=== PATIENT | female | born 1940 | race Caucasian/White ===

== ENCOUNTER 2017-04-06 10:31 | Emergency (ER) | payer MEDICARE, BC ==
[2017-04-06] MEDS ORDERED: Sulfamethoxazole/Trimethoprim 800-160 MG Tab ONE (10:45)
[2017-04-06 14:09] VITALS: BP 153/75
--- NOTE | 2017-04-06 18:31 | CR ---
DATE OF SERVICE: 04/06/2017 CLINICAL DATA: Chest congestion. AP PORTABLE CHEST Comparison is made to a prior exam dated 08/20/2016. The patient is status post median sternotomy. The heart is enlarged. The pulmonary vasculature does appear prominent with some cephalization of flow consistent with pulmonary venous congestion. There is increased density in the left lung base consistent with basilar atelectasis or infiltrate. Pneumonia should be considered. There is blunting of the left costophrenic angle consistent with a small left pleural effusion. The exam is otherwise unchanged from the prior. [id number] [facility]
--- NOTE | 2017-04-07 05:56 | EDM.PDOC ---
ED HPI GENERAL MEDICAL PROBLEM - General Chief Complaint: Respiratory Problem Stated Complaint: congestion Time Seen by Provider: 04/06/17 10:35 Source of Information: Reports: Patient History Limitations: Reports: No Limitations - History of Present Illness INITIAL COMMENTS - FREE TEXT/NARRATIVE: This is a 77yo F here for chest congestion and cough. Patient states she has not been feeling well the past day or two. Patient denies any current fever or chills but states she had a fever at home. No sob or chest pain but a general feeling of being sick with sinus and chest congestion. Her is in the Hospital for pneumonia. Patient does have a history of COPD. 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 Generalized Pain Score (Numeric/FACES): 6 - Related Data Allergies Allergy/AdvReac Type Severity Reaction Status Date / Time codeine Allergy Other Verified 04/06/17 10:48 coumarin Allergy Bleeding Verified 04/06/17 10:49 Penicillins Allergy Hives Verified 04/06/17 10:49 Home Meds: Home Meds Acetaminophen [Tylenol] 325 mg PO Q6HR 02/18/16 [History] Acyclovir 400 mg PO DAILY 02/18/16 [History] Aspirin 81 mg PO DAILY 02/18/16 [History] Budesonide/Formoterol [Symbicort 160-4.5 MCG] 2 inh INH BID 02/18/16 [History] Calcium Carbonate/Vitamin D3 [Calcium 500 + Vit D 200 Caplet] 800 mg PO DAILY [History] Carvedilol 25 mg PO BID 02/18/16 [History] Digoxin 0.125 mcg PO DAILY 02/18/16 [History] Fluticasone Propionate [Flonase] 1 spray INH DAILY 02/18/16 [History] Furosemide [Lasix] 40 mg PO BID 02/18/16 [History] Ipratropium/Albuterol Sulfate [Iprat-Albut 0.5-3(2.5) mg/3 ml] 1 dose INH TID [History] Multivitamin [Multi-Vitamin Daily] 1 tab PO DAILY 02/18/16 [History] Roflumilast [Daliresp] 500 mcg PO DAILY 02/18/16 [History] Spironolactone [Aldactone] 25 mg PO ASDIRECTED 02/18/16 [History] Past Medical History HEENT History: Reports: Allergic Rhinitis, Cataract, Hard of Hearing Cardiovascular History: Reports: Heart Valve Replacement, Stents, Other (See Below) Other Cardiovascular History: endarterectomy Respiratory History: Reports: SOB, Other (See Below) Other Respiratory History: has had cough and sob x 6 days Gastrointestinal History: Reports: Cholelithiasis Other Gastrointestinal History: 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 (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) Other OB/BYN History: hysterectomy Endocrine/Metabolic History: Reports: Osteopenia Oncologic (Cancer) History: Reports: Breast - Infectious Disease History Infectious Disease History: Reports: Chicken Pox, Measles, Mumps, Rubella - Past Surgical History Cardiovascular Surgical History: Reports: Valve Replacement GI Surgical History: Reports: Appendectomy, Cholecystectomy Endocrine Surgical History: Reports: None Oncologic Surgical History: Reports: Mastectomy Social & Family History - Family History Cardiac: Reports: NM Neurological: Reports: Alzheimers Disease Endocrine/Metabolic: Reports: Diabetes, Gestational Immunologic: Reports: None Oncologic: Reports: Breast - Tobacco Use Smoking Status *Q: Former Smoker Years of Tobacco use: 30 Packs/Tins Daily: 1 Used Tobacco, but Quit: Yes Month Tobacco Last Used: Nov Second Hand Smoke Exposure: No - Caffeine Use Caffeine Use: Reports: Coffee, Tea - Recreational Drug Use Recreational Drug Use: No ED ROS GENERAL - Review of Systems Review Of Systems: ROS reveals no pertinent complaints other than HPI. ED EXAM, GENERAL - Physical Exam Exam: See Below Exam Limited By: No Limitations General Appearance: Alert, WD/WN, No Apparent Distress Eye Exam: Bilateral Eye: EOMI Ears: Normal External Exam Nose: Normal Inspection Throat/Mouth: Normal Inspection Head: Atraumatic, Normocephalic Neck: Normal Inspection, Supple, Non-Tender, Full Range of Motion Respiratory/Chest: No Respiratory Distress, Lungs Clear, Wheezing Cardiovascular: Normal Peripheral Pulses GI/Abdominal: Normal Bowel Sounds Extremities: Normal Inspection Neurological: Alert, Oriented, CN II-XII Intact Psychiatric: Normal Affect, Normal Mood Course - Vital Signs Last Recorded V/S: Last Vital Signs Temp 37.1 C 04/06/17 14:06 Pulse 75 04/06/17 14:06 Resp 18 04/06/17 14:06 BP 153/75 H 04/06/17 14:06 Pulse Ox 100 04/06/17 14:06 - Orders/Labs/Meds Labs: Laboratory Tests 04/06/17 04/06/17 Range/Units 10:56 11:11 WBC 11.3 H D (4.0-11.0) K/uL RBC 3.76 L (3.80-5.80) M/uL Hgb 11.5 (11.5-16.5) g/dL Hct 35.2 L (37.0-47.0) % MCV 94 (76-96) fL MCH 30.6 (27.0-32.0) pg MCHC 32.7 (31.0-35.0) g/dL RDW 14.3 (11.0-16.0) % Plt Count 127 L D (150-500) K/uL MPV 10.3 H (6.0-10.0) fL Neut % (Auto) 81.6 H (45.0-70.0) % Lymph % (Auto) 6.1 L (20.0-40.0) % [place] % (Auto) 9.9 (3.0-10.0) % Eos % (Auto) 2.1 (1.0-5.0) % Baso % (Auto) 0.3 (0.0-0.5) % Neut # (Auto) 9.23 H (2.00-7.50) K/uL Lymph # (Auto) 0.69 L (1.50-4.00) K/uL [place] # (Auto) 1.12 H (0.20-0.80) K/uL Eos # (Auto) 0.24 (0.04-0.40) K/uL Baso # (Auto) 0.03 (0.02-0.10) K/uL Sodium 137 (136-145) mmol/L Potassium 3.3 L (3.5-5.1) mmol/L Chloride 98 (98-107) mmol/L Carbon Dioxide 32.9 H (21.0-32.0) mmol/L Anion Gap 9.4 (5.0-15.0) mmol/L BUN 33 H D (8-26) mg/dL Creatinine 1.42 H (0.55-1.02) mg/dL Est Cr Clr Drug Dosing TNP Estimated GFR (MDRD) 36 L (>60) MLS/MIN BUN/Creatinine Ratio 23.2 (6-25) Glucose 124 H D (74-100) mg/dL Calcium 8.7 (8.5-10.1) mg/dL Total Bilirubin 0.8 (0.0-1.0) mg/dL AST 24 (15-37) U/L ALT 37 (12-78) U/L Alkaline Phosphatase 43 L (46-116) U/L B-Natriuretic Peptide 1571 H (0-450) pg/mL Total Protein 6.9 (6.4-8.2) g/dL Albumin 3.4 (3.4-5.0) g/dL Globulin 3.5 (2.2-4.2) g/dL Albumin/Globulin Ratio 1.0 (0.8-2.0) Departure - Departure Time of Disposition: 11:30 Disposition: Home, Self-Care 01 Condition: good Clinical Impression: Chest congestion, Cough - Discharge Information Instructions: Chronic Obstructive Pulmonary Disease Exacerbation, [id number] , Acute Bronchitis, [id number], Upper Respiratory Infection, Adult, Easy-to- Read, Heart Failure, [id number], Heart Failure Referrals: PCP,None [Primary Care Provider] - Forms: ED Department Discharge - Problem List Review Problem List Initiated/Reviewed/Updated: Yes - Assessment/Plan Plan: Counseled on supportive care and management. Discussed use of antibiotics and side effects and for close monitoring and f/u if symptoms persist or worsen to return to the ER or in clinic for evaluation.
== END 2017-04-06 11:55 | disposition home or self-care (01) ==
LOC: LB.ED 10:31
DX: R09.89 Other specified symptoms and signs involving the circulatory and respiratory systems (principal); R05 Cough; R06.02 Shortness of breath; Z88.5 Allergy status to narcotic agent; Z88.0 Allergy status to penicillin; Z88.8 Allergy status to other drugs, medicaments and biological substances; Z79.82 Long term (current) use of aspirin; Z79.899 Other long term (current) drug therapy; Z95.2 Presence of prosthetic heart valve; Z90.49 Acquired absence of other specified parts of digestive tract; Z87.891 Personal history of nicotine dependence
CPT/HCPCS: 36415; 71010; 80053; 83880; 85025; 99283; A9270

== ENCOUNTER 2017-12-12 08:43 | Day surgery (SDC) | payer MEDICARE, BC ==
[~2017-12-12 08:43] MED LIST: Metoclopramide 10 MG/2 ML SDV IV PRN; Sodium Chloride 0.9% 1,000 ML IV SCH; Sodium Chloride 0.9% 10 ML Syringe FLUSH PRN
[2017-12-12] MEDS ORDERED: Propofol 200 MG/20 ML SDV ONE (10:50)
[2017-12-12 11:37] VITALS: BP 139/69
--- NOTE | 2017-12-12 17:20 | OR ---
DATE OF OPERATION: 12/12/2017 PREOPERATIVE DIAGNOSIS: Screening colonoscopy. POSTOPERATIVE DIAGNOSIS: Normal colonoscopy. OPERATION: Screening colonoscopy. COMPLICATIONS: None. DRAINS: None. SPECIMENS: None. ESTIMATED BLOOD LOSS: Zero. ANESTHESIA: General propofol anesthesia. INDICATION: Ms. Willett is a 77-year-old female here for her 10 yearly screening colonoscopy. She is currently asymptomatic and of average risk. The above-mentioned procedure was explained. The risks, benefits, and complications were explained. The patient understood and agreed, and she was brought to the operating room. DESCRIPTION OF PROCEDURE: The patient was brought to the operating room, placed in a left lateral decubitus position on the operating room table. Satisfactory general propofol anesthesia was administered. We began by performing a rectal examination which was within normal limits. There was some perineal descent and some slightly hypotensive anal sphincter, but this was within normal limits. Next, I placed the endoscope by finger introduction into the rectum and subsequently advanced to the level of the cecum. We then evaluated the mucosa on withdrawal. The cecum was identified by the appendiceal orifice, the cecal strap, and the ileocecal valve. Next, careful evaluation of mucosa revealed no significant abnormalities. No telangiectasias, polyps, neoplastic growths, or diverticula were identified. The remainder of the colon appeared normal. Next, we performed a retroflexion maneuver in the rectum. This was within normal limits. Next, I decompressed the colon, removed the endoscope. The patient tolerated procedure well. There were no complications. Instrument count was correct. CHEN/ARAM /[id number]
== END 2017-12-12 12:20 | disposition home or self-care (01) ==
LOC: LB.SDS 08:43
PROVIDERS: ATTEND Surgery
DX: Z12.11 Encounter for screening for malignant neoplasm of colon (principal); M19.90 Unspecified osteoarthritis, unspecified site; G45.1 Carotid artery syndrome (hemispheric); J44.9 Chronic obstructive pulmonary disease, unspecified; I50.9 Heart failure, unspecified; E78.5 Hyperlipidemia, unspecified; M81.0 Age-related osteoporosis without current pathological fracture; J30.2 Other seasonal allergic rhinitis; Z95.2 Presence of prosthetic heart valve; Z88.5 Allergy status to narcotic agent; Z88.8 Allergy status to other drugs, medicaments and biological substances; Z88.0 Allergy status to penicillin; Z88.2 Allergy status to sulfonamides; Z88.6 Allergy status to analgesic agent; Z79.899 Other long term (current) drug therapy; Z79.82 Long term (current) use of aspirin; Z79.51 Long term (current) use of inhaled steroids; Z90.49 Acquired absence of other specified parts of digestive tract; Z90.10 Acquired absence of unspecified breast and nipple; Z98.890 Other specified postprocedural states; Z90.710 Acquired absence of both cervix and uterus; Z96.659 Presence of unspecified artificial knee joint; Z90.722 Acquired absence of ovaries, bilateral; Z87.891 Personal history of nicotine dependence; Z85.3 Personal history of malignant neoplasm of breast
CPT/HCPCS: J2704

== ENCOUNTER 2018-02-10 18:05 | Inpatient (IN) | payer MEDICARE, BC ==
[2018-02-10] MEDS ORDERED: cefTRIAXone 1 GM in Sodium Chloride 0.9% 50 ML IV SCH (19:10)
[2018-02-10] MEDS ORDERED: Azithromycin 500 MG Tab ONE (20:09)
[2018-02-10] MEDS ORDERED: Aspirin 81 MG Tab.EC ONE (20:09)
[2018-02-10] MEDS: Azithromycin 250 MG Tab PO SCH (20:10)
[2018-02-10] MEDS: Aspirin 81 MG Tab.Chew PO SCH (20:10)
[2018-02-10] MEDS: Albuterol/Ipratropium 3.0-0.5 MG/3 ML Neb Soln NEB SCH ×2 (23:23→23:30)
[2018-02-11] MEDS: Sodium Chloride 0.9% 10 ML Syringe FLUSH SCH ×2 (07:50→20:06)
[2018-02-11] MEDS: Carvedilol 25 MG Tab PO SCH ×2 (07:50→20:02)
[2018-02-11] MEDS ORDERED: Furosemide 40 MG Tab PO SCH (08:00)
[2018-02-11] MEDS ORDERED: Digoxin 125 MCG Tab PO SCH (08:00)
[2018-02-11] MEDS: predniSONE 20 MG Tab PO SCH (08:11)
[2018-02-11] MEDS: Azithromycin 250 MG Tab PO SCH (08:13)
[2018-02-11] MEDS: Albuterol/Ipratropium 3.0-0.5 MG/3 ML Neb Soln NEB SCH ×4 (08:13→21:14)
[2018-02-11] MEDS: Roflumilast 500 MCG Tab PO SCH (08:13)
[2018-02-11] MEDS: Acyclovir 400 MG Tab PO SCH (08:14)
[2018-02-11] MEDS: Heparin Sodium 5,000 UNITS/0.5 ML Syringe SUBCUT SCH ×2 (08:42→20:03)
--- NOTE | 2018-02-11 10:34 | PN ---
DATE OF VISIT: 02/11/2018 SUBJECTIVE: A 78-year-old female who I am resuming care for this morning after she was admitted last evening with a left lower lobe pneumonia on top of her COPD. The patient states that she had not been feeling well for about a week prior to admission and the day of admission. She developed a fever up to 101 and presented to the emergency room with worsening shortness of breath. She did have a cough that was really not productive. No travel history. No one else sick at home and no pets at home. She does have a history of COPD, and about a month earlier, was on Levaquin for "bronchitis." Prior to that she had been on antibiotics last year, on Cipro and Levaquin. At baseline, she does quite well. She is able to push her around in a wheelchair without much difficulty. She has not been on prednisone for quite some time due to herpetic eye infection last summer. She states she feels better this morning than she did when she came in last night. She still has a cough and feels very tired. Otherwise, no other complaints. OBJECTIVE: VITAL SIGNS: Reveal a blood pressure 140/90, pulse is 91, respirations 20, O2 sats 99% on room air, temperature 98.4. Weight is 128 pounds. HEENT: Really unremarkable. There is no adenopathy or thyromegaly. CHEST: Reveals decreased breath sounds bilaterally, but with considerable crackles in the left base and with some end-expiratory wheezes. Cough sounds very productive. CARDIAC: Reveals a regular rate and rhythm. No gallop or rub. There is a 2/6 systolic ejection murmur, but no diastolic murmur. No gallop. JVD is flat. No pedal edema. ABDOMEN: Benign. EXAM: Deferred. EXTREMITIES: Lower extremity, there is no edema. There is no calf or thigh tenderness to palpation. LABORATORY DATA: From admission revealed a leukocytosis at 15.5 with a left shift. Hemoglobin 11.1, platelet count 146,000. Electrolytes were normal with the exception of a creatinine of 1.54, BUN of 47. Urinalysis was benign. Chest x-ray reveals flattened diaphragms consistent with COPD with a left lower lobe infiltrate. IMPRESSION: 1. Left lower lobe infiltrate with chronic obstructive pulmonary disease. 2. Chronic obstructive pulmonary disease. 3. Chronic renal insufficiency, stage 3. 4. History of left eye herpetic infection. 5. 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 6. Hypertension. PLAN: 1. The patient will continue on azithromycin and Rocephin for her pneumonia. Good pulmonary toilet with spirometry and we do not have an Acapella here. We will try and obtain a sputum culture for analysis due to her numerous antibiotic use in the past. Continue with nebs q.i.d. and oral prednisone. 2. We will hold her Lasix for 24-48 hours due to her mildly worsened renal insufficiency, which is most likely prerenal. No nonsteroidals. 3. Deep vein thrombosis prophylaxis with subcu heparin due to her renal insufficiency. 4. Hypertension. Continue her home antihypertensive medications. 5. History of herpetic eye infection. No evidence of any recurrence currently. Continue on her acyclovir and will need to watch closely since she is on prednisone. BERNARDO/ARAM /[id number] ARNALDO
[2018-02-11] MEDS: cefTRIAXone 1 GM in Sodium Chloride 0.9% 50 ML IV SCH (10:39)
--- NOTE | 2018-02-11 11:00 | CR ---
PA AND LATERAL CHEST, 02/10/18 Comparison id made to a prior exam dated 04/06/17. The patient is status post median sternotomy. The heart is mildly enlarged. It is unchanged from the prior exam. There is calcification of the aortic arch. There is a poorly defined density in the left lung base consistent with basilar atelectasis or infiltrate. Pneumonia is suspected. There is slight blunting of the left costophrenic angle posteriorly on the lateral view consistent with small left pleural effusion. The exam is otherwise unchanged from the prior. [id number] [facility]
[2018-02-11] MEDS ORDERED: LORazepam 0.5 MG Tab PO PRN (17:24)
[2018-02-11] MEDS ORDERED: Heparin Sodium 5,000 Units/ML Vial ONE (19:54)
[2018-02-11] MEDS: Aspirin 81 MG Tab.Chew PO SCH (20:01)
[2018-02-12] MEDS: Albuterol/Ipratropium 3.0-0.5 MG/3 ML Neb Soln NEB SCH ×2 (00:22→05:33)
[2018-02-12] MEDS: Sodium Chloride 0.9% 10 ML Syringe FLUSH SCH (07:19)
[2018-02-12 07:21] VITALS: BP 149/77
[2018-02-12] MEDS: predniSONE 20 MG Tab PO SCH (07:37)
[2018-02-12] MEDS: Roflumilast 500 MCG Tab PO SCH (07:37)
[2018-02-12] MEDS: Carvedilol 25 MG Tab PO SCH (07:37)
[2018-02-12] MEDS: Azithromycin 250 MG Tab PO SCH (07:38)
[2018-02-12] MEDS: Acyclovir 400 MG Tab PO SCH (07:40)
[2018-02-12] MEDS ORDERED: Heparin Sodium 5,000 Units/ML Vial ONE (08:03)
--- NOTE | 2018-02-12 08:45 | DISCH ---
DATE OF DISCHARGE: 02/12/2018 DISCHARGE DIAGNOSES: 1. Left lower lobe pneumonia, community-acquired. 2. Mild dehydration with renal insufficiency. 3. Chronic obstructive pulmonary disease, severe. 4. History of left eye herpetic infection. 5. History of aortic and mitral valve replacement. 6. Hypertension. PROCEDURES THIS ADMISSION: None. HOSPITAL COURSE: A 78-year-old female was admitted with shortness of breath and fever and chest x-ray revealed a left lower lobe infiltrate. White count was elevated at 15,000. The patient was started on Rocephin and azithromycin, and she rapidly defervesced. The patient's breathing improved. Sputum culture was sent and is pending at the time of this dictation. The patient was up ambulating within the room and was started on prednisone on admission and wheezing markedly improved. Since patient felt she was at baseline, she will be discharged to home on a course of azithromycin and prednisone taper. The patient was mildly dehydrated on admission and creatinine mildly increased from her baseline of stage 3 chronic kidney disease. This stabilized. Vital signs were stable. The patient will resume her Lasix upon discharge. MEDICATIONS UPON DISCHARGE: 1. Zithromax 500 mg daily for 7 days. 2. Aspirin 81 mg daily. 3. DuoNeb 1 q.6 hours. 4. Coreg 25 mg b.i.d. 5. Roflumilast 500 mg daily. 6. Lasix 40 mg b.i.d. 7. Prednisone 40 mg daily for 3 days, 20 mg daily for 5 days, 10 mg daily for 5 days. 8. Acyclovir 400 mg daily. PLAN: The patient is on no added salt diet, up ambulating and without difficulty. The patient will have follow up in the clinic next week. She is to report any fevers or worsening shortness of breath. BERNARDO/ARAM /[id number] ARNALDO
[2018-02-12] MEDS: Heparin Sodium 5,000 UNITS/0.5 ML Syringe SUBCUT SCH (10:03)
[2018-02-12] MEDS: cefTRIAXone 1 GM in Sodium Chloride 0.9% 50 ML IV SCH (10:03)
== END 2018-02-12 11:08 | disposition home or self-care (01) | DRG 194 ==
LOC: LB.ED 18:05 → UNDOADMIN 19:00 → LB.MS 19:00
PROVIDERS: ADMIT Family Medicine; ATTEND Internal Medicine
DX: J18.9 Pneumonia, unspecified organism (principal); J44.0 Chronic obstructive pulmonary disease with (acute) lower respiratory infection; I13.0 Hypertensive heart and chronic kidney disease with heart failure and stage 1 through stage 4 chronic kidney disease, or unspecified chronic kidney disease; E86.0 Dehydration; J44.9 Chronic obstructive pulmonary disease, unspecified; N18.3 Chronic kidney disease, stage 3 (moderate); R06.02 Shortness of breath; R05 Cough; R50.9 Fever, unspecified; Z95.2 Presence of prosthetic heart valve; I50.9 Heart failure, unspecified; Z79.82 Long term (current) use of aspirin; Z88.5 Allergy status to narcotic agent; Z88.0 Allergy status to penicillin; Z88.2 Allergy status to sulfonamides; Z88.8 Allergy status to other drugs, medicaments and biological substances
CPT/HCPCS: 36415; 71046; 80048; 80162; 81001; 85025; 87070; 87205; 99284; A9270-GY; J0696; J1644-GY; J7050; J7620

== ENCOUNTER 2018-08-03 16:20 | Inpatient (IN) | payer MEDICARE, BC ==
[2018-08-03] MEDS: Sodium Chloride 0.9% 1,000 ML IV SCH (17:30)
[2018-08-03] MEDS: Levofloxacin/Dextrose 5%-Water 500 MG in Premix Bag 1 BAG IV SCH (17:34)
[2018-08-03] MEDS ORDERED: Acetaminophen 500 MG Tab PO PRN (17:48)
--- NOTE | 2018-08-03 18:20 | PCM.HP ---
H&P History of Present Illness - General Date of Service: 08/03/18 Admit Problem/Dx: left lower lobe infiltrate Source of Information: Patient History Limitations: Reports: No Limitations - History of Present Illness Initial Comments - Free Text/Narative: 78 yr female admit for pulmonary infiltrate, pneumonia. She has tried oral antibiotic at home with no improvement. She does have COPD and is using her duo -neb qid and Symbicort inhaler bid. She is weak, fatigued, short of breath with her coughing and having some bronchospasm. She does live alone in the apartment complex in [facility]. - Related Data Allergies/Adverse Reactions: Allergies Allergy/AdvReac Type Severity Reaction Status Date / Time codeine Allergy Other Verified 04/06/17 10:48 Penicillins Allergy Hives Verified 04/06/17 10:49 warfarin [From Coumadin] AdvReac Bleeding Verified 02/12/18 06:05 Home Medications: Home Meds Acyclovir 400 mg PO DAILY 02/18/16 [History] Aspirin 81 mg PO DAILY 02/18/16 [History] Budesonide/Formoterol [Symbicort 160-4.5 MCG] 2 inh INH BID 02/18/16 [History] Calcium Carbonate/Vitamin D3 [Calcium 500-Vit D3 200 Caplet] 800 mg PO DAILY 08/25 [History] Carvedilol 25 mg PO BID 02/18/16 [History] Fluticasone Propionate [Flonase] 1 spray INH DAILY 02/18/16 [History] Ipratropium/Albuterol Sulfate [Iprat-Albut 0.5-3(2.5) mg/3 ml] 1 dose INH TID [History] Multivitamin [Multi-Vitamin Daily] 1 tab PO DAILY 02/18/16 [History] Roflumilast [Daliresp] 500 mcg PO DAILY 02/18/16 [History] Spironolactone [Aldactone] 25 mg PO ASDIRECTED 02/18/16 [History] Acetaminophen [Pain Relief Extra Strength] 500 mg PO Q6HR PRN 02/11/18 [History] Acyclovir [IJP: Acyclovir] 400 mg PO DAILY tablet 02/12/18 [Rx] Albuterol/Ipratropium [DuoNeb 3.0-0.5 MG/3 ML] 3 ml NEB Q6H neb 02/12/18 [Rx] Aspirin 81 mg PO BEDTIME tab.chew 02/12/18 [Rx] Azithromycin [Zithromax] 500 mg PO DAILY 7 Days #7 tablet 02/12/18 [Rx] Carvedilol [Coreg] 25 mg PO BID tablet 02/12/18 [Rx] Furosemide [Lasix] 40 mg PO BIDDIURETIC tablet 02/12/18 [Rx] Prednisone [IJD: predniSONE] 40 mg PO DAILY #14 tablet 02/12/18 [Rx] Roflumilast [Daliresp] 500 mcg PO DAILY tablet 02/12/18 [Rx] Past Medical History HEENT History: Reports: Allergic Rhinitis, Cataract, Hard of Hearing Cardiovascular History: Reports: Heart Valve Replacement, Stents, Other (See Below) Other Cardiovascular History: endarterectomy Respiratory History: Reports: SOB, Other (See Below) Other Respiratory History: has had cough and sob x 6 days Gastrointestinal History: Reports: Cholelithiasis Other Gastrointestinal History: appy Genitourinary History: Reports: UTI, Recurrent [employer] History: Reports: , Other (See Below) Other OB/BYN History: hysterectomy Musculoskeletal History: Reports: Arthritis, Fracture Other Musculoskeletal History: Fx L tib fib 1980 Endocrine/Metabolic History: Reports: Osteoporosis Oncologic (Cancer) History: Reports: Breast - Infectious Disease History Infectious Disease History: Reports: Chicken Pox, Measles, Mumps - Past Surgical History HEENT Surgical History: Reports: Other (See Below) Other HEENT Surgeries/Procedures: CEA February 2013 Cardiovascular Surgical History: Reports: Valve Replacement GI Surgical History: Reports: Appendectomy, Cholecystectomy Female Surgical History: Reports: Hysterectomy Endocrine Surgical History: Reports: None Musculoskeletal Surgical History: Reports: Knee Replacement Oncologic Surgical History: Reports: Mastectomy Social & Family History - Family History Family Medical History: Noncontributory Cardiac: Reports: NE Neurological: Reports: Alzheimers Disease Endocrine/Metabolic: Reports: Diabetes, Gestational Immunologic: Reports: None Oncologic: Reports: Breast - Caffeine Use Caffeine Use: Reports: Coffee Caffeine Use Comment: 3 cups a day H&P Review of Systems - Review of Systems: Review Of Systems: See Below General: Reports: Fever, Malaise, Weakness, Fatigue HEENT: Reports: No Symptoms Pulmonary: Reports: Shortness of Breath, Cough, Sputum Cardiovascular: Reports: Dyspnea on Exertion, Other (Hypertension, hyperlipidemia). Denies: Chest Pain, Edema Gastrointestinal: Reports: No Symptoms Genitourinary: Reports: No Symptoms Musculoskeletal: Reports: Other (osteoporosis, arthritis) Skin: Reports: Other (Hx of herpes simplex and takes Axyclovir daily) Psychiatric: Reports: No Symptoms Neurological: Reports: No Symptoms Hematologic/Lymphatic: Reports: No Symptoms Immunologic: Reports: Seasonal Allergy Exam - Exam Exam: See Below - Vital Signs Vital Signs: Last Vital Signs Temp 99.3 F 08/03/18 16:39 Pulse 83 08/03/18 16:39 Resp 18 08/03/18 16:39 BP 124/56 L 08/03/18 16:39 Pulse Ox 97 08/03/18 16:39 - Exam General: Alert, Oriented, Cooperative HEENT: PERRLA, Mucosa Moist & [place], Glasses Neck: Supple, Trachea Midline Lungs: Decreased Breath Sounds (to bases), Rhonchi (mid lung raymond), Wheezing Cardiovascular: Regular Rate, Regular Rhythm GI/Abdominal Exam: Soft, Non-Tender Extremities: Non-Tender, No Pedal Edema Skin: Warm, Dry Neuro Extensive - Mental Status: Alert, Oriented x3, Normal Cognition Neuro Extensive - Motor, Sensory, Reflexes: Normal Gait, Other (kyphosis) Psychiatric: Alert, Normal Affect, Normal Mood - Patient Data Lab Results Last 24 hrs: Laboratory Results - last 24 hr 08/03/18 08/03/18 Range/Units 16:28 16:28 WBC 8.9 (4.0-11.0) K/uL RBC 3.67 L (3.80-5.80) M/uL Hgb 11.0 L (11.5-16.5) g/dL Hct 33.7 L (37.0-47.0) % MCV 92 (76-96) fL MCH 30.0 (27.0-32.0) pg MCHC 32.6 (31.0-35.0) g/dL RDW 14.5 (11.0-16.0) % Plt Count 164 D (150-500) K/uL MPV 10.3 H (6.0-10.0) fL Neut % (Auto) 80.8 H (45.0-70.0) % Lymph % (Auto) 7.4 L (20.0-40.0) % [place] % (Auto) 10.0 (3.0-10.0) % Eos % (Auto) 1.5 (1.0-5.0) % Baso % (Auto) 0.3 (0.0-0.5) % Neut # (Auto) 7.17 (2.00-7.50) K/uL Lymph # (Auto) 0.66 L (1.50-4.00) K/uL [place] # (Auto) 0.89 H (0.20-0.80) K/uL Eos # (Auto) 0.13 (0.04-0.40) K/uL Baso # (Auto) 0.03 (0.02-0.10) K/uL Sodium 140 (136-145) mmol/L Potassium 3.9 (3.5-5.1) mmol/L Chloride 100 (98-107) mmol/L Carbon Dioxide 31.5 (21.0-32.0) mmol/L Anion Gap 12.4 (5.0-15.0) mmol/L BUN 32 H (8-26) mg/dL Creatinine 1.50 H (0.55-1.02) mg/dL Est Cr Clr Drug Dosing TNP Estimated GFR (MDRD) 34 L (>60) MLS/MIN BUN/Creatinine Ratio 21.3 (6-25) Glucose 136 H D (74-100) mg/dL Calcium 8.6 (8.5-10.1) mg/dL Total Bilirubin 0.9 (0.0-1.0) mg/dL AST 24 (15-37) U/L ALT 30 (12-78) U/L Alkaline Phosphatase 55 (46-116) U/L Total Protein 7.1 (6.4-8.2) g/dL Albumin 3.1 L (3.4-5.0) g/dL Globulin 4.0 (2.2-4.2) g/dL Albumin/Globulin Ratio 0.8 (0.8-2.0) Result Diagrams: 08/03/18 16:28 08/03/18 16:28 - Problem List (1) COPD (chronic obstructive pulmonary disease) SNOMED Code(s): 24660650 ICD Code: J44.9 - CHRONIC OBSTRUCTIVE PULMONARY DISEASE, UNSPECIFIED Status : Acute Current Visit: No Onset Date: ~02/09/18 Problem Details: 4/2/18 - LLL pneumonia & COPD (2) Left lower lobe pneumonia SNOMED Code(s): 507352388 ICD Code: J18.1 - LOBAR PNEUMONIA, UNSPECIFIED ORGANISM Status: Acute Current Visit: No Onset Date: ~02/09/18 Problem Details: 02/09/18 - LLL pneumonia & COPD Problem List Initiated/Reviewed/Updated: Yes Orders Last 24hrs: Active Orders 24 hr Category Date Time Status Oxygen Therapy [RC] PRN Care 08/03/18 17:11 Active Up With Assistance [RC] ASDIRECTED Care 08/03/18 17:10 Active Vital Signs [RC] Q4H Care 08/03/18 17:10 Active Regular Diet [DIET] Diet 08/03/18 Dinner Ordered Acetaminophen [Tylenol Extra Strength] Med 08/03/18 17:48 Ordered 500 mg PO Q6HR PRN Acyclovir [Zovirax] Med 08/04/18 08:00 Ordered 400 mg PO DAILY Albuterol/Ipratropium [DuoNeb 3.0-0.5 MG/3 ML] Med 08/03/18 18:00 Ordered 3 ml NEB Q6H Aspirin Med 08/03/18 20:00 Ordered 81 mg PO BEDTIME Budesonide/Formoterol [Symbicort 160-4.5 MCG] Med 08/03/18 20:00 Ordered 2 inh INH BID Calcium Carbonate/Vitamin D3 [Calcium 500-Vit D3 200 Med 08/04/18 08:00 Ordered Caplet] 600 mg PO TID Carvedilol [Coreg] Med 08/03/18 20:00 Ordered 25 mg PO BID Fluticasone Propionate [Flonase] Med 08/04/18 08:00 Ordered DOSE gm ANGEL DAILY Furosemide [Lasix] Med 08/04/18 08:00 Ordered 40 mg PO BIDDIURETIC Levalbuterol HCl [Xopenex] Med 08/03/18 18:12 Ordered 1.25 mg NEB Q4HR PRN Levofloxacin/Dextrose 5%-Water [Levaquin in D5W 500 MG/ Med 08/03/18 17:00 Active 100 ML] 500 mg Premix Bag 1 bag IV Q24H Multivitamin [Multi-Vitamin Daily] Med 08/04/18 08:00 Ordered 1 tab PO DAILY Sodium Chloride 0.9% [Normal Saline] 1,000 ml Med 08/03/18 17:15 Active IV ASDIRECTED Spironolactone [Aldactone] Med 08/04/18 08:00 Ordered 25 mg PO ASDIRECTED guaiFENesin [Robitussin] Med 08/03/18 18:14 Ordered 200 mg PO QID PRN Medication Orders Acetaminophen (Tylenol Extra Strength) 500 mg PO Q6HR PRN PRN Reason: Pain Acyclovir (Zovirax) 400 mg PO DAILY [facility] Albuterol/Ipratropium (Duoneb 3.0-0.5 Mg/3 Ml) 3 ml NEB Q6H [facility] Aspirin (Aspirin) 81 mg PO BEDTIME [facility] Carvedilol (Coreg) 25 mg PO BID [facility] Fluticasone Propionate (Flonase) gm ANGEL DAILY [facility] Furosemide (Lasix) 40 mg PO BIDDIURETIC [facility] Guaifenesin (Robitussin) 200 mg PO QID PRN PRN Reason: Cough Levofloxacin/Dextrose 500 mg/ (Premix) 100 mls @ 100 mls/hr IV Q24H [facility] Last Admin: 08/03/18 17:34 Dose: 100 mls/hr Sodium Chloride (Normal Saline) 1,000 mls @ 75 mls/hr IV ASDIRECTED [facility] Last Admin: 08/03/18 17:30 Dose: 75 mls/hr Levalbuterol HCl (Xopenex) 1.25 mg NEB Q4HR PRN PRN Reason: Congestion Non-Formulary Medication (Budesonide/Formoterol [Symbicort 160-4.5 Mcg]) 2 inh INH BID [facility] Non-Formulary Medication (Calcium Carbonate/Vitamin D3 [Calcium 500-Vit D3 200 Caplet]) 600 mg PO TID [facility] Non-Formulary Medication (Multivitamin [Multi-Vitamin Daily]) 1 tab PO DAILY [facility] Spironolactone (Aldactone) 25 mg PO ASDIRECTED [facility] Assessment/Plan Comment:: Will start IV levofloxacin 500 mg for this pt. She does have creat of 1.55 and Egfr of 32 on 07-30-18. Chest x-ray on 06-29-18 shows left lung base consistant with infiltrate. The heart size is at the upper limit of normal. Will follow-up with echocardiogram. No pneumothorax and no pleural effusion. Will continue with duo-neb qid, xopenex every 4-6 hr prn and Symbicort inhaler bid with guaifenesin every 4-6 hour as needed for cough.
[2018-08-03] MEDS ORDERED: Non-Formulary Medication 1 Each (Budesonide/Formoterol [Symbicort 160-4.5 Mcg] 2 INH) INH SCH (20:00)
[2018-08-03] MEDS: guaiFENesin 100 MG/5 ML Soln 10 ML UD Cup PO PRN (20:55)
[2018-08-04] MEDS: guaiFENesin 100 MG/5 ML Soln 10 ML UD Cup PO PRN ×2 (05:50→20:16)
[2018-08-04] MEDS: Albuterol 0.083% 2.5 MG/3 ML Neb Soln INH PRN (05:50)
[2018-08-04] MEDS ORDERED: Non-Formulary Medication 1 Each (Multivitamin [Multi-Vitamin Daily] 1 TAB) PO SCH (08:00)
[2018-08-04] MEDS ORDERED: [UNRECOGNIZED DRUG - OTHER] PO SCH (08:00)
[2018-08-04] MEDS ORDERED: Furosemide 40 MG Tab PO SCH (08:00)
[2018-08-04] MEDS ORDERED: VITAMIN D3 PO SCH (08:00)
[2018-08-04] MEDS ORDERED: CALCIUM CARBONATE PO SCH (08:00)
[2018-08-04] MEDS ORDERED: Spironolactone 25 MG Tab PO SCH (08:00)
[2018-08-04] MEDS ORDERED: Furosemide 40 MG/4 ML VIAL IVPUSH ONE (08:46)
[2018-08-04] MEDS: Fluticasone Propionate Nasal Spray 16 GM Bottle NAS SCH (09:00)
[2018-08-04] MEDS: Formoterol/Mometasone 200-5 MCG 8.8 GM Inhaler IH SCH ×2 (09:01→20:15)
[2018-08-04] MEDS: Calcium Carbonate/Vitamin D3 1500 MG-400 Units Tab PO SCH (09:03)
[2018-08-04] MEDS: Carvedilol 25 MG Tab PO SCH ×3 (09:03→20:15)
[2018-08-04] MEDS: Acyclovir 400 MG Tab PO SCH (09:03)
[2018-08-04] MEDS: Sodium Chloride 0.9% 1,000 ML IV SCH (09:04)
[2018-08-04] MEDS: Albuterol/Ipratropium 3.0-0.5 MG/3 ML Neb Soln NEB SCH ×5 (09:19→18:16)
[2018-08-04] MEDS: Aspirin 81 MG Tab.Chew PO SCH ×2 (09:25→20:15)
[2018-08-04] MEDS: prednisoLONE Acetate 1% Ophth Susp 5 ML Bottle EYERT SCH (11:30)
[2018-08-04] MEDS: Furosemide 40 MG Tab PO SCH (15:39)
[2018-08-04] MEDS: Levofloxacin/Dextrose 5%-Water 500 MG in Premix Bag 1 BAG IV SCH (16:33)
--- NOTE | 2018-08-04 17:39 | PCM.PN ---
- General Info Date of Service: 08/04/18 Admission Dx/Problem (Free Text): left lower lobe infiltrate Subjective Update: Pt states she is tired and feeling worn down. States she hasn't been sleeping well with this cough. She reports her is in the [facility] and her youngest son is living with her. He is in the process of moving home from [place]. Functional Status: Reports: Urinating, Incentive Spirometry - Review of Systems General: Reports: Fatigue, Malaise. Denies: Appetite HEENT: Reports: Glasses. Denies: Sore Throat Pulmonary: Reports: Shortness of Breath, Cough, Sputum, Wheezing Cardiovascular: Reports: Dyspnea on Exertion. Denies: Edema Gastrointestinal: Reports: Decreased Appetite. Denies: Abdominal Pain, Nausea, Vomiting Genitourinary: Reports: No Symptoms Skin: Reports: No Symptoms Neurological: Reports: No Symptoms Psychiatric: Reports: No Symptoms - Patient Data Vitals - Most Recent: Last Vital Signs Temp 99.0 F 08/04/18 13:00 Pulse 72 08/04/18 13:00 Resp 16 08/04/18 13:00 BP 133/62 08/04/18 13:00 Pulse Ox 93 L 08/04/18 13:00 Weight - Most Recent: 127 lb 9.6 oz I&O - Last 24 Hours: Intake & Output 08/04/18 08/04/18 08/04/18 06:59 14:59 22:59 Intake Total 720 Output Total 1450 Balance -730 Lab Results Last 24 Hours: Laboratory Results - last 24 hr 08/04/18 Range/Units 08:30 WBC 10.5 (4.0-11.0) K/uL RBC 3.47 L (3.80-5.80) M/uL Hgb 10.7 L (11.5-16.5) g/dL Hct 32.6 L (37.0-47.0) % MCV 94 (76-96) fL MCH 30.8 (27.0-32.0) pg MCHC 32.8 (31.0-35.0) g/dL RDW 14.6 (11.0-16.0) % Plt Count 140 L (150-500) K/uL MPV 10.6 H (6.0-10.0) fL Neut % (Auto) 83.4 H (45.0-70.0) % Lymph % (Auto) 6.4 L (20.0-40.0) % [place] % (Auto) 8.9 (3.0-10.0) % Eos % (Auto) 1.0 (1.0-5.0) % Baso % (Auto) 0.3 (0.0-0.5) % Neut # (Auto) 8.73 H (2.00-7.50) K/uL Lymph # (Auto) 0.67 L (1.50-4.00) K/uL [place] # (Auto) 0.93 H (0.20-0.80) K/uL Eos # (Auto) 0.10 (0.04-0.40) K/uL Baso # (Auto) 0.03 (0.02-0.10) K/uL Med Orders - Current: Current Medications Acetaminophen (Tylenol Extra Strength) 500 mg PO Q6HR PRN PRN Reason: Pain Last Admin: 08/04/18 09:10 Dose: 500 mg Acyclovir (Zovirax) 400 mg PO DAILY [facility] Last Admin: 08/04/18 09:03 Dose: 400 mg Albuterol (Proventil Neb Soln) 2.5 mg INH Q4H PRN PRN Reason: Congestion Last Admin: 08/04/18 05:50 Dose: 2.5 mg Albuterol/Ipratropium (Duoneb 3.0-0.5 Mg/3 Ml) 3 ml NEB Q6H [facility] Last Admin: 08/04/18 11:42 Dose: Not Given Aspirin (Aspirin) 81 mg PO BEDTIME [facility] Last Admin: 08/04/18 09:25 Dose: Not Given Calcium Carbonate (Caltrate 600+D 1500 Mg-400 Units) 1 tab PO DAILY [facility] Last Admin: 08/04/18 09:03 Dose: 1 tab Carvedilol (Coreg) 25 mg PO BID [facility] Last Admin: 08/04/18 09:25 Dose: Not Given Fluticasone Propionate (Flonase) 16 gm ANGEL DAILY [facility] Last Admin: 08/04/18 09:00 Dose: 2 inhalation Furosemide (Lasix) 40 mg PO DAILY [facility] Last Admin: 08/04/18 15:39 Dose: 40 mg Guaifenesin (Robitussin) 200 mg PO QID PRN PRN Reason: Cough Last Admin: 08/04/18 05:50 Dose: 200 mg Levofloxacin/Dextrose 500 mg/ (Premix) 100 mls @ 100 mls/hr IV Q24H [facility] Last Admin: 08/04/18 16:33 Dose: 100 mls/hr Sodium Chloride (Normal Saline) 1,000 mls @ 75 mls/hr IV ASDIRECTED [facility] Last Admin: 08/04/18 09:04 Dose: 75 mls/hr Mometasone Furoate/Formoterol Fumar (Dulera 200-5 Mcg) 2 puff IH BID [facility] Last Admin: 08/04/18 09:01 Dose: 2 puff Multivitamins/Minerals (Thera M Plus) 1 tab PO DAILY [facility] Prednisolone Acetate (Pred Forte 1% Ophth Susp) 1 ml EYERT DAILY [facility] Last Admin: 08/04/18 11:30 Dose: 1 drop Simvastatin (Zocor) 20 mg PO BEDTIME [facility] Spironolactone (Aldactone) 25 mg PO ASDIRECTED [facility] Zolpidem Tartrate (Ambien) 5 mg PO BEDTIME PRN PRN Reason: Insomnia Discontinued Medications Furosemide (Lasix) 40 mg PO BIDDIURETIC [facility] Last Admin: 08/04/18 13:59 Dose: Not Given Furosemide (Lasix) 40 mg IVPUSH NOW ONE Stop: 08/04/18 08:47 Last Admin: 08/04/18 09:24 Dose: 40 mg - Exam Quality Assessment: No: Supplemental Oxygen General: Alert, Oriented, Cooperative, No Acute Distress HEENT: Mucous Membr. Moist/[place] Neck: Supple, Trachea Midline. No: Lymphadenopathy Lungs: Crackles (bases), Rhonchi (mid thoracic lung raymond), Wheezing Cardiovascular: Regular Rate GI/Abdominal Exam: Soft, Non-Tender (Female) Exam: Deferred Back Exam: Normal Inspection, Other (kyphosis) Extremities: Normal Range of Motion, Non-Tender, No Pedal Edema, Normal Capillary Refill Peripheral Pulses: 2+: Dorsalis Pedis (L), Dorsalis Pedis (R) Skin: Warm, Dry Neurological: No New Focal Deficit Psy/Mental Status: Alert, Normal Affect, Normal Mood - Problem List & Annotations (1) COPD (chronic obstructive pulmonary disease) SNOMED Code(s): 41624726 Code(s): J44.9 - CHRONIC OBSTRUCTIVE PULMONARY DISEASE, UNSPECIFIED Status : Acute Current Visit: No Onset Date: ~02/09/18 Annotation/Comment:: - LLL pneumonia & COPD (2) Left lower lobe pneumonia SNOMED Code(s): 901310396 Code(s): J18.1 - LOBAR PNEUMONIA, UNSPECIFIED ORGANISM Status: Acute Current Visit: No Onset Date: ~02/09/18 Annotation/Comment:: 02/09/18 - LLL pneumonia & COPD - Problem List Review Problem List Initiated/Reviewed/Updated: Yes - My Orders Last 24 Hours: My Active Orders 08/03/18 17:00 Levofloxacin/Dextrose 5%-Water [Levaquin in D5W 500 MG/100 ML] 500 mg Premix Bag 1 bag IV Q24H 08/03/18 17:10 Up With Assistance [RC] ASDIRECTED Vital Signs [RC] Q4H 08/03/18 17:11 Oxygen Therapy [RC] PRN 08/03/18 17:15 Sodium Chloride 0.9% [Normal Saline] 1,000 ml IV ASDIRECTED 08/03/18 17:48 Acetaminophen [Tylenol Extra Strength] 500 mg PO Q6HR PRN 08/03/18 18:00 Albuterol/Ipratropium [DuoNeb 3.0-0.5 MG/3 ML] 3 ml NEB Q6H 08/03/18 18:14 guaiFENesin [Robitussin] 200 mg PO QID PRN 08/03/18 20:00 Aspirin 81 mg PO BEDTIME Carvedilol [Coreg] 25 mg PO BID 08/03/18 20:46 Albuterol [Proventil Neb Soln] 2.5 mg INH Q4H PRN 08/03/18 Dinner Regular Diet [DIET] 08/04/18 08:00 Acyclovir [Zovirax] 400 mg PO DAILY Calcium Carbonate/Vitamin D3 [Caltrate 600+D 1500 MG-400 Units] 1 tab PO DAILY Fluticasone Propionate [Flonase] 16 gm ANGEL DAILY Mometasone/Formoterol [Dulera 200-5 MCG] 2 puff IH BID Spironolactone [Aldactone] 25 mg PO ASDIRECTED 08/04/18 11:30 prednisoLONE acetate [Pred Forte 1% Ophth Susp] 1 ml EYERT DAILY 08/04/18 14:00 Furosemide [Lasix] 40 mg PO DAILY 08/04/18 20:00 Simvastatin [Zocor] 20 mg PO BEDTIME Zolpidem [Ambien] 5 mg PO BEDTIME PRN 08/05/18 08:00 BASIC METABOLIC PANEL,BMP [CHEM] Routine CBC WITH AUTO DIFF [HEME] Routine Multivitamins w-Iron/Ca/FA/Min [Thera M Plus] 1 tab PO DAILY 08/05/18 12:45 Echo Comp wo Cont [US] Routine - Plan Plan:: Will start IV levofloxacin 500 mg for this pt. She does have creat of 1.55 and Egfr of 32 on 07-30-18. Chest x-ray on 06-29-18 shows left lung base consistant with infiltrate. The heart size is at the upper limit of normal. Will follow-up with echocardiogram. No pneumothorax and no pleural effusion. Will continue with duo-neb qid, xopenex every 4-6 hr prn and Symbicort inhaler bid with guaifenesin every 4-6 hour as needed for cough. 08-04-18 Continue with levofloxacin. Chest x-ray recommend echocardiogram, will order to be completed tomorrow. Crackles noted to bases, will order Lasix 40 mg IV this am and continue with Lasix 40 mg po in afternoon. Will start I/O and incentive spirometer. Repeat CBC and BMP in am. Will start saline lock for fluids and continue with PO fluids and diet as tolerated. Will start Ambien to assist with sleep.
[2018-08-04] MEDS: Zolpidem 5 MG Tab PO PRN (20:16)
[2018-08-04] MEDS: Simvastatin 20 MG Tab PO SCH (20:16)
[2018-08-05] MEDS: Albuterol/Ipratropium 3.0-0.5 MG/3 ML Neb Soln NEB SCH ×4 (00:30→17:35)
[2018-08-05] MEDS: Albuterol 0.083% 2.5 MG/3 ML Neb Soln INH PRN ×2 (06:31→11:01)
[2018-08-05] MEDS: guaiFENesin 100 MG/5 ML Soln 10 ML UD Cup PO PRN (06:31)
[2018-08-05] MEDS: Multivitamins with Iron/Calcium/Folic Acid/Minerals Tab PO SCH (08:03)
[2018-08-05] MEDS: Acyclovir 400 MG Tab PO SCH (08:03)
[2018-08-05] MEDS: Calcium Carbonate/Vitamin D3 1500 MG-400 Units Tab PO SCH (08:03)
[2018-08-05] MEDS: Furosemide 40 MG Tab PO SCH (08:04)
[2018-08-05] MEDS: Carvedilol 25 MG Tab PO SCH ×2 (08:04→20:09)
[2018-08-05] MEDS: Fluticasone Propionate Nasal Spray 16 GM Bottle NAS SCH (08:05)
[2018-08-05] MEDS: Formoterol/Mometasone 200-5 MCG 8.8 GM Inhaler IH SCH ×2 (08:05→20:10)
[2018-08-05] MEDS: prednisoLONE Acetate 1% Ophth Susp 5 ML Bottle EYERT SCH (08:06)
[2018-08-05] MEDS ORDERED: Pantoprazole 40 MG in Sodium Chloride 0.9% 100 ML IV ONE (08:48)
[2018-08-05] MEDS: predniSONE 20 MG Tab PO SCH (09:19)
[2018-08-05] MEDS: Levofloxacin/Dextrose 5%-Water 500 MG in Premix Bag 1 BAG IV SCH (17:36)
[2018-08-05] MEDS: Simvastatin 20 MG Tab PO SCH (20:09)
[2018-08-05] MEDS: Zolpidem 5 MG Tab PO PRN (20:09)
[2018-08-05] MEDS: Aspirin 81 MG Tab.Chew PO SCH (20:10)
[2018-08-06] MEDS: Albuterol/Ipratropium 3.0-0.5 MG/3 ML Neb Soln NEB SCH ×3 (01:20→11:40)
[2018-08-06] MEDS: Albuterol 0.083% 2.5 MG/3 ML Neb Soln INH PRN (02:44)
[2018-08-06] MEDS: guaiFENesin 100 MG/5 ML Soln 10 ML UD Cup PO PRN (02:54)
[2018-08-06] MEDS ORDERED: Sodium Chloride 0.9% 10 ML Syringe FLUSH SCH (08:00)
[2018-08-06] MEDS ORDERED: Spironolactone 25 MG Tab PO SCH (08:00)
[2018-08-06] MEDS: Calcium Carbonate/Vitamin D3 1500 MG-400 Units Tab PO SCH (08:09)
[2018-08-06] MEDS: Carvedilol 25 MG Tab PO SCH (08:09)
[2018-08-06] MEDS: Multivitamins with Iron/Calcium/Folic Acid/Minerals Tab PO SCH (08:09)
[2018-08-06] MEDS: Acyclovir 400 MG Tab PO SCH (08:09)
[2018-08-06] MEDS: predniSONE 20 MG Tab PO SCH (08:09)
[2018-08-06] MEDS: Furosemide 40 MG Tab PO SCH (08:09)
[2018-08-06] MEDS: Formoterol/Mometasone 200-5 MCG 8.8 GM Inhaler IH SCH (08:10)
[2018-08-06] MEDS: prednisoLONE Acetate 1% Ophth Susp 5 ML Bottle EYERT SCH (08:10)
[2018-08-06] MEDS: Fluticasone Propionate Nasal Spray 16 GM Bottle NAS SCH (08:10)
--- NOTE | 2018-08-06 08:41 | PCM.PN ---
- General Info Date of Service: 08/05/18 Admission Dx/Problem (Free Text): left lower lobe infiltrate Subjective Update: States she feels about the same, but did get some sleep with the Ambien last night. Functional Status: Reports: Tolerating Diet, Urinating, Incentive Spirometry - Review of Systems General: Reports: Weakness, Fatigue, Appetite (improving) HEENT: Reports: Glasses, Sinus Congestion Pulmonary: Reports: Shortness of Breath, Cough, Sputum, Wheezing Cardiovascular: Reports: Dyspnea on Exertion. Denies: Edema Gastrointestinal: Reports: No Symptoms Genitourinary: Reports: Frequency Musculoskeletal: Reports: No Symptoms Skin: Reports: No Symptoms Neurological: Reports: No Symptoms Psychiatric: Reports: No Symptoms - Patient Data Vitals - Most Recent: Last Vital Signs Temp 97.7 F 08/06/18 08:00 Pulse 72 08/06/18 08:00 Resp 18 08/06/18 08:00 BP 139/87 08/06/18 08:00 Pulse Ox 98 08/06/18 08:00 Weight - Most Recent: 126 lb 6 oz I&O - Last 24 Hours: Intake & Output 08/05/18 08/06/18 08/06/18 22:59 06:59 14:59 Intake Total 975 300 Output Total 800 550 Balance 175 -250 Henrik Results Last 24 Hours: Microbiology 08/05/18 08:48 Occult Blood - Final Stool / Feces 08/03/18 Unknown MRSA Surveillance Culture - Final Nares, Right NO MRSA ISOLATED Med Orders - Current: Current Medications Acetaminophen (Tylenol Extra Strength) 500 mg PO Q6HR PRN PRN Reason: Pain Last Admin: 08/04/18 09:10 Dose: 500 mg Acyclovir (Zovirax) 400 mg PO DAILY [facility] Last Admin: 08/06/18 08:09 Dose: 400 mg Albuterol (Proventil Neb Soln) 2.5 mg INH Q4H PRN PRN Reason: Congestion Last Admin: 08/06/18 02:44 Dose: 2.5 mg Albuterol/Ipratropium (Duoneb 3.0-0.5 Mg/3 Ml) 3 ml NEB Q6H [facility] Last Admin: 08/06/18 06:11 Dose: 3 ml Aspirin (Aspirin) 81 mg PO BEDTIME [facility] Last Admin: 08/05/18 20:10 Dose: 81 mg Calcium Carbonate (Caltrate 600+D 1500 Mg-400 Units) 1 tab PO DAILY [facility] Last Admin: 08/06/18 08:09 Dose: 1 tab Carvedilol (Coreg) 25 mg PO BID [facility] Last Admin: 08/06/18 08:09 Dose: 25 mg Fluticasone Propionate (Flonase) 16 gm ANGEL DAILY [facility] Last Admin: 08/06/18 08:10 Dose: 2 sprays Furosemide (Lasix) 40 mg PO DAILY [facility] Last Admin: 08/06/18 08:09 Dose: 40 mg Guaifenesin (Robitussin) 200 mg PO QID PRN PRN Reason: Cough Last Admin: 08/06/18 02:54 Dose: 200 mg Levofloxacin/Dextrose 500 mg/ (Premix) 100 mls @ 100 mls/hr IV Q24H [facility] Last Admin: 08/05/18 17:36 Dose: 100 mls/hr Sodium Chloride (Normal Saline) 1,000 mls @ 75 mls/hr IV ASDIRECTED [facility] Last Admin: 08/04/18 09:04 Dose: 75 mls/hr Mometasone Furoate/Formoterol Fumar (Dulera 200-5 Mcg) 2 puff IH BID [facility] Last Admin: 08/06/18 08:10 Dose: 2 puff Multivitamins/Minerals (Thera M Plus) 1 tab PO DAILY [facility] Last Admin: 08/06/18 08:09 Dose: 1 tab Prednisolone Acetate (Pred Forte 1% Ophth Susp) 1 ml EYERT DAILY [facility] Last Admin: 08/06/18 08:10 Dose: 1 drop Prednisone (Prednisone) 40 mg PO WITHBREAKFAST [facility] Stop: 08/09/18 08:00 Last Admin: 08/06/18 08:09 Dose: 40 mg Simvastatin (Zocor) 20 mg PO BEDTIME [facility] Last Admin: 08/05/18 20:09 Dose: 20 mg Sodium Chloride (Saline Flush) 10 ml FLUSH BID [facility] Last Admin: 08/06/18 08:17 Dose: 10 ml Spironolactone (Aldactone) 25 mg PO ASDIRECTED [facility] Zolpidem Tartrate (Ambien) 5 mg PO BEDTIME PRN PRN Reason: Insomnia Last Admin: 08/05/18 20:09 Dose: 5 mg Discontinued Medications Furosemide (Lasix) 40 mg PO BIDDIURETIC [facility] Last Admin: 08/04/18 13:59 Dose: Not Given Furosemide (Lasix) 40 mg IVPUSH NOW ONE Stop: 08/04/18 08:47 Last Admin: 08/04/18 09:24 Dose: 40 mg Pantoprazole Sodium 40 mg/ (Sodium Chloride) 100 mls @ 200 mls/hr IV .BOLUS ONE Stop: 08/05/18 09:17 Last Admin: 08/05/18 09:23 Dose: 200 mls/hr - Exam Quality Assessment: No: Supplemental Oxygen, Urine Catheter General: Alert, Oriented, No Acute Distress HEENT: Mucous Membr. Moist/[place] Neck: Supple, Trachea Midline Lungs: Crackles, Wheezing Cardiovascular: Regular Rate, Regular Rhythm GI/Abdominal Exam: Soft, Non-Tender Extremities: Normal Inspection, Non-Tender, No Pedal Edema, Normal Capillary Refill Peripheral Pulses: 2+: Dorsalis Pedis (L), Dorsalis Pedis (R) Skin: Warm, Dry Psy/Mental Status: Alert, Normal Affect, Normal Mood - Problem List & Annotations (1) COPD (chronic obstructive pulmonary disease) SNOMED Code(s): 02072975 Code(s): J44.9 - CHRONIC OBSTRUCTIVE PULMONARY DISEASE, UNSPECIFIED Status : Acute Current Visit: No Onset Date: ~02/09/18 Annotation/Comment:: - LLL pneumonia & COPD (2) Left lower lobe pneumonia SNOMED Code(s): 064546196 Code(s): J18.1 - LOBAR PNEUMONIA, UNSPECIFIED ORGANISM Status: Acute Current Visit: No Onset Date: ~02/09/18 Annotation/Comment:: 02/09/18 - LLL pneumonia & COPD - Problem List Review Problem List Initiated/Reviewed/Updated: Yes - My Orders Last 24 Hours: My Active Orders 08/05/18 08:00 Multivitamins w-Iron/Ca/FA/Min [Thera M Plus] 1 tab PO DAILY 08/05/18 08:50 predniSONE 40 mg PO WITHBREAKFAST 08/05/18 12:45 Echo Comp wo Cont [US] Routine 08/06/18 08:00 Sodium Chloride 0.9% [Saline Flush] 10 ml FLUSH BID - Plan Plan:: Will start IV levofloxacin 500 mg for this pt. She does have creat of 1.55 and Egfr of 32 on 07-30-18. Chest x-ray on 06-29-18 shows left lung base consistent with infiltrate. The heart size is at the upper limit of normal. Will follow-up with echocardiogram. No pneumothorax and no pleural effusion. Will continue with duo-neb qid, xopenex every 4-6 hr prn and Symbicort inhaler bid with guaifenesin every 4-6 hour as needed for cough. 08-04-18 Continue with levofloxacin. Chest x-ray recommend echocardiogram, will order to be completed tomorrow. Crackles noted to bases, will order Lasix 40 mg IV this am and continue with Lasix 40 mg po in afternoon. Will start I/O and incentive spirometer. Repeat CBC and BMP in am. Will start saline lock for fluids and continue with PO fluids and diet as tolerated. Will start Ambien to assist with sleep. 08-05-2018 WBC improving, low grade temperature, sleeping improved. Hgb decreased. Pt is taking a multi-vitamin with iron, will obtain stool for occult blood. With this continued congestion and wheezing, will start Prednisone 40 mg daily for 5 days and continue with Levaquin IV. Will give dose of Protonix prophylactically for prevention of GI ulceration. Pt is up in room with bathroom privileges. Plan to discharge tomorrow with follow-up in clinic next week.
--- NOTE | 2018-08-06 08:47 | PCM.DCSUM1 ---
Discharge Summary - Hospital Course HPI Initial Comments: Pt admit after failing outpatient treatment for COPD, sinusitis and left lower lobe infiltrate. Levaquin 500 IV daily given. Decrease in kidney function noted, so full dose of 750 wasn't started. Ambien given in hospital to assist with sleep, Lasix 40 mg IV given for crackles to lung bases and echocardiogram ordered. Good output noted, no peripheral edema. Anemia noted and stool for occult blood is negative. Protonix IV given for prevention of GI ulceration. Afebrile this am and feeling improved and wants to go home. Diagnosis: Stroke: No - Discharge Data Discharge Date: 08/06/18 Discharge Disposition: Home, Self-Care 01 Condition: Good - Discharge Diagnosis/Problem(s) (1) COPD (chronic obstructive pulmonary disease) SNOMED Code(s): 88691827 ICD Code: J44.9 - CHRONIC OBSTRUCTIVE PULMONARY DISEASE, UNSPECIFIED Status : Acute Current Visit: No Onset Date: ~02/09/18 Problem Details: 02/09/18 - LLL pneumonia & COPD (2) Left lower lobe pneumonia SNOMED Code(s): 070867679 ICD Code: J18.1 - LOBAR PNEUMONIA, UNSPECIFIED ORGANISM Status: Acute Current Visit: No Onset Date: ~02/09/18 Problem Details: 02/09/18 - LLL pneumonia & COPD - Patient Instructions Diet: Heart Healthy Diet Activity: As Tolerated, Cough & Deep Breathe, Rest and Relax Today Driving: Do Not Drive Showering/Bathing: May Shower Notify Provider of: Fever - Discharge Plan *PRESCRIPTION DRUG MONITORING PROGRAM REVIEWED*: Not Applicable *COPY OF PRESCRIPTION DRUG MONITORING REPORT IN PATIENT KERRI: Not Applicable Home Medications: Home Meds Acyclovir 400 mg PO DAILY 02/18/16 [History] Aspirin 81 mg PO DAILY 02/18/16 [History] Budesonide/Formoterol [Symbicort 160-4.5 MCG] 2 inh INH BID 02/18/16 [History] Calcium Carbonate/Vitamin D3 [Calcium 500-Vit D3 200 Caplet] 800 mg PO DAILY 08/25 [History] Carvedilol 25 mg PO BID 02/18/16 [History] Fluticasone Propionate [Flonase] 1 spray INH BID 02/18/16 [History] Ipratropium/Albuterol Sulfate [Iprat-Albut 0.5-3(2.5) mg/3 ml] 1 dose INH TID [History] Multivitamin [Multi-Vitamin Daily] 1 tab PO DAILY 02/18/16 [History] Spironolactone [Aldactone] 25 mg PO DAILY 02/18/16 [History] Acetaminophen [Pain Relief Extra Strength] 500 mg PO Q6HR PRN 02/11/18 [History] Acyclovir [IJP: Acyclovir] 400 mg PO DAILY tablet 02/12/18 [Rx] Albuterol/Ipratropium [DuoNeb 3.0-0.5 MG/3 ML] 3 ml NEB Q6H neb 02/12/18 [Rx] Aspirin 81 mg PO BEDTIME tab.chew 02/12/18 [Rx] Carvedilol [Coreg] 25 mg PO BID tablet 02/12/18 [Rx] Furosemide [Lasix] 40 mg PO BIDDIURETIC tablet 02/12/18 [Rx] Omeprazole 20 mg PO BEDTIME #14 cap.sr 08/06/18 [Rx] levoFLOXacin [Levaquin] 500 mg PO DAILY #7 tab 08/06/18 [Rx] predniSONE 40 mg PO WITHBREAKFAST 4 Days #8 tab 08/06/18 [Rx] - Discharge Summary/Plan Comment Discharge Summary/Plan Comment: Discharge today with Rx for Levaquin, Prednisone burst, and Prilosec for GI prophylaxis. Continue home medications. F/U on echocardiogram at clinic visit. F/U in clinic 1 week. Notify provider if return of temperature, chills or increase in cough and sputum. - General Info Date of Service: 08/06/18 Admission Dx/Problem (Free Text: left lower lobe infiltrate Subjective Update: Reports feeling much better today, slept well with use of Ambien and wants to go home today. Functional Status: Reports: Tolerating Diet, Ambulating, Urinating, Incentive Spirometry - Review of Systems General: Denies: Fever, Weakness HEENT: Reports: Glasses. Denies: Visual Changes Pulmonary: Reports: Cough (Improved and not as congested.), Sputum, Wheezing Cardiovascular: Reports: Dyspnea on Exertion Gastrointestinal: Reports: No Symptoms, Other (BM yesterday) Genitourinary: Reports: Frequency Musculoskeletal: Reports: No Symptoms Skin: Reports: No Symptoms Neurological: Reports: No Symptoms - Patient Data Vitals - Most Recent: Last Vital Signs Temp 97.7 F 08/06/18 08:00 Pulse 72 08/06/18 08:00 Resp 18 08/06/18 08:00 BP 139/87 08/06/18 08:00 Pulse Ox 98 08/06/18 08:00 Weight - Most Recent: 126 lb 6 oz I&O - Last 24 hours: Intake & Output 08/05/18 08/06/18 08/06/18 22:59 06:59 14:59 Intake Total 975 300 Output Total 800 550 Balance 175 -250 MEGAN Results - Last 24 hrs: Microbiology 08/05/18 08:48 Occult Blood - Final Stool / Feces 08/03/18 Unknown MRSA Surveillance Culture - Final Nares, Right NO MRSA ISOLATED Med Orders - Current: Current Medications Acetaminophen (Tylenol Extra Strength) 500 mg PO Q6HR PRN PRN Reason: Pain Last Admin: 08/04/18 09:10 Dose: 500 mg Acyclovir (Zovirax) 400 mg PO DAILY [facility] Last Admin: 08/06/18 08:09 Dose: 400 mg Albuterol (Proventil Neb Soln) 2.5 mg INH Q4H PRN PRN Reason: Congestion Last Admin: 08/06/18 02:44 Dose: 2.5 mg Albuterol/Ipratropium (Duoneb 3.0-0.5 Mg/3 Ml) 3 ml NEB Q6H [facility] Last Admin: 08/06/18 06:11 Dose: 3 ml Aspirin (Aspirin) 81 mg PO BEDTIME [facility] Last Admin: 08/05/18 20:10 Dose: 81 mg Calcium Carbonate (Caltrate 600+D 1500 Mg-400 Units) 1 tab PO DAILY [facility] Last Admin: 08/06/18 08:09 Dose: 1 tab Carvedilol (Coreg) 25 mg PO BID [facility] Last Admin: 08/06/18 08:09 Dose: 25 mg Fluticasone Propionate (Flonase) 16 gm ANGEL DAILY [facility] Last Admin: 08/06/18 08:10 Dose: 2 sprays Furosemide (Lasix) 40 mg PO DAILY [facility] Last Admin: 08/06/18 08:09 Dose: 40 mg Guaifenesin (Robitussin) 200 mg PO QID PRN PRN Reason: Cough Last Admin: 08/06/18 02:54 Dose: 200 mg Levofloxacin/Dextrose 500 mg/ (Premix) 100 mls @ 100 mls/hr IV Q24H [facility] Last Admin: 08/05/18 17:36 Dose: 100 mls/hr Sodium Chloride (Normal Saline) 1,000 mls @ 75 mls/hr IV ASDIRECTED [facility] Last Admin: 08/04/18 09:04 Dose: 75 mls/hr Mometasone Furoate/Formoterol Fumar (Dulera 200-5 Mcg) 2 puff IH BID [facility] Last Admin: 08/06/18 08:10 Dose: 2 puff Multivitamins/Minerals (Thera M Plus) 1 tab PO DAILY [facility] Last Admin: 08/06/18 08:09 Dose: 1 tab Prednisolone Acetate (Pred Forte 1% Ophth Susp) 1 ml EYERT DAILY [facility] Last Admin: 08/06/18 08:10 Dose: 1 drop Prednisone (Prednisone) 40 mg PO WITHBREAKFAST [facility] Stop: 08/09/18 08:00 Last Admin: 08/06/18 08:09 Dose: 40 mg Simvastatin (Zocor) 20 mg PO BEDTIME [facility] Last Admin: 08/05/18 20:09 Dose: 20 mg Sodium Chloride (Saline Flush) 10 ml FLUSH BID [facility] Last Admin: 08/06/18 08:17 Dose: 10 ml Spironolactone (Aldactone) 25 mg PO DAILY [facility] Zolpidem Tartrate (Ambien) 5 mg PO BEDTIME PRN PRN Reason: Insomnia Last Admin: 08/05/18 20:09 Dose: 5 mg Discontinued Medications Furosemide (Lasix) 40 mg PO BIDDIURETIC [facility] Last Admin: 08/04/18 13:59 Dose: Not Given Furosemide (Lasix) 40 mg IVPUSH NOW ONE Stop: 08/04/18 08:47 Last Admin: 08/04/18 09:24 Dose: 40 mg Pantoprazole Sodium 40 mg/ (Sodium Chloride) 100 mls @ 200 mls/hr IV .BOLUS ONE Stop: 08/05/18 09:17 Last Admin: 08/05/18 09:23 Dose: 200 mls/hr Spironolactone (Aldactone) 25 mg PO ASDIRECTED [facility] Last Admin: 08/06/18 08:32 Dose: 25 mg - Exam Quality Assessment: Denies: Supplemental Oxygen (Discussed use of oxygen at home and overnight oximetry and pt declines) General: Reports: Alert, Oriented, Cooperative, No Acute Distress HEENT: Reports: Mucous Membr. Moist/[place] Neck: Reports: Supple, Trachea Midline Lungs: Reports: Normal Respiratory Effort, Crackles (bases), Wheezing ( diminished ), Other (Clear to upper lobes.) Cardiovascular: Reports: Regular Rate, Regular Rhythm GI/Abdominal Exam: Soft, Non-Tender Back Exam: Reports: Normal Inspection, Full Range of Motion Extremities: Normal Inspection, Normal Range of Motion, No Pedal Edema, Normal Capillary Refill Skin: Reports: Warm, Dry Neurological: Reports: No New Focal Deficit Psy/Mental Status: Reports: Alert, Normal Affect, Normal Mood
[2018-08-06] MEDS: Levofloxacin/Dextrose 5%-Water 500 MG in Premix Bag 1 BAG IV SCH (12:21)
[2018-08-06 12:27] VITALS: BP 118/72
== END 2018-08-06 13:45 | disposition home or self-care (01) | DRG 194 ==
LOC: LB.CLINIC 16:20 → LB.MS 16:34
PROVIDERS: ADMIT Nurse Practitioner Family; ATTEND Nurse Practitioner Family
DX: J18.1 Lobar pneumonia, unspecified organism (principal); R06.02 Shortness of breath; J44.0 Chronic obstructive pulmonary disease with (acute) lower respiratory infection; H91.90 Unspecified hearing loss, unspecified ear; M19.90 Unspecified osteoarthritis, unspecified site; M81.0 Age-related osteoporosis without current pathological fracture; D64.9 Anemia, unspecified; Z85.3 Personal history of malignant neoplasm of breast; Z90.49 Acquired absence of other specified parts of digestive tract; Z96.659 Presence of unspecified artificial knee joint; Z90.10 Acquired absence of unspecified breast and nipple; Z79.899 Other long term (current) drug therapy; Z88.6 Allergy status to analgesic agent; Z88.0 Allergy status to penicillin; Z79.82 Long term (current) use of aspirin; Z95.2 Presence of prosthetic heart valve; Z87.440 Personal history of urinary (tract) infections; Z90.710 Acquired absence of both cervix and uterus; Z88.8 Allergy status to other drugs, medicaments and biological substances
CPT/HCPCS: 36415; 80048; 80053; 82270; 85025; 93306; A9270-GY; C9113; J1940; J1956; J7030; J7050; J7620-GY

== ENCOUNTER 2019-01-28 13:57 | Inpatient (IN) | payer MEDICARE, BC ==
[2019-01-28] MEDS ORDERED: Furosemide 20 MG/2 ML VIAL IVPUSH ONE (16:21)
[2019-01-28] MEDS ORDERED: cefTRIAXone 1 GM in Sodium Chloride 0.9% 50 ML IV SCH (16:30)
--- NOTE | 2019-01-28 16:31 | PCM.HP ---
H&P History of Present Illness - General Date of Service: 01/28/19 Admit Problem/Dx: Admission Diagnosis/Problem Admission Diagnosis/Problem CHF, Congestive heart failure Source of Information: Patient History Limitations: Reports: No Limitations - History of Present Illness Initial Comments - Free Text/Narative: 78 yr female presents with cough and shortness of breath. She was seen 01-25-19 in the outpatient clinic and was started on Azithromycin for acute COPD exacerbation. Pt is taking cough medicine and Mucinex daily and is taking Duo neb nebulizer and Ventolin inhaler and Trilogy inhalers and cough is persistent and keeping her up at night. WBC remains slightly elevated 13. and BNP elevated 3708. Chest X-ray today with slight increase in heart size noted. Will admit for CHF and COPD exacerbation and treat with Lasix IV, IV Rocephin and IV Azithromycin, and continue with nebulizer every 4-6 hour and Symbicort bid. - Related Data Allergies/Adverse Reactions: Allergies Allergy/AdvReac Type Severity Reaction Status Date / Time codeine Allergy Other Verified 08/15/18 18:40 warfarin [From Coumadin] AdvReac Bleeding Verified 08/15/18 18:40 Home Medications: Home Meds Acyclovir 400 mg PO DAILY 02/18/16 [History] Aspirin 81 mg PO DAILY 02/18/16 [History] Budesonide/Formoterol [Symbicort 160-4.5 MCG] 2 inh INH BID 02/18/16 [History] Fluticasone Propionate [Flonase] 1 spray INH BID 02/18/16 [History] Ipratropium/Albuterol Sulfate [Iprat-Albut 0.5-3(2.5) mg/3 ml] 1 dose INH TID [History] Multivitamin [Multi-Vitamin Daily] 1 tab PO DAILY 02/18/16 [History] Spironolactone [Aldactone] 25 mg PO DAILY 02/18/16 [History] Acetaminophen [Pain Relief Extra Strength] 500 mg PO Q6HR PRN 02/11/18 [History] Carvedilol [Coreg] 25 mg PO BID tablet 02/12/18 [Rx] Furosemide [Lasix] 40 mg PO BIDDIURETIC tablet 02/12/18 [Rx] Omeprazole 20 mg PO BEDTIME #14 cap.sr 08/06/18 [Rx] Calcium Carbonate/Vitamin D3 [Caltrate 600+D] 1 tab PO TID 08/11/18 [History] prednisoLONE acetate [Pred Forte 1% Ophth Susp] 5 ml EYEBOTH DAILY 08/11/18 [ History] Past Medical History HEENT History: Reports: Allergic Rhinitis, Cataract, Hard of Hearing Cardiovascular History: Reports: Heart Valve Replacement, Stents, Other (See Below) Other Cardiovascular History: endarterectomy Respiratory History: Reports: SOB, Other (See Below) Other Respiratory History: has had cough and sob x 6 days Gastrointestinal History: Reports: Cholelithiasis Other Gastrointestinal History: appy Genitourinary History: Reports: UTI, Recurrent [employer]NAGER History: Reports: , Other (See Below) Other OB/BYN History: hysterectomy Musculoskeletal History: Reports: Arthritis, Fracture Other Musculoskeletal History: Fx L tib fib 1980 Endocrine/Metabolic History: Reports: Osteoporosis Hematologic History: Reports: None Oncologic (Cancer) History: Reports: Breast - Infectious Disease History Infectious Disease History: Reports: Chicken Pox, Measles, Mumps - Past Surgical History HEENT Surgical History: Reports: Other (See Below) Other HEENT Surgeries/Procedures: CEA February 2013 Cardiovascular Surgical History: Reports: Valve Replacement GI Surgical History: Reports: Appendectomy, Cholecystectomy Female Surgical History: Reports: Hysterectomy Endocrine Surgical History: Reports: None Musculoskeletal Surgical History: Reports: Knee Replacement Oncologic Surgical History: Reports: Mastectomy Social & Family History - Family History Family Medical History: Noncontributory Cardiac: Reports: [place] Neurological: Reports: Alzheimers Disease Endocrine/Metabolic: Reports: Diabetes, Gestational Immunologic: Reports: None Oncologic: Reports: Breast - Caffeine Use Caffeine Use: Reports: Coffee Caffeine Use Comment: 3 cups a day H&P Review of Systems - Review of Systems: Review Of Systems: See Below General: Reports: Fatigue. Denies: Fever, Chills HEENT: Reports: Glasses, Rhinitis, Post Nasal Drip Pulmonary: Reports: Shortness of Breath, Wheezing, Cough, Sputum, Other (States tired of coughing and tired of being sick) Cardiovascular: Reports: Dyspnea on Exertion, Other (States she is taking a water pill 2x/day.). Denies: Edema Gastrointestinal: Denies: Abdominal Pain, Constipation, Diarrhea Musculoskeletal: Reports: Other (arthritis pain to joints) Skin: Reports: Dryness. Denies: Change in Color Psychiatric: Reports: No Symptoms Neurological: Reports: No Symptoms Hematologic/Lymphatic: Reports: No Symptoms Exam - Exam Exam: See Below - Exam General: Alert, Oriented, Cooperative HEENT: PERRLA, Mucosa Moist & [place] Neck: Supple, Trachea Midline Lungs: Crackles (noted to right base), Rhonchi (middle lung raymond), Wheezing ( throughout lungs) Cardiovascular: Regular Rate, Regular Rhythm GI/Abdominal Exam: Normal Bowel Sounds, Soft, Non-Tender Extremities: Non-Tender, No Pedal Edema Skin: Warm, Dry Neuro Extensive - Mental Status: Alert, Oriented x3, Normal Mood/Affect, Normal Cognition Psychiatric: Alert, Normal Affect, Normal Mood - Patient Data Lab Results Last 24 hrs: Laboratory Results - last 24 hr 01/28/19 01/28/19 Range/Units 14:16 15:09 WBC 13.4 H (4.0-11.0) K/uL RBC 3.67 L (3.80-5.80) M/uL Hgb 11.2 L (11.5-16.5) g/dL Hct 34.4 L (37.0-47.0) % MCV 94 (76-96) fL MCH 30.5 (27.0-32.0) pg MCHC 32.6 (31.0-35.0) g/dL RDW 14.4 (11.0-16.0) % Plt Count 218 D (150-500) K/uL MPV 9.6 (6.0-10.0) fL Neut % (Auto) 89.7 H (45.0-70.0) % Lymph % (Auto) 3.1 L (20.0-40.0) % Rhea % (Auto) 6.0 (3.0-10.0) % Eos % (Auto) 1.0 (1.0-5.0) % Baso % (Auto) 0.2 (0.0-0.5) % Neut # (Auto) 11.99 H (2.00-7.50) K/uL Lymph # (Auto) 0.41 L (1.50-4.00) K/uL Rhea # (Auto) 0.80 (0.20-0.80) K/uL Eos # (Auto) 0.13 (0.04-0.40) K/uL Baso # (Auto) 0.03 (0.02-0.10) K/uL B-Natriuretic Peptide 3708 H D (0-450) pg/mL Result Diagrams: 01/28/19 14:16 - Problem List (1) CHF (congestive heart failure) SNOMED Code(s): 94882676 ICD Code: I50.9 - HEART FAILURE, UNSPECIFIED Status: Acute Current Visit : Yes (2) COPD (chronic obstructive pulmonary disease) SNOMED Code(s): 11278724 ICD Code: J44.9 - CHRONIC OBSTRUCTIVE PULMONARY DISEASE, UNSPECIFIED Status : Acute Current Visit: Yes Problem List Initiated/Reviewed/Updated: Yes Orders Last 24hrs: Active Orders 24 hr Category Date Time Status Admission Diagnosis [ADT] Urgent ADT 01/28/19 16:15 Ordered Patient Status [ADT] Routine ADT 01/28/19 16:16 Ordered Patient Status [ADT] Routine ADT 01/28/19 16:18 Ordered Bedrest Bathroom Privileges [RC] ASDIRECTED Care 01/28/19 16:17 Ordered Height and Weight [RC] DAILY Care 01/28/19 16:17 Ordered Intake and Output [RC] QSHIFT Care 01/28/19 16:19 Ordered Oxygen Therapy [RC] PRN Care 01/28/19 16:18 Ordered Vital Signs [RC] Q4H Care 01/28/19 16:18 Ordered Chest 2V [CR] Routine Exams 01/28/19 Taken Furosemide [Lasix] Med 01/28/19 16:21 Once 20 mg IVPUSH ONETIME ONE Sodium Chloride 0.9% [Saline Flush] Med 01/28/19 16:23 Ordered 10 ml FLUSH ASDIRECTED PRN cefTRIAXone [Rocephin] 1 gm Med 01/28/19 16:30 Ordered Sodium Chloride 0.9% [Normal Saline] 50 ml IV Q24H Saline Lock Insert [OM.PC] Routine Oth 01/28/19 16:23 Ordered Medication Orders Furosemide (Lasix) 20 mg IVPUSH ONETIME ONE Stop: 01/28/19 16:22 Ceftriaxone Sodium 1 gm/ (Sodium Chloride) 50 mls @ 200 mls/hr IV Q24H [facility] Sodium Chloride (Saline Flush) 10 ml FLUSH ASDIRECTED PRN PRN Reason: Keep Vein Open Assessment/Plan Comment:: Will admit for CHF and COPD exacerbation: Increase in crackles to right base and increase in heart size noted on x-ray today. WBC remains slightly elevated and elevated neutrophils, despite oral antibiotic started on Friday. Will treat with Lasix IV, IV Rocephin and IV Azithromycin, and continue with nebulizer every 4-6 hour and Symbicort or Trilogy inhaler bid.
[2019-01-28] MEDS ORDERED: methylPREDNISolone Sodium Succinate 125 MG/2 ML SDV IVPUSH ONE (16:50)
[2019-01-28] MEDS ORDERED: Sennosides 8.6 MG Tab PO PRN (18:20)
[2019-01-28] MEDS ORDERED: Albuterol/Ipratropium 3.0-0.5 MG/3 ML Neb Soln INH PRN (18:20)
[2019-01-28] MEDS ORDERED: Acetaminophen 650 MG Tab.ER PO PRN (18:20)
[2019-01-28] MEDS: Azithromycin 500 MG in Sodium Chloride 0.9% 250 ML IV SCH (18:38)
[2019-01-28] MEDS: Aspirin 81 MG Tab.EC PO SCH (19:30)
[2019-01-28] MEDS: Carvedilol 25 MG Tab PO SCH (19:31)
[2019-01-28] MEDS: Calcium Carbonate/Vitamin D3 1500 MG-400 Units Tab PO SCH (19:31)
[2019-01-28] MEDS ORDERED: Simvastatin 20 MG Tab PO SCH (20:00)
[2019-01-29] MEDS: Spironolactone 25 MG Tab PO SCH (07:54)
[2019-01-29] MEDS: Acyclovir 400 MG Tab PO SCH (07:54)
[2019-01-29] MEDS: Carvedilol 25 MG Tab PO SCH ×2 (07:54→16:38)
[2019-01-29] MEDS: Calcium Carbonate/Vitamin D3 1500 MG-400 Units Tab PO SCH ×4 (07:55→19:50)
[2019-01-29] MEDS ORDERED: Non-Formulary Medication 1 Each (Fluticasone/Umeclidin/Vilanter [Trelegy Ellipta 100-62.5- INH SCH (08:00)
[2019-01-29] MEDS ORDERED: TRIFLURIDINE EYELF SCH (08:00)
[2019-01-29] MEDS ORDERED: Furosemide 20 MG/2 ML VIAL IVPUSH ONE (08:17)
--- NOTE | 2019-01-29 08:32 | PCM.PN ---
- General Info Date of Service: 01/29/19 Admission Dx/Problem (Free Text): Admission Diagnosis/Problem Admission Diagnosis/Problem CHF, Congestive heart failure and COPD exacerbation Functional Status: Reports: Tolerating Diet, Urinating, Incentive Spirometry - Review of Systems General: Reports: Fatigue HEENT: Reports: Glasses Pulmonary: Reports: Cough, Sputum Cardiovascular: Denies: Chest Pain, Palpitations, Edema Gastrointestinal: Denies: Constipation, Diarrhea, Nausea, Vomiting Genitourinary: Reports: Frequency. Denies: Dysuria, Burning Musculoskeletal: Reports: Other (chronic pain to left ankle) Skin: Reports: Dryness. Denies: Bruising, Rash Neurological: Denies: Confusion, Dizziness, Headache Psychiatric: Reports: No Symptoms - Patient Data Vitals - Most Recent: Last Vital Signs Temp 97.5 F 01/29/19 05:00 Pulse 73 01/29/19 07:54 Resp 20 01/29/19 05:00 BP 169/79 H 01/29/19 07:54 Pulse Ox 96 01/29/19 05:00 Weight - Most Recent: 127 lb 9.6 oz I&O - Last 24 Hours: Intake & Output 01/28/19 01/29/19 01/29/19 22:59 06:59 14:59 Intake Total 550 Output Total 900 Balance -350 Lab Results Last 24 Hours: Laboratory Results - last 24 hr 01/28/19 01/28/19 01/28/19 Range/Units 14:16 15:09 17:10 WBC 13.4 H (4.0-11.0) K/uL RBC 3.67 L (3.80-5.80) M/uL Hgb 11.2 L (11.5-16.5) g/dL Hct 34.4 L (37.0-47.0) % MCV 94 (76-96) fL MCH 30.5 (27.0-32.0) pg MCHC 32.6 (31.0-35.0) g/dL RDW 14.4 (11.0-16.0) % Plt Count 218 D (150-500) K/uL MPV 9.6 (6.0-10.0) fL Neut % (Auto) 89.7 H (45.0-70.0) % Lymph % (Auto) 3.1 L (20.0-40.0) % [place] % (Auto) 6.0 (3.0-10.0) % Eos % (Auto) 1.0 (1.0-5.0) % Baso % (Auto) 0.2 (0.0-0.5) % Neut # (Auto) 11.99 H (2.00-7.50) K/uL Lymph # (Auto) 0.41 L (1.50-4.00) K/uL [place] # (Auto) 0.80 (0.20-0.80) K/uL Eos # (Auto) 0.13 (0.04-0.40) K/uL Baso # (Auto) 0.03 (0.02-0.10) K/uL Lactic Acid 2.69 H (0.90-1.70) mmol/L B-Natriuretic Peptide 3708 H D (0-450) pg/mL 01/29/19 Range/Units 07:15 WBC 8.8 D (4.0-11.0) K/uL RBC 3.55 L (3.80-5.80) M/uL Hgb 10.7 L (11.5-16.5) g/dL Hct 33.0 L (37.0-47.0) % MCV 93 (76-96) fL MCH 30.1 (27.0-32.0) pg MCHC 32.4 (31.0-35.0) g/dL RDW 14.3 (11.0-16.0) % Plt Count 210 (150-500) K/uL MPV 9.7 (6.0-10.0) fL Neut % (Auto) 93.9 H (45.0-70.0) % Lymph % (Auto) 4.2 L (20.0-40.0) % [place] % (Auto) 1.8 L (3.0-10.0) % Eos % (Auto) 0.0 L (1.0-5.0) % Baso % (Auto) 0.1 (0.0-0.5) % Neut # (Auto) 8.30 H (2.00-7.50) K/uL Lymph # (Auto) 0.37 L (1.50-4.00) K/uL [place] # (Auto) 0.16 L (0.20-0.80) K/uL Eos # (Auto) 0.00 L (0.04-0.40) K/uL Baso # (Auto) 0.01 L (0.02-0.10) K/uL Lactic Acid (0.90-1.70) mmol/L B-Natriuretic Peptide (0-450) pg/mL Med Orders - Current: Current Medications Acetaminophen (Tylenol Arthritis Pain) 650 mg PO Q8H PRN PRN Reason: Pain Acyclovir (Zovirax) 400 mg PO DAILY [facility] Last Admin: 01/29/19 07:54 Dose: 400 mg Albuterol/Ipratropium (Duoneb 3.0-0.5 Mg/3 Ml) 3 ml NEB Q6H [facility] Aspirin (Halfprin) 81 mg PO QPM [facility] Last Admin: 01/28/19 19:30 Dose: 81 mg Calcium Carbonate (Caltrate 600+D 1500 Mg-400 Units) 1 tab PO TIDMEALS [facility] Last Admin: 01/29/19 07:55 Dose: 1 tab Carvedilol (Coreg) 25 mg PO BIDMEALS [facility] Last Admin: 01/29/19 07:54 Dose: 25 mg Furosemide (Lasix) 20 mg IVPUSH ONETIME ONE Stop: 01/29/19 08:18 Azithromycin 500 mg/ Sodium (Chloride) 250 mls @ 250 mls/hr IV Q24H [facility] Last Admin: 01/28/19 18:38 Dose: 250 mls/hr Methylprednisolone Sodium Succinate (Solu-Medrol) 40 mg IVPUSH Q12H [facility] Stop: 01/30/19 06:00 Non-Formulary Medication (Fluticasone/Umeclidin/Vilanter [Trelegy Ellipta 100- 62.5-25]) 1 puff INH DAILY [facility] Non-Formulary Medication (Trifluridine [Trifluridine]) 1 drop EYELF DAILY [facility] Senna (Senna) 8.6 mg PO DAILY PRN PRN Reason: Constipation Last Admin: 01/28/19 19:31 Dose: 8.6 mg Simvastatin (Zocor) 20 mg PO QPM [facility] Last Admin: 01/28/19 19:31 Dose: 20 mg Sodium Chloride (Saline Flush) 10 ml FLUSH ASDIRECTED PRN PRN Reason: Keep Vein Open Spironolactone (Aldactone) 25 mg PO DAILY [facility] Last Admin: 01/29/19 07:54 Dose: 25 mg Discontinued Medications Albuterol/Ipratropium (Duoneb 3.0-0.5 Mg/3 Ml) 3 ml INH Q4H PRN PRN Reason: Shortness of Breath Furosemide (Lasix) 20 mg IVPUSH ONETIME ONE Stop: 01/28/19 16:22 Last Admin: 01/28/19 18:11 Dose: 20 mg Ceftriaxone Sodium 1 gm/ (Sodium Chloride) 50 mls @ 200 mls/hr IV Q24H [facility] Last Admin: 01/28/19 18:25 Dose: 200 mls/hr Methylprednisolone Sodium Succinate (Solu-Medrol) 125 mg IVPUSH ONETIME ONE Stop: 01/28/19 16:51 Last Admin: 01/28/19 18:09 Dose: 125 mg - Exam General: Alert, Oriented, Cooperative HEENT: Mucous Membr. Moist/[place] Neck: Supple, Trachea Midline Lungs: Crackles (left base), Rhonchi (middle lung raymond) Cardiovascular: Regular Rate, Regular Rhythm GI/Abdominal Exam: Soft, Non-Tender, No Distention Extremities: Non-Tender, No Pedal Edema, Normal Capillary Refill Skin: Warm, Dry Neurological: No New Focal Deficit Psy/Mental Status: Alert, Normal Affect, Normal Mood - Problem List & Annotations (1) CHF (congestive heart failure) SNOMED Code(s): 36221460 Code(s): I50.9 - HEART FAILURE, UNSPECIFIED Status: Acute Current Visit: Yes (2) COPD (chronic obstructive pulmonary disease) SNOMED Code(s): 22852432 Code(s): J44.9 - CHRONIC OBSTRUCTIVE PULMONARY DISEASE, UNSPECIFIED Status : Acute Current Visit: Yes - Problem List Review Problem List Initiated/Reviewed/Updated: Yes - My Orders Last 24 Hours: My Active Orders 01/28/19 16:15 Admission Diagnosis [ADT] Urgent 01/28/19 16:16 Patient Status [ADT] Routine 01/28/19 16:17 Bedrest Bathroom Privileges [RC] ASDIRECTED Height and Weight [RC] DAILY 01/28/19 16:18 Patient Status [ADT] Routine Oxygen Therapy [RC] PRN Vital Signs [RC] Q4H 01/28/19 16:19 Intake and Output [RC] 06,18 21/19 16:23 Sodium Chloride 0.9% [Saline Flush] 10 ml FLUSH ASDIRECTED PRN Saline Lock Insert [OM.PC] Routine 01/28/19 17:00 Azithromycin [Zithromax] 500 mg Sodium Chloride 0.9% [Normal Saline] 250 ml IV Q24H 01/28/19 17:20 CULTURE MRSA SURVEY [RM] Routine 01/28/19 17:56 CULTURE SPUTUM + SMEAR [RM] Routine 01/28/19 18:20 Acetaminophen [Tylenol Arthritis Pain] 650 mg PO Q8H PRN Sennosides [Senna] 8.6 mg PO DAILY PRN 01/28/19 18:21 Calcium Carbonate/Vitamin D3 [Caltrate 600+D 1500 MG-400 Units] 1 tab PO TIDMEALS Carvedilol [Coreg] 25 mg PO BIDMEALS 01/28/19 20:00 Aspirin [Halfprin] 81 mg PO QPM Simvastatin [Zocor] 20 mg PO QPM 01/28/19 Dinner Cardiac Diet [Heart Healthy Diet] [DIET] 01/29/19 06:13 Code Status [Resuscitation Status] Routine 01/29/19 08:00 Acyclovir [Zovirax] 400 mg PO DAILY Fluticasone/Umeclidin/Vilanter [Trelegy Ellipta 100-62.5-25] 1 puff INH DAILY Spironolactone [Aldactone] 25 mg PO DAILY Trifluridine [Trifluridine] 1 drop EYELF DAILY 01/29/19 08:17 Furosemide [Lasix] 20 mg IVPUSH ONETIME ONE 01/29/19 08:24 RT Aerosol Therapy [RC] ASDIRECTED 01/29/19 08:30 Albuterol/Ipratropium [DuoNeb 3.0-0.5 MG/3 ML] 3 ml NEB Q6H methylPREDNISolone Sod Succ [Solu-MEDROL] 40 mg IVPUSH Q12H - Plan Plan:: Will admit for CHF and COPD exacerbation: Increase in crackles to right base and increase in heart size noted on x-ray today. WBC remains slightly elevated and elevated neutrophils, despite oral antibiotic started on Friday. Will treat with Lasix IV, IV Rocephin and IV Azithromycin, and continue with nebulizer every 4-6 hour and Symbicort or Trilogy inhaler bid. 01-29-2019 Pt improving and cough is improved. WBC is down with Azithromycin IV. Rocephin stopped r/t penicillin allergy and hives. Will start Azithromycin PO tomorrow. Weight is down 2 pounds with Lasix IV, will repeat dose today and start pt on maintenance bid dose of Lasix this afternoon. Repeat CBC and BMP in am. Will schedule duo-neb q 6 hour and obtain sputum culture, if possible. Pt does have family that live with her and [facility]. Family does work in the daytime, but are home in the evenings. Possible discharge tomorrow.
[2019-01-29] MEDS: methylPREDNISolone Sodium Succinate 40 MG/1 ML SDV IVPUSH SCH ×2 (08:38→20:02)
[2019-01-29] MEDS: Albuterol/Ipratropium 3.0-0.5 MG/3 ML Neb Soln NEB SCH ×3 (08:38→20:01)
--- NOTE | 2019-01-29 09:54 | CR ---
DATE OF SERVICE: 01/28/19 CLINICAL DATA: Cough PA AND LATERAL CHEST: Comparison is made to a prior exam dated 12/22/2018. The patient is status post median sternotomy and heart valve replacement. The heart size is stable. There are densities in both lung bases on today's exam consistent with basilar atelectasis or infiltrate. Pneumonia should be considered. There is a rounded nodule in the right mid lung lateral to the right hilum. It was not present on the prior exam. Chest CT is recommended to further evaluate it. There are interstitial infiltrates throughout both lungs. There is slight blunting of both costophrenic angles suggesting small bilateral pleural effusions or pleural scar. The exam is otherwise unchanged from the previous. [id number] [facility]
[2019-01-29] MEDS: Furosemide 40 MG Tab PO SCH ×2 (14:45→16:15)
[2019-01-29] MEDS: Azithromycin 500 MG in Sodium Chloride 0.9% 250 ML IV SCH (16:39)
[2019-01-29] MEDS: Aspirin 81 MG Tab.EC PO SCH (20:02)
[2019-01-29] MEDS: Sodium Chloride 0.9% 10 ML Syringe FLUSH PRN (20:02)
[2019-01-30] MEDS: Albuterol/Ipratropium 3.0-0.5 MG/3 ML Neb Soln NEB SCH ×3 (00:08→08:20)
[2019-01-30] MEDS ORDERED: Azithromycin 250 MG Tab PO SCH (08:00)
[2019-01-30] MEDS ORDERED: predniSONE 20 MG Tab PO SCH (08:00)
[2019-01-30] MEDS: Spironolactone 25 MG Tab PO SCH (08:14)
[2019-01-30] MEDS: Calcium Carbonate/Vitamin D3 1500 MG-400 Units Tab PO SCH (08:15)
[2019-01-30] MEDS: Carvedilol 25 MG Tab PO SCH (08:15)
[2019-01-30] MEDS: Furosemide 40 MG Tab PO SCH (08:16)
[2019-01-30] MEDS: Acyclovir 400 MG Tab PO SCH (08:18)
[2019-01-30 08:22] VITALS: BP 183/82
[2019-01-30] MEDS: Sodium Chloride 0.9% 10 ML Syringe FLUSH PRN (08:29)
--- NOTE | 2019-01-30 10:23 | PCM.DCSUM1 ---
Discharge Summary - Hospital Course Free Text/Narrative:: This patient has been inpatient for pneumonia. She states she is feeling much improved and would like to go home today. Saturation >90 in room air, tolerating medications orally. Eating solids and drinking fluids well. Denies pain. States she always has a cough and that it is about the same as usual for her. HPI Initial Comments: Admitted for IV antibiotics for treatment of pneumonia in the setting of COPD. Diagnosis: Stroke: No Modified Tyler Scale: No Symptoms at All Modified Tyler Scale Score: 0 - Discharge Data Discharge Date: 01/30/19 Discharge Disposition: Home, Self-Care 01 Condition: Good - Discharge Diagnosis/Problem(s) (1) Multifocal pneumonia SNOMED Code(s): 911386945 ICD Code: J18.9 - PNEUMONIA, UNSPECIFIED ORGANISM Status: Acute Current Visit: No - Patient Instructions Diet: Usual Diet as Tolerated Activity, Other: As tolerated Showering/Bathing: May Shower Notify Provider of: Fever, Nausea and/or Vomiting Other/Special Instructions: Notify PCP of increased cough and/or difficulty breathing or shortness of breath. - Discharge Plan *PRESCRIPTION DRUG MONITORING PROGRAM REVIEWED*: Not Applicable *COPY OF PRESCRIPTION DRUG MONITORING REPORT IN PATIENT KERRI: Not Applicable Home Medications: Home Meds Acyclovir 400 mg PO DAILY 02/18/16 [History] Aspirin 81 mg PO QPM 02/18/16 [History] Fluticasone Propionate [Flonase] 2 spray NASBOTH DAILY 02/18/16 [History] Ipratropium/Albuterol Sulfate [Iprat-Albut 0.5-3(2.5) mg/3 ml] 1 dose INH Q4H PRN 02/18/16 [History] Multivitamin [Multi-Vitamin Daily] 1 tab PO DAILY 02/18/16 [History] Spironolactone [Aldactone] 25 mg PO DAILY 02/18/16 [History] Furosemide [Lasix] 40 mg PO BIDDIURETIC tablet 02/12/18 [Rx] Calcium Carbonate/Vitamin D3 [Caltrate 600+D] 1 tab PO TIDMEALS 08/11/18 [ History] Acetaminophen [Tylenol Arthritis Pain] 650 mg PO Q8H PRN 01/28/19 [History] Carvedilol [Coreg] 25 mg PO BIDMEALS 01/28/19 [History] Fluticasone/Umeclidin/Vilanter [Trelegy Ellipta 100-62.5-25] 1 puff INH DAILY [History] Levalbuterol Tartrate [Xopenex HFA] 1 puff INH Q4H PRN 01/28/19 [History] Sennosides [Senna] 8.6 mg PO DAILY PRN 01/28/19 [History] Simvastatin 20 mg PO QPM 01/28/19 [History] Trifluridine 1 drop EYELF DAILY 01/28/19 [History] Patient Handouts: Incentive Spirometer - Discharge Summary/Plan Comment DC Time >30 min.: Yes - Patient Data Vitals - Most Recent: Last Vital Signs Temp 36.3 C 01/30/19 08:00 Pulse 74 01/30/19 08:15 Resp 20 01/30/19 08:00 BP 153/82 H 01/30/19 08:15 Pulse Ox 96 01/30/19 08:00 Weight - Most Recent: 58.06 kg I&O - Last 24 hours: Intake & Output 01/29/19 01/30/19 01/30/19 22:59 06:59 14:59 Intake Total 1660 550 Output Total 950 1050 Balance 710 -500 Lab Results - Last 24 hrs: Laboratory Results - last 24 hr 01/30/19 01/30/19 Range/Units 08:50 08:55 WBC 13.2 H D (4.0-11.0) K/uL RBC 4.64 (3.80-5.80) M/uL Hgb 14.0 D (11.5-16.5) g/dL Hct 42.9 D (37.0-47.0) % MCV 93 (76-96) fL MCH 30.2 (27.0-32.0) pg MCHC 32.6 (31.0-35.0) g/dL RDW 14.6 (11.0-16.0) % Plt Count 165 D (150-500) K/uL MPV 10.7 H (6.0-10.0) fL Neut % (Auto) 94.2 H (45.0-70.0) % Lymph % (Auto) 2.9 L (20.0-40.0) % [place] % (Auto) 2.8 L (3.0-10.0) % Eos % (Auto) 0.0 L (1.0-5.0) % Baso % (Auto) 0.1 (0.0-0.5) % Neut # (Auto) 12.46 H (2.00-7.50) K/uL Lymph # (Auto) 0.38 L (1.50-4.00) K/uL [place] # (Auto) 0.37 (0.20-0.80) K/uL Eos # (Auto) 0.00 L (0.04-0.40) K/uL Baso # (Auto) 0.01 L (0.02-0.10) K/uL Sodium 134 L (136-145) mmol/L Potassium 3.6 (3.5-5.1) mmol/L Chloride 94 L (98-107) mmol/L Carbon Dioxide 27.9 (21.0-32.0) mmol/L Anion Gap 15.7 H (5.0-15.0) mmol/L BUN 37 H (8-26) mg/dL Creatinine 1.55 H (0.55-1.02) mg/dL Est Cr Clr Drug Dosing 24.04 mL/min Estimated GFR (MDRD) 32 L (>60) MLS/MIN BUN/Creatinine Ratio 23.9 (6-25) Glucose 187 H D (74-100) mg/dL Calcium 8.9 (8.5-10.1) mg/dL MEGAN Results - Last 24 hrs: Microbiology 01/28/19 17:20 MRSA Surveillance Culture - Final Nasal, Unspecified NO MRSA ISOLATED 01/28/19 09:37 Gram Stain - Final Sputum - Expectorated Med Orders - Current: Current Medications Acetaminophen (Tylenol Arthritis Pain) 650 mg PO Q8H PRN PRN Reason: Pain Acyclovir (Zovirax) 400 mg PO DAILY [facility] Last Admin: 01/30/19 08:18 Dose: 400 mg Albuterol/Ipratropium (Duoneb 3.0-0.5 Mg/3 Ml) 3 ml NEB Q6H [facility] Last Admin: 01/30/19 08:20 Dose: 3 ml Aspirin (Halfprin) 81 mg PO QPM [facility] Last Admin: 01/29/19 20:02 Dose: 81 mg Azithromycin (Zithromax) 500 mg PO DAILY [facility] Last Admin: 01/30/19 08:17 Dose: 500 mg Calcium Carbonate (Caltrate 600+D 1500 Mg-400 Units) 1 tab PO TIDMEALS [facility] Last Admin: 01/30/19 08:15 Dose: 1 tab Carvedilol (Coreg) 25 mg PO BIDMEALS [facility] Last Admin: 01/30/19 08:15 Dose: 25 mg Furosemide (Lasix) 40 mg PO BIDDIURETIC [facility] Last Admin: 01/30/19 08:16 Dose: 40 mg Non-Formulary Medication (Fluticasone/Umeclidin/Vilanter [Trelegy Ellipta 100- 62.5-25]) 1 puff INH DAILY [facility] Non-Formulary Medication (Trifluridine [Trifluridine]) 1 drop EYELF DAILY [facility] Prednisone (Prednisone) 40 mg PO WITHBREAKFAST [facility] Last Admin: 01/30/19 08:16 Dose: 40 mg Senna (Senna) 8.6 mg PO DAILY PRN PRN Reason: Constipation Last Admin: 01/28/19 19:31 Dose: 8.6 mg Simvastatin (Zocor) 20 mg PO QPM [facility] Last Admin: 01/28/19 19:31 Dose: 20 mg Sodium Chloride (Saline Flush) 10 ml FLUSH ASDIRECTED PRN PRN Reason: Keep Vein Open Last Admin: 01/30/19 08:29 Dose: 10 ml Spironolactone (Aldactone) 25 mg PO DAILY [facility] Last Admin: 01/30/19 08:14 Dose: 25 mg Discontinued Medications Albuterol/Ipratropium (Duoneb 3.0-0.5 Mg/3 Ml) 3 ml INH Q4H PRN PRN Reason: Shortness of Breath Furosemide (Lasix) 20 mg IVPUSH ONETIME ONE Stop: 01/28/19 16:22 Last Admin: 01/28/19 18:11 Dose: 20 mg Furosemide (Lasix) 20 mg IVPUSH ONETIME ONE Stop: 01/29/19 08:18 Last Admin: 01/29/19 08:38 Dose: 20 mg Ceftriaxone Sodium 1 gm/ (Sodium Chloride) 50 mls @ 200 mls/hr IV Q24H [facility] Last Admin: 01/28/19 18:25 Dose: 200 mls/hr Azithromycin 500 mg/ Sodium (Chloride) 250 mls @ 250 mls/hr IV Q24H [facility] Stop: 01/29/19 22:00 Last Admin: 01/29/19 16:39 Dose: 250 mls/hr Methylprednisolone Sodium Succinate (Solu-Medrol) 125 mg IVPUSH ONETIME ONE Stop: 01/28/19 16:51 Last Admin: 01/28/19 18:09 Dose: 125 mg Methylprednisolone Sodium Succinate (Solu-Medrol) 40 mg IVPUSH Q12H [facility] Stop: 01/30/19 06:00 Last Admin: 01/29/19 20:02 Dose: 40 mg
== END 2019-01-30 11:36 | disposition home or self-care (01) | DRG 194 ==
LOC: LB.CLINIC 13:57 → LB.MS 15:46 → UNDOADMIN 15:46 → LB.MS 16:17
PROVIDERS: ADMIT Nurse Practitioner Family; ATTEND Nurse Practitioner Family
DX: J18.9 Pneumonia, unspecified organism (principal); J44.0 Chronic obstructive pulmonary disease with (acute) lower respiratory infection; J44.1 Chronic obstructive pulmonary disease with (acute) exacerbation; I50.9 Heart failure, unspecified; R06.02 Shortness of breath; Z95.2 Presence of prosthetic heart valve; M19.90 Unspecified osteoarthritis, unspecified site; J30.9 Allergic rhinitis, unspecified; H91.90 Unspecified hearing loss, unspecified ear; Z95.5 Presence of coronary angioplasty implant and graft; Z87.440 Personal history of urinary (tract) infections; Z85.3 Personal history of malignant neoplasm of breast; Z90.49 Acquired absence of other specified parts of digestive tract; Z90.710 Acquired absence of both cervix and uterus; Z90.10 Acquired absence of unspecified breast and nipple; Z96.659 Presence of unspecified artificial knee joint; Z79.82 Long term (current) use of aspirin; Z88.5 Allergy status to narcotic agent; Z88.8 Allergy status to other drugs, medicaments and biological substances
CPT/HCPCS: 36415; 71046; 80048; 83605; 83880; 85025; 87070; 87205; A9270-GY; J0456; J0696; J1940; J2920; J2930; J7050; J7620-GY

== ENCOUNTER 2019-03-29 01:33 | Emergency (ER) | payer MEDICARE, BC ==
--- NOTE | 2019-03-29 02:00 | EDM.PDOC ---
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 Pt claims that she was sleeping and woke up with precardial chest pain which was sharp and noticed some radiation to the back. No nausea or vomiting. No incontinence of urine or stool. No diaphoresis.No shortness of breath. She does get shortness of breath with exertion from her COPD and CHF. She did take 3 nitros 5 minutes apart and the chest pain slightly improved. She rates her pain in the ER at 4/10 and is dull over the precardium. Does not hurt to take deep breaths or , no chest wall pain or discomfort. No shortness of breath, or wheezing. No respiratory distress. Pt was seen in the clinic on 03/25/18 and has been teated with levaquin and prednisone for possible Pneumonia and COPD exacerbation. Does have mild stable chronic productive cough. Onset: Today Onset Date: 03/29/19 Onset Time: 01:00 Duration: Improving Location: Reports: Chest Quality: Reports: Ache Severity: Mild Associated Symptoms: Reports: Chest Pain, Cough. Denies: Confusion, Diaphoresis , Fever/Chills, Headaches, Nausea/Vomiting, Rash, Seizure, Shortness of Breath, Syncope, Weakness Chest Pain Score (Numeric/FACES): 4 - Related Data Allergies Allergy/AdvReac Type Severity Reaction Status Date / Time codeine Allergy Other Verified 03/29/19 02:16 Penicillins Allergy Cannot Verified 03/29/19 02:16 Remember Sulfa (Sulfonamide Allergy Cannot Verified 03/29/19 02:16 Antibiotics) Remember tramadol Allergy Cannot Verified 03/29/19 02:16 Remember warfarin [From Coumadin] AdvReac Bleeding Verified 03/29/19 02:16 Home Meds: Home Meds Acyclovir 400 mg PO DAILY 02/18/16 [History] Aspirin 81 mg PO QPM 02/18/16 [History] Ipratropium/Albuterol Sulfate [Iprat-Albut 0.5-3(2.5) mg/3 ml] 1 dose INH Q4H PRN 02/18/16 [History] Multivitamin [Multi-Vitamin Daily] 1 tab PO DAILY 02/18/16 [History] Spironolactone [Aldactone] 25 mg PO DAILY 02/18/16 [History] Furosemide [Lasix] 40 mg PO BIDDIURETIC tablet 02/12/18 [Rx] Calcium Carbonate/Vitamin D3 [Caltrate 600+D] 1 tab PO TIDMEALS 08/11/18 [ History] Acetaminophen [Tylenol Arthritis Pain] 650 mg PO Q8H PRN 01/28/19 [History] Carvedilol [Coreg] 25 mg PO BIDMEALS 01/28/19 [History] Levalbuterol Tartrate [Xopenex HFA] 1 puff INH Q4H PRN 01/28/19 [History] Sennosides [Senna] 8.6 mg PO DAILY PRN 01/28/19 [History] Simvastatin 20 mg PO QPM 01/28/19 [History] Trifluridine 1 drop EYELF DAILY 01/28/19 [History] Budesonide/Formoterol [Symbicort 160-4.5 MCG] 2 puff INH BID 03/29/19 [History] Levofloxacin 1 tab PO BID 03/29/19 [History] predniSONE See Taper PO ASDIRECTED 03/29/19 [History] Past Medical History HEENT History: Reports: Allergic Rhinitis, Cataract, Hard of Hearing Cardiovascular History: Reports: Heart Valve Replacement, Stents, Other (See Below) Other Cardiovascular History: endarterectomy Respiratory History: Reports: SOB, Other (See Below) Other Respiratory History: has had cough and sob x 6 days Gastrointestinal History: Reports: Cholelithiasis Other Gastrointestinal History: appy Genitourinary History: Reports: UTI, Recurrent SANIPRACTIC PHYSICIAN History: Reports: , Other (See Below) Other SANIPRACTIC PHYSICIAN History: hysterectomy Musculoskeletal History: Reports: Arthritis, Fracture Other Musculoskeletal History: Fx L tib fib 1980 Endocrine/Metabolic History: Reports: Osteoporosis Hematologic History: Reports: None Oncologic (Cancer) History: Reports: Breast - Infectious Disease History Infectious Disease History: Reports: Chicken Pox, Measles, Mumps - Past Surgical History Head Surgeries/Procedures: Reports: None HEENT Surgical History: Reports: Other (See Below) Other HEENT Surgeries/Procedures: CEA February 2013 Cardiovascular Surgical History: Reports: Valve Replacement GI Surgical History: Reports: Appendectomy, Cholecystectomy Female Surgical History: Reports: Hysterectomy Endocrine Surgical History: Reports: None Musculoskeletal Surgical History: Reports: Knee Replacement Oncologic Surgical History: Reports: Mastectomy Social & Family History - Family History Family Medical History: Noncontributory HEENT: Reports: Cataract Cardiac: Reports: CT GI: Reports: GERD : Reports: None Neurological: Reports: Alzheimers Disease Endocrine/Metabolic: Reports: Diabetes, Gestational Immunologic: Reports: None Oncologic: Reports: Breast - Caffeine Use Caffeine Use: Reports: Coffee Caffeine Use Comment: 3 cups a day ED ROS GENERAL - Review of Systems Review Of Systems: See Below Constitutional: Denies: Fever, Chills, Weakness, Night Sweats, Diaphoresis HEENT: Denies: Ear Pain, Rhinitis, Throat Pain Respiratory: Reports: Cough, Sputum. Denies: Shortness of Breath, Wheezing, Pleuritic Chest Pain Cardiovascular: Reports: Chest Pain. Denies: Dyspnea on Exertion, Lightheadedness, Palpitations, Syncope GI/Abdominal: Denies: Abdominal Pain, Constipation, Diarrhea, Nausea, Vomiting : Denies: Dysuria, Frequency Musculoskeletal: Denies: Joint Pain, Joint Swelling Skin: Denies: Bruising, Pruritis, Rash Neurological: Denies: Confusion, Dizziness, Headache, Numbness, Tingling Psychiatric: Denies: Anxiety, Confusion ED EXAM, GENERAL - Physical Exam Exam: See Below Exam Limited By: No Limitations General Appearance: Alert, WD/WN, No Apparent Distress Eye Exam: Bilateral Eye: EOMI, PERRL Ears: Normal External Exam, Normal Canal, Hearing Grossly Normal, Normal TMs Ear Exam: Bilateral Ear: Auricle Normal, Canal Normal, TM normal Nose: Normal Inspection, Normal Mucosa, No Blood Throat/Mouth: Normal Inspection, Normal Lips, Normal Teeth, Normal Gums, Normal Oropharynx, Normal Voice, No Airway Compromise Head: Atraumatic, Normocephalic Neck: Normal Inspection, Supple, Non-Tender, Full Range of Motion Respiratory/Chest: No Respiratory Distress, Decreased Breath Sounds, Crackles (B /L base), Rhonchi ( expiratory , scatterred over the lung raymond) Cardiovascular: Normal Peripheral Pulses, Regular Rate, Rhythm, No Edema, No Gallop, No JVD, No Murmur, No Rub Extremities: Normal Inspection, Normal Range of Motion, Non-Tender, Normal Capillary Refill, No Pedal Edema Neurological: Alert, Oriented, CN II-XII Intact Skin Exam: Warm, Intact EKG INTERPRETATION EKG Date: 03/29/19 Rhythm: A-Flutter Rate (Beats/Min): 74 Delia: Normal P-Wave: Present QRS: Normal ST-T: Normal EKG Interpretation Comments: 4:1 atrial flutter Course - Vital Signs Text/Narrative:: 79 year old female with chest pain started today midnight. Radiation to the midback. Has taken 3 nitros and pain presently she rates at 4/10. Her vitals are stable. Her SPO2 is 96% on room air. EKG shows 4:1 rate controlled atrial flutter. Portable chest xray does show right lower extremity infiltrate consistent with recent pneumonia, for which patient has been on levaquin and prednisone. Her Atrial flutter might be related to her recent pneumonia or COPD. Her CBC shows mild elevation of white count of 14.9, which can be prednisone related leucocytosis. CMP shows stable electrolytes, but her BUN is up from 29 to 55 and creat is up from 1.63 to 2.02, from 02/15/19. Considering her history , I did order Troponin. Her first set shows elevation of troponin at 0.079. Pt did have chest pain in the emergency room and now her chest pain has resolved.Pt did receive 4 baby aspirin.Pt claims that she had similar episode on 02/16/19 which resolved with nitro and on workup her troponin was negative. With elevation of troponin today it does appears like Non-stemi, I did contact and discuss patient with him. Per Dr. Long's recommendation patient did receive plavix 600mg po, lopressor 12.5mg Po and zocor 60mg orally. Also she has been started on heparin drip 3500 units bolus followed by 700units per hr, by body weight of 129 lbs. Did contact , hospitalist for admission and per his recommendation have got D-dimer and blood culture ordered. Pt is clinically stable.[facility] ambulance transfer to [facility], has been arranged. Pt is hemodynamically stable and chest pain free. Further care per Dr. Lofton/. Last Recorded V/S: Last Vital Signs Temp 96.2 F 03/29/19 01:33 Pulse 76 03/29/19 03:44 Resp 16 03/29/19 03:36 BP 129/64 03/29/19 03:44 Pulse Ox 96 03/29/19 03:36 - Orders/Labs/Meds Orders: Active Orders 24 hr Category Date Time Status EKG Documentation Completion [RC] ASDIRECTED Care 03/29/19 01:59 Active Chest 1V Frontal [CR] Stat Exams 03/29/19 01:55 Taken CULTURE BLOOD [BC] Stat Lab 03/29/19 03:27 Ordered D-DIMER QUANTITATIVE [COAG] Stat Lab 03/29/19 03:28 Ordered INR,PT,PROTHROMBIN TIME [COAG] Stat Lab 03/29/19 03:25 Ordered PTT,PARTIAL THROMBOPLSTIN TIME [COAG] Stat Lab 03/29/19 03:25 Ordered Heparin Sodium Med 03/29/19 03:42 Stat 3,500 units IVPUSH .BOLUS STA Heparin Sodium/D5W [Heparin 25,000 Units in D5W 500 ML] Med 03/29/19 03:45 Ordered 25,000 units in 500 ml IV TITRATE Labs: Laboratory Tests 03/29/19 03/29/19 Range/Units 02:10 02:10 WBC 14.9 H (4.0-11.0) K/uL RBC 3.73 L (3.80-5.80) M/uL Hgb 11.3 L (11.5-16.5) g/dL Hct 35.3 L (37.0-47.0) % MCV 95 (76-96) fL MCH 30.3 (27.0-32.0) pg MCHC 32.0 (31.0-35.0) g/dL RDW 14.3 (11.0-16.0) % Plt Count 175 (150-500) K/uL MPV 9.9 (6.0-10.0) fL Neut % (Auto) 85.0 H (45.0-70.0) % Lymph % (Auto) 6.6 L (20.0-40.0) % [place] % (Auto) 7.8 (3.0-10.0) % Eos % (Auto) 0.5 L (1.0-5.0) % Baso % (Auto) 0.1 (0.0-0.5) % Neut # (Auto) 12.71 H (2.00-7.50) K/uL Lymph # (Auto) 0.98 L (1.50-4.00) K/uL [place] # (Auto) 1.16 H (0.20-0.80) K/uL Eos # (Auto) 0.08 (0.04-0.40) K/uL Baso # (Auto) 0.01 L (0.02-0.10) K/uL Sodium 139 (136-145) mmol/L Potassium 3.5 (3.5-5.1) mmol/L Chloride 98 (98-107) mmol/L Carbon Dioxide 32.2 H (21.0-32.0) mmol/L Anion Gap 12.3 (5.0-15.0) mmol/L BUN 55 H* D (8-26) mg/dL Creatinine 2.07 H D (0.55-1.02) mg/dL Est Cr Clr Drug Dosing 18.53 mL/min Estimated GFR (MDRD) 23 L (>60) MLS/MIN BUN/Creatinine Ratio 26.6 H (6-25) Glucose 135 H D (74-100) mg/dL Calcium 9.6 (8.5-10.1) mg/dL Total Bilirubin 0.4 D (0.0-1.0) mg/dL AST 27 (15-37) U/L ALT 34 (12-78) U/L Alkaline Phosphatase 42 L (46-116) U/L Troponin I 0.079 H* D (0.000-0.060) ng/mL Total Protein 6.9 (6.4-8.2) g/dL Albumin 2.9 L (3.4-5.0) g/dL Globulin 4.0 (2.2-4.2) g/dL Albumin/Globulin Ratio 0.7 L (0.8-2.0) Meds: Medications Discontinued Medications Generic Name Dose Route Start Last Admin Trade Name Freq PRN Reason Stop Dose Admin Aspirin 324 mg 03/29/19 03:00 03/29/19 03:02 Aspirin PO 03/29/19 03:01 324 mg ONETIME ONE Administration Atorvastatin Calcium Confirm 03/29/19 03:30 03/29/19 03:35 Lipitor Administered 03/29/19 03:31 Not Given Dose 20 mg .ROUTE .STK-MED ONE Atorvastatin Calcium Confirm 03/29/19 03:30 03/29/19 03:35 Lipitor Administered 03/29/19 03:31 Not Given Dose 40 mg .ROUTE .STK-MED ONE Atorvastatin Calcium 60 mg 03/29/19 03:30 03/29/19 03:43 Lipitor PO 03/29/19 03:31 60 mg ONETIME ONE Administration Clopidogrel Bisulfate 600 mg 03/29/19 03:29 03/29/19 03:44 Plavix PO 03/29/19 03:30 600 mg ONETIME ONE Administration Metoprolol Tartrate Confirm 03/29/19 03:32 03/29/19 03:35 Lopressor Administered 03/29/19 03:33 Not Given Dose 25 mg .ROUTE .STK-MED ONE Metoprolol Tartrate 12.5 mg 03/29/19 03:28 03/29/19 03:44 Lopressor PO 03/29/19 03:29 12.5 mg ONETIME ONE Administration Departure - Departure Time of Disposition: 04:30 Disposition: DC/Tfer to Acute Hospital 02 Reason for Transfer *Q: Primary PCI Indicated Clinical Impression: Non-STEMI (non-ST elevated myocardial infarction) Referrals: PCP,None [Primary Care Provider] - Forms: ED Department Discharge - Problem List & Annotations (1) Right lower lobe pneumonia SNOMED Code(s): 874118592 Code(s): J18.9 - PNEUMONIA, UNSPECIFIED ORGANISM Status: Acute Current Visit: No Onset Date: 02/18/16 Qualifiers: Pneumonia type: due to unspecified organism Qualified Code(s): J18.1 - Lobar pneumonia, unspecified organism (2) Non-STEMI (non-ST elevated myocardial infarction) SNOMED Code(s): 43809279 Code(s): I21.4 - NON-ST ELEVATION (NSTEMI) MYOCARDIAL INFARCTION Status: Acute Current Visit: Yes - Problem List Review Problem List Initiated/Reviewed/Updated: Yes - My Orders Last 24 Hours: My Active Orders 03/29/19 01:55 Chest 1V Frontal [CR] Stat 03/29/19 01:59 EKG Documentation Completion [RC] ASDIRECTED 03/29/19 03:25 INR,PT,PROTHROMBIN TIME [COAG] Stat PTT,PARTIAL THROMBOPLSTIN TIME [COAG] Stat 03/29/19 03:27 CULTURE BLOOD [BC] Stat 03/29/19 03:28 D-DIMER QUANTITATIVE [COAG] Stat 03/29/19 03:42 Heparin Sodium 3,500 units IVPUSH .BOLUS STA 03/29/19 03:45 Heparin Sodium/D5W [Heparin 25,000 Units in D5W 500 ML] 25,000 units in 500 ml IV TITRATE - Assessment/Plan Last 24 Hours: My Active Orders 03/29/19 01:55 Chest 1V Frontal [CR] Stat 03/29/19 01:59 EKG Documentation Completion [RC] ASDIRECTED 03/29/19 03:25 INR,PT,PROTHROMBIN TIME [COAG] Stat PTT,PARTIAL THROMBOPLSTIN TIME [COAG] Stat 03/29/19 03:27 CULTURE BLOOD [BC] Stat 03/29/19 03:28 D-DIMER QUANTITATIVE [COAG] Stat 03/29/19 03:42 Heparin Sodium 3,500 units IVPUSH .BOLUS STA 03/29/19 03:45 Heparin Sodium/D5W [Heparin 25,000 Units in D5W 500 ML] 25,000 units in 500 ml IV TITRATE Assessment:: Non-STEMI Right lower lobe pneumonia Plan: With elevation of troponin today it does appears like Non-stemi, I did contact and discuss patient with him. Per Dr. Long's recommendation patient did receive plavix 600mg po, lopressor 12.5mg Po and zocor 60mg orally. Also she has been started on heparin drip 3500 units bolus followed by 700units per hr, by body weight of 129 lbs. Did contact , hospitalist for admission and per his recommendation have got D-dimer and blood culture ordered. Pt is clinically stable.[facility] ambulance transfer to [facility], has been arranged. Pt is hemodynamically stable and chest pain free. Further care per Dr. Lofton/.
[2019-03-29] MEDS ORDERED: Aspirin 81 MG Tab.Chew PO ONE (03:00)
[2019-03-29] MEDS ORDERED: Metoprolol Tartrate 25 MG Tab PO ONE (03:28)
[2019-03-29] MEDS ORDERED: Clopidogrel 75 MG Tab PO ONE (03:29)
[2019-03-29] MEDS ORDERED: atorvaSTATin 80 MG Tab PO ONE (03:30)
[2019-03-29] MEDS ORDERED: atorvaSTATin 40 MG Tab ONE (03:30)
[2019-03-29] MEDS ORDERED: atorvaSTATin 20 MG Tab ONE (03:30)
[2019-03-29] MEDS ORDERED: Metoprolol Tartrate 25 MG Tab ONE (03:32)
[2019-03-29 03:36] VITALS: BP 129/64
[2019-03-29] MEDS ORDERED: Heparin Sodium 5,000 Units/ML Vial IVPUSH STA (03:42)
[2019-03-29] MEDS ORDERED: Heparin Sodium/D5W 25,000 UNITS/500 ML BAG IV SCH (03:45)
--- NOTE | 2019-03-29 07:15 | CR ---
Date of Service: 03/29/19 Clinical Data: chest pain AP PORTABLE CHEST: Comparison is made to a prior exam dated 03/25/19. The heart size is stable. The patient is status post median sternotomy. There are interstitial infiltrates throughout both lungs. There are mild atelectatic changes in both lung bases. There is slight blunting of both costophrenic angles suggesting small bilateral pleural effusions. No other significant findings. [id number] [facility]
== END 2019-03-29 04:50 ==
LOC: LB.ED 01:33
DX: J18.1 Lobar pneumonia, unspecified organism (principal); I21.4 Non-ST elevation (NSTEMI) myocardial infarction; Z88.5 Allergy status to narcotic agent; Z88.0 Allergy status to penicillin; Z79.82 Long term (current) use of aspirin; Z79.899 Other long term (current) drug therapy; Z95.4 Presence of other heart-valve replacement
CPT/HCPCS: 36415; 71045; 80053; 84484; 85025; 85379; 85610; 85730; 87040; 93005; 96365; 96376; 99285; 99285-25; A0425; A0429; A9270-GY; J1644

== ENCOUNTER 2019-04-24 09:26 | Emergency (ER) | payer MEDICARE, BC ==
[2019-04-24 09:55] VITALS: BP 148/64
[2019-04-24] MEDS ORDERED: Furosemide 20 MG/2 ML VIAL IM ONE (10:00)
[2019-04-24] MEDS ORDERED: Albuterol/Ipratropium 3.0-0.5 MG/3 ML Neb Soln NEB STA (10:01)
--- NOTE | 2019-04-24 10:08 | EDM.PDOC ---
ED HPI GENERAL MEDICAL PROBLEM - General Chief Complaint: Respiratory Problem Stated Complaint: RESPIRATORY DISTRESS Time Seen by Provider: 04/24/19 09:40 Source of Information: Reports: Patient History Limitations: Reports: No Limitations - History of Present Illness INITIAL COMMENTS - FREE TEXT/NARRATIVE: 79 year old female with PMH of COPD with CHF presents to emergency room with shortness of breath. Pt claims that it has progressively got worse over the past 2-3 days. She has to take deep and fast breath to keep herself moving.Her exertional dyspnea has got worse. Also she was 125lbs on discharge and is now 135 pounds. Has noticed swelling of the legs. No chest pain or tightness. She does have cough form her COPD, but has not got worse. No fever or chills. No syncope or dizziness. Pt was a recent discharge from [facility].Her Lasix was decreased to 20mg BID on discharge. Pt was seen, by Sona Smith CNP last Friday for same reason and started on doycycline and tapering prednisone therapy for her COPD, which she is still taking. Onset: Gradual Onset Date: 04/22/19 Duration: Getting Worse Improves with: Reports: None Worsens with: Reports: None Associated Symptoms: Reports: Cough, Shortness of Breath. Denies: Confusion, Chest Pain, Diaphoresis, Fever/Chills, Headaches, Nausea/Vomiting, Rash, Seizure , Syncope, Weakness - Related Data Allergies Allergy/AdvReac Type Severity Reaction Status Date / Time codeine Allergy Other Verified 03/29/19 02:16 Penicillins Allergy Cannot Verified 03/29/19 02:16 Remember Sulfa (Sulfonamide Allergy Cannot Verified 03/29/19 02:16 Antibiotics) Remember tramadol Allergy Cannot Verified 03/29/19 02:16 Remember warfarin [From Coumadin] AdvReac Bleeding Verified 03/29/19 02:16 Home Meds: Home Meds Acyclovir 400 mg PO DAILY 02/18/16 [History] Aspirin 81 mg PO QPM 02/18/16 [History] Ipratropium/Albuterol Sulfate [Iprat-Albut 0.5-3(2.5) mg/3 ml] 1 dose INH Q4H PRN 02/18/16 [History] Multivitamin [Multi-Vitamin Daily] 1 tab PO DAILY 02/18/16 [History] Spironolactone [Aldactone] 25 mg PO DAILY 02/18/16 [History] Furosemide [Lasix] 40 mg PO BIDDIURETIC tablet 02/12/18 [Rx] Calcium Carbonate/Vitamin D3 [Caltrate 600+D] 1 tab PO TIDMEALS 08/11/18 [ History] Acetaminophen [Tylenol Arthritis Pain] 650 mg PO Q8H PRN 01/28/19 [History] Carvedilol [Coreg] 25 mg PO BIDMEALS 01/28/19 [History] Levalbuterol Tartrate [Xopenex HFA] 1 puff INH Q4H PRN 01/28/19 [History] Sennosides [Senna] 8.6 mg PO DAILY PRN 01/28/19 [History] Simvastatin 20 mg PO QPM 01/28/19 [History] Trifluridine 1 drop EYELF DAILY 01/28/19 [History] Budesonide/Formoterol [Symbicort 160-4.5 MCG] 2 puff INH BID 03/29/19 [History] Levofloxacin 1 tab PO BID 03/29/19 [History] predniSONE See Taper PO ASDIRECTED 03/29/19 [History] Past Medical History HEENT History: Reports: Allergic Rhinitis, Cataract, Hard of Hearing Cardiovascular History: Reports: Heart Valve Replacement, Stents, Other (See Below) Other Cardiovascular History: endarterectomy Respiratory History: Reports: SOB, Other (See Below) Other Respiratory History: has had cough and sob x 6 days Gastrointestinal History: Reports: Cholelithiasis Other Gastrointestinal History: appy Genitourinary History: Reports: UTI, Recurrent 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: Reports: , Other (See Below) Other CELL TUBER 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: hysterectomy Musculoskeletal History: Reports: Arthritis, Fracture Other Musculoskeletal History: Fx L tib fib 1980 Endocrine/Metabolic History: Reports: Osteoporosis Hematologic History: Reports: None Oncologic (Cancer) History: Reports: Breast - Infectious Disease History Infectious Disease History: Reports: Chicken Pox, Measles, Mumps - Past Surgical History Head Surgeries/Procedures: Reports: None HEENT Surgical History: Reports: Other (See Below) Other HEENT Surgeries/Procedures: CEA February 2013 Cardiovascular Surgical History: Reports: Valve Replacement GI Surgical History: Reports: Appendectomy, Cholecystectomy Female Surgical History: Reports: Hysterectomy Endocrine Surgical History: Reports: None Musculoskeletal Surgical History: Reports: Knee Replacement Oncologic Surgical History: Reports: Mastectomy Social & Family History - Family History Family Medical History: Noncontributory HEENT: Reports: Cataract Cardiac: Reports: [place] GI: Reports: GERD : Reports: None Neurological: Reports: Alzheimers Disease Endocrine/Metabolic: Reports: Diabetes, Gestational Immunologic: Reports: None Oncologic: Reports: Breast - Caffeine Use Caffeine Use: Reports: Coffee Caffeine Use Comment: 3 cups a day ED ROS GENERAL - Review of Systems Review Of Systems: See Below Constitutional: Denies: Fever, Chills, Night Sweats, Diaphoresis HEENT: Denies: Ear Pain, Rhinitis, Throat Pain Respiratory: Reports: Shortness of Breath, Wheezing, Cough. Denies: Pleuritic Chest Pain, Sputum Cardiovascular: Reports: Dyspnea on Exertion (from her Chronic CHF), Edema. Denies: Chest Pain, Lightheadedness, Syncope GI/Abdominal: Denies: Abdominal Pain, Constipation, Diarrhea, Nausea, Vomiting : Denies: Dysuria, Frequency Musculoskeletal: Denies: Joint Pain, Joint Swelling Skin: Denies: Bruising, Pruritis, Rash Neurological: Denies: Confusion, Dizziness, Headache, Numbness, Tingling ED EXAM, GENERAL - Physical Exam Exam: See Below Exam Limited By: No Limitations General Appearance: Alert, WD/WN, No Apparent Distress Eye Exam: Bilateral Eye: EOMI, PERRL Ears: Normal External Exam, Normal Canal, Hearing Grossly Normal, Normal TMs Ear Exam: Bilateral Ear: Auricle Normal, Canal Normal, TM normal Nose: Normal Inspection, Normal Mucosa, No Blood Throat/Mouth: Normal Inspection, Normal Lips, Normal Teeth, Normal Gums, Normal Oropharynx, Normal Voice, No Airway Compromise Head: Atraumatic, Normocephalic Neck: Normal Inspection, Supple, Non-Tender, Full Range of Motion Respiratory/Chest: No Respiratory Distress, No Accessory Muscle Use, Chest Non- Tender, Decreased Breath Sounds (b/l base), Crackles (all over the lung raymond) , Rhonchi (fine rhonchi all over the lung raymond) Cardiovascular: Normal Peripheral Pulses, Regular Rate, Rhythm, No Edema, No Gallop, No JVD, No Murmur, No Rub GI/Abdominal: Normal Bowel Sounds, Soft, Non-Tender, No Organomegaly, No Distention, No Abnormal Bruit, No Mass Extremities: Normal Inspection, Normal Range of Motion, Non-Tender, Normal Capillary Refill, Pedal Edema (pitting type B/L 2+) Neurological: Alert, Oriented, CN II-XII Intact, Normal Cognition, Normal Gait Course - Vital Signs Text/Narrative:: Pt's SPO2 on room air is 98%, she is slightly tachypneic breathing around 18-20 breaths. She did received duoneb treatment and also received lasix 20mg IM. Chest X-ray, BNP and CBC was ordered. She is on prednisone and doxycycline for past 5 days. Pt's chest Xray appear stable and improved compared to her last Chest x-ray. Her CBC shows white count of 16K, which might be related to her prednisone. She is maintaining good SPO2 and [place] [address]. Pt reassured that she has mild CHF exacerbation, Also her breathing has improved with lasix IM and DuoNeb. Pt is fluid overloaded, as she has gained about 10 lbs weight in 2 wks and also pitting edema of the legs. Advised to increase her lasix to 40mg twice daily. Fluid restriction to 1200cc/ day and salt restriction to 1.2gm per day. elevation of the leg. She is hypodynamically stable and her shortness of breath has resolved. Advised to return to emergency sweta if her symptoms worsen, other crowell followup int he clinic next week. Last Recorded V/S: Last Vital Signs Temp 98.7 F 04/24/19 09:46 Pulse 72 04/24/19 09:46 Resp 36 H 04/24/19 09:46 BP 148/64 H 04/24/19 09:46 Pulse Ox 96 04/24/19 09:46 - Orders/Labs/Meds Orders: Active Orders 24 hr Category Date Time Status RT Aerosol Therapy [RC] ASDIRECTED Care 04/24/19 10:01 Active Chest 2V [CR] Stat Exams 04/24/19 10:00 Taken Labs: Laboratory Tests 04/24/19 04/24/19 Range/Units 10:00 10:00 WBC 16.6 H D (4.0-11.0) K/uL RBC 3.19 L (3.80-5.80) M/uL Hgb 9.7 L (11.5-16.5) g/dL Hct 31.4 L (37.0-47.0) % MCV 98 H (76-96) fL MCH 30.4 (27.0-32.0) pg MCHC 30.9 L (31.0-35.0) g/dL RDW 15.1 (11.0-16.0) % Plt Count 308 D (150-500) K/uL MPV 9.4 (6.0-10.0) fL Neut % (Auto) 85.5 H (45.0-70.0) % Lymph % (Auto) 3.8 L (20.0-40.0) % [place] % (Auto) 10.0 (3.0-10.0) % Eos % (Auto) 0.6 L (1.0-5.0) % Baso % (Auto) 0.1 (0.0-0.5) % Neut # (Auto) 14.22 H (2.00-7.50) K/uL Lymph # (Auto) 0.64 L (1.50-4.00) K/uL [place] # (Auto) 1.66 H (0.20-0.80) K/uL Eos # (Auto) 0.10 (0.04-0.40) K/uL Baso # (Auto) 0.02 (0.02-0.10) K/uL B-Natriuretic Peptide 18703 H D (0-450) pg/mL Meds: Medications Discontinued Medications Generic Name Dose Route Start Last Admin Trade Name Freq PRN Reason Stop Dose Admin Albuterol/Ipratropium 3 ml 04/24/19 10:01 04/24/19 10:04 Duoneb 3.0-0.5 Mg/3 Ml NEB 04/24/19 10:02 3 ml STAT STA Administration Furosemide 20 mg 04/24/19 10:00 04/24/19 10:04 Lasix IM 04/24/19 10:01 20 mg ONETIME ONE Administration Furosemide Confirm 04/24/19 10:09 Lasix Administered 04/24/19 10:10 Dose 40 mg .ROUTE .STK-MED ONE Departure - Departure Time of Disposition: 11:00 Disposition: Home, Self-Care 01 Condition: Fair Clinical Impression: CHF exacerbation - Discharge Information *PRESCRIPTION DRUG MONITORING PROGRAM REVIEWED*: Not Applicable *COPY OF PRESCRIPTION DRUG MONITORING REPORT IN PATIENT KERRI: Not Applicable Instructions: Heart-Healthy Eating Plan, [id number], Chronic Obstructive Pulmonary Disease, [id number], Low-Sodium Eating Plan, Heart Failure, Easy-to- Read, Preventing Heart Failure Referrals: PCP,None [Primary Care Provider] - Forms: ED Department Discharge Additional Instructions: Increase the lasix back to 40mg twice a day. Continue moving to release the fluid in your legs. Continue the dose of prednisone and the antibiotic. Follow up in the clinic in the middle of next week to re-check your status. - Problem List & Annotations (1) CHF exacerbation SNOMED Code(s): 811114503, [id number] Code(s): I50.9 - HEART FAILURE, UNSPECIFIED Status: Acute - Problem List Review Problem List Initiated/Reviewed/Updated: Yes - My Orders Last 24 Hours: My Active Orders 04/24/19 10:00 Chest 2V [CR] Stat 04/24/19 10:01 RT Aerosol Therapy [RC] ASDIRECTED - Assessment/Plan Last 24 Hours: My Active Orders 04/24/19 10:00 Chest 2V [CR] Stat 04/24/19 10:01 RT Aerosol Therapy [RC] ASDIRECTED Assessment:: CHF exacerbation Plan: Pt's SPO2 on room air is 98%, she is slightly tachypneic breathing around 18-20 breaths. She did received duoneb treatment and also received lasix 20mg IM. Chest X-ray, BNP and CBC was ordered. She is on prednisone and doxycycline for past 5 days. Pt's chest Xray appear stable and improved compared to her last Chest x-ray. Her CBC shows white count of 16K, which might be related to her prednisone. She is maintaining good SPO2 and [place] [address]. Pt reassured that she has mild CHF exacerbation, Also her breathing has improved with lasix IM and DuoNeb. Pt is fluid overloaded, as she has gained about 10 lbs weight in 2 wks and also pitting edema of the legs. Advised to increase her lasix to 40mg twice daily. Fluid restriction to 1200cc/ day and salt restriction to 1.2gm per day. elevation of the leg. She is hypodynamically stable and her shortness of breath has resolved. Advised to return to emergency sweta if her symptoms worsen, other crowell followup int he clinic next week.
[2019-04-24] MEDS ORDERED: Furosemide 40 MG/4 ML VIAL ONE (10:09)
--- NOTE | 2019-04-25 14:07 | CR ---
DATE OF SERVICE: 04/24/19 CLINICAL DATA: Shortness of breath PA AND LATERAL CHEST: Comparison made to a prior exam dated 04/19/2019. The patient is status post median sternotomy. The heart is enlarged, unchanged. There is calcification of the aortic arch. There are interstitial infiltrates throughout both lungs that have not changed significantly from the prior study. There is chronic blunting of both costophrenic angles, consistent with chronic pleural effusions or pleural scar. The exam is otherwise unchanged from the prior. [id number] [facility]
== END 2019-04-24 10:35 | disposition home or self-care (01) ==
LOC: LB.ED 09:26
DX: I50.9 Heart failure, unspecified (principal); J44.9 Chronic obstructive pulmonary disease, unspecified; M19.90 Unspecified osteoarthritis, unspecified site; Z90.49 Acquired absence of other specified parts of digestive tract; Z90.710 Acquired absence of both cervix and uterus; Z79.82 Long term (current) use of aspirin; Z79.899 Other long term (current) drug therapy; Z95.5 Presence of coronary angioplasty implant and graft; Z88.0 Allergy status to penicillin; Z88.2 Allergy status to sulfonamides; Z88.5 Allergy status to narcotic agent; Z88.8 Allergy status to other drugs, medicaments and biological substances
CPT/HCPCS: 36415; 71046; 83880; 85025; 96372; 99285; J1940; 99284; J7620-GY

== ENCOUNTER 2019-08-01 09:35 | Emergency (ER) | payer MEDICARE, BC ==
[2019-08-01] MEDS ORDERED: Albuterol 0.083% 2.5 MG/3 ML Neb Soln NEB ONE (09:40)
[2019-08-01] MEDS ORDERED: Albuterol 0.083% 2.5 MG/3 ML Neb Soln ONE (09:45)
[2019-08-01] MEDS ORDERED: predniSONE 10 MG Tab ONE (09:45)
[2019-08-01] MEDS ORDERED: methylPREDNISolone Sodium Succinate 125 MG/2 ML SDV IVPUSH ONE (10:28)
--- NOTE | 2019-08-01 10:30 | EDM.PDOC ---
ED HPI GENERAL MEDICAL PROBLEM - General Chief Complaint: Respiratory Problem Stated Complaint: SOB Time Seen by Provider: 08/01/19 09:40 Source of Information: Reports: Patient History Limitations: Reports: No Limitations - History of Present Illness INITIAL COMMENTS - FREE TEXT/NARRATIVE: Pt is a 79 year old female with COPD with CHF, presents to emergency room with minimally productive cough for past 3 days which has gradually worsened. She woke up today and she started to feel short of breath with coughing spell.She did take her Duoneb treatment at home and did not help and hence she is here to have checked. Cough is minimally productive with thick mucoid sputum. No fever or chills. No chest pain. No chest tightness. Onset: Today Onset Date: 08/01/19 Onset Time: 06:00 Severity: Moderate Improves with: Reports: None Worsens with: Reports: None Associated Symptoms: Reports: Cough, Shortness of Breath. Denies: Confusion, Chest Pain, Diaphoresis, Fever/Chills, Nausea/Vomiting, Rash, Seizure, Syncope, Weakness - Related Data Allergies Allergy/AdvReac Type Severity Reaction Status Date / Time codeine Allergy Other Verified 08/01/19 09:41 Penicillins Allergy Cannot Verified 08/01/19 09:41 Remember Sulfa (Sulfonamide Allergy Cannot Verified 08/01/19 09:41 Antibiotics) Remember tramadol Allergy Cannot Verified 08/01/19 09:41 Remember warfarin [From Coumadin] AdvReac Bleeding Verified 08/01/19 09:41 Home Meds: Home Meds Acyclovir 400 mg PO DAILY 02/18/16 [History] Aspirin 81 mg PO QPM 02/18/16 [History] Ipratropium/Albuterol Sulfate [Iprat-Albut 0.5-3(2.5) mg/3 ml] 1 dose INH Q4H PRN 02/18/16 [History] Multivitamin [Multi-Vitamin Daily] 1 tab PO DAILY 02/18/16 [History] Spironolactone [Aldactone] 25 mg PO DAILY 02/18/16 [History] Furosemide [Lasix] 40 mg PO BIDDIURETIC tablet 02/12/18 [Rx] Calcium Carbonate/Vitamin D3 [Caltrate 600+D] 1 tab PO TIDMEALS 08/11/18 [ History] Acetaminophen [Tylenol Arthritis Pain] 650 mg PO Q8H PRN 01/28/19 [History] Carvedilol [Coreg] 25 mg PO BIDMEALS 01/28/19 [History] Levalbuterol Tartrate [Xopenex HFA] 1 puff INH Q4H PRN 01/28/19 [History] Sennosides [Senna] 8.6 mg PO DAILY PRN 01/28/19 [History] Simvastatin 20 mg PO QPM 01/28/19 [History] Trifluridine 1 drop EYELF DAILY 01/28/19 [History] Budesonide/Formoterol [Symbicort 160-4.5 MCG] 2 puff INH BID 03/29/19 [History] Levofloxacin 1 tab PO BID 03/29/19 [History] predniSONE See Taper PO ASDIRECTED 03/29/19 [History] Past Medical History HEENT History: Reports: Allergic Rhinitis, Cataract, Hard of Hearing Cardiovascular History: Reports: Heart Valve Replacement, Stents, Other (See Below) Other Cardiovascular History: endarterectomy Respiratory History: Reports: SOB, Other (See Below) Other Respiratory History: has had cough and sob x 6 days Gastrointestinal History: Reports: Cholelithiasis Other Gastrointestinal History: appy Genitourinary History: Reports: UTI, Recurrent 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: , 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 (See Below) Other SULFONATOR OPERATOR History: hysterectomy Musculoskeletal History: Reports: Arthritis, Fracture Other Musculoskeletal History: Fx L tib fib 1980 Endocrine/Metabolic History: Reports: Osteoporosis Hematologic History: Reports: None Oncologic (Cancer) History: Reports: Breast - Infectious Disease History Infectious Disease History: Reports: Chicken Pox, Measles, Mumps - Past Surgical History Head Surgeries/Procedures: Reports: None HEENT Surgical History: Reports: Other (See Below) Other HEENT Surgeries/Procedures: CEA February 2013 Cardiovascular Surgical History: Reports: Valve Replacement GI Surgical History: Reports: Appendectomy, Cholecystectomy Female Surgical History: Reports: Hysterectomy Endocrine Surgical History: Reports: None Musculoskeletal Surgical History: Reports: Knee Replacement Oncologic Surgical History: Reports: Mastectomy Social & Family History - Family History Family Medical History: Noncontributory HEENT: Reports: Cataract Cardiac: Reports: [place] GI: Reports: GERD : Reports: None Neurological: Reports: Alzheimers Disease Endocrine/Metabolic: Reports: Diabetes, Gestational Immunologic: Reports: None Oncologic: Reports: Breast - Caffeine Use Caffeine Use: Reports: Coffee Caffeine Use Comment: 3 cups a day ED ROS GENERAL - Review of Systems Review Of Systems: See Below Constitutional: Denies: Fever, Chills HEENT: Denies: Ear Pain, Rhinitis, Throat Pain Respiratory: Reports: Shortness of Breath, Wheezing, Cough, Sputum. Denies: Pleuritic Chest Pain Cardiovascular: Denies: Chest Pain, Lightheadedness GI/Abdominal: Denies: Abdominal Pain, Nausea, Vomiting : Denies: Dysuria, Frequency Musculoskeletal: Denies: Joint Pain, Joint Swelling Skin: Denies: Bruising, Pruritis, Rash ED EXAM, GENERAL - Physical Exam Exam: See Below Exam Limited By: No Limitations General Appearance: Alert, WD/WN, Mild Distress, Other (Patient is slightly tachypnec) Eye Exam: Bilateral Eye: EOMI, PERRL Ears: Normal External Exam, Normal Canal, Hearing Grossly Normal, Normal TMs Ear Exam: Bilateral Ear: Auricle Normal, Canal Normal, TM normal Nose: Normal Inspection, Normal Mucosa, No Blood Throat/Mouth: Normal Inspection, Normal Lips, Normal Teeth, Normal Gums, Normal Oropharynx, Normal Voice, No Airway Compromise Head: Atraumatic, Normocephalic Neck: Normal Inspection, Supple, Non-Tender, Full Range of Motion Respiratory/Chest: No Respiratory Distress, Chest Non-Tender, Decreased Breath Sounds (b/l which is chronic), Crackles (inspiratory and expioratory crackles over the lung raymond.), Rhonchi (scatterred expiratory rhonchi) Cardiovascular: Normal Peripheral Pulses, Regular Rate, Rhythm, No Edema, No Gallop, No JVD, No Murmur, No Rub Extremities: Normal Inspection, Normal Range of Motion, Pedal Edema (pitting 2+ B/l) Neurological: Alert, Oriented, CN II-XII Intact, Normal Cognition, Normal Gait Course - Vital Signs Text/Narrative:: Pt does have severe COPD. Pt is a frequent visitor to emergency room.She is anxious and slightly tachypneic, She did receive albuterol nebs and her SPO2 improved from 89% to 96% on oxygen. Her breathing improved. Also she did receive solumedrol 125mg IV. Her CBC is normal with white count 10.1. Her chest X-ray is stable. Also her SPO2 is around 95-96% on room air now. Also her breathing has improved. Patient reassured that this is COPD [id number]. Advised to continue duonebs 2-3 times daily. She could use albuterol nebulizers in between the duonebs 3 times daily only if needed. Deep breathing exercises. NS nebulizer 1-2 times daily to help release the thick mucoid sputum. I have discharged her on prednisone 20mg daily for 3 days followed by 10mg daily for 7 days. Rest and hydration. followup in clinic if symptoms worsen. - Orders/Labs/Meds Orders: Active Orders 24 hr Category Date Time Status RT Aerosol Therapy [RC] ASDIRECTED Care 08/01/19 09:40 Active Chest 2V [CR] Stat Exams 08/01/19 09:39 Taken Labs: Laboratory Tests 08/01/19 Range/Units 09:43 WBC 10.1 D (4.0-11.0) K/uL RBC 3.62 L (3.80-5.80) M/uL Hgb 10.5 L (11.5-16.5) g/dL Hct 33.4 L (37.0-47.0) % MCV 92 (76-96) fL MCH 29.0 (27.0-32.0) pg MCHC 31.4 (31.0-35.0) g/dL RDW 14.1 (11.0-16.0) % Plt Count 228 (150-500) K/uL MPV 9.5 (6.0-10.0) fL Neut % (Auto) 75.9 H (45.0-70.0) % Lymph % (Auto) 8.0 L (20.0-40.0) % [place] % (Auto) 10.6 H (3.0-10.0) % Eos % (Auto) 4.8 (1.0-5.0) % Baso % (Auto) 0.7 H (0.0-0.5) % Neut # (Auto) 7.66 H (2.00-7.50) K/uL Lymph # (Auto) 0.81 L (1.50-4.00) K/uL [place] # (Auto) 1.07 H (0.20-0.80) K/uL Eos # (Auto) 0.48 H (0.04-0.40) K/uL Baso # (Auto) 0.07 (0.02-0.10) K/uL Meds: Medications Discontinued Medications Generic Name Dose Route Start Last Admin Trade Name Freq PRN Reason Stop Dose Admin Albuterol 2.5 mg 08/01/19 09:40 Proventil Neb Soln NEB 08/01/19 09:41 ONETIME ONE Departure - Departure Time of Disposition: 10:45 Disposition: Home, Self-Care 01 Condition: Fair Clinical Impression: COPD exacerbation - Discharge Information *PRESCRIPTION DRUG MONITORING PROGRAM REVIEWED*: Not Applicable *COPY OF PRESCRIPTION DRUG MONITORING REPORT IN PATIENT KERRI: Not Applicable Additional Instructions: Her CBC is normal with white count 10.1. Her chest X-ray is stable. Also her SPO2 is around 95-96% on room air now. Also her breathing has improved. Patient reassured that this is COPD [id number]. Advised to continue duonebs 2-3 times daily. She could use albuterol nebulizers in between the duonebs 3 times daily only if needed. Deep breathing exercises. NS nebulizer 1-2 times daily to help release the thick mucoid sputum. I have discharged her on prednisone 20mg daily for 3 days followed by 10mg daily for 7 days. Rest and hydration. Also will have [facility] followup for Overnight trendox. followup in clinic if symptoms worsen. - Problem List & Annotations (1) COPD exacerbation SNOMED Code(s): 024436841 Code(s): J44.1 - CHRONIC OBSTRUCTIVE PULMONARY DISEASE W (ACUTE) EXACERBATION Status: Acute - Problem List Review Problem List Initiated/Reviewed/Updated: Yes - My Orders Last 24 Hours: My Active Orders 08/01/19 09:39 Chest 2V [CR] Stat 08/01/19 09:40 RT Aerosol Therapy [RC] ASDIRECTED - Assessment/Plan Last 24 Hours: My Active Orders 08/01/19 09:39 Chest 2V [CR] Stat 08/01/19 09:40 RT Aerosol Therapy [RC] ASDIRECTED Assessment:: COPD exacerbation Plan: Her CBC is normal with white count 10.1. Her chest X-ray is stable. Also her SPO2 is around 95-96% on room air now. Also her breathing has improved. Patient reassured that this is COPD [id number]. Advised to continue duonebs 2-3 times daily. She could use albuterol nebulizers in between the duonebs 3 times daily only if needed. Deep breathing exercises. NS nebulizer 1-2 times daily to help release the thick mucoid sputum. I have discharged her on prednisone 20mg daily for 3 days followed by 10mg daily for 7 days. Rest and hydration. followup in clinic if symptoms worsen.
--- NOTE | 2019-08-01 11:05 | CR ---
Date of Service: 08/01/19 Clinical Data: cough with SOB PA AND LATERAL CHEST: Comparison is made to a prior exam dated 04/24/19. The heart size is stable. The patient is status post median sternotomy. There are interstitial infiltrates throughout both lungs, not significantly changed from the prior study. There is chronic blunting of the right costophrenic angle consistent with chronic right pleural effusion with pleural scar. There are minimal atelectatic changes in both lung bases. No pneumothorax. No areas of consolidation. [id number] MTDD
[2019-08-01 12:04] VITALS: BP 133/60; PULSE 78
== END 2019-08-01 10:50 | disposition home or self-care (01) ==
LOC: LB.ED 09:35
DX: J44.1 Chronic obstructive pulmonary disease with (acute) exacerbation (principal); M19.90 Unspecified osteoarthritis, unspecified site; Z95.4 Presence of other heart-valve replacement; Z88.0 Allergy status to penicillin; Z88.5 Allergy status to narcotic agent; Z88.2 Allergy status to sulfonamides; Z88.8 Allergy status to other drugs, medicaments and biological substances; Z79.899 Other long term (current) drug therapy
CPT/HCPCS: 36415; 71046; 85025; 99285; A9270; J2930; 99284

== ENCOUNTER 2019-10-17 19:24 | Emergency (ER) | payer MEDICARE, BC ==
[2019-10-17] MEDS ORDERED: Acetaminophen/HYDROcodone 325-5 MG Tab ONE (20:00)
[2019-10-17 20:04] VITALS: BP 137/59; PULSE 72
--- NOTE | 2019-10-17 23:28 | ER ---
HISTORY OF PRESENT ILLNESS: A 79-year-old lady who comes in by ambulance. She was at a public function. She was on a bar stool. She slid off it and fell to the floor, injuring her right shoulder. Ambulance crew relates that there were no other injuries and the patient has good circulation distal to the right shoulder. The patient tells me that she is a little uncomfortable from the pain, but otherwise is doing okay. She has no other complaints. OBJECTIVE: GENERAL APPEARANCE: The patient is awake and alert, in no obvious distress. VITAL SIGNS: Reviewed. She is afebrile, blood pressure 137/59, pulse 72, O2 saturations 95% on room air. EXTREMITIES: Examining the patient's right shoulder after removing the sling reveals it is asymmetrical. The head of the humerus appears to be rotated slightly forward. Skin is intact. The patient does not want to move her right arm at all. Hand is warm. Good circulation. Radial pulse is present. LABORATORY AND X-RAY: X-rays were obtained showing a proximal humeral fracture just below the humeral head. There appears to be a little bit of displacement here as well. At this point, I consulted with Dr. Rios with the following: DIAGNOSIS: Proximal humerus fracture. TREATMENT PLAN: A shoulder immobilizer will be applied. The patient does have her son living with her at home, so she has help. I will give her [place] tablets; she can take 1/2 to 1 tablet every 6 hours as needed for pain and apply ice frequently. She is to sleep in a semi-reclined position, and my understand, an clinical nurse specialist will be here on Friday. We will try to make arrangements for her to be seen then for a recheck. Follow up sooner or of course psilviano LEACH/ARAM /[id number]
--- NOTE | 2019-10-18 08:19 | CR ---
DATE OF SERVICE: 10/17/19 CLINICAL DATA: Fell - injury to shoulder. Dislocation. RIGHT SHOULDER: No priors. There is an impacted, comminuted fracture through the humeral neck. No other fractures. There are osteoarthritic changes of the AC and glenohumeral joints. [id number] MTDD
== END 2019-10-17 20:50 | disposition home or self-care (01) ==
LOC: LB.ED 19:24
DX: S42.201A Unspecified fracture of upper end of right humerus, initial encounter for closed fracture (principal); W01.0XXA Fall on same level from slipping, tripping and stumbling without subsequent striking against object, initial encounter; Y93.89 Activity, other specified
CPT/HCPCS: 73030-RT; 99283; 99283-25; A0425; A0429; A9270-GY

== ENCOUNTER 2019-12-18 19:17 | Emergency (ER) | payer MEDICARE, BC ==
[2019-12-18] MEDS ORDERED: Amoxicillin/Clavulanate K 875-125 MG Tab ONE (19:30)
[2019-12-18] MEDS ORDERED: predniSONE 20 MG Tab ONE (19:30)
[2019-12-18] MEDS ORDERED: predniSONE 20 MG Tab PO ONE (19:32)
--- NOTE | 2019-12-18 19:41 | EDM.PDOC ---
ED HPI GENERAL MEDICAL PROBLEM - General Stated Complaint: COPD flareup Time Seen by Provider: 12/18/19 19:20 Source of Information: Reports: Patient History Limitations: Reports: No Limitations - History of Present Illness INITIAL COMMENTS - FREE TEXT/NARRATIVE: Loyda has had a tough go of things for a numbr of years in terms of her COPD. She hasn't felt well most recently for the past day or so. Main issue is increasing cough. Somewhat better after albuterol nebulizer earlier this afternoon. Denies chest pain or any pleuritic issues. No angina or increased edema. She is on eliquis for aortic and mitral valve replacement. No diaphoresis, significant nausea, or angina. States that augmentin and prednisone always helps her right away. Has oxygen at home. O2 sat baseline in mid-80's and dropped to 70's on overnight study, so now she wears 2 lpm at night. Her son feels that she lasts about 5 days or so off the prednisone before her COPD starts flaring again. Poor appetite this am. Some myalgias and h/a. - Related Data Allergies Allergy/AdvReac Type Severity Reaction Status Date / Time codeine Allergy Other Verified 10/17/19 19:39 Penicillins Allergy Cannot Verified 10/17/19 19:39 Remember Sulfa (Sulfonamide Allergy Cannot Verified 10/17/19 19:39 Antibiotics) Remember tramadol Allergy Cannot Verified 10/17/19 19:39 Remember warfarin [From Coumadin] AdvReac Bleeding Verified 10/17/19 19:39 Home Meds: Home Meds Acyclovir 400 mg PO DAILY 02/18/16 [History] Aspirin 81 mg PO QPM 02/18/16 [History] Ipratropium/Albuterol Sulfate [Iprat-Albut 0.5-3(2.5) mg/3 ml] 1 dose INH Q4H PRN 02/18/16 [History] Multivitamin [Multi-Vitamin Daily] 1 tab PO DAILY 02/18/16 [History] Furosemide [Lasix] 40 mg PO BIDDIURETIC tablet 02/12/18 [Rx] Calcium Carbonate/Vitamin D3 [Caltrate 600+D] 1 tab PO TIDMEALS 08/11/18 [ History] Acetaminophen [Tylenol Arthritis Pain] 650 mg PO Q8H PRN 01/28/19 [History] Sennosides [Senna] 8.6 mg PO DAILY PRN 01/28/19 [History] Trifluridine 1 drop EYELF QID 01/28/19 [History] carvediloL [Coreg] 25 mg PO BIDMEALS 01/28/19 [History] Budesonide/Formoterol [Symbicort 160-4.5 MCG] 2 puff INH BID 03/29/19 [History] predniSONE See Taper PO ASDIRECTED MDD 12 03/29/19 [History] Albuterol Sulfate [Albuterol Sulfate Hfa] 2 inh IN Q6HR 08/01/19 [History] Amiodarone [Cordarone] 200 mg PO DAILY 08/01/19 [History] Apixaban [Eliquis] 5 mg PO BID 08/01/19 [History] Ipratropium [Atrovent] 1 unit IN QID 08/01/19 [History] Losartan [Cozaar] 25 mg PO BEDTIME 08/01/19 [History] Nitroglycerin [Nitrostat] 0.4 mg SL ASDIRECTED PRN 08/01/19 [History] Polyvinyl Alcohol/Povidone/Pf [Refresh Classic Eye Drops] 1 drop EYEBOTH ASDIRECTED PRN 08/01/19 [History] atorvaSTATin Calcium [Atorvastatin Calcium] 20 mg PO BEDTIME 08/01/19 [History] guaiFENesin [Mucinex] 600 mg PO DAILY 08/01/19 [History] guaiFENesin [Robitussin] 100 mg PO BEDTIME 08/01/19 [History] prednisoLONE acetate [Pred Forte 1% Ophth Susp] 1 dose EYELF QID 08/01/19 [ History] Past Medical History HEENT History: Reports: Allergic Rhinitis, Cataract, Hard of Hearing Cardiovascular History: Reports: Heart Valve Replacement, Stents, Other (See Below) Other Cardiovascular History: endarterectomy Respiratory History: Reports: COPD, SOB, Other (See Below) Other Respiratory History: has had cough Gastrointestinal History: Reports: Cholelithiasis Other Gastrointestinal History: appy Genitourinary History: Reports: UTI, Recurrent OPTOMETRIC TECHNICIAN 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 Right proximal humerus fracture 10/2019 Endocrine/Metabolic History: Reports: Osteoporosis Hematologic History: Reports: None Oncologic (Cancer) History: Reports: Breast - Infectious Disease History Infectious Disease History: Reports: Chicken Pox, Measles, Mumps - Past Surgical History Head Surgeries/Procedures: Reports: None HEENT Surgical History: Reports: Other (See Below) Other HEENT Surgeries/Procedures: CEA February 2013 Cardiovascular Surgical History: Reports: Valve Replacement GI Surgical History: Reports: Appendectomy, Cholecystectomy Female Surgical History: Reports: Hysterectomy Endocrine Surgical History: Reports: None Musculoskeletal Surgical History: Reports: Knee Replacement Oncologic Surgical History: Reports: Mastectomy Social & Family History - Family History Family Medical History: Noncontributory HEENT: Reports: Cataract Cardiac: Reports: [place] GI: Reports: GERD : Reports: None Neurological: Reports: Alzheimers Disease Endocrine/Metabolic: Reports: Diabetes, Gestational Immunologic: Reports: None Oncologic: Reports: Breast - Caffeine Use Caffeine Use: Reports: Coffee Caffeine Use Comment: 3 cups a day ED ROS GENERAL - Review of Systems Review Of Systems: Comprehensive ROS is negative, except as noted in HPI. ED EXAM, GENERAL - Physical Exam Exam: See Below Exam Limited By: No Limitations General Appearance: Alert, WD/WN, Other (coughs a bit, but able to speak in full sentences with minimally inxcreased respiratory effort and no orthopnea) Eye Exam: Bilateral Eye: EOMI Ears: Normal External Exam Nose: Normal Inspection Throat/Mouth: Normal Inspection Head: Atraumatic, Normocephalic Neck: Supple, Non-Tender, Other (no JVD) Respiratory/Chest: Wheezing (bilaterally with prolonged expiratory phase) Cardiovascular: Regular Rate, Rhythm, No Murmur GI/Abdominal: Normal Bowel Sounds, Soft, Non-Tender Back Exam: Normal Inspection, Full Range of Motion. No: Vertebral Tenderness Extremities: Normal Inspection, Non-Tender, No Pedal Edema Neurological: Alert, Oriented, Normal Cognition, No Motor/Sensory Deficits Psychiatric: Normal Affect, Normal Mood Skin Exam: Warm, Dry Lymphatic: No Adenopathy Course - Orders/Labs/Meds Orders: Active Orders 24 hr Category Date Time Status INFLUENZA A+B AG SCREEN [RM] Stat Lab 12/18/19 19:33 Ordered Meds: Medications Discontinued Medications Generic Name Dose Route Start Last Admin Trade Name Freq PRN Reason Stop Dose Admin Prednisone 60 mg 12/18/19 19:32 Prednisone PO 12/18/19 19:33 ONETIME ONE Departure - Departure Time of Disposition: 20:00 Disposition: Home, Self-Care 01 Condition: Fair Clinical Impression: COPD (chronic obstructive pulmonary disease) Qualifiers: COPD type: COPD with acute exacerbation Qualified Code(s): J44.1 - Chronic obstructive pulmonary disease with (acute) exacerbation - Discharge Information Instructions: Chronic Obstructive Pulmonary Disease Exacerbation Additional Instructions: Don't hesitate to come back in if the meds don't kick in or if you aren't feeling better. We'll try the bigger prednisone dosage as a "burst" to see if this helps better than the taper. The other option would be to talk to your doctor about taking a low dose of prednisone every day, although we try not to do that if we can get around it. - My Orders Last 24 Hours: My Active Orders 12/18/19 19:33 INFLUENZA A+B AG SCREEN [RM] Stat - Assessment/Plan Last 24 Hours: My Active Orders 12/18/19 19:33 INFLUENZA A+B AG SCREEN [RM] Stat Plan: at this point, plan to try a prednisone burst and she will discuss whether to continue prednisone on a longer basis vs other options with her physician
[2019-12-18 21:01] VITALS: BP 122/54; PULSE 97
== END 2019-12-18 20:07 | disposition home or self-care (01) ==
LOC: LB.ED 19:17
DX: J44.1 Chronic obstructive pulmonary disease with (acute) exacerbation (principal); Z88.5 Allergy status to narcotic agent; Z88.0 Allergy status to penicillin; Z88.2 Allergy status to sulfonamides; Z88.8 Allergy status to other drugs, medicaments and biological substances; Z79.01 Long term (current) use of anticoagulants; Z95.5 Presence of coronary angioplasty implant and graft; Z79.899 Other long term (current) drug therapy; Z79.82 Long term (current) use of aspirin; Z79.51 Long term (current) use of inhaled steroids; Z79.52 Long term (current) use of systemic steroids
CPT/HCPCS: 87804; 99283; 99284; A9270

== ENCOUNTER 2019-12-27 07:26 | Inpatient (IN) | payer MEDICARE, BC ==
--- NOTE | 2019-12-27 08:52 | CR ---
Date orf Service: 12/27/19 Clinical Data: Shortness of breath PA AND LATERAL CHEST: Comparison is made to a prior exam dated 08/01/19. The patient is status post median sternotomy. The heart size is stable. There are interstitial infiltrates throughout both lungs with significant progression from the prior study. There are also ground glass opacities at the mid and lower lungs bilaterally. Pneumonia should be considered. Pulmonary venous congestion and congestive failure should be considered. There is blunting of both costophrenic angles consistent with bilateral pleural effusions. No pneumothorax. [id number] MTDD
[2019-12-27] MEDS: Sodium Chloride 0.9% 10 ML Syringe FLUSH PRN ×2 (10:55→20:33)
[2019-12-27] MEDS: Furosemide 20 MG/2 ML VIAL IVPUSH SCH (11:25)
[2019-12-27] MEDS ORDERED: predniSONE 20 MG Tab PO SCH (11:30)
[2019-12-27] MEDS ORDERED: Levofloxacin/Dextrose 5%-Water 100 ML IV ONE (11:41)
[2019-12-27] MEDS ORDERED: Sodium Chloride 0.9% 1,000 ML IV SCH (11:45)
--- NOTE | 2019-12-27 13:03 | HP ---
REASON FOR ADMISSION: Acute exacerbation of COPD with pneumonia. HISTORY: This 79-year-old woman was seen here on 12/18/2019 with an acute exacerbation of COPD. She was treated with 60 mg of prednisone daily x7 days and then it was discontinued. Her symptoms improved. At that time, she did not have any fever, but she did have an increased cough. She had been treated with DuoNeb treatment as well. She improved in the emergency room and was discharged on the above mentioned prednisone burst treatment, that course of therapy was completed on 12/25/2019. On the following day, she noticed a progressively increasing difficulty with shortness of breath. She has also been coughing. She has not had any fever or chills. She denies any GI symptoms or myalgias. Her symptoms markedly worsened in terms of her dyspnea. She is on home O2 therapy and in spite of that she continued to worsen in terms of her symptoms of shortness of breath. She was therefore brought in by ambulance for evaluation. PAST MEDICAL HISTORY: Significant for: 1. COPD, severe. 2. CHF. 3. History of pneumonia. 4. History of non-STEMI myocardial infarction with stent. 5. History of cholecystectomy. 6. Osteoporosis with history of fractures. ALLERGIES: TO CODEINE, PENICILLIN, SULFA, TRAMADOL, AND WARFARIN. MEDICATIONS: Reviewed. Please see electronic medical record. They include the followin. Eyedrops. 2. Mucinex. 3. Carvedilol. 4. Atorvastatin. 5. Nitroglycerin p.r.n. sublingual. 6. Vitamins. 7. Losartan. 8. Ipratropium and albuterol sulfate inhaler. 9. Lasix. 10.Symbicort. 11.Eliquis. 12.Amiodarone. 13.Albuterol inhaler for rescue. 14.Acyclovir. 15.Acetaminophen. 16.Guaifenesin. REVIEW OF SYSTEMS: Pertinent positives and negatives as listed in the HPI. PHYSICAL EXAMINATION: GENERAL: She does seem to be somewhat anxious, but otherwise in no acute distress. VITAL SIGNS: She is afebrile. Heart rate is 97, blood pressure 122/54, respiratory rate is 22, O2 sats initially 87% on 2 L of O2 per nasal cannula. HEENT: Head is normocephalic. No conjunctivitis. Oropharynx is normal. NECK: No JVD is noted. No adenopathy. CHEST: She has bilateral rhonchi and expiratory wheezes. CARDIAC: Regular rate without murmur. ABDOMEN: Soft and nontender. No hepatosplenomegaly. EXTREMITIES: Normal pulses. No edema. No cyanosis is noted. NEUROLOGIC: She moves all 4 extremities well to command. She has no muscle weakness. LABORATORY DATA: She was negative for influenza A and B. Her CBC shows that she had an elevated white count of 16,800, hemoglobin is 9.9. BMP shows that her electrolytes are normal except her CO2 level is 33.8. Her BUN is 31, creatinine 1.1. Her estimated GFR is 48. Her UA was negative. Chest x-ray showed that she has an increased bilateral interstitial infiltrates. There is some suggestion of a ground-glass appearance in both lower lung raymond suggesting an infiltrative process such as pneumonia. She has cardiomegaly. She does have normally a lot of interstitial scarring, but her appearance of her x-ray today is insignificantly worse than her baseline. IMPRESSION: Acute exacerbation of chronic obstructive pulmonary disease with probable overlying pneumonia. PLAN: We will start her on 40 mg of prednisone daily. She will be placed on IV antibiotics (Levaquin 500 mg IV daily). We will treat her COPD with DuoNebs every 4 hours and give her supplemental oxygen. The patient understands and agrees with this plan. REJI
[2019-12-27] MEDS: Albuterol/Ipratropium 3.0-0.5 MG/3 ML Neb Soln NEB PRN ×2 (15:06→20:44)
[2019-12-27] MEDS: Losartan 25 MG Tab PO SCH (19:38)
[2019-12-27] MEDS: Apixaban 5 MG Tab PO SCH (19:38)
[2019-12-27] MEDS: Carvedilol 25 MG Tab PO SCH (19:38)
[2019-12-27] MEDS: guaiFENesin 100 MG/5 ML Soln 10 ML UD Cup PO SCH (19:39)
[2019-12-27] MEDS: atorvaSTATin 20 MG Tab PO SCH (19:39)
[2019-12-27] MEDS: Aspirin 81 MG Tab.EC PO SCH (19:39)
[2019-12-27] MEDS: Calcium Carbonate/Vitamin D3 600 MG-200 Units Tab PO SCH (21:30)
[2019-12-28] MEDS: Albuterol/Ipratropium 3.0-0.5 MG/3 ML Neb Soln NEB PRN ×3 (06:08→19:42)
[2019-12-28] MEDS: predniSONE 20 MG Tab PO SCH (09:12)
[2019-12-28] MEDS: Carvedilol 25 MG Tab PO SCH ×2 (09:12→19:43)
[2019-12-28] MEDS: Apixaban 5 MG Tab PO SCH ×2 (09:12→19:43)
[2019-12-28] MEDS: guaiFENesin 600 MG Tab.ER PO SCH (09:13)
[2019-12-28] MEDS: Multivitamin, Childrens Tab.Chew PO SCH (09:13)
[2019-12-28] MEDS: Acyclovir 400 MG Tab PO SCH (09:14)
[2019-12-28] MEDS: Amiodarone 200 MG Tab PO SCH (09:14)
[2019-12-28] MEDS: Furosemide 20 MG/2 ML VIAL IVPUSH SCH (09:15)
[2019-12-28] MEDS ORDERED: Calcium Carbonate 600 MG Tab ONE (09:17)
[2019-12-28] MEDS: prednisoLONE Acetate 1% Ophth Susp 5 ML Bottle EYELF SCH (09:22)
[2019-12-28] MEDS ORDERED: Furosemide 40 MG/4 ML VIAL IVPUSH ONE (09:52)
--- NOTE | 2019-12-28 11:28 | CR ---
Date of Service: 12/28/19 Clinical Data: pneumonia PA AND LATERAL CHEST: Comparison is made to a prior exam dated 12/27/19. The heart size is stable. There are persistent interstitial infiltrates throughout both lungs. They do appear to be slightly improved from the prior exam. There are stable poorly defined ground-glass infiltrates bilaterally. There is blunting of both costophrenic angles consistent with bilateral pleural effusions. The exam is otherwise unchanged. No new abnormalities. [id number] [facility]
--- NOTE | 2019-12-28 11:32 | PN ---
DATE OF VISIT: 12/28/2019 Loyda feels much better this morning. Her O2 saturations are running 90 to 100. Her chest x-ray was suspicious for a pneumonia, so this combined with her COPD is probably what is going on at this stage. She is on levofloxacin 750 mg IV q.48 hours. She did receive a dose of Lasix yesterday as there may have been an element of fluid overload as well. She seems to have diuresed quite a bit. She put out 1600 mL over the shift after receiving her IV Lasix, she is on prednisone 40 mg p.o. daily that was started yesterday, so today would be day 2 of her burst therapy. PHYSICAL EXAMINATION: She still has scattered wheezes and rhonchi, but this is somewhat improved. PLAN: We are going to repeat her Lasix 1 more time today and continue her on day 2 of prednisone 40 mg p.o. daily. She will probably need a 5-day course of prednisone as a burst therapy. We will recheck her BMP to make sure she is not getting hypokalemia from her Lasix and her CBC as well to compare her white count with yesterday's as well as to check on her hemoglobin which was 9.9 on admission. A repeat chest x-ray was also ordered. AUGUST/ARAM /[id number]
[2019-12-28] MEDS ORDERED: Levofloxacin/Dextrose 5%-Water 0 ML IV ONE (11:43)
[2019-12-28] MEDS ORDERED: Levofloxacin/Dextrose 5%-Water 150 ML IV ONE (11:51)
[2019-12-28] MEDS ORDERED: Levofloxacin/Dextrose 5%-Water 750 MG in Premix Bag 1 BAG IV SCH ×4 (12:00)
[2019-12-28] MEDS: Losartan 25 MG Tab PO SCH (19:42)
[2019-12-28] MEDS: guaiFENesin 100 MG/5 ML Soln 10 ML UD Cup PO SCH (19:42)
[2019-12-28] MEDS: Aspirin 81 MG Tab.EC PO SCH (19:43)
[2019-12-28] MEDS: atorvaSTATin 20 MG Tab PO SCH (19:43)
[2019-12-28] MEDS: Calcium Carbonate/Vitamin D3 600 MG-200 Units Tab PO SCH (22:53)
[2019-12-28] MEDS ORDERED: Melatonin 10 MG Cap PO PRN (23:47)
[2019-12-29] MEDS: Amiodarone 200 MG Tab PO SCH (08:22)
[2019-12-29] MEDS: Carvedilol 25 MG Tab PO SCH ×2 (08:23→20:21)
[2019-12-29] MEDS: Acyclovir 400 MG Tab PO SCH (08:23)
[2019-12-29] MEDS: Multivitamin, Childrens Tab.Chew PO SCH (08:23)
[2019-12-29] MEDS: predniSONE 20 MG Tab PO SCH (08:23)
[2019-12-29] MEDS: guaiFENesin 600 MG Tab.ER PO SCH (08:23)
[2019-12-29] MEDS: Apixaban 5 MG Tab PO SCH ×2 (08:23→20:21)
[2019-12-29] MEDS: Calcium Carbonate/Vitamin D3 1500 MG-400 Units Tab PO SCH ×3 (08:23→17:38)
[2019-12-29] MEDS: Furosemide 20 MG/2 ML VIAL IVPUSH SCH (08:24)
[2019-12-29] MEDS: prednisoLONE Acetate 1% Ophth Susp 5 ML Bottle EYELF SCH (08:24)
[2019-12-29] MEDS: Albuterol/Ipratropium 3.0-0.5 MG/3 ML Neb Soln NEB PRN ×3 (08:37→20:54)
--- NOTE | 2019-12-29 10:41 | PN ---
DATE OF VISIT: SUBJECTIVE: Mrs. Willett feels perhaps somewhat worse versus yesterday, but overall much improved versus her status when she was admitted 2 days ago. OBJECTIVE: She remains afebrile and her chest is unchanged. She does still have scattered wheezes and rhonchi. We will get another chest x-ray on her tomorrow. IMPRESSION: Acute exacerbation chronic obstructive pulmonary disease. PLAN: Continue her Levaquin IV and prednisone burst therapy. It should be noted that the patient had complained of gaining 9 pounds prior to admission, so I went ahead and gave her 20 mg of Lasix on admission and the following day. We will hold off on that today. I did discuss with Dr. Varghese that I would be leaving her in his care and the patient is aware of this as well. I have ordered a chest x-ray for the morning. REJI /[id number]
[2019-12-29] MEDS: atorvaSTATin 20 MG Tab PO SCH (20:20)
[2019-12-29] MEDS: Aspirin 81 MG Tab.EC PO SCH (20:20)
[2019-12-29] MEDS: Losartan 25 MG Tab PO SCH (20:21)
[2019-12-29] MEDS: guaiFENesin 100 MG/5 ML Soln 10 ML UD Cup PO SCH (20:22)
[2019-12-29] MEDS: Acetaminophen 650 MG Tab.ER PO PRN (20:56)
[2019-12-30] MEDS: guaiFENesin 600 MG Tab.ER PO SCH (07:32)
[2019-12-30] MEDS: Albuterol/Ipratropium 3.0-0.5 MG/3 ML Neb Soln NEB PRN (07:32)
[2019-12-30] MEDS: Multivitamin, Childrens Tab.Chew PO SCH (07:32)
[2019-12-30] MEDS: Calcium Carbonate/Vitamin D3 1500 MG-400 Units Tab PO SCH ×3 (07:32→18:42)
[2019-12-30] MEDS: prednisoLONE Acetate 1% Ophth Susp 5 ML Bottle EYELF SCH (07:33)
[2019-12-30] MEDS: Carvedilol 25 MG Tab PO SCH (07:33)
[2019-12-30] MEDS: predniSONE 20 MG Tab PO SCH (07:33)
[2019-12-30] MEDS: Furosemide 20 MG/2 ML VIAL IVPUSH SCH ×3 (07:33→16:32)
[2019-12-30] MEDS: Amiodarone 200 MG Tab PO SCH (07:33)
[2019-12-30] MEDS: Apixaban 5 MG Tab PO SCH ×2 (07:33→19:57)
[2019-12-30] MEDS: Acyclovir 400 MG Tab PO SCH (07:33)
--- NOTE | 2019-12-30 09:23 | PCM.PN ---
- General Info Date of Service: 12/30/19 (Day 3) Admission Dx/Problem (Free Text): COPD flare; failed prednisone burst- fluid overload in setting of CHF Subjective Update: Radha feels about the same today. No new issues. She feels like she has failed pretty much every bronchodilator treatment listed on the wall of her lung specialist's office. She is faily certain to have tried singulair already. Even flared on 10 mg of chronic prednisone therapy. Has year-round exacerbations. 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 - Review of Systems General: Reports: Weakness Pulmonary: Reports: Cough, Wheezing Cardiovascular: Denies: Chest Pain Gastrointestinal: Reports: No Symptoms - Patient Data Vitals - Most Recent: Last Vital Signs Temp 97.6 F 12/30/19 07:00 Pulse 64 12/30/19 07:33 Resp 16 12/30/19 07:00 BP 154/68 H 12/30/19 07:33 Pulse Ox 99 12/30/19 07:00 Weight - Most Recent: 122 lb I&O - Last 24 Hours: Intake & Output 12/29/19 12/30/19 12/30/19 22:59 06:59 14:59 Intake Total 2075 240 Output Total 500 Balance 2075 -260 Imaging Impressions - Last 24 Hours: reviewed and CXR appears stable to me today Lab Results Last 24 Hours: Laboratory Results - last 24 hr 12/30/19 Range/Units 07:05 WBC 16.5 H (4.0-11.0) K/uL RBC 3.18 L (3.80-5.80) M/uL Hgb 9.2 L (11.5-16.5) g/dL Hct 30.1 L (37.0-47.0) % MCV 95 (76-96) fL MCH 28.9 (27.0-32.0) pg MCHC 30.6 L (31.0-35.0) g/dL RDW 14.9 (11.0-16.0) % Plt Count 331 (150-500) K/uL MPV 9.3 (6.0-10.0) fL Neut % (Auto) 83.8 H (45.0-70.0) % Lymph % (Auto) 5.7 L (20.0-40.0) % Barton % (Auto) 10.0 (3.0-10.0) % Eos % (Auto) 0.4 L (1.0-5.0) % Baso % (Auto) 0.1 (0.0-0.5) % Neut # (Auto) 13.81 H (2.00-7.50) K/uL Lymph # (Auto) 0.93 L (1.50-4.00) K/uL Barton # (Auto) 1.64 H (0.20-0.80) K/uL Eos # (Auto) 0.07 (0.04-0.40) K/uL Baso # (Auto) 0.01 L (0.02-0.10) K/uL Anemia persists Med Orders - Current: Current Medications Acetaminophen (Tylenol Arthritis Pain) 650 mg PO Q8H PRN PRN Reason: Pain Last Admin: 12/29/19 20:56 Dose: 650 mg Acyclovir (Zovirax) 400 mg PO DAILY [facility] Last Admin: 12/30/19 07:33 Dose: 400 mg Albuterol/Ipratropium (Duoneb 3.0-0.5 Mg/3 Ml) 3 ml NEB Q6H PRN PRN Reason: SOB or decreased sat Last Admin: 12/30/19 07:32 Dose: 3 ml Amiodarone HCl (Cordarone) 200 mg PO DAILY [facility] Last Admin: 12/30/19 07:33 Dose: 200 mg Apixaban (Eliquis) 5 mg PO BID [facility] Last Admin: 12/30/19 07:33 Dose: 5 mg Aspirin (Halfprin) 81 mg PO BEDTIME [facility] Last Admin: 12/29/19 20:20 Dose: 81 mg Atorvastatin Calcium (Lipitor) 20 mg PO BEDTIME [facility] Last Admin: 12/29/19 20:20 Dose: 20 mg Calcium Carbonate (Caltrate 600+D 1500 Mg-400 Units) 1 tab PO TIDMEALS [facility] Last Admin: 12/30/19 07:32 Dose: 1 tab Carvedilol (Coreg) 25 mg PO BID [facility] Last Admin: 12/30/19 07:33 Dose: 25 mg Furosemide (Lasix) 20 mg IVPUSH DAILY [facility] Last Admin: 12/30/19 07:33 Dose: 20 mg Guaifenesin (Robitussin) 100 mg PO BEDTIME [facility] Last Admin: 12/29/19 20:22 Dose: 100 mg Guaifenesin (Mucinex) 600 mg PO DAILY [facility] Last Admin: 12/30/19 07:32 Dose: 600 mg Levofloxacin/Dextrose 750 mg/ (Premix) 150 mls @ 100 mls/hr IV Q48H [facility] Last Admin: 12/28/19 11:52 Dose: 100 mls/hr Losartan Potassium (Cozaar) 25 mg PO BEDTIME [facility] Last Admin: 12/29/19 20:21 Dose: 25 mg Melatonin (Melatonin) 10 mg PO BEDTIME PRN PRN Reason: Insomnia Last Admin: 12/29/19 00:00 Dose: 10 mg Multivitamins/Minerals/Vitamin C (Childrens Chewable Vitamin) 1 tab PO DAILY [facility] Last Admin: 12/30/19 07:32 Dose: 1 tab Prednisolone Acetate (Pred Forte 1% Ophth Susp) 0 ml EYELF DAILY [facility] Last Admin: 12/30/19 07:33 Dose: 1 drop Prednisone (Prednisone) 40 mg PO DAILY@0800 [facility] Last Admin: 12/30/19 07:33 Dose: 40 mg Senna/Docusate Sodium (Senna Plus) 1 tab PO DAILY PRN PRN Reason: Constipation Last Admin: 12/29/19 20:22 Dose: 1 tab Sodium Chloride (Saline Flush) 10 ml FLUSH ASDIRECTED PRN PRN Reason: Keep Vein Open Last Admin: 12/27/19 20:33 Dose: 10 ml Discontinued Medications Calcium Carbonate (Calcium Carbonate/Vitamin D 600 Mg-200 Unit) 1 tab PO TIDMEALS [facility] Last Admin: 12/28/19 22:53 Dose: Not Given Calcium Carbonate/Glycine (Calcium Carbonate) Confirm Administered Dose 600 mg .ROUTE .STK-MED ONE Stop: 12/28/19 09:18 Last Admin: 12/28/19 09:32 Dose: Not Given Furosemide (Lasix) 20 mg IVPUSH NOW ONE Stop: 12/28/19 09:53 Last Admin: 12/28/19 22:53 Dose: Not Given Levofloxacin 500 mg/ Dextrose/ (Water) 120 mls @ 220 mls/hr IV DAILY@1200 [facility] Last Admin: 12/27/19 12:00 Dose: 220 mls/hr Levofloxacin/Dextrose (Levaquin In D5w 500 Mg/100 Ml) Confirm Administered Dose 100 mls @ as directed IV .STK-MED ONE Stop: 12/27/19 11:42 Last Admin: 12/27/19 12:00 Dose: Not Given Sodium Chloride (Normal Saline) 1,000 mls @ 50 mls/hr IV ASDIRECTED [facility] Last Admin: 12/27/19 11:55 Dose: 50 mls/hr Levofloxacin/Dextrose 750 mg/ (Premix) 150 mls @ 100 mls/hr IV Q24H [facility] Levofloxacin/Dextrose (Levaquin In D5w 500 Mg/100 Ml) Confirm Administered Dose 100 mls @ as directed IV .STK-MED ONE Stop: 12/28/19 11:44 Last Admin: 12/28/19 11:48 Dose: Not Given Levofloxacin/Dextrose (Levaquin In D5w 750 Mg/150 Ml) Confirm Administered Dose 150 mls @ as directed IV .STK-MED ONE Stop: 12/28/19 11:52 Last Admin: 12/28/19 11:58 Dose: Not Given Prednisone (Prednisone) 40 mg PO WITHBREAKFAST [facility] Last Admin: 12/27/19 11:54 Dose: 40 mg - Exam Quality Assessment: Supplemental Oxygen General: Alert, Oriented, Cooperative, No Acute Distress HEENT: Other (postsurgical pupil) Neck: No JVD Lungs: Normal Respiratory Effort, Decreased Breath Sounds, Rhonchi, Wheezing. No: Crackles Cardiovascular: Regular Rate, Regular Rhythm, No Murmurs GI/Abdominal Exam: Soft, Non-Tender Back Exam: Normal Inspection Extremities: Normal Inspection, Normal Range of Motion, Normal Capillary Refill Skin: Warm, Dry Psy/Mental Status: Alert, Normal Affect, Normal Mood Sepsis Event Note - Evaluation Sepsis Screening Result: No Definite Risk - Focused Exam Vital Signs: Vital Signs Temp Temp Pulse Pulse Resp BP BP 12/30/19 07:33 64 154/68 H 12/30/19 07:00 97.6 F 64 16 154/68 H 12/30/19 04:00 97 F 75 18 149/78 H Pulse Ox 12/30/19 07:33 12/30/19 07:00 99 12/30/19 04:00 100 Date Exam was Performed: 12/30/19 Time Exam was Performed: 19:49 - Problem List & Annotations (1) COPD exacerbation SNOMED Code(s): 432512171 Code(s): J44.1 - CHRONIC OBSTRUCTIVE PULMONARY DISEASE W (ACUTE) EXACERBATION Status: Acute - Problem List Review Problem List Initiated/Reviewed/Updated: Yes - My Orders Last 24 Hours: My Active Orders 12/30/19 09:12 B-TYPE NATRIURETIC PEPTIDE,BNP [CHEM] Routine - Assessment Assessment:: COPD exacerbation complicated by CHF and anemia- slow improvement. Worked diligently with pharm D to find therapy she has not yet failed. - Plan Plan:: ? if change to different steroid would be helpful- will try solumedrol as can go home on medrol dosepack. Plan home in AM
[2019-12-30] MEDS ORDERED: Azithromycin 500 MG in Sodium Chloride 0.9% 250 ML IV SCH (11:30)
[2019-12-30] MEDS ORDERED: Furosemide 20 MG/2 ML VIAL ONE (11:33)
[2019-12-30] MEDS ORDERED: Azithromycin 500 MG Vial ONE (11:34)
[2019-12-30] MEDS: methylPREDNISolone Sodium Succinate 125 MG/2 ML SDV IVPUSH SCH ×3 (11:50→23:28)
[2019-12-30] MEDS: Formoterol/Mometasone 200-5 MCG 8.8 GM Inhaler IH SCH ×2 (12:51→19:57)
[2019-12-30] MEDS: Levalbuterol HCl 1.25 MG/0.5 ML Neb NEB SCH ×3 (12:51→19:58)
[2019-12-30] MEDS: Acetylcysteine 20% 200 MG/ML 30 ML Nebulizer Soln SDV PO SCH (16:32)
[2019-12-30] MEDS: Carvedilol 12.5 MG Tab PO SCH (19:55)
[2019-12-30] MEDS: Losartan 25 MG Tab PO SCH (19:56)
[2019-12-30] MEDS: Aspirin 81 MG Tab.EC PO SCH (19:57)
[2019-12-30] MEDS: atorvaSTATin 20 MG Tab PO SCH (19:57)
[2019-12-30] MEDS: guaiFENesin 100 MG/5 ML Soln 10 ML UD Cup PO SCH (19:58)
[2019-12-30] MEDS: Sodium Chloride 0.9% 10 ML Syringe FLUSH PRN (20:00)
[2019-12-30] MEDS: Acetaminophen 650 MG Tab.ER PO PRN (21:14)
[2019-12-31] MEDS: methylPREDNISolone Sodium Succinate 125 MG/2 ML SDV IVPUSH SCH (04:52)
--- NOTE | 2019-12-31 07:40 | CR ---
DATE OF SERVICE: 12/30/19 CLINICAL DATA: COPD/pneumonia. PA AND LATERAL CHEST: Comparison is made to a prior exam dated 12/28/19. The heart size is stable. There is pulmonary vasculature. This is more prominent than on the prior exam with some cephalization of flow consistent with pulmonary venous congestion. There are interstitial infiltrates throughout both lungs. Congestive failure should be considered. There are also poorly defined infiltrates in both lungs consistent with failure/pneumonia/ pneumonitis. There is persistent blunting of both costophrenic angles consistent with small bilateral pleural effusions. The exam is otherwise unchanged from the prior. [id number] [facility]
[2019-12-31] MEDS: prednisoLONE Acetate 1% Ophth Susp 5 ML Bottle EYELF SCH (07:50)
[2019-12-31] MEDS: Formoterol/Mometasone 200-5 MCG 8.8 GM Inhaler IH SCH (07:50)
[2019-12-31] MEDS: Acetylcysteine 20% 200 MG/ML 30 ML Nebulizer Soln SDV PO SCH (07:51)
[2019-12-31] MEDS: Amiodarone 200 MG Tab PO SCH (07:53)
[2019-12-31] MEDS: Apixaban 5 MG Tab PO SCH (07:54)
[2019-12-31] MEDS: Calcium Carbonate/Vitamin D3 1500 MG-400 Units Tab PO SCH (07:54)
[2019-12-31] MEDS: guaiFENesin 600 MG Tab.ER PO SCH (07:54)
[2019-12-31] MEDS: Acyclovir 400 MG Tab PO SCH (07:54)
[2019-12-31] MEDS: Multivitamin, Childrens Tab.Chew PO SCH (07:54)
[2019-12-31] MEDS: Losartan 25 MG Tab PO SCH (07:54)
[2019-12-31] MEDS: Carvedilol 12.5 MG Tab PO SCH (07:55)
[2019-12-31] MEDS: Furosemide 20 MG/2 ML VIAL IVPUSH SCH (07:55)
[2019-12-31] MEDS: Levalbuterol HCl 1.25 MG/0.5 ML Neb NEB SCH (07:57)
[2019-12-31 07:59] VITALS: BP 151/73; PULSE 86
--- NOTE | 2019-12-31 19:17 | PCM.PN ---
- General Info Date of Service: 12/31/19 Subjective Update: Sherin is ready to go home. No real perceived benefit to xopenex and/or dulera. Wishes to continue on her usual home regimen. Agreeable to trial on alternate steroid, given failed outpatient management on prednisone. - Review of Systems General: Reports: No Symptoms Pulmonary: Reports: Cough, Wheezing. Denies: Shortness of Breath Cardiovascular: Denies: Chest Pain, Palpitations Gastrointestinal: Reports: No Symptoms Neurological: Reports: No Symptoms Psychiatric: Reports: No Symptoms - Patient Data Vitals - Most Recent: Last Vital Signs Temp 97.8 F 12/31/19 08:00 Pulse 86 12/31/19 08:00 Resp 20 12/31/19 08:00 BP 151/73 H 12/31/19 08:00 Pulse Ox 97 12/31/19 08:00 Weight - Most Recent: 120 lb 6 oz Lab Results Last 24 Hours: Laboratory Results - last 24 hr 12/31/19 12/31/19 Range/Units 07:45 07:45 WBC 11.8 H D (4.0-11.0) K/uL RBC 3.58 L (3.80-5.80) M/uL Hgb 10.4 L (11.5-16.5) g/dL Hct 33.0 L (37.0-47.0) % MCV 92 (76-96) fL MCH 29.1 (27.0-32.0) pg MCHC 31.5 (31.0-35.0) g/dL RDW 14.8 (11.0-16.0) % Plt Count 350 (150-500) K/uL MPV 9.6 (6.0-10.0) fL Neut % (Auto) 96.7 H (45.0-70.0) % Lymph % (Auto) 2.2 L (20.0-40.0) % Holmes % (Auto) 1.1 L (3.0-10.0) % Eos % (Auto) 0.0 L (1.0-5.0) % Baso % (Auto) 0.0 (0.0-0.5) % Neut # (Auto) 11.36 H (2.00-7.50) K/uL Lymph # (Auto) 0.26 L (1.50-4.00) K/uL Holmes # (Auto) 0.13 L (0.20-0.80) K/uL Eos # (Auto) 0.00 L (0.04-0.40) K/uL Baso # (Auto) 0.00 L (0.02-0.10) K/uL Sodium 139 (136-145) mmol/L Potassium 4.2 (3.5-5.1) mmol/L Chloride 100 (98-107) mmol/L Carbon Dioxide 32.6 H (21.0-32.0) mmol/L Anion Gap 10.6 (5.0-15.0) mmol/L BUN 34 H (8-26) mg/dL Creatinine 1.36 H (0.55-1.02) mg/dL Est Cr Clr Drug Dosing 25.73 mL/min Estimated GFR (MDRD) 38 L (>60) MLS/MIN BUN/Creatinine Ratio 25.0 (6-25) Glucose 126 H (74-100) mg/dL Calcium 8.9 (8.5-10.1) mg/dL Magnesium 2.0 (1.8-2.4) mg/dL C-Reactive Protein 21.2 H (0.0-3.0) mg/L Henrik Results Last 24 Hours: Microbiology 12/28/19 06:30 Gram Stain - Final Sputum - Expectorated Med Orders - Current: Current Medications Discontinued Medications Acetaminophen (Tylenol Arthritis Pain) 650 mg PO Q8H PRN PRN Reason: Pain Last Admin: 12/30/19 21:14 Dose: 650 mg Acetylcysteine (Mucomyst 20%) 600 mg PO DAILY [facility] Last Admin: 12/31/19 07:51 Dose: 600 mg Acyclovir (Zovirax) 400 mg PO DAILY [facility] Last Admin: 12/31/19 07:54 Dose: 400 mg Albuterol/Ipratropium (Duoneb 3.0-0.5 Mg/3 Ml) 3 ml NEB Q6H PRN PRN Reason: SOB or decreased sat Last Admin: 12/30/19 07:32 Dose: 3 ml Amiodarone HCl (Cordarone) 200 mg PO DAILY [facility] Last Admin: 12/31/19 07:53 Dose: 200 mg Apixaban (Eliquis) 5 mg PO BID [facility] Last Admin: 12/31/19 07:54 Dose: 5 mg Aspirin (Halfprin) 81 mg PO BEDTIME [facility] Last Admin: 12/30/19 19:57 Dose: 81 mg Atorvastatin Calcium (Lipitor) 20 mg PO BEDTIME [facility] Last Admin: 12/30/19 19:57 Dose: 20 mg Azithromycin (Zithromax) Confirm Administered Dose 500 mg .ROUTE .[facility] ONE Stop: 12/30/19 11:35 Last Admin: 12/30/19 12:05 Dose: Not Given Calcium Carbonate (Calcium Carbonate/Vitamin D 600 Mg-200 Unit) 1 tab PO TIDMEALS [facility] Last Admin: 12/28/19 22:53 Dose: Not Given Calcium Carbonate (Caltrate 600+D 1500 Mg-400 Units) 1 tab PO TIDMEALS [facility] Last Admin: 12/31/19 07:54 Dose: 1 tab Calcium Carbonate/Glycine (Calcium Carbonate) Confirm Administered Dose 600 mg .ROUTE [facility] ONE Stop: 12/28/19 09:18 Last Admin: 12/28/19 09:32 Dose: Not Given Carvedilol (Coreg) 25 mg PO BID [facility] Last Admin: 12/30/19 07:33 Dose: 25 mg Carvedilol (Coreg) 12.5 mg PO BID [facility] Last Admin: 12/31/19 07:55 Dose: 12.5 mg Furosemide (Lasix) 20 mg IVPUSH DAILY [facility] Last Admin: 12/30/19 07:33 Dose: 20 mg Furosemide (Lasix) 20 mg IVPUSH NOW ONE Stop: 12/28/19 09:53 Last Admin: 12/28/19 22:53 Dose: Not Given Furosemide (Lasix) 10 mg IVPUSH BIDDIURETIC [facility] Last Admin: 12/31/19 07:55 Dose: 10 mg Furosemide (Lasix) Confirm Administered Dose 20 mg .ROUTE .[facility] ONE Stop: 12/30/19 11:34 Last Admin: 12/30/19 12:05 Dose: Not Given Guaifenesin (Robitussin) 100 mg PO BEDTIME [facility] Last Admin: 12/30/19 19:58 Dose: 100 mg Guaifenesin (Mucinex) 600 mg PO DAILY [facility] Last Admin: 12/31/19 07:54 Dose: 600 mg Levofloxacin 500 mg/ Dextrose/ (Water) 120 mls @ 220 mls/hr IV DAILY@1200 [facility] Last Admin: 12/27/19 12:00 Dose: 220 mls/hr Levofloxacin/Dextrose (Levaquin In D5w 500 Mg/100 Ml) Confirm Administered Dose 100 mls @ as directed IV .[facility] ONE Stop: 12/27/19 11:42 Last Admin: 12/27/19 12:00 Dose: Not Given Sodium Chloride (Normal Saline) 1,000 mls @ 50 mls/hr IV ASDIRECTED [facility] Last Admin: 12/27/19 11:55 Dose: 50 mls/hr Levofloxacin/Dextrose 750 mg/ (Premix) 150 mls @ 100 mls/hr IV Q24H [facility] Levofloxacin/Dextrose 750 mg/ (Premix) 150 mls @ 100 mls/hr IV Q48H [facility] Last Admin: 12/28/19 11:52 Dose: 100 mls/hr Levofloxacin/Dextrose (Levaquin In D5w 500 Mg/100 Ml) Confirm Administered Dose 100 mls @ as directed IV .[facility] ONE Stop: 12/28/19 11:44 Last Admin: 12/28/19 11:48 Dose: Not Given Levofloxacin/Dextrose (Levaquin In D5w 750 Mg/150 Ml) Confirm Administered Dose 150 mls @ as directed IV .[facility] ONE Stop: 12/28/19 11:52 Last Admin: 12/28/19 11:58 Dose: Not Given Azithromycin 500 mg/ Sodium (Chloride) 250 mls @ 250 mls/hr IV Q24H [facility] Last Admin: 12/30/19 12:01 Dose: 250 mls/hr Levalbuterol HCl (Xopenex) 1.25 mg NEB QID [facility] Last Admin: 12/31/19 07:57 Dose: 1.25 mg Losartan Potassium (Cozaar) 25 mg PO BEDTIME [facility] Last Admin: 12/29/19 20:21 Dose: 25 mg Losartan Potassium (Cozaar) 25 mg PO BID [facility] Last Admin: 12/31/19 07:54 Dose: 25 mg Melatonin (Melatonin) 10 mg PO BEDTIME PRN PRN Reason: Insomnia Last Admin: 12/29/19 00:00 Dose: 10 mg Methylprednisolone Sodium Succinate (Solu-Medrol) 125 mg IVPUSH Q6H [facility] Last Admin: 12/31/19 04:52 Dose: 125 mg Mometasone Furoate/Formoterol Fumar (Dulera 200-5 Mcg) 2 puff IH BID [facility] Last Admin: 12/31/19 07:50 Dose: 2 puff Multivitamins/Minerals/Vitamin C (Childrens Chewable Vitamin) 1 tab PO DAILY [facility] Last Admin: 12/31/19 07:54 Dose: 1 tab Prednisolone Acetate (Pred Forte 1% Ophth Susp) 0 ml EYELF DAILY [facility] Last Admin: 12/31/19 07:50 Dose: 1 drop Prednisone (Prednisone) 40 mg PO WITHBREAKFAST [facility] Last Admin: 12/27/19 11:54 Dose: 40 mg Prednisone (Prednisone) 40 mg PO DAILY@0800 [facility] Last Admin: 12/30/19 07:33 Dose: 40 mg Senna/Docusate Sodium (Senna Plus) 1 tab PO DAILY PRN PRN Reason: Constipation Last Admin: 12/29/19 20:22 Dose: 1 tab Sodium Chloride (Saline Flush) 10 ml FLUSH ASDIRECTED PRN PRN Reason: Keep Vein Open Last Admin: 12/30/19 20:00 Dose: 10 ml - Exam General: Alert, Oriented HEENT: EOMI, Mucous Membr. Moist/[place] Neck: No JVD Lungs: Clear to Auscultation, Normal Respiratory Effort Cardiovascular: Regular Rate, Regular Rhythm, No Murmurs GI/Abdominal Exam: Normal Bowel Sounds, Soft, Non-Tender Extremities: Normal Inspection, Normal Range of Motion, Non-Tender, No Pedal Edema, Normal Capillary Refill Skin: Warm, Dry Neurological: No New Focal Deficit Psy/Mental Status: Alert, Normal Affect, Normal Mood Sepsis Event Note - Evaluation Sepsis Screening Result: No Definite Risk - Focused Exam Vital Signs: Vital Signs Temp Pulse Pulse Resp BP BP Pulse Ox 12/31/19 08:00 97.8 F 86 20 151/73 H 97 12/31/19 07:55 86 151/73 H 12/31/19 07:54 151/73 H Date Exam was Performed: 12/31/19 Time Exam was Performed: 19:13 - Problem List & Annotations (1) COPD exacerbation SNOMED Code(s): 262981177 Code(s): J44.1 - CHRONIC OBSTRUCTIVE PULMONARY DISEASE W (ACUTE) EXACERBATION Status: Acute - Problem List Review Problem List Initiated/Reviewed/Updated: Yes - My Orders Last 24 Hours: My Active Orders 12/31/19 06:00 FERRITIN, SERUM Routine VITAMIN B12 Routine 12/31/19 09:50 Ready for Discharge [RC] PER UNIT ROUTINE - Assessment Assessment:: COPD exacerbation complicated by CHF and anemia- slow improvement. Worked diligently with pharm D to find therapy she has not yet failed. - Plan Plan:: Traci on usual meds with addition of medrol dosepack and Zpack to complete antimicrobial course for ongoing COPD exacerbation. Recheck pulmonology as scheduled and encouraged clinic visit to document her progress. ? if trial on NAC would be helpful
[2020-01-02 08:08] LABS: IRON BIND.CAP.(TIBC) 263 ug/dL (250-450); IRON SATURATION 22 % (15-55); IRON, SERUM 58 ug/dL (27-139); UIBC 205 ug/dL (118-369)
--- NOTE | 2020-01-11 08:41 | PCM.DCSUM1 ---
Discharge Summary - Hospital Course Free Text/Narrative:: Jaimee failed fairly aggressive outpatient management of COPD. Interestingly, she doesn't seem to Respond to prednisone. She has not tried other corticosteroids in the past to her knowledge. She has followed with pulmonology for quite some time, and recalls using pretty much every sort of inhaled medication that I was able to come up with. I spoke with Jamarcus our pharmacist and we provided her with a trial of a different inhaler to see if she noticed any difference compared to what she has at home, and at this point she wishes to stay on her current regimen. She even failed chronic prednisone administration of 10 mg/day. For that reason, we discharged her on a Medrol Dosepak. She is certainly reliable to return. I wonder if she could be a candidate for chronic azithromycin therapy, at least over the winter, because she has had so many flares. She will be following up with pulmonology in a couple of weeks. Diagnosis: Stroke: No - Discharge Data Discharge Date: 12/31/19 Discharge Disposition: Home, Self-Care 01 Condition: Fair - Referral to Home Health Primary Care Physician: PCP None - Discharge Diagnosis/Problem(s) (1) COPD exacerbation SNOMED Code(s): 090520259 ICD Code: J44.1 - CHRONIC OBSTRUCTIVE PULMONARY DISEASE W (ACUTE) EXACERBATION Status: Acute - Patient Instructions Diet: Regular Diet as Tolerated Diet, Other: regular Activity: As Tolerated Notify Provider of: Fever, Increased Pain, Nausea and/or Vomiting - Discharge Plan Home Medications: Home Meds Acyclovir 400 mg PO DAILY 02/18/16 [History] Aspirin 81 mg PO QPM 02/18/16 [History] Ipratropium/Albuterol Sulfate [Iprat-Albut 0.5-3(2.5) mg/3 ml] 1 dose INH Q4H PRN 02/18/16 [History] Multivitamin [Multi-Vitamin Daily] 1 tab PO DAILY 02/18/16 [History] Furosemide [Lasix] 40 mg PO BIDDIURETIC tablet 02/12/18 [Rx] Calcium Carbonate/Vitamin D3 [Caltrate 600+D] 1 tab PO TIDMEALS 08/11/18 [ History] Acetaminophen [Tylenol Arthritis Pain] 650 mg PO Q8H PRN 01/28/19 [History] Sennosides [Senna] 8.6 mg PO DAILY PRN 01/28/19 [History] carvediloL [Coreg] 25 mg PO BIDMEALS 01/28/19 [History] Budesonide/Formoterol [Symbicort 160-4.5 MCG] 2 puff INH BID 03/29/19 [History] predniSONE See Taper PO ASDIRECTED [facility] 12 03/29/19 [History] Albuterol Sulfate [Albuterol Sulfate Hfa] 2 inh IN Q6HR 08/01/19 [History] Amiodarone [Cordarone] 200 mg PO DAILY 08/01/19 [History] Apixaban [Eliquis] 5 mg PO BID 08/01/19 [History] Ipratropium [Atrovent] 1 unit IN QID 08/01/19 [History] Losartan [Cozaar] 25 mg PO BEDTIME 08/01/19 [History] Nitroglycerin [Nitrostat] 0.4 mg SL ASDIRECTED PRN 08/01/19 [History] Polyvinyl Alcohol/Povidone/Pf [Refresh Classic Eye Drops] 1 drop EYEBOTH ASDIRECTED PRN 08/01/19 [History] atorvaSTATin Calcium [Atorvastatin Calcium] 20 mg PO BEDTIME 08/01/19 [History] guaiFENesin [Mucinex] 600 mg PO DAILY 08/01/19 [History] guaiFENesin [Robitussin] 100 mg PO BEDTIME 08/01/19 [History] prednisoLONE acetate [Pred Forte 1% Ophth Susp] 1 dose EYELF DAILY 08/01/19 [ History] Oxygen Therapy Mode: Nasal Cannula Patient Handouts: Azithromycin tablets, Methylprednisolone tablets Forms: ED Department Discharge Referrals: PCP,None [Primary Care Provider] - - Discharge Summary/Plan Comment DC Time >30 min.: No - Patient Data Vitals - Most Recent: Last Vital Signs Temp 97.8 F 12/31/19 08:00 Pulse 86 12/31/19 08:00 Resp 20 12/31/19 08:00 BP 151/73 H 12/31/19 08:00 Pulse Ox 97 12/31/19 08:00 Weight - Most Recent: 120 lb 6 oz Med Orders - Current: Current Medications Discontinued Medications Acetaminophen (Tylenol Arthritis Pain) 650 mg PO Q8H PRN PRN Reason: Pain Last Admin: 12/30/19 21:14 Dose: 650 mg Acetylcysteine (Mucomyst 20%) 600 mg PO DAILY [facility] Last Admin: 12/31/19 07:51 Dose: 600 mg Acyclovir (Zovirax) 400 mg PO DAILY [facility] Last Admin: 12/31/19 07:54 Dose: 400 mg Albuterol/Ipratropium (Duoneb 3.0-0.5 Mg/3 Ml) 3 ml NEB Q6H PRN PRN Reason: SOB or decreased sat Last Admin: 12/30/19 07:32 Dose: 3 ml Amiodarone HCl (Cordarone) 200 mg PO DAILY [facility] Last Admin: 12/31/19 07:53 Dose: 200 mg Apixaban (Eliquis) 5 mg PO BID [facility] Last Admin: 12/31/19 07:54 Dose: 5 mg Aspirin (Halfprin) 81 mg PO BEDTIME [facility] Last Admin: 12/30/19 19:57 Dose: 81 mg Atorvastatin Calcium (Lipitor) 20 mg PO BEDTIME [facility] Last Admin: 12/30/19 19:57 Dose: 20 mg Azithromycin (Zithromax) Confirm Administered Dose 500 mg .ROUTE .STK-MED ONE Stop: 12/30/19 11:35 Last Admin: 12/30/19 12:05 Dose: Not Given Calcium Carbonate (Calcium Carbonate/Vitamin D 600 Mg-200 Unit) 1 tab PO TIDMEALS [facility] Last Admin: 12/28/19 22:53 Dose: Not Given Calcium Carbonate (Caltrate 600+D 1500 Mg-400 Units) 1 tab PO TIDMEALS [facility] Last Admin: 12/31/19 07:54 Dose: 1 tab Calcium Carbonate/Glycine (Calcium Carbonate) Confirm Administered Dose 600 mg .ROUTE .STK-MED ONE Stop: 12/28/19 09:18 Last Admin: 12/28/19 09:32 Dose: Not Given Carvedilol (Coreg) 25 mg PO BID [facility] Last Admin: 12/30/19 07:33 Dose: 25 mg Carvedilol (Coreg) 12.5 mg PO BID [facility] Last Admin: 12/31/19 07:55 Dose: 12.5 mg Furosemide (Lasix) 20 mg IVPUSH DAILY [facility] Last Admin: 12/30/19 07:33 Dose: 20 mg Furosemide (Lasix) 20 mg IVPUSH NOW ONE Stop: 12/28/19 09:53 Last Admin: 12/28/19 22:53 Dose: Not Given Furosemide (Lasix) 10 mg IVPUSH BIDDIURETIC [facility] Last Admin: 12/31/19 07:55 Dose: 10 mg Furosemide (Lasix) Confirm Administered Dose 20 mg .ROUTE .[facility] ONE Stop: 12/30/19 11:34 Last Admin: 12/30/19 12:05 Dose: Not Given Guaifenesin (Robitussin) 100 mg PO BEDTIME [facility] Last Admin: 12/30/19 19:58 Dose: 100 mg Guaifenesin (Mucinex) 600 mg PO DAILY [facility] Last Admin: 12/31/19 07:54 Dose: 600 mg Levofloxacin 500 mg/ Dextrose/ (Water) 120 mls @ 220 mls/hr IV DAILY@1200 [facility] Last Admin: 12/27/19 12:00 Dose: 220 mls/hr Levofloxacin/Dextrose (Levaquin In D5w 500 Mg/100 Ml) Confirm Administered Dose 100 mls @ as directed IV .[facility] ONE Stop: 12/27/19 11:42 Last Admin: 12/27/19 12:00 Dose: Not Given Sodium Chloride (Normal Saline) 1,000 mls @ 50 mls/hr IV ASDIRECTED [facility] Last Admin: 12/27/19 11:55 Dose: 50 mls/hr Levofloxacin/Dextrose 750 mg/ (Premix) 150 mls @ 100 mls/hr IV Q24H [facility] Levofloxacin/Dextrose 750 mg/ (Premix) 150 mls @ 100 mls/hr IV Q48H [facility] Last Admin: 12/28/19 11:52 Dose: 100 mls/hr Levofloxacin/Dextrose (Levaquin In D5w 500 Mg/100 Ml) Confirm Administered Dose 100 mls @ as directed IV .[facility]-MED ONE Stop: 12/28/19 11:44 Last Admin: 12/28/19 11:48 Dose: Not Given Levofloxacin/Dextrose (Levaquin In D5w 750 Mg/150 Ml) Confirm Administered Dose 150 mls @ as directed IV .[facility]-MED ONE Stop: 12/28/19 11:52 Last Admin: 12/28/19 11:58 Dose: Not Given Azithromycin 500 mg/ Sodium (Chloride) 250 mls @ 250 mls/hr IV Q24H [facility] Last Admin: 12/30/19 12:01 Dose: 250 mls/hr Levalbuterol HCl (Xopenex) 1.25 mg NEB QID [facility] Last Admin: 12/31/19 07:57 Dose: 1.25 mg Losartan Potassium (Cozaar) 25 mg PO BEDTIME [facility] Last Admin: 12/29/19 20:21 Dose: 25 mg Losartan Potassium (Cozaar) 25 mg PO BID [facility] Last Admin: 12/31/19 07:54 Dose: 25 mg Melatonin (Melatonin) 10 mg PO BEDTIME PRN PRN Reason: Insomnia Last Admin: 12/29/19 00:00 Dose: 10 mg Methylprednisolone Sodium Succinate (Solu-Medrol) 125 mg IVPUSH Q6H [facility] Last Admin: 12/31/19 04:52 Dose: 125 mg Mometasone Furoate/Formoterol Fumar (Dulera 200-5 Mcg) 2 puff IH BID [facility] Last Admin: 12/31/19 07:50 Dose: 2 puff Multivitamins/Minerals/Vitamin C (Childrens Chewable Vitamin) 1 tab PO DAILY [facility] Last Admin: 12/31/19 07:54 Dose: 1 tab Prednisolone Acetate (Pred Forte 1% Ophth Susp) 0 ml EYELF DAILY [facility] Last Admin: 12/31/19 07:50 Dose: 1 drop Prednisone (Prednisone) 40 mg PO WITHBREAKFAST [facility] Last Admin: 12/27/19 11:54 Dose: 40 mg Prednisone (Prednisone) 40 mg PO DAILY@0800 [facility] Last Admin: 12/30/19 07:33 Dose: 40 mg Senna/Docusate Sodium (Senna Plus) 1 tab PO DAILY PRN PRN Reason: Constipation Last Admin: 12/29/19 20:22 Dose: 1 tab Sodium Chloride (Saline Flush) 10 ml FLUSH ASDIRECTED PRN PRN Reason: Keep Vein Open Last Admin: 12/30/19 20:00 Dose: 10 ml
== END 2019-12-31 11:05 | disposition home or self-care (01) | DRG 192 ==
LOC: LB.ED 07:26 → LB.MS 08:50 → LB.ED 09:00
PROVIDERS: ADMIT Surgery; ATTEND Surgery
DX: J44.1 Chronic obstructive pulmonary disease with (acute) exacerbation (principal); M81.0 Age-related osteoporosis without current pathological fracture; Z87.01 Personal history of pneumonia (recurrent); D64.9 Anemia, unspecified; I50.9 Heart failure, unspecified; Z99.81 Dependence on supplemental oxygen; I25.2 Old myocardial infarction; Z90.49 Acquired absence of other specified parts of digestive tract; Z88.0 Allergy status to penicillin; Z88.2 Allergy status to sulfonamides; Z88.5 Allergy status to narcotic agent; Z88.8 Allergy status to other drugs, medicaments and biological substances; Z79.01 Long term (current) use of anticoagulants; Z79.51 Long term (current) use of inhaled steroids; Z79.899 Other long term (current) drug therapy
CPT/HCPCS: 36415; 71046; 80048; 80053; 81003; 82607; 82728; 83540; 83550; 83735; 83880; 84484; 85025; 86140; 87070; 87077; 87186; 87205; 87804; 87804-59; 94640; 99222; 99231; 99232; 99238; 99285-25; A9270-GY; J0456; J1940; J1956; J2930; J7030; J7050; J7060; J7612; J7620-GY

== ENCOUNTER 2020-03-30 15:32 | Inpatient (IN) | payer MEDICARE, BC, OTHER ==
--- NOTE | 2020-03-30 16:34 | EDM.PDOC ---
ED HPI GENERAL MEDICAL PROBLEM - General Chief Complaint: Respiratory Problem Stated Complaint: COUGH,FEVER,ONGOING SOB Time Seen by Provider: 03/30/20 16:20 Source of Information: Reports: Patient History Limitations: Reports: No Limitations - History of Present Illness INITIAL COMMENTS - FREE TEXT/NARRATIVE: This patient presents to the ED for evaluation of shortness of breath. She has a history of COPD and always coughs but is not normally SOB. She was seen by pulmonology 1 week ago where she was given a Medrol dose pack and doxycycline. Patient is unsure of what these medications were for. - Related Data Allergies Allergy/AdvReac Type Severity Reaction Status Date / Time codeine Allergy Other Verified 12/27/19 08:24 Penicillins Allergy Cannot Verified 12/27/19 08:24 Remember Sulfa (Sulfonamide Allergy Cannot Verified 12/27/19 08:24 Antibiotics) Remember tramadol Allergy Cannot Verified 12/27/19 08:24 Remember warfarin [From Coumadin] AdvReac Bleeding Verified 12/27/19 08:24 Home Meds: Home Meds Acyclovir 400 mg PO DAILY 02/18/16 [History] Aspirin 81 mg PO QPM 02/18/16 [History] Ipratropium/Albuterol Sulfate [Iprat-Albut 0.5-3(2.5) mg/3 ml] 1 dose INH Q4H PRN 02/18/16 [History] Multivitamin [Multi-Vitamin Daily] 1 tab PO DAILY 02/18/16 [History] Furosemide [Lasix] 40 mg PO BIDDIURETIC tablet 02/12/18 [Rx] Calcium Carbonate/Vitamin D3 [Caltrate 600+D] 1 tab PO TIDMEALS 08/11/18 [ History] Acetaminophen [Tylenol Arthritis Pain] 650 mg PO Q8H PRN 01/28/19 [History] Sennosides [Senna] 8.6 mg PO DAILY PRN 01/28/19 [History] carvediloL [Coreg] 25 mg PO BIDMEALS 01/28/19 [History] Budesonide/Formoterol [Symbicort 160-4.5 MCG] 2 puff INH BID 03/29/19 [History] predniSONE See Taper PO ASDIRECTED MDD 12 03/29/19 [History] Albuterol Sulfate [Albuterol Sulfate Hfa] 2 inh IN Q6HR 08/01/19 [History] Amiodarone [Cordarone] 200 mg PO DAILY 08/01/19 [History] Apixaban [Eliquis] 5 mg PO BID 08/01/19 [History] Ipratropium [Atrovent] 1 unit IN QID 08/01/19 [History] Losartan [Cozaar] 25 mg PO BEDTIME 08/01/19 [History] Nitroglycerin [Nitrostat] 0.4 mg SL ASDIRECTED PRN 08/01/19 [History] Polyvinyl Alcohol/Povidone/Pf [Refresh Classic Eye Drops] 1 drop EYEBOTH ASDIRECTED PRN 08/01/19 [History] atorvaSTATin Calcium [Atorvastatin Calcium] 20 mg PO BEDTIME 08/01/19 [History] guaiFENesin [Mucinex] 600 mg PO DAILY 08/01/19 [History] guaiFENesin [Robitussin] 100 mg PO BEDTIME 08/01/19 [History] prednisoLONE acetate [Pred Forte 1% Ophth Susp] 1 dose EYELF DAILY 08/01/19 [ History] Past Medical History HEENT History: Reports: Allergic Rhinitis, Cataract, Hard of Hearing Cardiovascular History: Reports: Heart Valve Replacement, Stents, Other (See Below) Other Cardiovascular History: endarterectomy Respiratory History: Reports: COPD, SOB, Other (See Below) Other Respiratory History: has had cough Gastrointestinal History: Reports: Cholelithiasis Other Gastrointestinal History: appy Genitourinary History: Reports: UTI, Recurrent 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 Right proximal humerus fracture 10/2019 Endocrine/Metabolic History: Reports: Osteoporosis Hematologic History: Reports: None Oncologic (Cancer) History: Reports: Breast - Infectious Disease History Infectious Disease History: Reports: Chicken Pox, Measles, Mumps - Past Surgical History Head Surgeries/Procedures: Reports: None HEENT Surgical History: Reports: Other (See Below) Other HEENT Surgeries/Procedures: CEA February 2013 Cardiovascular Surgical History: Reports: Valve Replacement GI Surgical History: Reports: Appendectomy, Cholecystectomy Female Surgical History: Reports: Hysterectomy Endocrine Surgical History: Reports: None Musculoskeletal Surgical History: Reports: Knee Replacement Oncologic Surgical History: Reports: Mastectomy Social & Family History - Family History Family Medical History: Noncontributory HEENT: Reports: Cataract Cardiac: Reports: [place] GI: Reports: GERD : Reports: None Neurological: Reports: Alzheimers Disease Endocrine/Metabolic: Reports: Diabetes, Gestational Immunologic: Reports: None Oncologic: Reports: Breast - Caffeine Use Caffeine Use: Reports: Coffee Caffeine Use Comment: 3 cups a day ED ROS GENERAL - Review of Systems Review Of Systems: Comprehensive ROS is negative, except as noted in HPI. ED EXAM, GENERAL - Physical Exam Exam: See Below Exam Limited By: No Limitations General Appearance: Alert, WD/WN, Moderate Distress Eye Exam: Bilateral Eye: PERRL Ears: Normal External Exam Nose: Normal Inspection Throat/Mouth: Normal Inspection, Normal Oropharynx Head: Atraumatic, Normocephalic Neck: Normal Inspection, Supple, Full Range of Motion Respiratory/Chest: Respiratory Distress, Decreased Breath Sounds, Crackles, Rales, Wheezing, Other (Significant increase in work of breathing with retractions. Inspiratory and expiratory wheezes in all raymond with some decrease in bases; course to bilateral bases.) Cardiovascular: Regular Rate, Rhythm Extremities: Normal Capillary Refill Neurological: Alert, Oriented Psychiatric: Normal Affect, Normal Mood Skin Exam: Warm, Dry, Intact Course - Orders/Labs/Meds Orders: Active Orders 24 hr Category Date Time Status Admission Diagnosis [ADT] Stat ADT 03/30/20 16:37 Ordered RT Aerosol Therapy [RC] ASDIRECTED Care 03/30/20 16:29 Ordered Chest 1V Frontal [CR] Stat Exams 03/30/20 16:25 Ordered B-TYPE NATRIURETIC PEPTIDE,BNP [CHEM] Stat Lab 03/30/20 16:25 Ordered BASIC METABOLIC PANEL,BMP [CHEM] Stat Lab 03/30/20 16:25 Ordered CBC WITH AUTO DIFF [HEME] Stat Lab 03/30/20 16:25 Ordered CORONAVIRUS COVID-19, VIKY Stat Lab 03/30/20 16:25 Ordered Albuterol/Ipratropium [DuoNeb 3.0-0.5 MG/3 ML] Med 03/30/20 16:40 Once 3 ml NEB ONETIME ONE Medication Orders Albuterol/Ipratropium (Duoneb 3.0-0.5 Mg/3 Ml) 3 ml NEB ONETIME ONE Stop: 03/30/20 16:41 Meds: Medications Generic Name Dose Route Start Last Admin Trade Name Freq PRN Reason Stop Dose Admin Albuterol/Ipratropium 3 ml 03/30/20 16:40 Duoneb 3.0-0.5 Mg/3 Ml NEB 03/30/20 16:41 ONETIME ONE - Re-Assessments/Exams Free Text/Narrative Re-Assessment/Exam: 03/30/20 16:41 This patient presents for evaluation of increased work of breathing. History, physical exam and imaging studies are consistent with pneumonia. She does have an increased oxygen need here as well. There are no signs of complications of pneumonia at this point such as septic shock, bacteremia, empyema, hypoxia, respiratory failure or compromise; however, given her underlying medical problems, she will be admitted to the hospital on Observation status for IV antibiotics, fluids, and oxygen. Departure - Departure Time of Disposition: 16:40 Disposition: Refer to Observation Condition: Fair Clinical Impression: Pneumonia, Hypoxia - Discharge Information Referrals: PCP,None [Primary Care Provider] - Forms: ED Department Discharge Sepsis Event Note - Focused Exam Date Exam was Performed: 03/30/20 Time Exam was Performed: 16:39 - My Orders Last 24 Hours: My Active Orders 03/30/20 16:25 Chest 1V Frontal [CR] Stat B-TYPE NATRIURETIC PEPTIDE,BNP [CHEM] Stat BASIC METABOLIC PANEL,BMP [CHEM] Stat CBC WITH AUTO DIFF [HEME] Stat CORONAVIRUS COVID-19, VIKY Stat 03/30/20 16:29 RT Aerosol Therapy [RC] ASDIRECTED 03/30/20 16:37 Admission Diagnosis [ADT] Stat 03/30/20 16:40 Albuterol/Ipratropium [DuoNeb 3.0-0.5 MG/3 ML] 3 ml NEB ONETIME ONE - Assessment/Plan Last 24 Hours: My Active Orders 03/30/20 16:25 Chest 1V Frontal [CR] Stat B-TYPE NATRIURETIC PEPTIDE,BNP [CHEM] Stat BASIC METABOLIC PANEL,BMP [CHEM] Stat CBC WITH AUTO DIFF [HEME] Stat CORONAVIRUS COVID-19, VIKY Stat 03/30/20 16:29 RT Aerosol Therapy [RC] ASDIRECTED 03/30/20 16:37 Admission Diagnosis [ADT] Stat 03/30/20 16:40 Albuterol/Ipratropium [DuoNeb 3.0-0.5 MG/3 ML] 3 ml NEB ONETIME ONE
[2020-03-30] MEDS ORDERED: Albuterol/Ipratropium 3.0-0.5 MG/3 ML Neb Soln NEB ONE (16:40)
[2020-03-30] MEDS ORDERED: Acetaminophen 650 MG Tab.ER ONE (18:38)
[2020-03-30] MEDS ORDERED: Ondansetron 4 MG/2 ML SDV IV PRN (18:52)
[2020-03-30] MEDS ORDERED: Acetaminophen 325 MG Tab PO PRN (18:52)
[2020-03-30] MEDS ORDERED: Nitroglycerin 0.4 MG Tab.SL SL PRN (18:57)
[2020-03-30] MEDS ORDERED: Sennosides 8.6 MG Tab PO PRN (18:57)
[2020-03-30] MEDS ORDERED: Acetaminophen 650 MG Tab.ER PO PRN (18:57)
[2020-03-30] MEDS ORDERED: Albuterol/Ipratropium 3.0-0.5 MG/3 ML Neb Soln INH PRN (18:57)
[2020-03-30] MEDS ORDERED: Non-Formulary Medication 1 Each (Polyvinyl Alcohol/Povidone/Pf [Refresh Classic Eye Drops] EYEBOTH PRN (18:57)
[2020-03-30] MEDS ORDERED: Sodium Chloride 0.9% 1,000 ML IV SCH (19:00)
--- NOTE | 2020-03-30 19:09 | PCM.HP.2 ---
H&P History of Present Illness - General Date of Service: 03/30/20 Admit Problem/Dx: Admission Diagnosis/Problem Admission Diagnosis/Problem Pneumonia Source of Information: Patient, Family (son) History Limitations: Reports: No Limitations - History of Present Illness Initial Comments - Free Text/Narative: This patient presents to the ED for evaluation of shortness of breath-refer to ED record. She was given a duo neb on admission to the inpatient unit and did have some slight improvement in her air entry but still remains quite short of breath even at rest. Her difficulty breathing significantly increases with any exertion. - Related Data Allergies/Adverse Reactions: Allergies Allergy/AdvReac Type Severity Reaction Status Date / Time codeine Allergy Other Verified 12/27/19 08:24 Penicillins Allergy Cannot Verified 12/27/19 08:24 Remember Sulfa (Sulfonamide Allergy Cannot Verified 12/27/19 08:24 Antibiotics) Remember tramadol Allergy Cannot Verified 12/27/19 08:24 Remember warfarin [From Coumadin] AdvReac Bleeding Verified 12/27/19 08:24 Home Medications: Home Meds Acyclovir 400 mg PO DAILY 02/18/16 [History] Aspirin 81 mg PO QPM 02/18/16 [History] Ipratropium/Albuterol Sulfate [Iprat-Albut 0.5-3(2.5) mg/3 ml] 1 dose INH Q4H PRN 02/18/16 [History] Multivitamin [Multi-Vitamin Daily] 1 tab PO DAILY 02/18/16 [History] Furosemide [Lasix] 40 mg PO BIDDIURETIC tablet 02/12/18 [Rx] Calcium Carbonate/Vitamin D3 [Caltrate 600+D] 1 tab PO TIDMEALS 08/11/18 [ History] Acetaminophen [Tylenol Arthritis Pain] 650 mg PO Q8H PRN 01/28/19 [History] Sennosides [Senna] 8.6 mg PO DAILY PRN 01/28/19 [History] carvediloL [Coreg] 25 mg PO BIDMEALS 01/28/19 [History] Budesonide/Formoterol [Symbicort 160-4.5 MCG] 2 puff INH BID 03/29/19 [History] predniSONE See Taper PO ASDIRECTED MDD 12 03/29/19 [History] Albuterol Sulfate [Albuterol Sulfate Hfa] 2 inh IN Q6HR 08/01/19 [History] Amiodarone [Cordarone] 200 mg PO DAILY 08/01/19 [History] Apixaban [Eliquis] 5 mg PO BID 08/01/19 [History] Ipratropium [Atrovent] 1 unit IN QID 08/01/19 [History] Losartan [Cozaar] 25 mg PO BEDTIME 08/01/19 [History] Nitroglycerin [Nitrostat] 0.4 mg SL ASDIRECTED PRN 08/01/19 [History] Polyvinyl Alcohol/Povidone/Pf [Refresh Classic Eye Drops] 1 drop EYEBOTH ASDIRECTED PRN 08/01/19 [History] atorvaSTATin Calcium [Atorvastatin Calcium] 20 mg PO BEDTIME 08/01/19 [History] guaiFENesin [Mucinex] 600 mg PO DAILY 08/01/19 [History] guaiFENesin [Robitussin] 100 mg PO BEDTIME 08/01/19 [History] prednisoLONE acetate [Pred Forte 1% Ophth Susp] 1 dose EYELF DAILY 08/01/19 [ History] Past Medical History HEENT History: Reports: Allergic Rhinitis, Cataract, Hard of Hearing Cardiovascular History: Reports: Heart Valve Replacement, Stents, Other (See Below) Other Cardiovascular History: endarterectomy Respiratory History: Reports: COPD, SOB, Other (See Below) Other Respiratory History: has had cough Gastrointestinal History: Reports: Cholelithiasis Other Gastrointestinal History: appy Genitourinary History: Reports: UTI, Recurrent 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 Right proximal humerus fracture 10/2019 Endocrine/Metabolic History: Reports: Osteoporosis Hematologic History: Reports: None Oncologic (Cancer) History: Reports: Breast - Infectious Disease History Infectious Disease History: Reports: Chicken Pox, Measles, Mumps - Past Surgical History Head Surgeries/Procedures: Reports: None HEENT Surgical History: Reports: Other (See Below) Other HEENT Surgeries/Procedures: CEA February 2013 Cardiovascular Surgical History: Reports: Valve Replacement GI Surgical History: Reports: Appendectomy, Cholecystectomy Female Surgical History: Reports: Hysterectomy Endocrine Surgical History: Reports: None Musculoskeletal Surgical History: Reports: Knee Replacement Oncologic Surgical History: Reports: Mastectomy Social & Family History - Family History Family Medical History: Noncontributory HEENT: Reports: Cataract Cardiac: Reports: [place] GI: Reports: GERD : Reports: None Neurological: Reports: Alzheimers Disease Endocrine/Metabolic: Reports: Diabetes, Gestational Immunologic: Reports: None Oncologic: Reports: Breast - Tobacco Use Smoking Status *Q: Former Smoker Years of Tobacco use: 20 Used Tobacco, but Quit: Yes Month/Year Tobacco Last Used: 1984 Second Hand Smoke Exposure: No - Caffeine Use Caffeine Use: Reports: Coffee Caffeine Use Comment: 3 cups a day - Recreational Drug Use Recreational Drug Use: No H&P Review of Systems - Review of Systems: Review Of Systems: See Below General: Reports: Fever, Weakness, Decreased Appetite HEENT: Reports: No Symptoms. Denies: Ear Pain, Headaches, Rhinitis, Sinus Congestion, Sore Throat Pulmonary: Reports: Shortness of Breath, Wheezing, Cough Cardiovascular: Reports: Dyspnea on Exertion. Denies: Chest Pain Gastrointestinal: Reports: Decreased Appetite. Denies: Abdominal Pain Genitourinary: Reports: No Symptoms Musculoskeletal: Reports: No Symptoms Skin: Reports: Pallor. Denies: Diaphoresis, Rash Neurological: Reports: No Symptoms Exam - Exam Exam: See Below - Vital Signs Vital Signs: Last Vital Signs Temp 36.9 C 03/30/20 16:13 Pulse 109 H 03/30/20 16:13 Resp 24 H 03/30/20 16:13 BP 145/77 H 03/30/20 16:13 Pulse Ox 95 03/30/20 16:13 - Exam Quality Assessment: Supplemental Oxygen, DVT Prophylaxis (on anticoagulants) General: Alert, Oriented HEENT: PERRLA, Conjunctiva Clear, EOMI, Mucosa Moist & [place], Posterior Pharynx Clear Neck: Supple, Full Range of Motion Lungs: Decreased Breath Sounds, Rales, Wheezing Cardiovascular: Regular Rate, Regular Rhythm GI/Abdominal Exam: Soft, Non-Tender, No Organomegaly, No Distention, Abnormal Bowel Sounds (hypoactive) Extremities: Normal Capillary Refill Skin: Warm, Dry, Intact Neuro Extensive - Mental Status: Alert, Oriented x3, Normal Mood/Affect - Patient Data Lab Results Last 24 hrs: Laboratory Results - last 24 hr 03/30/20 03/30/20 03/30/20 Range/Units 16:25 16:25 16:30 WBC 21.8 H* D (4.0-11.0) K/uL RBC 3.51 L (3.80-5.80) M/uL Hgb 10.6 L (11.5-16.5) g/dL Hct 34.0 L (37.0-47.0) % MCV 97 H (76-96) fL MCH 30.2 (27.0-32.0) pg MCHC 31.2 (31.0-35.0) g/dL RDW 14.3 (11.0-16.0) % Plt Count 221 D (150-500) K/uL MPV 9.4 (6.0-10.0) fL Add Manual Diff Yes Neutrophils % (Manual) 81.0 H (45.0-70.0) % Band Neutrophils % 8.0 % Lymphocytes % (Manual) 4.0 L (20.0-40.0) % Monocytes % (Manual) 7.0 (3.0-10.0) % Platelet Estimate Adequate Sodium 140 (136-145) mmol/L Potassium 4.4 (3.5-5.1) mmol/L Chloride 99 (98-107) mmol/L Carbon Dioxide 33.3 H (21.0-32.0) mmol/L Anion Gap 12.1 (5.0-15.0) mmol/L BUN 42 H D (8-26) mg/dL Creatinine 1.18 H (0.55-1.02) mg/dL Est Cr Clr Drug Dosing TNP Estimated GFR (MDRD) 44 L (>60) MLS/MIN BUN/Creatinine Ratio 35.6 H (6-25) Glucose 149 H (74-100) mg/dL Lactic Acid 1.3 (0.4-2.0) mmol/L Calcium 8.8 (8.5-10.1) mg/dL B-Natriuretic Peptide 6938 H D (0-450) pg/mL Result Diagrams: 03/30/20 16:25 03/30/20 16:25 Sepsis Event Note - Evaluation Sepsis Screening Result: Possible Sepsis Risk Current Stage of Sepsis: Ruled Out Reason for Ruling Out Sepsis: Lactic Acid 1.3; VS not indicative of sepsis - Focused Exam Vital Signs: Vital Signs Temp Pulse Resp BP Pulse Ox 03/30/20 16:13 36.9 C 109 H 24 H 145/77 H 95 Respiratory Effort Without Exertion: Dyspneic Capillary Refill, Detail: Less than/Equal to (</=) 2 Seconds Pulse Description: 2+ Normal Peripheral Pulse Location: Radial Skin Exam (Focused Sepsis): Normal Turgor Date Exam was Performed: 03/30/20 Time Exam was Performed: 19:24 - Problem List (1) Pneumonia SNOMED Code(s): 472991982 ICD Code: J18.9 - PNEUMONIA, UNSPECIFIED ORGANISM Status: Acute Priority : High Current Visit: Yes Qualifiers: Laterality: bilateral (2) Hypoxia SNOMED Code(s): 663819630 ICD Code: R09.02 - HYPOXEMIA Status: Acute Priority: High Current Visit : Yes Problem List Initiated/Reviewed/Updated: Yes Orders Last 24hrs: Active Orders 24 hr Category Date Time Status Admission Diagnosis [ADT] Stat ADT 03/30/20 16:37 Active Patient Status [ADT] Routine ADT 03/30/20 18:52 Ordered Oxygen Therapy [RC] PRN Care 03/30/20 18:52 Ordered RT Aerosol Therapy [RC] ASDIRECTED Care 03/30/20 16:29 Active VTE/DVT Education [RC] Per Unit Routine Care 03/30/20 18:52 Ordered Vital Signs [RC] Q4H Care 03/30/20 18:52 Ordered OT Evaluation and Treatment [CONS] Routine Cons 03/30/20 18:52 Ordered PT Evaluation and Treatment [CONS] Routine Cons 03/30/20 18:52 Ordered Regular Diet [DIET] Diet 03/31/20 Breakfast Ordered Chest 1V Frontal [CR] Stat Exams 03/30/20 16:25 Taken CORONAVIRUS COVID-19, VIKY Stat Lab 03/30/20 16:30 Received CULTURE BLOOD [BC] Routine Lab 03/30/20 18:00 Received CULTURE BLOOD [BC] Routine Lab 03/30/20 18:05 Received Acetaminophen [Tylenol Arthritis Pain] Med 03/30/20 18:57 Ordered 650 mg PO Q8H PRN Acetaminophen [Tylenol] Med 03/30/20 18:52 Ordered 650 mg PO Q4H PRN Acyclovir [Zovirax] Med 03/31/20 08:00 Ordered 400 mg PO DAILY Albuterol [Ventolin HFA] Med 03/31/20 00:00 Ordered 2 inh INH Q6HR Albuterol/Ipratropium [DuoNeb 3.0-0.5 MG/3 ML] Med 03/30/20 18:57 Ordered 1 dose INH Q4H PRN Amiodarone [Cordarone] Med 03/31/20 08:00 Ordered 200 mg PO DAILY Apixaban [Eliquis] Med 03/30/20 20:00 Ordered 5 mg PO BID Aspirin Med 03/30/20 20:00 Ordered 81 mg PO QPM Budesonide/Formoterol [Symbicort 160-4.5 MCG] Med 03/30/20 20:00 Ordered 2 puff INH BID Calcium Carbonate/Vitamin D3 [Caltrate 600+D 1500 MG- Med 03/31/20 08:00 Ordered 400 Units] 1 tab PO TIDMEALS Furosemide [Lasix] Med 03/31/20 08:00 Ordered 40 mg PO BIDDIURETIC Ipratropium [Atrovent] Med 03/30/20 20:00 Ordered 1 unit INH QID Losartan [Cozaar] Med 03/30/20 20:00 Ordered 25 mg PO BEDTIME Multivitamin [Multi-Vitamin Daily] Med 03/31/20 08:00 Ordered 1 tab PO DAILY Nitroglycerin [Nitrostat] Med 03/30/20 18:57 Ordered 0.4 mg SL ASDIRECTED PRN Ondansetron [Zofran] Med 03/30/20 18:52 Ordered 4 mg IV Q4H PRN Polyvinyl Alcohol/Povidone/Pf [Refresh Classic Eye Med 03/30/20 18:57 Ordered Drops] 1 drop EYEBOTH ASDIRECTED PRN Sennosides [Senna] Med 03/30/20 18:57 Ordered 8.6 mg PO DAILY PRN Sodium Chloride 0.9% [Normal Saline] 1,000 ml Med 03/30/20 19:00 Ordered IV ASDIRECTED atorvaSTATin [Lipitor] Med 03/30/20 20:00 Ordered 20 mg PO BEDTIME carvediloL [Coreg] Med 03/31/20 08:00 Ordered 25 mg PO BIDMEALS guaiFENesin [Mucinex] Med 03/31/20 08:00 Ordered 600 mg PO DAILY guaiFENesin [Robitussin] Med 03/30/20 20:00 Ordered 100 mg PO BEDTIME predniSONE Med 03/31/20 07:00 Ordered 40 mg PO WITHBREAKFAST prednisoLONE acetate [Pred Forte 1% Ophth Susp] Med 03/31/20 08:00 Ordered 1 dose EYELF DAILY Resuscitation Status Routine Resus Stat 03/30/20 18:52 Ordered Medication Orders Acetaminophen (Tylenol) 650 mg PO Q4H PRN PRN Reason: Pain (Mild 1-3)/fever Acetaminophen (Tylenol Arthritis Pain) 650 mg PO Q8H PRN PRN Reason: Pain Acyclovir (Zovirax) 400 mg PO DAILY KIMO Albuterol (Ventolin Hfa) gm INH Q6HR KIMO Albuterol/Ipratropium (Duoneb 3.0-0.5 Mg/3 Ml) ml INH Q4H PRN PRN Reason: Shortness of Breath Amiodarone HCl (Cordarone) 200 mg PO DAILY KIMO Apixaban (Eliquis) 5 mg PO BID KIMO Aspirin (Aspirin) 81 mg PO QPM KIMO Atorvastatin Calcium (Lipitor) 20 mg PO BEDTIME KIMO Sodium Chloride (Normal Saline) 1,000 mls @ 75 mls/hr IV ASDIRECTED KIMO Ondansetron HCl (Zofran) 4 mg IV Q4H PRN PRN Reason: Nausea/Vomiting Assessment/Plan Comment:: Assessment: 1) Pneumonia 2) Hypoxia Plan: Admit for IV antibiotics and fluids Supplemental oxygen as needed to keep saturation greater than 92% - Mortality Measure Prognosis:: Good
[2020-03-30] MEDS: Apixaban 5 MG Tab PO SCH (20:12)
[2020-03-30] MEDS: atorvaSTATin 20 MG Tab PO SCH (20:12)
[2020-03-30] MEDS: Losartan 25 MG Tab PO SCH (20:12)
[2020-03-30] MEDS: guaiFENesin 100 MG/5 ML Soln 10 ML UD Cup PO SCH (20:13)
[2020-03-30] MEDS: Aspirin 81 MG Tab.EC PO SCH (20:13)
[2020-03-30] MEDS: Formoterol/Mometasone 200-5 MCG 8.8 GM Inhaler IH SCH (20:15)
[2020-03-30] MEDS ORDERED: Azithromycin 500 MG in Sodium Chloride 0.9% 250 ML IV SCH (20:30)
[2020-03-30] MEDS ORDERED: Levofloxacin/Dextrose 5%-Water 150 ML IV ONE (20:51)
[2020-03-30] MEDS: Ipratropium 0.02% 0.5 MG/2.5 ML Neb Soln INH SCH (22:30)
[2020-03-31] MEDS: Albuterol 8 GM Inhaler INH SCH ×4 (00:34→18:04)
[2020-03-31] MEDS: Ipratropium 0.02% 0.5 MG/2.5 ML Neb Soln INH SCH ×4 (08:00→20:24)
[2020-03-31] MEDS: predniSONE 20 MG Tab PO SCH (08:02)
[2020-03-31] MEDS: Calcium Carbonate/Vitamin D3 1500 MG-400 Units Tab PO SCH ×3 (08:03→18:03)
[2020-03-31] MEDS: Amiodarone 200 MG Tab PO SCH (08:03)
[2020-03-31] MEDS: Carvedilol 25 MG Tab PO SCH ×2 (08:04→17:00)
[2020-03-31] MEDS: Formoterol/Mometasone 200-5 MCG 8.8 GM Inhaler IH SCH ×2 (08:05→20:23)
[2020-03-31] MEDS: Furosemide 40 MG Tab PO SCH ×2 (08:06→17:00)
[2020-03-31] MEDS: Apixaban 5 MG Tab PO SCH ×2 (08:06→20:22)
[2020-03-31] MEDS: guaiFENesin 600 MG Tab.ER PO SCH (08:06)
[2020-03-31] MEDS: Acyclovir 400 MG Tab PO SCH (08:07)
[2020-03-31] MEDS: Multivitamins with Iron/Calcium/Folic Acid/Minerals Tab PO SCH (08:07)
[2020-03-31] MEDS ORDERED: Azithromycin 500 MG in Sodium Chloride 0.9% 250 ML IV SCH ×2 (08:16→21:00)
--- NOTE | 2020-03-31 09:49 | PCM.PN ---
- General Info Date of Service: 03/31/20 Admission Dx/Problem (Free Text): Admission Diagnosis/Problem Admission Diagnosis/Problem Pneumonia Subjective Update: Patient states she feels some better today but remains quite short of breath even at rest. She is able to speak in full sentences this morning. Appetite has improved a bit and she is drinking fluids fairly well. Functional Status: Reports: Pain Controlled - Review of Systems General: Reports: Weakness. Denies: Fever, Appetite HEENT: Reports: No Symptoms Pulmonary: Reports: Shortness of Breath, Cough Cardiovascular: Reports: Dyspnea on Exertion. Denies: Chest Pain Gastrointestinal: Reports: Decreased Appetite. Denies: Abdominal Pain, Diarrhea , Nausea, Vomiting Genitourinary: Denies: Dysuria Skin: Reports: No Symptoms Neurological: Reports: No Symptoms Psychiatric: Reports: No Symptoms - Patient Data Vitals - Most Recent: Last Vital Signs Temp 36.4 C 03/31/20 08:00 Pulse 85 03/31/20 08:04 Resp 16 03/31/20 08:00 BP 119/59 L 03/31/20 08:04 Pulse Ox 99 03/31/20 08:00 Weight - Most Recent: 50.349 kg I&O - Last 24 Hours: Intake & Output 03/30/20 03/31/20 03/31/20 22:59 06:59 14:59 Intake Total 1463 Output Total 600 Balance 863 Lab Results Last 24 Hours: Laboratory Results - last 24 hr 03/30/20 03/30/20 03/30/20 Range/Units 16:25 16:25 16:30 WBC 21.8 H* D (4.0-11.0) K/uL RBC 3.51 L (3.80-5.80) M/uL Hgb 10.6 L (11.5-16.5) g/dL Hct 34.0 L (37.0-47.0) % MCV 97 H (76-96) fL MCH 30.2 (27.0-32.0) pg MCHC 31.2 (31.0-35.0) g/dL RDW 14.3 (11.0-16.0) % Plt Count 221 D (150-500) K/uL MPV 9.4 (6.0-10.0) fL Add Manual Diff Yes Neutrophils % (Manual) 81.0 H (45.0-70.0) % Band Neutrophils % 8.0 % Lymphocytes % (Manual) 4.0 L (20.0-40.0) % Monocytes % (Manual) 7.0 (3.0-10.0) % Platelet Estimate Adequate Sodium 140 (136-145) mmol/L Potassium 4.4 (3.5-5.1) mmol/L Chloride 99 (98-107) mmol/L Carbon Dioxide 33.3 H (21.0-32.0) mmol/L Anion Gap 12.1 (5.0-15.0) mmol/L BUN 42 H D (8-26) mg/dL Creatinine 1.18 H (0.55-1.02) mg/dL Est Cr Clr Drug Dosing TNP Estimated GFR (MDRD) 44 L (>60) MLS/MIN BUN/Creatinine Ratio 35.6 H (6-25) Glucose 149 H (74-100) mg/dL Lactic Acid 1.3 (0.4-2.0) mmol/L Calcium 8.8 (8.5-10.1) mg/dL B-Natriuretic Peptide 6938 H D (0-450) pg/mL Med Orders - Current: Current Medications Acetaminophen (Tylenol) 650 mg PO Q4H PRN PRN Reason: Pain (Mild 1-3)/fever Acetaminophen (Tylenol Arthritis Pain) 650 mg PO Q8H PRN PRN Reason: Pain Last Admin: 03/30/20 18:45 Dose: 650 mg Acyclovir (Zovirax) 400 mg PO DAILY [facility] Last Admin: 03/31/20 08:07 Dose: 400 mg Albuterol (Ventolin Hfa) 0 gm INH Q6HR [facility] Last Admin: 03/31/20 06:07 Dose: 2 puff Albuterol/Ipratropium (Duoneb 3.0-0.5 Mg/3 Ml) 3 ml INH Q4H PRN PRN Reason: Shortness of Breath Last Admin: 03/30/20 20:14 Dose: 3 ml Amiodarone HCl (Cordarone) 200 mg PO DAILY [facility] Last Admin: 03/31/20 08:03 Dose: 200 mg Apixaban (Eliquis) 5 mg PO BID [facility] Last Admin: 03/31/20 08:06 Dose: 5 mg Aspirin (Halfprin) 81 mg PO QPM [facility] Last Admin: 03/30/20 20:13 Dose: 81 mg Atorvastatin Calcium (Lipitor) 20 mg PO BEDTIME [facility] Last Admin: 03/30/20 20:12 Dose: 20 mg Calcium Carbonate (Caltrate 600+D 1500 Mg-400 Units) 1 tab PO TIDMEALS [facility] Last Admin: 03/31/20 08:03 Dose: 1 tab Carvedilol (Coreg) 25 mg PO BIDMEALS [facility] Last Admin: 03/31/20 08:04 Dose: 25 mg Furosemide (Lasix) 40 mg PO BIDDIURETIC [facility] Last Admin: 03/31/20 08:06 Dose: 40 mg Guaifenesin (Mucinex) 600 mg PO DAILY [facility] Last Admin: 03/31/20 08:06 Dose: 600 mg Guaifenesin (Robitussin) 100 mg PO BEDTIME [facility] Last Admin: 03/30/20 20:13 Dose: 100 mg Sodium Chloride (Normal Saline) 1,000 mls @ 75 mls/hr IV ASDIRECTED [facility] Last Admin: 03/30/20 21:44 Dose: 75 mls/hr Levofloxacin 750 mg/ Dextrose/ (Water) 130 mls @ 220 mls/hr IV Q24H [facility] Last Admin: 03/30/20 22:16 Dose: 220 mls/hr Azithromycin 500 mg/ Sodium (Chloride) 250 mls @ 250 mls/hr IV DAILY@2100 [facility] Ipratropium [place] (Atrovent) 0.5 mg INH QID [facility] Last Admin: 03/31/20 08:00 Dose: 0.5 mg Losartan Potassium (Cozaar) 25 mg PO BEDTIME [facility] Last Admin: 03/30/20 20:12 Dose: 25 mg Mometasone Furoate/Formoterol Fumar (Dulera 200-5 Mcg) 0 puff IH BID [facility] Last Admin: 03/31/20 08:05 Dose: 1 puff Multivitamins/Minerals (Thera M Plus) 1 tab PO DAILY [facility] Last Admin: 03/31/20 08:07 Dose: 1 tab Nitroglycerin (Nitrostat) 0.4 mg SL ASDIRECTED PRN PRN Reason: Chest Pain Non-Formulary Medication (Polyvinyl Alcohol/Povidone/Pf [Refresh Classic Eye Drops]) 1 drop EYEBOTH ASDIRECTED PRN PRN Reason: Itching Ondansetron HCl (Zofran) 4 mg IV Q4H PRN PRN Reason: Nausea/Vomiting Prednisolone Acetate (Pred Forte 1% Ophth Susp) ml EYELF DAILY [facility] Prednisone (Prednisone) 40 mg PO WITHBREAKFAST [facility] Last Admin: 03/31/20 08:02 Dose: 40 mg Senna (Senna) 8.6 mg PO DAILY PRN PRN Reason: Constipation Last Admin: 03/30/20 20:13 Dose: 8.6 mg Discontinued Medications Acetaminophen (Tylenol Arthritis Pain) Confirm Administered Dose 650 mg .ROUTE .STK-MED ONE Stop: 03/30/20 18:39 Last Admin: 03/30/20 18:50 Dose: Not Given Albuterol/Ipratropium (Duoneb 3.0-0.5 Mg/3 Ml) 3 ml NEB ONETIME ONE Stop: 03/30/20 16:41 Last Admin: 03/30/20 16:45 Dose: 3 ml Azithromycin 500 mg/ Sodium (Chloride) 250 mls @ 250 mls/hr IV Q24H [facility] Last Admin: 03/30/20 21:16 Dose: 250 mls/hr Levofloxacin/Dextrose (Levaquin In D5w 750 Mg/150 Ml) Confirm Administered Dose 150 mls @ as directed IV .STK-MED ONE Stop: 03/30/20 20:52 Last Admin: 03/30/20 21:30 Dose: Not Given Azithromycin 500 mg/ Sodium (Chloride) 250 mls @ 250 mls/hr IV Q24H [facility] - Exam Quality Assessment: Supplemental Oxygen General: Alert, Oriented, Cooperative, Mild Distress HEENT: Pupils Equal, Pupils Reactive, EOMI, Mucous Membr. Moist/[place] Neck: Supple Lungs: Decreased Breath Sounds (bilateral bases), Rales (decreased but persist in bilateral lower lobes), Wheezing (few inspiratory and expiratory) Extremities: Normal Capillary Refill Skin: Warm, Dry, Intact Neurological: No New Focal Deficit Psy/Mental Status: Alert Sepsis Event Note - Evaluation Sepsis Screening Result: No Definite Risk - Focused Exam Vital Signs: Vital Signs Temp Pulse Pulse Resp BP BP Pulse Ox 03/31/20 08:04 85 119/59 L 03/31/20 08:00 36.4 C 82 16 119/59 L 99 03/31/20 05:53 77 18 113/50 L 100 05/22/20 00:00 36.7 C 81 20 95/53 L 97 Date Exam was Performed: 03/31/20 Time Exam was Performed: 09:44 - Problem List & Annotations (1) Pneumonia SNOMED Code(s): 373674782 Code(s): J18.9 - PNEUMONIA, UNSPECIFIED ORGANISM Status: Acute Priority: High Current Visit: Yes Qualifiers: Laterality: bilateral (2) Hypoxia SNOMED Code(s): 956670524 Code(s): R09.02 - HYPOXEMIA Status: Acute Priority: High Current Visit : Yes - Problem List Review Problem List Initiated/Reviewed/Updated: Yes - My Orders Last 24 Hours: My Active Orders 03/30/20 16:25 Chest 1V Frontal [CR] Stat 03/30/20 16:29 RT Aerosol Therapy [RC] ASDIRECTED 03/30/20 16:30 CORONAVIRUS COVID-19, VIKY Stat 03/30/20 16:37 Admission Diagnosis [ADT] Stat 03/30/20 18:00 CULTURE BLOOD [BC] Routine 03/30/20 18:05 CULTURE BLOOD [BC] Routine 03/30/20 18:52 Patient Status [ADT] Routine Oxygen Therapy [RC] 16 Vital Signs [RC] 00,04,08,12,16,20 OT Evaluation and Treatment [CONS] Routine PT Evaluation and Treatment [CONS] Routine Acetaminophen [Tylenol] 650 mg PO Q4H PRN Ondansetron [Zofran] 4 mg IV Q4H PRN 03/30/20 18:57 Acetaminophen [Tylenol Arthritis Pain] 650 mg PO Q8H PRN Albuterol/Ipratropium [DuoNeb 3.0-0.5 MG/3 ML] 3 ml INH Q4H PRN Nitroglycerin [Nitrostat] 0.4 mg SL ASDIRECTED PRN Polyvinyl Alcohol/Povidone/Pf [Refresh Classic Eye Drops] 1 drop EYEBOTH ASDIRECTED PRN Sennosides [Senna] 8.6 mg PO DAILY PRN 03/30/20 19:00 Sodium Chloride 0.9% [Normal Saline] 1,000 ml IV ASDIRECTED 03/30/20 20:00 Apixaban [Eliquis] 5 mg PO BID Aspirin [Halfprin] 81 mg PO QPM Ipratropium [Atrovent] 0.5 mg INH QID Losartan [Cozaar] 25 mg PO BEDTIME Mometasone/Formoterol [Dulera 200-5 MCG] 0 puff IH BID atorvaSTATin [Lipitor] 20 mg PO BEDTIME guaiFENesin [Robitussin] 100 mg PO BEDTIME 03/30/20 20:23 Resuscitation Status Routine 03/30/20 21:00 levoFLOXacin [Levaquin] 750 mg Dextrose 5% in Water 100 ml IV Q24H 03/31/20 00:00 Albuterol [Ventolin HFA] 0 gm INH Q6HR 03/31/20 07:00 predniSONE 40 mg PO WITHBREAKFAST 03/31/20 08:00 Acyclovir [Zovirax] 400 mg PO DAILY Amiodarone [Cordarone] 200 mg PO DAILY Calcium Carbonate/Vitamin D3 [Caltrate 600+D 1500 MG-400 Units] 1 tab PO TIDMEALS Furosemide [Lasix] 40 mg PO BIDDIURETIC Multivitamins w-Iron/Ca/FA/Min [Thera M Plus] 1 tab PO DAILY carvediloL [Coreg] 25 mg PO BIDMEALS guaiFENesin [Mucinex] 600 mg PO DAILY prednisoLONE acetate [Pred Forte 1% Ophth Susp] DOSE ml EYELF DAILY 03/31/20 14:00 CBC WITH AUTO DIFF [HEME] Timed 03/31/20 21:00 Azithromycin [Zithromax] 500 mg Sodium Chloride 0.9% [Normal Saline (AdvBag)] 250 ml IV DAILY@2100 03/31/20 Breakfast Regular Diet [DIET] - Assessment Assessment:: Improved this morning - Plan Plan:: Assessment: 1) Pneumonia 2) Hypoxia Plan: Admit for IV antibiotics and fluids Supplemental oxygen as needed to keep saturation greater than 92% 03/31/2020 Assessment 1) Pneumonia 2) Hypoxia Overall this patient's respiratory status has improved some overnight. Plan: Continue IV fluids until oral intake sufficient. Recheck CBC this afternoon.
--- NOTE | 2020-03-31 12:05 | CR ---
DATE OF SERVICE: 03/30/20 CLINICAL DATA: SOB. AP CHEST: Comparison made to a prior exam dated 12/30/19. The patient is status post median sternotomy. The heart size is stable. There is pulmonary vascular congestion and interstitial edema throughout both lungs with progression from the prior study. There is blunting of the right costophrenic angle consistent with a right pleural effusion. The poorly defined infiltrates in both lungs in the prior exam appear slightly improved. No other interval changes. [id number] [facility]
[2020-03-31] MEDS: guaiFENesin 100 MG/5 ML Soln 10 ML UD Cup PO SCH (20:22)
[2020-03-31] MEDS: Losartan 25 MG Tab PO SCH (20:22)
[2020-03-31] MEDS: atorvaSTATin 20 MG Tab PO SCH (20:22)
[2020-03-31] MEDS: Aspirin 81 MG Tab.EC PO SCH (20:22)
[2020-03-31] MEDS: prednisoLONE Acetate 1% Ophth Susp 5 ML Bottle EYELF SCH (21:59)
[2020-04-01] MEDS: Albuterol 8 GM Inhaler INH SCH ×2 (05:20→06:15)
[2020-04-01] MEDS ORDERED: Azithromycin 250 MG Tab ONE (08:00)
[2020-04-01] MEDS ORDERED: Levofloxacin 500 MG Tab ONE (08:00)
[2020-04-01] MEDS: predniSONE 20 MG Tab PO SCH (08:11)
[2020-04-01] MEDS: Apixaban 5 MG Tab PO SCH (08:11)
[2020-04-01] MEDS: Ipratropium 0.02% 0.5 MG/2.5 ML Neb Soln INH SCH (08:11)
[2020-04-01] MEDS: guaiFENesin 600 MG Tab.ER PO SCH (08:12)
[2020-04-01] MEDS: Calcium Carbonate/Vitamin D3 1500 MG-400 Units Tab PO SCH (08:12)
[2020-04-01] MEDS: Amiodarone 200 MG Tab PO SCH (08:12)
[2020-04-01] MEDS: Acyclovir 400 MG Tab PO SCH (08:12)
[2020-04-01] MEDS: Furosemide 40 MG Tab PO SCH (08:12)
[2020-04-01] MEDS: Multivitamins with Iron/Calcium/Folic Acid/Minerals Tab PO SCH (08:12)
[2020-04-01 08:14] VITALS: BP 141/68; PULSE 86
[2020-04-01] MEDS: Carvedilol 25 MG Tab PO SCH (08:14)
[2020-04-01] MEDS: prednisoLONE Acetate 1% Ophth Susp 5 ML Bottle EYELF SCH (08:16)
[2020-04-01] MEDS: Formoterol/Mometasone 200-5 MCG 8.8 GM Inhaler IH SCH (08:16)
--- NOTE | 2020-04-01 10:55 | PCM.DCSUM1 ---
Discharge Summary - Hospital Course HPI Initial Comments: Patient significantly improved this morning. Color pale pink, no dyspnea at rest. Appetite improved, drinking fluids well. Diagnosis: Stroke: No - Discharge Data Discharge Date: 04/01/20 Discharge Disposition: Home, Self-Care 01 Condition: Good - Referral to Home Health Primary Care Physician: PCP None - Discharge Diagnosis/Problem(s) (1) Pneumonia SNOMED Code(s): 125872263 ICD Code: J18.9 - PNEUMONIA, UNSPECIFIED ORGANISM Status: Acute Priority : High Current Visit: Yes Qualifiers: Laterality: bilateral (2) Hypoxia SNOMED Code(s): 629130400 ICD Code: R09.02 - HYPOXEMIA Status: Acute Priority: High Current Visit : Yes - Patient Summary/Data Consults: Consultations 03/30/20 18:52 OT Evaluation and Treatment [CONS] Routine Please Evaluate and Treat. OT Reason for Consult: ADL's This query below is only for informational purposes and is not editable. Admission Diagnosis/Problem: Pneumonia PT Evaluation and Treatment [CONS] Routine Please Evaluate and Treat. PT Reason for Consult: Ambulation This query below is only for informational purposes and is not editable. Admission Diagnosis/Problem: Pneumonia - Discharge Plan *PRESCRIPTION DRUG MONITORING PROGRAM REVIEWED*: No Home Medications: Home Meds Acyclovir 400 mg PO DAILY 02/18/16 [History] Aspirin 81 mg PO QPM 02/18/16 [History] Ipratropium/Albuterol Sulfate [Iprat-Albut 0.5-3(2.5) mg/3 ml] 1 dose INH Q4H PRN 02/18/16 [History] Multivitamin [Multi-Vitamin Daily] 1 tab PO DAILY 02/18/16 [History] Furosemide [Lasix] 40 mg PO BIDDIURETIC tablet 02/12/18 [Rx] Calcium Carbonate/Vitamin D3 [Caltrate 600+D] 1 tab PO TIDMEALS 08/11/18 [ History] Acetaminophen [Tylenol Arthritis Pain] 650 mg PO Q8H PRN 01/28/19 [History] Sennosides [Senna] 8.6 mg PO DAILY PRN 01/28/19 [History] carvediloL [Coreg] 25 mg PO BIDMEALS 01/28/19 [History] Budesonide/Formoterol [Symbicort 160-4.5 MCG] 2 puff INH BID 05/20/19 [History] predniSONE See Taper PO ASDIRECTED MDD 12 03/29/19 [History] Albuterol Sulfate [Albuterol Sulfate Hfa] 2 inh IN Q6HR 08/01/19 [History] Amiodarone [Cordarone] 200 mg PO DAILY 08/01/19 [History] Apixaban [Eliquis] 5 mg PO BID 08/01/19 [History] Ipratropium [Atrovent] 1 unit IN QID 08/01/19 [History] Losartan [Cozaar] 25 mg PO BEDTIME 08/01/19 [History] Nitroglycerin [Nitrostat] 0.4 mg SL ASDIRECTED PRN 08/01/19 [History] Polyvinyl Alcohol/Povidone/Pf [Refresh Classic Eye Drops] 1 drop EYEBOTH ASDIRECTED PRN 08/01/19 [History] atorvaSTATin Calcium [Atorvastatin Calcium] 20 mg PO BEDTIME 08/01/19 [History] guaiFENesin [Mucinex] 600 mg PO DAILY 08/01/19 [History] guaiFENesin [Robitussin] 100 mg PO BEDTIME 08/01/19 [History] prednisoLONE acetate [Pred Forte 1% Ophth Susp] 1 drop EYEBOTH DAILY 08/01/19 [ History] Azithromycin [Zithromax] 500 mg PO DAILY 3 Days #6 tablet 04/01/20 [Rx] Levofloxacin 500 mg PO DAILY 5 Days #5 tablet 04/01/20 [Rx] Oxygen Therapy Mode: Nasal Cannula Oxygen Flow Rate (L/min): 2 Maintain SpO2% greater than: 90 Forms: ED Department Discharge Referrals: PCP,None [Primary Care Provider] - - Discharge Summary/Plan Comment DC Time >30 min.: Yes - General Info Date of Service: 04/01/20 Admission Dx/Problem (Free Text: Admission Diagnosis/Problem Admission Diagnosis/Problem Pneumonia Subjective Update: Much improved this morning with color pale pink and no dyspnea at rest. Appetite improved, drinking fluids well. Functional Status: Reports: Pain Controlled - Review of Systems General: Reports: Weakness, Fatigue, Other (Some weakness and fatigue but significantly improved.). Denies: Fever HEENT: Reports: No Symptoms Pulmonary: Reports: Shortness of Breath (when walking), Cough (coarse, productive), Wheezing (few, occasional expiratory wheezes) Cardiovascular: Reports: Dyspnea on Exertion. Denies: Chest Pain Gastrointestinal: Reports: No Symptoms Neurological: Reports: No Symptoms Psychiatric: Reports: No Symptoms - Patient Data Vitals - Most Recent: Last Vital Signs Temp 36.6 C 04/01/20 08:17 Pulse 86 04/01/20 08:17 Resp 18 04/01/20 08:17 BP 141/68 H 04/01/20 08:17 Pulse Ox 99 04/01/20 08:17 Weight - Most Recent: 51.347 kg I&O - Last 24 hours: Intake & Output 03/31/20 04/01/20 04/01/20 22:59 06:59 14:59 Intake Total 1300 600 Output Total 850 Balance 450 600 Lab Results - Last 24 hrs: Laboratory Results - last 24 hr 03/31/20 Range/Units 14:40 WBC 16.2 H D (4.0-11.0) K/uL RBC 3.03 L (3.80-5.80) M/uL Hgb 9.3 L (11.5-16.5) g/dL Hct 29.5 L (37.0-47.0) % MCV 97 H (76-96) fL MCH 30.7 (27.0-32.0) pg MCHC 31.5 (31.0-35.0) g/dL RDW 14.1 (11.0-16.0) % Plt Count 205 (150-500) K/uL MPV 9.9 (6.0-10.0) fL Neut % (Auto) 97.6 H (45.0-70.0) % Lymph % (Auto) 1.1 L (20.0-40.0) % [place] % (Auto) 1.2 L (3.0-10.0) % Eos % (Auto) 0.1 L (1.0-5.0) % Baso % (Auto) 0.0 (0.0-0.5) % Neut # (Auto) 15.84 H (2.00-7.50) K/uL Lymph # (Auto) 0.18 L (1.50-4.00) K/uL [place] # (Auto) 0.19 L (0.20-0.80) K/uL Eos # (Auto) 0.01 L (0.04-0.40) K/uL Baso # (Auto) 0.00 L (0.02-0.10) K/uL MEGAN Results - Last 24 hrs: Microbiology 03/31/20 14:57 MRSA Surveillance Culture - Final Nares, Unspecified NO MRSA ISOLATED 03/30/20 18:05 Aerobic Blood Culture - Preliminary Blood NO GROWTH AFTER 1 DAY Anaerobic Blood Culture - Preliminary NO GROWTH AFTER 1 DAY 03/30/20 18:00 Aerobic Blood Culture - Preliminary Blood NO GROWTH AFTER 1 DAY Anaerobic Blood Culture - Preliminary NO GROWTH AFTER 1 DAY Med Orders - Current: Current Medications Acetaminophen (Tylenol) 650 mg PO Q4H PRN PRN Reason: Pain (Mild 1-3)/fever Acetaminophen (Tylenol Arthritis Pain) 650 mg PO Q8H PRN PRN Reason: Pain Last Admin: 03/30/20 18:45 Dose: 650 mg Acyclovir (Zovirax) 400 mg PO DAILY [facility] Last Admin: 04/01/20 08:12 Dose: 400 mg Albuterol (Ventolin Hfa) 0 gm INH Q6HR [facility] Last Admin: 04/01/20 06:15 Dose: 2 puff Albuterol/Ipratropium (Duoneb 3.0-0.5 Mg/3 Ml) 3 ml INH Q4H PRN PRN Reason: Shortness of Breath Last Admin: 03/30/20 20:14 Dose: 3 ml Amiodarone HCl (Cordarone) 200 mg PO DAILY [facility] Last Admin: 04/01/20 08:12 Dose: 200 mg Apixaban (Eliquis) 5 mg PO BID [facility] Last Admin: 04/01/20 08:11 Dose: 5 mg Aspirin (Halfprin) 81 mg PO QPM [facility] Last Admin: 03/31/20 20:22 Dose: 81 mg Atorvastatin Calcium (Lipitor) 20 mg PO BEDTIME [facility] Last Admin: 03/31/20 20:22 Dose: 20 mg Calcium Carbonate (Caltrate 600+D 1500 Mg-400 Units) 1 tab PO TIDMEALS [facility] Last Admin: 04/01/20 08:12 Dose: 1 tab Carvedilol (Coreg) 25 mg PO BIDMEALS [facility] Last Admin: 04/01/20 08:14 Dose: 25 mg Furosemide (Lasix) 40 mg PO BIDDIURETIC [facility] Last Admin: 04/01/20 08:12 Dose: 40 mg Guaifenesin (Mucinex) 600 mg PO DAILY [facility] Last Admin: 04/01/20 08:12 Dose: 600 mg Guaifenesin (Robitussin) 100 mg PO BEDTIME [facility] Last Admin: 03/31/20 20:22 Dose: 100 mg Sodium Chloride (Normal Saline) 1,000 mls @ 75 mls/hr IV ASDIRECTED [facility] Last Admin: 03/30/20 21:44 Dose: 75 mls/hr Levofloxacin 750 mg/ Dextrose/ (Water) 130 mls @ 220 mls/hr IV Q24H [facility] Last Admin: 03/31/20 21:59 Dose: 220 mls/hr Azithromycin 500 mg/ Sodium (Chloride) 250 mls @ 250 mls/hr IV DAILY@2100 [facility] Last Admin: 03/31/20 20:21 Dose: 250 mls/hr Ipratropium [place] (Atrovent) 0.5 mg INH QID [facility] Last Admin: 04/01/20 08:11 Dose: 0.5 mg Losartan Potassium (Cozaar) 25 mg PO BEDTIME [facility] Last Admin: 03/31/20 20:22 Dose: 25 mg Mometasone Furoate/Formoterol Fumar (Dulera 200-5 Mcg) 0 puff IH BID [facility] Last Admin: 04/01/20 08:16 Dose: 2 puff Multivitamins/Minerals (Thera M Plus) 1 tab PO DAILY [facility] Last Admin: 04/01/20 08:12 Dose: 1 tab Nitroglycerin (Nitrostat) 0.4 mg SL ASDIRECTED PRN PRN Reason: Chest Pain Non-Formulary Medication (Polyvinyl Alcohol/Povidone/Pf [Refresh Classic Eye Drops]) 1 drop EYEBOTH ASDIRECTED PRN PRN Reason: Itching Ondansetron HCl (Zofran) 4 mg IV Q4H PRN PRN Reason: Nausea/Vomiting Prednisolone Acetate (Pred Forte 1% Ophth Susp) 0 ml EYELF DAILY [facility] Last Admin: 04/01/20 08:16 Dose: 1 drop Prednisone (Prednisone) 40 mg PO WITHBREAKFAST [facility] Last Admin: 04/01/20 08:11 Dose: 40 mg Senna (Senna) 8.6 mg PO DAILY PRN PRN Reason: Constipation Last Admin: 03/30/20 20:13 Dose: 8.6 mg Discontinued Medications Acetaminophen (Tylenol Arthritis Pain) Confirm Administered Dose 650 mg .ROUTE .STK-MED ONE Stop: 03/30/20 18:39 Last Admin: 03/30/20 18:50 Dose: Not Given Albuterol/Ipratropium (Duoneb 3.0-0.5 Mg/3 Ml) 3 ml NEB ONETIME ONE Stop: 03/30/20 16:41 Last Admin: 03/30/20 16:45 Dose: 3 ml Azithromycin 500 mg/ Sodium (Chloride) 250 mls @ 250 mls/hr IV Q24H [facility] Last Admin: 03/30/20 21:16 Dose: 250 mls/hr Levofloxacin/Dextrose (Levaquin In D5w 750 Mg/150 Ml) Confirm Administered Dose 150 mls @ as directed IV .STK-MED ONE Stop: 03/30/20 20:52 Last Admin: 03/30/20 21:30 Dose: Not Given Azithromycin 500 mg/ Sodium (Chloride) 250 mls @ 250 mls/hr IV Q24H [facility]
== END 2020-04-01 11:47 | disposition home or self-care (01) | DRG 195 ==
LOC: LB.ED 15:32 → LB.MS 16:40 → UNDOADMIN 16:40 → LB.MS 18:52
PROVIDERS: ADMIT Nurse Practitioner; ATTEND Nurse Practitioner
DX: J18.9 Pneumonia, unspecified organism (principal); R09.02 Hypoxemia; H91.90 Unspecified hearing loss, unspecified ear; Z95.2 Presence of prosthetic heart valve; Z95.5 Presence of coronary angioplasty implant and graft; J44.9 Chronic obstructive pulmonary disease, unspecified; Z20.828 Contact with and (suspected) exposure to other viral communicable diseases; Z79.82 Long term (current) use of aspirin; Z79.52 Long term (current) use of systemic steroids; Z87.440 Personal history of urinary (tract) infections; M19.90 Unspecified osteoarthritis, unspecified site; M81.0 Age-related osteoporosis without current pathological fracture; Z85.3 Personal history of malignant neoplasm of breast; Z90.710 Acquired absence of both cervix and uterus; Z90.49 Acquired absence of other specified parts of digestive tract; Z96.659 Presence of unspecified artificial knee joint; Z90.10 Acquired absence of unspecified breast and nipple; Z88.6 Allergy status to analgesic agent; Z88.5 Allergy status to narcotic agent; Z88.0 Allergy status to penicillin; Z88.2 Allergy status to sulfonamides; Z87.891 Personal history of nicotine dependence; Z88.8 Allergy status to other drugs, medicaments and biological substances; Z79.01 Long term (current) use of anticoagulants; Z79.899 Other long term (current) drug therapy
CPT/HCPCS: 36415; 71045; 80048; 83605; 83880; 85025; 87040; 97161-GP; 99221; 99231; 99239; 99285-25; A9270-GY; J0456; J7030; J7050; J7060; J7512; J7620-GY; U0002

== ENCOUNTER 2020-05-08 19:52 | Observation (INO) | payer MEDICARE, BC ==
[2020-05-08] MEDS ORDERED: Levofloxacin/Dextrose 5%-Water 100 ML IV ONE (22:06)
[2020-05-08] MEDS: Albuterol/Ipratropium 3.0-0.5 MG/3 ML Neb Soln NEB SCH (22:13)
[2020-05-08] MEDS ORDERED: predniSONE 20 MG Tab ONE (22:15)
--- NOTE | 2020-05-08 23:11 | HP ---
REASON FOR ADMISSION: Acute exacerbation of COPD. HISTORY: This 80-year-old woman has chronic severe COPD which has required multiple admissions over the past couple of years. She was last here 1 month ago when she was admitted to rule out sepsis as well as the COPD exacerbation. Prior to that, she was admitted for what appeared to be pneumonia and was here for approximately 6 days. She is on home oxygen normally at 2 L per nasal cannula as needed. She states that over the past couple of days she has had progressively increased shortness of breath and feels that she had a low-grade fever, but only in the 99s and nothing over 100. She thinks that her cough has been slightly more productive and she feels increasingly fatigued and generalized malaise due to the increased work of breathing. She denies any chest pain. She has no gastrointestinal complaints or urinary complaints. She has required steroid burst and Medrol Dosepak in the past for her acute exacerbations of COPD. PAST MEDICAL HISTORY: Significant for: 1. COPD, severe. 2. Congestive heart failure. 3. History of recurrent pneumonia. 4. History of non-STEMI myocardial infarction with stent. 5. History of cholecystectomy. 6. Osteoporosis with history of fractures. ALLERGIES: CODEINE, PENICILLIN, SULFA, TRAMADOL, AND WARFARIN. MEDICATIONS: Reviewed and they include the following (please see electronic medical record): 1. Acetaminophen. 2. Acyclovir. 3. Albuterol inhaler. 4. Aspirin. 5. Atorvastatin. 6. Symbicort. 7. Calcium and vitamin D. 8. Carvedilol. 9. Furosemide. 10.Guaifenesin. 11.Ipratropium inhaler. 12.Nitroglycerin p.r.n. 13.Prednisolone eye drops. SOCIAL HISTORY: She is a resident of a long-term home. PHYSICAL EXAMINATION: GENERAL: She is alert and seems to be somewhat anxious. VITAL SIGNS: She is afebrile, heart rate is 92, blood pressure 121/99, respiratory rate 24, and O2 sats 85% on room air, this increases to 94% on 2 L of oxygen per nasal cannula. HEENT: Somewhat pale looking. Oropharynx is normal. NECK: There is no JVD or adenopathy. She is not using her accessory muscles at this time. CHEST: She has some diffuse expiratory wheezes in both lower lung [place] and scattered rhonchi. CARDIAC: Regular rate without murmur. ABDOMEN: Soft, nontender, and nondistended. Bowel sounds are present. EXTREMITIES: Normal pulses. No edema. No cyanosis. NEUROLOGIC: She moves all 4 extremities well. She ambulates normally for her age and underlying condition. LABORATORY DATA: Her CMP is pending at the time of this dictation. Her WBCs were elevated at 14,600. Her hemoglobin is 10.6. Her COVID-19 is negative. A chest x-ray was obtained PA and lateral, which showed that she has actually improved x-ray appearance compared to her last film in late March. She normally has diffuse interstitial scarring or opacities of both lungs. There may be some superimposed pulmonary vascular congestion. Overall, the appearance of her x-ray is better than that obtained in late March. There is certainly no new infiltrate evident at this time. IMPRESSION: Acute exacerbation of chronic obstructive pulmonary disease. PLAN: I think we have to admit her for IV antibiotics, DuoNeb treatment, and begin steroid burst on her. I suspect that we are on top of this a little bit earlier than normal, so perhaps her stay will only be brief and she can be sent home on her oral medications, but because of her general fatigue and simply playing out, I think it is wisest to admit her for observation for at least a couple of days. She understands and agrees with this plan. She also knows that Dr. Littlejohn will be assuming her care in the morning as I will be leaving. AUGUST/ARAM
[2020-05-09] MEDS: Albuterol/Ipratropium 3.0-0.5 MG/3 ML Neb Soln NEB SCH ×6 (00:43→20:54)
[2020-05-09] MEDS ORDERED: Levofloxacin/Dextrose 5%-Water 100 ML IV ONE (07:28)
--- NOTE | 2020-05-09 07:45 | CR ---
DATE OF SERVICE: 05/08/20 CLINICAL DATA: COPD acute exacerbation PA AND LATERAL CHEST: Comparison is made to a prior exam dated 04/09/20. The heart size is stable. The patient is status post median sternotomy. The pulmonary vascular congestion and bilateral interstitial edema on the prior exam have significantly improved. There is persistent blunting of the right costophrenic angle consistent with small right pleural effusion. The exam is otherwise unchanged. No new abnormalities. [id number] [facility]
[2020-05-09] MEDS: predniSONE 20 MG Tab PO SCH (07:46)
[2020-05-09] MEDS: methylPREDNISolone Sodium Succinate 125 MG/2 ML SDV IVPUSH SCH (09:20)
[2020-05-09] MEDS: Non-Formulary Medication 1 Each (Carvedilol [Coreg] 25 MG) PO SCH ×2 (09:30→18:39)
[2020-05-09] MEDS: Non-Formulary Medication 1 Each (Guaifenesin [Mucinex] 600 MG) PO SCH (09:30)
[2020-05-09] MEDS: Non-Formulary Medication 1 Each (Furosemide [Lasix] 40 MG) PO SCH (09:30)
[2020-05-09] MEDS: Non-Formulary Medication 1 Each (Apixaban [Eliquis] 5 MG) PO SCH ×2 (09:30→20:41)
[2020-05-09] MEDS: ACYCLOVIR 400 MG PO SCH (09:30)
--- NOTE | 2020-05-09 09:48 | PN ---
DATE OF VISIT: 05/09/2020 SUBJECTIVE: Loyda improved overnight quite a bit and this morning feels fairly well. Her breathing is much easier overnight on DuoNeb treatment and the initiation of antibiotics plus prednisone. Her appetite is good. OBJECTIVE: VITAL SIGNS: She is afebrile. Blood pressure is 141/78, respirations 18, and O2 sats 99% on 2 L of O2 per nasal cannula. Her chest still has a few expiratory wheezes and scattered rhonchi, but this is close to her baseline, I am afraid. IMPRESSION: Stable, acute exacerbation of chronic obstructive pulmonary disease. PLAN: I am sure she could probably be discharged to complete her steroid burst therapy and antibiotics as an outpatient, assuming she does well throughout the day. I would expect her to be able to be discharged in the morning. AUGUST/ARAM /[id number]
[2020-05-09] MEDS: Non-Formulary Medication 1 Each (Furosemide [Lasix] 20 MG) PO SCH (12:27)
[2020-05-09] MEDS ORDERED: ATORVASTATIN CALCIUM 20 MG PO SCH (20:00)
[2020-05-09] MEDS ORDERED: Non-Formulary Medication 1 Each (Aspirin [Aspirin] 81 MG) PO SCH (20:00)
[2020-05-09] MEDS ORDERED: Non-Formulary Medication 1 Each (Guaifenesin [Mucinex] 600 MG) PO SCH (20:00)
[2020-05-09] MEDS ORDERED: Non-Formulary Medication 1 Each (Losartan [Cozaar] 25 MG) PO SCH (20:00)
[2020-05-09] MEDS: Sodium Chloride 0.9% 10 ML Syringe FLUSH SCH (20:41)
[2020-05-10] MEDS: Albuterol/Ipratropium 3.0-0.5 MG/3 ML Neb Soln NEB SCH ×4 (01:00→09:45)
[2020-05-10] MEDS: predniSONE 20 MG Tab PO SCH (07:48)
[2020-05-10] MEDS: methylPREDNISolone Sodium Succinate 125 MG/2 ML SDV IVPUSH SCH (07:52)
[2020-05-10] MEDS: Non-Formulary Medication 1 Each (Apixaban [Eliquis] 5 MG) PO SCH (08:00)
[2020-05-10] MEDS ORDERED: Levofloxacin/Dextrose 5%-Water 100 ML IV SCH (08:00)
[2020-05-10] MEDS: Non-Formulary Medication 1 Each (Carvedilol [Coreg] 25 MG) PO SCH (08:02)
[2020-05-10] MEDS: Non-Formulary Medication 1 Each (Furosemide [Lasix] 40 MG) PO SCH (08:03)
[2020-05-10] MEDS: Sodium Chloride 0.9% 10 ML Syringe FLUSH SCH (08:03)
[2020-05-10] MEDS: Non-Formulary Medication 1 Each (Guaifenesin [Mucinex] 600 MG) PO SCH (08:05)
[2020-05-10] MEDS: ACYCLOVIR 400 MG PO SCH (08:05)
[2020-05-10 08:48] VITALS: BP 147/85; PULSE 93
[2020-05-10] MEDS ORDERED: Acetaminophen 325 MG Tab PO PRN (08:50)
--- NOTE | 2020-05-10 12:35 | PCM.DCSUM1 ---
Discharge Summary - Discharge Data Discharge Date: 05/10/20 Discharge Disposition: Home, Self-Care 01 Condition: Fair - Referral to Home Health Primary Care Physician: PCP None - Patient Instructions Diet: Usual Diet as Tolerated Activity: As Tolerated Driving: May Drive Today - Discharge Plan Prescriptions/Med Rec: Azithromycin 500 mg PO DAILY #5 tablet predniSONE 40 mg PO WITHBREAKFAST #10 tablet Home Medications: Home Meds Acyclovir 400 mg PO DAILY 02/18/16 [History] Aspirin 81 mg PO QPM 02/18/16 [History] Ipratropium/Albuterol Sulfate [Iprat-Albut 0.5-3(2.5) mg/3 ml] 1 dose INH Q4H PRN 02/18/16 [History] Multivitamin [Multi-Vitamin Daily] 1 tab PO DAILY 02/18/16 [History] Calcium Carbonate/Vitamin D3 [Caltrate 600+D 1500 MG-400 Units] 1 tab PO TIDMEALS 08/11/18 [History] Acetaminophen [Tylenol Arthritis Pain] 650 mg PO Q8H PRN 01/28/19 [History] Sennosides [Senna] 8.6 mg PO DAILY PRN 01/28/19 [History] carvediloL [Coreg] 25 mg PO BIDMEALS 01/28/19 [History] Budesonide/Formoterol [Symbicort 160-4.5 MCG] 2 puff INH BID 03/29/19 [History] Albuterol Sulfate [Albuterol Sulfate Hfa] 2 inh IN Q6HR 08/01/19 [History] Apixaban [Eliquis] 5 mg PO BID 08/01/19 [History] Ipratropium [Atrovent] 1 unit IN QID 08/01/19 [History] Losartan [Cozaar] 25 mg PO BEDTIME 08/01/19 [History] Nitroglycerin [Nitrostat] 0.4 mg SL ASDIRECTED PRN 08/01/19 [History] Polyvinyl Alcohol/Povidone/Pf [Refresh Classic Eye Drops] 1 drop EYEBOTH ASDIRECTED PRN 08/01/19 [History] atorvaSTATin Calcium [Atorvastatin Calcium] 20 mg PO BEDTIME 08/01/19 [History] guaiFENesin [Mucinex] 600 mg PO DAILY 08/01/19 [History] prednisoLONE acetate [Pred Forte 1% Ophth Susp] 1 drop EYEBOTH DAILY 08/01/19 [History] Acetaminophen/Diphenhydramine [Tylenol Pm Ex-Strength Caplet] 1 each PO BEDTIME 05/09/20 [History] Furosemide [Lasix] 20 mg PO 1200 05/09/20 [History] Acetaminophen [Tylenol] 650 mg PO Q6H PRN tablet 05/10/20 [Rx] Albuterol/Ipratropium [DuoNeb 3.0-0.5 MG/3 ML] 3 ml NEB Q4H neb 05/10/20 [Rx] Azithromycin 500 mg PO DAILY #5 tablet 05/10/20 [Rx] Furosemide [Lasix] 20 mg PO 1200 05/10/20 [Rx] predniSONE 40 mg PO WITHBREAKFAST #10 tablet 05/10/20 [Rx] Patient Handouts: Upper Respiratory Infection, Adult, [id number] Forms: ED Department Discharge Referrals: PCP,None [Primary Care Provider] - - Discharge Summary/Plan Comment DC Time >30 min.: Yes Discharge Summary/Plan Comment: Counseled on labs and continued f/u in clinic with PCP for f/u labs as needed and for any further concerns or return of symptoms. Discussed finishing course of antibiotics and prednisone. Rtc as directed. - Patient Data Vitals - Most Recent: Last Vital Signs Temp 36.3 C 05/10/20 08:00 Pulse 93 05/10/20 08:00 Resp 18 05/10/20 08:00 BP 147/85 H 05/10/20 08:00 Pulse Ox 99 05/10/20 08:00 Weight - Most Recent: 53.9 kg I&O - Last 24 hours: Intake & Output 05/09/20 05/10/20 05/10/20 22:59 06:59 14:59 Intake Total 100 Balance 100 Lab Results - Last 24 hrs: Laboratory Results - last 24 hr 05/10/20 05/10/20 Range/Units 10:40 10:45 WBC 15.0 H D (4.0-11.0) K/uL RBC 3.32 L (3.80-5.80) M/uL Hgb 10.0 L (11.5-16.5) g/dL Hct 31.2 L (37.0-47.0) % MCV 94 (76-96) fL MCH 30.1 (27.0-32.0) pg MCHC 32.1 (31.0-35.0) g/dL RDW 13.0 (11.0-16.0) % Plt Count 183 (150-500) K/uL MPV 9.6 (6.0-10.0) fL Neut % (Auto) 95.2 H (45.0-70.0) % Lymph % (Auto) 1.7 L (20.0-40.0) % [place] % (Auto) 2.9 L (3.0-10.0) % Eos % (Auto) 0.1 L (1.0-5.0) % Baso % (Auto) 0.1 (0.0-0.5) % Neut # (Auto) 14.28 H (2.00-7.50) K/uL Lymph # (Auto) 0.25 L (1.50-4.00) K/uL [place] # (Auto) 0.44 (0.20-0.80) K/uL Eos # (Auto) 0.01 L (0.04-0.40) K/uL Baso # (Auto) 0.01 L (0.02-0.10) K/uL Sodium 140 (136-145) mmol/L Potassium 3.7 (3.5-5.1) mmol/L Chloride 102 (98-107) mmol/L Carbon Dioxide 33.4 H (21.0-32.0) mmol/L Anion Gap 8.3 (5.0-15.0) mmol/L BUN 36 H (8-26) mg/dL Creatinine 1.35 H (0.55-1.02) mg/dL Est Cr Clr Drug Dosing 27.10 mL/min Estimated GFR (MDRD) 38 L (>60) MLS/MIN BUN/Creatinine Ratio 26.7 H (6-25) Glucose 134 H (74-100) mg/dL Calcium 8.5 (8.5-10.1) mg/dL Med Orders - Current: Current Medications Acetaminophen (Tylenol) 650 mg PO Q6H PRN PRN Reason: Pain Last Admin: 05/10/20 09:37 Dose: 650 mg Documented by: Albuterol/Ipratropium (Duoneb 3.0-0.5 Mg/3 Ml) 3 ml NEB Q4H [facility] Last Admin: 05/10/20 09:45 Dose: 3 ml Documented by: Levofloxacin/Dextrose (Levaquin In D5w 500 Mg/100 Ml) 100 mls @ 100 mls/hr IV DAILY [facility] Last Admin: 05/10/20 08:07 Dose: 100 mls/hr Documented by: Methylprednisolone Sodium Succinate (Solu-Medrol) 125 mg IVPUSH DAILY [facility] Last Admin: 05/10/20 07:52 Dose: 125 mg Documented by: Non-Formulary Medication (Acyclovir [Acyclovir]) 400 mg PO DAILY [facility] Last Admin: 05/10/20 08:05 Dose: 400 mg Documented by: Non-Formulary Medication (Carvedilol [Coreg]) 25 mg PO BIDMEALS [facility] Last Admin: 05/10/20 08:02 Dose: 25 mg Documented by: Non-Formulary Medication (Furosemide [Lasix]) 40 mg PO DAILY [facility] Last Admin: 05/10/20 08:03 Dose: 40 mg Documented by: Non-Formulary Medication (Apixaban [Eliquis]) 5 mg PO BID [facility] Last Admin: 05/10/20 08:00 Dose: 5 mg Documented by: Non-Formulary Medication (Aspirin [Aspirin]) 81 mg PO QPM [facility] Last Admin: 05/09/20 20:39 Dose: 81 mg Documented by: Non-Formulary Medication (Losartan [Cozaar]) 25 mg PO BEDTIME [facility] Last Admin: 05/09/20 20:41 Dose: 25 mg Documented by: Non-Formulary Medication (Acetaminophen/Diphenhydramine [Tylenol Pm Ex-Strength Caplet]) 1 each PO BEDTIME [facility] Last Admin: 05/09/20 20:39 Dose: 1 each Documented by: Non-Formulary Medication (Atorvastatin Calcium [Atorvastatin Calcium]) 20 mg PO BEDTIME [facility] Last Admin: 05/09/20 20:41 Dose: 20 mg Documented by: Non-Formulary Medication (Furosemide [Lasix]) 20 mg PO 1200 [facility] Last Admin: 05/09/20 12:27 Dose: 20 mg Documented by: Non-Formulary Medication (Guaifenesin [Mucinex]) 600 mg PO DAILY [facility] Last Admin: 05/10/20 08:05 Dose: 600 mg Documented by: Prednisone (Prednisone) 40 mg PO WITHBREAKFAST [facility] Last Admin: 05/10/20 07:48 Dose: Not Given Documented by: Sodium Chloride (Saline Flush) 10 ml FLUSH [facility] Last Admin: 05/10/20 08:03 Dose: 10 ml Documented by: Discontinued Medications Levofloxacin 500 mg/ Dextrose/ (Water) 120 mls @ 220 mls/hr IV DAILY [facility] Last Admin: 05/09/20 07:56 Dose: 220 mls/hr Documented by: Levofloxacin/Dextrose (Levaquin In D5w 500 Mg/100 Ml) Confirm Administered Dose 100 mls @ as directed IV .STK-MED ONE Stop: 05/08/20 22:07 Last Admin: 05/08/20 22:13 Dose: Not Given Documented by: Levofloxacin/Dextrose (Levaquin In D5w 500 Mg/100 Ml) Confirm Administered Dose 100 mls @ as directed IV .STK-MED ONE Stop: 05/09/20 07:29 Last Admin: 05/09/20 08:20 Dose: Not Given Documented by: Non-Formulary Medication (Guaifenesin [Mucinex]) 600 mg PO BEDTIME [facility] Prednisone (Prednisone) Confirm Administered Dose 40 mg .ROUTE .STK-MED ONE Stop: 05/08/20 22:16 Last Admin: 05/09/20 07:20 Dose: Not Given Documented by:
[2020-05-10] MEDS: Non-Formulary Medication 1 Each (Furosemide [Lasix] 20 MG) PO SCH (12:48)
== END 2020-05-10 13:16 | disposition home or self-care (01) ==
LOC: LB.ED 19:52 → LB.MS 21:20
PROVIDERS: ADMIT Surgery; ATTEND Surgery
DX: J44.1 Chronic obstructive pulmonary disease with (acute) exacerbation (principal); I50.9 Heart failure, unspecified; Z20.828 Contact with and (suspected) exposure to other viral communicable diseases; Z88.0 Allergy status to penicillin; Z88.2 Allergy status to sulfonamides; Z88.5 Allergy status to narcotic agent; Z88.8 Allergy status to other drugs, medicaments and biological substances; Z79.82 Long term (current) use of aspirin; Z79.899 Other long term (current) drug therapy; Z99.81 Dependence on supplemental oxygen
CPT/HCPCS: 36415; 71046; 80048; 80053; 81001; 81003; 83605; 85025; 87086; 87088; 87186; 93005; 96365; 96366; 96374; 96375; 96376; A9270-GY; G0378; J1956; J2930; J7060; J7512; J7620-GY; U0002

== ENCOUNTER 2020-05-17 17:22 | Emergency (ER) | payer MEDICARE, BC ==
[2020-05-17] MEDS ORDERED: methylPREDNISolone Sodium Succinate 125 MG/2 ML SDV IM ONE (17:36)
[2020-05-17] MEDS ORDERED: Albuterol 0.083% 2.5 MG/3 ML Neb Soln NEB ONE ×2 (17:36→18:34)
[2020-05-17 17:38] VITALS: BP 152/74; PULSE 113
--- NOTE | 2020-05-17 18:41 | EDM.PDOC ---
ED HPI GENERAL MEDICAL PROBLEM - General Chief Complaint: General Stated Complaint: SOB Time Seen by Provider: 05/17/20 17:30 Source of Information: Reports: Patient History Limitations: Reports: No Limitations - History of Present Illness INITIAL COMMENTS - FREE TEXT/NARRATIVE: pt presents to the ER from home, she was admitted to the hospital observation over a week ago for COPD exacerbation and bronchitis where she was provided a 10 day course of steriods and azithromycin. she states some improvement of symptoms during her prednisone course but after her last dose two days ago, she has stated her symptoms have slightly worsened. coinciding symptoms of chronic cough, SOB which worsens with activity, exposure to humid air. pt denies fever, chills, nausea, vomiting, pain. Onset: Today Improves with: Reports: Rest - Related Data Allergies Allergy/AdvReac Type Severity Reaction Status Date / Time codeine Allergy Other Verified 05/17/20 17:34 Penicillins Allergy Cannot Verified 05/17/20 17:34 Remember Sulfa (Sulfonamide Allergy Cannot Verified 05/17/20 17:34 Antibiotics) Remember tramadol Allergy Cannot Verified 05/17/20 17:34 Remember warfarin [From Coumadin] AdvReac Bleeding Verified 05/17/20 17:34 Home Meds: Home Meds Acyclovir 400 mg PO DAILY 02/18/16 [History] Aspirin 81 mg PO QPM 02/18/16 [History] Ipratropium/Albuterol Sulfate [Iprat-Albut 0.5-3(2.5) mg/3 ml] 1 dose INH Q4H PRN 02/18/16 [History] Multivitamin [Multi-Vitamin Daily] 1 tab PO DAILY 02/18/16 [History] Calcium Carbonate/Vitamin D3 [Caltrate 600+D 1500 MG-400 Units] 1 tab PO TIDMEALS 08/11/18 [History] Sennosides [Senna] 8.6 mg PO DAILY PRN 01/28/19 [History] carvediloL [Coreg] 25 mg PO BIDMEALS 01/28/19 [History] Budesonide/Formoterol [Symbicort 160-4.5 MCG] 2 puff INH BID 03/29/19 [History] Albuterol Sulfate [Albuterol Sulfate Hfa] 2 inh IN Q6HR 08/01/19 [History] Apixaban [Eliquis] 5 mg PO BID 08/01/19 [History] Ipratropium [Atrovent] 1 unit IN QID 08/01/19 [History] Losartan [Cozaar] 25 mg PO BEDTIME 08/01/19 [History] Nitroglycerin [Nitrostat] 0.4 mg SL ASDIRECTED PRN 08/01/19 [History] Polyvinyl Alcohol/Povidone/Pf [Refresh Classic Eye Drops] 1 drop EYEBOTH ASDIRECTED PRN 08/01/19 [History] atorvaSTATin Calcium [Atorvastatin Calcium] 20 mg PO BEDTIME 08/01/19 [History] guaiFENesin [Mucinex] 600 mg PO DAILY 08/01/19 [History] prednisoLONE acetate [Pred Forte 1% Ophth Susp] 1 drop EYEBOTH DAILY 08/01/19 [History] Acetaminophen/Diphenhydramine [Tylenol Pm Ex-Strength Caplet] 1 each PO BEDTIME 05/09/20 [History] Furosemide [Lasix] 20 mg PO 1200 05/09/20 [History] Acetaminophen [Tylenol] 650 mg PO Q6H PRN tablet 05/10/20 [Rx] Albuterol/Ipratropium [DuoNeb 3.0-0.5 MG/3 ML] 3 ml NEB Q4H neb 05/10/20 [Rx] predniSONE [Prednisone] 10 mg PO QAM #35 tablet 05/17/20 [Rx] Past Medical History HEENT History: Reports: Allergic Rhinitis, Cataract, Hard of Hearing Cardiovascular History: Reports: Heart Valve Replacement, Stents, Other (See Below) Other Cardiovascular History: endarterectomy Respiratory History: Reports: COPD, SOB, Other (See Below) Other Respiratory History: has had cough. supplemental O2 via n/c continuous at home Gastrointestinal History: Reports: Cholelithiasis Other Gastrointestinal History: appy Genitourinary History: Reports: UTI, Recurrent WAREHOUSE MANAGER History: Reports: , Other (See Below) Other WAREHOUSE MANAGER History: hysterectomy Musculoskeletal History: Reports: Arthritis, Fracture Other Musculoskeletal History: Fx L tib fib 1981. Right proximal humerus fracture 10/2019 Endocrine/Metabolic History: Reports: Osteoporosis Hematologic History: Reports: None Oncologic (Cancer) History: Reports: Breast - Infectious Disease History Infectious Disease History: Reports: Chicken Pox, Measles, Mumps - Past Surgical History Head Surgeries/Procedures: Reports: None HEENT Surgical History: Reports: Other (See Below) Other HEENT Surgeries/Procedures: CEA February 2013 Cardiovascular Surgical History: Reports: Valve Replacement GI Surgical History: Reports: Appendectomy, Cholecystectomy Female Surgical History: Reports: Hysterectomy Endocrine Surgical History: Reports: None Musculoskeletal Surgical History: Reports: Knee Replacement Oncologic Surgical History: Reports: Mastectomy Social & Family History - Family History Family Medical History: Noncontributory HEENT: Reports: Cataract Cardiac: Reports: SC GI: Reports: GERD : Reports: None Neurological: Reports: Alzheimers Disease Endocrine/Metabolic: Reports: Diabetes, Gestational Immunologic: Reports: None Oncologic: Reports: Breast - Tobacco Use Smoking Status *Q: Former Smoker Used Tobacco, but Quit: Yes Month/Year Tobacco Last Used: 11/1987 Second Hand Smoke Exposure: No - Caffeine Use Caffeine Use: Reports: Coffee Caffeine Use Comment: 3 cups a day - Recreational Drug Use Recreational Drug Use: No ED ROS GENERAL - Review of Systems Review Of Systems: Comprehensive ROS is negative, except as noted in HPI. ED EXAM, GENERAL - Physical Exam Exam: See Below Exam Limited By: No Limitations General Appearance: Alert, WD/WN, Mild Distress Eye Exam: Bilateral Eye: EOMI, PERRL Ears: Normal External Exam Throat/Mouth: Normal Inspection, Normal Oropharynx Head: Atraumatic, Normocephalic Neck: Non-Tender Respiratory/Chest: No Respiratory Distress, Wheezing Cardiovascular: Normal Peripheral Pulses, Regular Rate, Rhythm, No Edema, No Gallop, No Murmur Peripheral Pulses: 2+: Radial (L), Radial (R), Posterior Tibial (L), Posterior Tibial (R) Neurological: Alert, Oriented, CN II-XII Intact, Normal Cognition Psychiatric: Normal Affect, Normal Mood Skin Exam: Warm, Dry, Intact Course - Vital Signs Last Recorded V/S: Last Vital Signs Temp 100 F 05/17/20 17:30 Pulse 113 H 05/17/20 17:30 Resp 22 H 05/17/20 17:30 BP 152/74 H 05/17/20 17:30 Pulse Ox 96 05/17/20 18:06 - Orders/Labs/Meds Orders: Active Orders 24 hr Category Date Time Status RT Aerosol Therapy [RC] ASDIRECTED Care 05/17/20 17:37 Active RT Aerosol Therapy [RC] ASDIRECTED Care 05/17/20 18:34 Active Chest 1V Frontal [CR] Stat Exams 05/17/20 17:41 Taken Labs: Laboratory Tests 05/17/20 05/17/20 Range/Units 17:40 17:40 WBC 17.5 H D (4.0-11.0) K/uL RBC 3.85 (3.80-5.80) M/uL Hgb 11.5 (11.5-16.5) g/dL Hct 35.9 L (37.0-47.0) % MCV 93 (76-96) fL MCH 29.9 (27.0-32.0) pg MCHC 32.0 (31.0-35.0) g/dL RDW 13.3 (11.0-16.0) % Plt Count 203 (150-500) K/uL MPV 10.0 (6.0-10.0) fL Neut % (Auto) 87.4 H (45.0-70.0) % Lymph % (Auto) 3.8 L (20.0-40.0) % [place] % (Auto) 7.6 (3.0-10.0) % Eos % (Auto) 1.1 (1.0-5.0) % Baso % (Auto) 0.1 (0.0-0.5) % Neut # (Auto) 15.30 H (2.00-7.50) K/uL Lymph # (Auto) 0.67 L (1.50-4.00) K/uL [place] # (Auto) 1.34 H (0.20-0.80) K/uL Eos # (Auto) 0.20 (0.04-0.40) K/uL Baso # (Auto) 0.01 L (0.02-0.10) K/uL Sodium 139 (136-145) mmol/L Potassium 4.0 (3.5-5.1) mmol/L Chloride 98 (98-107) mmol/L Carbon Dioxide 35.5 H (21.0-32.0) mmol/L Anion Gap 9.5 (5.0-15.0) mmol/L BUN 32 H (8-26) mg/dL Creatinine 1.35 H (0.55-1.02) mg/dL Est Cr Clr Drug Dosing TNP Estimated GFR (MDRD) 38 L (>60) MLS/MIN BUN/Creatinine Ratio 23.7 (6-25) Glucose 122 H (74-100) mg/dL Calcium 9.7 (8.5-10.1) mg/dL Total Bilirubin 0.7 (0.0-1.0) mg/dL AST 24 (15-37) U/L ALT 32 (12-78) U/L Alkaline Phosphatase 53 (46-116) U/L Total Protein 7.2 (6.4-8.2) g/dL Albumin 3.0 L (3.4-5.0) g/dL Globulin 4.2 (2.2-4.2) g/dL Albumin/Globulin Ratio 0.7 L (0.8-2.0) Meds: Medications Discontinued Medications Generic Name Dose Route Start Last Admin Trade Name Freq PRN Reason Stop Dose Admin Albuterol 2.5 mg 05/17/20 17:36 05/17/20 17:43 Proventil Neb Soln [facility] 05/17/20 17:37 2.5 mg ONETIME ONE Administration Albuterol 2.5 mg 05/17/20 18:34 05/17/20 18:58 Proventil Neb Soln [facility] 05/17/20 18:35 2.5 mg ONETIME ONE Administration Methylprednisolone Sodium Succinate 125 mg 05/17/20 17:36 05/17/20 18:01 Solu-Medrol IM 05/17/20 17:37 125 mg ONETIME ONE Administration - Radiology Interpretation Free Text/Narrative:: cxr shows bilateral patchy opacities, no noted change from previous exam April2020 - Re-Assessments/Exams Free Text/Narrative Re-Assessment/Exam: 05/17/20 18:30 follow up exam shows LS bilateral improved greatly with less wheezing and greater air exchange. pts skin color and appearance appears more pink and less distressed Departure - Departure Time of Disposition: 18:50 Disposition: Home, Self-Care 01 Condition: Fair Clinical Impression: COPD with acute exacerbation - Discharge Information *PRESCRIPTION DRUG MONITORING PROGRAM REVIEWED*: Not Applicable *COPY OF PRESCRIPTION DRUG MONITORING REPORT IN PATIENT KERRI: Not Applicable Prescriptions: predniSONE [Prednisone] 10 mg PO QAM #35 tablet Instructions: Chronic Obstructive Pulmonary Disease Exacerbation, [id number] Referrals: PCP,None [Primary Care Provider] - Forms: ED Department Discharge Additional Instructions: continue home meds as prescribed limit environment exposure (extreme heat, humidity) as able if symptoms aren't any better by the weekend, return to ER or clinic. if symptoms worsen at any time, return to ER for recheck. Sepsis Event Note (ED) - Evaluation Sepsis Screening Result: No Definite Risk - Focused Exam Vital Signs: Vital Signs Temp Pulse Resp BP Pulse Ox Pulse Ox 05/17/20 18:06 96 05/17/20 17:35 96 05/17/20 17:30 100 F 113 H 22 H 152/74 H 92 L 05/17/20 17:26 109 H 34 H 152/47 H 90 L - Problem List Review Problem List Initiated/Reviewed/Updated: Yes - My Orders Last 24 Hours: My Active Orders 05/17/20 17:37 RT Aerosol Therapy [RC] ASDIRECTED 05/17/20 17:41 Chest 1V Frontal [CR] Stat 05/17/20 18:34 RT Aerosol Therapy [RC] ASDIRECTED - Assessment/Plan Last 24 Hours: My Active Orders 05/17/20 17:37 RT Aerosol Therapy [RC] ASDIRECTED 05/17/20 17:41 Chest 1V Frontal [CR] Stat 05/17/20 18:34 RT Aerosol Therapy [RC] ASDIRECTED Assessment:: assessment: COPD acute exacerbation Plan: 15 day prednisone taper. continue home meds as prescribed limit environment exposure (extreme heat, humidity) as able
--- NOTE | 2020-05-17 22:13 | CR ---
DATE OF SERVICE: 05/17/2020 CLINICAL DATA: SOB AP CHEST: Comparison made to a prior exam dated 05/08/2020. Patient is status post median sternotomy. The heart size is normal. There is pulmonary vascular congestion and mild interstitial edema throughout both lungs consistent with congestive failure. There is slight blunting of the right costophrenic angle suggesting a small right right pleural effusion. The exam is otherwise unchanged from the previous. [id number] [facility]
== END 2020-05-17 19:19 | disposition home or self-care (01) ==
LOC: LB.ED 17:22
DX: J44.1 Chronic obstructive pulmonary disease with (acute) exacerbation (principal); M19.90 Unspecified osteoarthritis, unspecified site; Z87.891 Personal history of nicotine dependence; Z99.81 Dependence on supplemental oxygen; Z79.82 Long term (current) use of aspirin; Z79.899 Other long term (current) drug therapy; Z79.01 Long term (current) use of anticoagulants; Z88.5 Allergy status to narcotic agent; Z88.0 Allergy status to penicillin; Z88.2 Allergy status to sulfonamides; Z88.8 Allergy status to other drugs, medicaments and biological substances
CPT/HCPCS: 36415; 71045; 80053; 85025; 94640; 96372; 99285-25; J2930

== ENCOUNTER 2020-06-11 10:46 | Emergency (ER) | payer MEDICARE, BC ==
[2020-06-11] MEDS ORDERED: Acetaminophen 325 MG Tab PO ONE ×2 (12:40→12:48)
[2020-06-11] MEDS ORDERED: Acetaminophen 325 MG Tab ONE (12:53)
--- NOTE | 2020-06-11 13:12 | EDM.PDOC ---
ED HPI GENERAL MEDICAL PROBLEM - General Chief Complaint: General Stated Complaint: FALL Time Seen by Provider: 06/11/20 10:55 Source of Information: Reports: Patient, RN, RN Notes Reviewed History Limitations: Reports: No Limitations. Denies: Altered Mental Status - History of Present Illness INITIAL COMMENTS - FREE TEXT/NARRATIVE: Patient was walking in her garage and tripped and fell. She denies loss of conscious, dizziness - She states she just tripped over her own feet. She states she has head pain. She is able to explain what happened. she denies any further pain or injury. Onset: Today, Sudden Onset Date: 06/11/20 Onset Time: 10:20 Duration: Other (trauma) Location: Reports: Head, Face, Neck Quality: Reports: Ache, Throbbing Severity: Moderate Improves with: Reports: Rest Worsens with: Reports: Movement Context: Reports: Trauma Associated Symptoms: Reports: Headaches. Denies: Confusion, Chest Pain, Cough, Diaphoresis, Fever/Chills, Nausea/Vomiting, Shortness of Breath, Syncope, Weakness Treatments RIGGING LOFT MECHANIC: Reports: Other (see below) Other Treatments RIGGING LOFT MECHANIC: none Head Pain Score (Numeric/FACES): 5 (pain in head 5-6 on arrival) - Related Data Allergies Allergy/AdvReac Type Severity Reaction Status Date / Time codeine Allergy Other Verified 06/11/20 13:10 Penicillins Allergy Cannot Verified 06/11/20 13:10 Remember Sulfa (Sulfonamide Allergy Cannot Verified 06/11/20 13:10 Antibiotics) Remember tramadol Allergy Cannot Verified 06/11/20 13:10 Remember warfarin [From Coumadin] AdvReac Bleeding Verified 06/11/20 13:10 Home Meds: Home Meds Acyclovir 400 mg PO DAILY 02/18/16 [History] Aspirin 81 mg PO QPM 02/18/16 [History] Ipratropium/Albuterol Sulfate [Iprat-Albut 0.5-3(2.5) mg/3 ml] 1 dose INH Q4H PRN 02/18/16 [History] Multivitamin [Multi-Vitamin Daily] 1 tab PO DAILY 02/18/16 [History] Calcium Carbonate/Vitamin D3 [Caltrate 600+D 1500 MG-400 Units] 1 tab PO TIDMEALS 08/11/18 [History] Sennosides [Senna] 8.6 mg PO DAILY PRN 01/28/19 [History] carvediloL [Coreg] 25 mg PO BIDMEALS 01/28/19 [History] Budesonide/Formoterol [Symbicort 160-4.5 MCG] 2 puff INH BID 03/29/19 [History] Albuterol Sulfate [Albuterol Sulfate Hfa] 2 inh IN Q6HR 08/01/19 [History] Apixaban [Eliquis] 5 mg PO BID 08/01/19 [History] Ipratropium [Atrovent] 1 unit IN QID 08/01/19 [History] Losartan [Cozaar] 25 mg PO BEDTIME 08/01/19 [History] Nitroglycerin [Nitrostat] 0.4 mg SL ASDIRECTED PRN 08/01/19 [History] Polyvinyl Alcohol/Povidone/Pf [Refresh Classic Eye Drops] 1 drop EYEBOTH ASDIRECTED PRN 08/01/19 [History] atorvaSTATin Calcium [Atorvastatin Calcium] 20 mg PO BEDTIME 08/01/19 [History] guaiFENesin [Mucinex] 600 mg PO DAILY 08/01/19 [History] prednisoLONE acetate [Pred Forte 1% Ophth Susp] 1 drop EYEBOTH DAILY 08/01/19 [History] Acetaminophen/Diphenhydramine [Tylenol Pm Ex-Strength Caplet] 1 each PO BEDTIME 05/09/20 [History] Furosemide [Lasix] 20 mg PO 1200 05/09/20 [History] Acetaminophen [Tylenol] 650 mg PO Q6H PRN tablet 05/10/20 [Rx] Albuterol/Ipratropium [DuoNeb 3.0-0.5 MG/3 ML] 3 ml NEB Q4H neb 05/10/20 [Rx] predniSONE [Prednisone] 10 mg PO QAM #35 tablet 05/17/20 [Rx] Past Medical History HEENT History: Reports: Allergic Rhinitis, Cataract, Hard of Hearing Cardiovascular History: Reports: Heart Valve Replacement, Stents, Other (See Below) Other Cardiovascular History: endarterectomy Respiratory History: Reports: COPD, SOB, Other (See Below) Other Respiratory History: has had cough. supplemental O2 via n/c continuous at home Gastrointestinal History: Reports: Cholelithiasis Other Gastrointestinal History: appy Genitourinary History: Reports: UTI, Recurrent CALENDERER History: Reports: , Other (See Below) Other CALENDERER History: hysterectomy Musculoskeletal History: Reports: Arthritis, Fracture Other Musculoskeletal History: Fx L tib fib 1981. Right proximal humerus fracture 10/2019 Endocrine/Metabolic History: Reports: Osteoporosis Hematologic History: Reports: None Oncologic (Cancer) History: Reports: Breast - Infectious Disease History Infectious Disease History: Reports: Chicken Pox, Measles, Mumps - Past Surgical History Head Surgeries/Procedures: Reports: None HEENT Surgical History: Reports: Other (See Below) Other HEENT Surgeries/Procedures: CEA February 2013 Cardiovascular Surgical History: Reports: Valve Replacement GI Surgical History: Reports: Appendectomy, Cholecystectomy Female Surgical History: Reports: Hysterectomy Endocrine Surgical History: Reports: None Musculoskeletal Surgical History: Reports: Knee Replacement Oncologic Surgical History: Reports: Mastectomy Social & Family History - Family History Family Medical History: Noncontributory HEENT: Reports: Cataract Cardiac: Reports: ND GI: Reports: GERD : Reports: None Neurological: Reports: Alzheimers Disease Endocrine/Metabolic: Reports: Diabetes, Gestational Immunologic: Reports: None Oncologic: Reports: Breast - Caffeine Use Caffeine Use: Reports: Coffee Caffeine Use Comment: 3 cups a day ED ROS GENERAL - Review of Systems Review Of Systems: See Below Constitutional: Reports: No Symptoms. Denies: Fever, Chills, Malaise, Weakness, Fatigue, Weight Loss HEENT: Reports: No Symptoms Respiratory: Reports: Wheezing (pt has copd - chronic). Denies: Shortness of Breath, Cough Cardiovascular: Reports: No Symptoms. Denies: Chest Pain, Dyspnea on Exertion, Edema, Lightheadedness, Orthopnea, Palpitations Endocrine: Reports: No Symptoms GI/Abdominal: Denies: Abdominal Pain, Anorexia, Nausea, Vomiting : Reports: No Symptoms Musculoskeletal: Reports: Neck Pain (this was noted after patient went to ct for head exam. patient did not initially complain of neck pain) Skin: Reports: Lesions (large contusion on left forhead, open skin over bridge of nose from glasses) Neurological: Reports: Headache. Denies: Confusion, Dizziness, Numbness, Paresthesia, Pre-Existing Deficit, Seizure, Syncope, Tingling, Tremors, Trouble Speaking, Difficulty Walking (walked in with assistance) Psychiatric: Reports: No Symptoms. Denies: Agitation, Anxiety, Confusion Hematologic/Lymphatic: Reports: No Symptoms Immunologic: Reports: No Symptoms ED EXAM, GENERAL - Physical Exam Exam: See Below Exam Limited By: No Limitations General Appearance: Alert, WD/WN, Mild Distress Eye Exam: Bilateral Eye: PERRL (Left pupil is greater than right since her cataract surgery years ago) Ears: Normal External Exam, Normal Canal, Hearing Grossly Normal, Normal TMs Nose: Normal Inspection, Normal Mucosa, Nasal Swelling (external) Throat/Mouth: Normal Inspection, Normal Lips, Normal Teeth, Normal Gums, Normal Oropharynx Head: Facial Swelling, Facial Tenderness (large swollen forehead over left eye with laceration/skin tear. ) Neck: Full Range of Motion (pain in the neck and shoulders). No: Lymphadenopathy (R), Lymphadenopathy (L) Respiratory/Chest: No Respiratory Distress, No Accessory Muscle Use, Chest Non- Tender, Wheezing Cardiovascular: Normal Peripheral Pulses, Regular Rate, Rhythm, No Edema, No JVD, No Murmur, No Rub Peripheral Pulses: 2+: Carotid (L), Carotid (R), Radial (L), Radial (R), Dorsalis Pedis (L), Dorsalis Pedis (R) GI/Abdominal: Normal Bowel Sounds, Soft, Non-Tender, No Organomegaly, No Distention, No Abnormal Bruit, No Mass, Pelvis Stable Back Exam: Normal Inspection, Full Range of Motion Extremities: Normal Inspection, Normal Capillary Refill, Arm Pain (left arm shoulder - chornic previous to fall possible rotator injury), Other (shoulder pain - has rotator problems left shoulder) Neurological: Alert, Oriented, CN II-XII Intact, Normal Cognition, Normal Gait (walked in of her own accord with standby assist), Normal Reflexes, No Motor/Sensory Deficits. No: Confused, Disoriented, Slow to Respond, Unresponsive, Memory Loss Remote Events, Abnormal Reflexes, Sensory/Motor Deficit Psychiatric: Normal Affect, Normal Mood Skin Exam: Warm, Dry, Erythema, Wound/Incision (forehead with 5-6 cm laceration/skin tear, lac on nose) Lymphatic: No Adenopathy Course - Vital Signs Last Recorded V/S: Last Vital Signs Temp 36.6 C 06/11/20 14:18 Pulse 82 06/11/20 16:13 Resp 18 06/11/20 14:18 BP 155/60 H 06/11/20 16:13 Pulse Ox 98 06/11/20 16:13 - Orders/Labs/Meds Meds: Medications Discontinued Medications Generic Name Dose Route Start Last Admin Trade Name Joesph PRN Reason Stop Dose Admin Acetaminophen Confirm 06/11/20 12:53 06/11/20 12:54 Tylenol Administered 06/11/20 12:54 Not Given Dose 650 mg .ROUTE .STK-MED ONE Acetaminophen 650 mg 06/11/20 12:48 06/11/20 12:50 Tylenol PO 06/11/20 12:49 650 mg NOW ONE Administration Acetaminophen 650 mg 06/11/20 12:40 Tylenol PO 06/11/20 12:41 NOW ONE only one does of acetaminophen was given - problems with computer at time of mental health orderly - Radiology Interpretation Free Text/Narrative:: CT of head - mild senescent findings with no definite acute intracranial pathology per radiologist read CT of Neck c2 fx through the bse of the odontoid with mild posterior displacement of the dens - per radiologist read Consult Dr. Pena Neurosurgeon [facility] - she reviewed pushed xrays and recommends further evaluation - Patient will transfer to [facility] via air transport Departure - Departure Time of Disposition: 14:45 Disposition: DC/Tfer to Acute Hospital 02 Condition: Fair Clinical Impression: C2 cervical fracture, Head trauma - Discharge Information *PRESCRIPTION DRUG MONITORING PROGRAM REVIEWED*: No *COPY OF PRESCRIPTION DRUG MONITORING REPORT IN PATIENT KERRI: No Referrals: PCP,None [Primary Care Provider] - Forms: ED Department Discharge Sepsis Event Note (ED) - Focused Exam Vital Signs: Vital Signs Temp Pulse Resp BP Pulse Ox 06/11/20 16:13 82 155/60 H 98 06/11/20 14:18 36.6 C 93 18 149/71 H 93 L 06/11/20 13:17 36.8 C 88 24 H 151/57 H 94 L 06/11/20 11:05 80 24 H 151/57 H 94 L
--- NOTE | 2020-06-11 13:48 | CT ---
DATE OF SERVICE: 06/11/20 CLINICAL DATA: fall UNENHANCED BRAIN CT: Multi slice acquisition through the brain without IV contrast was performed. No priors. There is diffuse cerebral atrophy. There are periventricular lucencies bilaterally, consistent with small vessel ischemic change. No masses or mass effect. No intracranial hemorrhage. No evidence of acute or subacute infarct. There is soft tissue swelling anterior to the frontal bone. No underlying fracture. There is mucosal thickening in the ethmoid and left maxillary sinus, consistent with chronic sinusitis. IMPRESSION: No acute intracranial abnormalities. [id number] [facility]
--- NOTE | 2020-06-11 13:55 | CT ---
DATE OF SERVICE: 06/11/20 CLINICAL DATA: trauma CERVICAL SPINE CT: Multislice axial acquisition was performed. Axial images and sagittal and coronal reformations are reviewed. There is motion artifact on numerous images. There is fracture through the base of the odontoid process of C2 with minimal displacement. There is mild compression deformity of the inferior end plate of C5, age indeterminate. No other definite fracture is identified. There is slight anterolisthesis of C3 on C4 and at C4 on C5. There is also mild anterolisthesis of C7 on T1. There is degenerative disc disease at multiple levels. There is facet joint hypertrophy throughout the cervical spine. The soft tissues are unremarkable. There is pleural thickening in the right apex with multiple nodular densities in both apices. Chest CT is recommended. IMPRESSION: 1. Fracture odontoid process of C2. 2. Other findings as discussed above. 3. The patient's physician was notified of the findings by telephone and by virtual radiologic preliminary radiology report. [id number] [facility]
[2020-06-11 16:14] VITALS: BP 155/60; PULSE 82
== END 2020-06-11 14:45 ==
LOC: LB.ED 10:46
DX: S09.90XA Unspecified injury of head, initial encounter (principal); S12.100A Unspecified displaced fracture of second cervical vertebra, initial encounter for closed fracture; J44.9 Chronic obstructive pulmonary disease, unspecified; Z88.5 Allergy status to narcotic agent; Z88.0 Allergy status to penicillin; Z88.2 Allergy status to sulfonamides; Z88.8 Allergy status to other drugs, medicaments and biological substances; Z79.899 Other long term (current) drug therapy; Z79.01 Long term (current) use of anticoagulants; Z90.710 Acquired absence of both cervix and uterus; Z90.49 Acquired absence of other specified parts of digestive tract; Z98.890 Other specified postprocedural states; W01.0XXA Fall on same level from slipping, tripping and stumbling without subsequent striking against object, initial encounter
CPT/HCPCS: 70450; 72125; 99285; A9270

== ENCOUNTER 2020-07-14 09:29 | Inpatient (IN) | payer MEDICARE, BC, OTHER ==
[2020-07-14] MEDS ORDERED: predniSONE 20 MG Tab PO ONE ×2 (10:18→16:00)
[2020-07-14] MEDS ORDERED: Furosemide 40 MG/4 ML VIAL IVPUSH ONE (10:19)
--- NOTE | 2020-07-14 10:21 | EDM.PDOC ---
ED HPI GENERAL MEDICAL PROBLEM - General Chief Complaint: Respiratory Problem Stated Complaint: sob Time Seen by Provider: 07/14/20 10:00 Source of Information: Reports: Patient History Limitations: Reports: No Limitations - History of Present Illness Onset: Gradual Onset Date: 07/12/20 Duration: Getting Worse Location: Reports: Chest Quality: Reports: Same as Previous Episode Severity: Moderate Improves with: Reports: Rest Worsens with: Reports: Movement Associated Symptoms: Reports: No Other Symptoms Treatments STEWARD/STEWARDESS ECONOMY CLASS: Reports: Home Treatments Left Shoulder Pain Score (Numeric/FACES): 6 - Related Data Allergies Allergy/AdvReac Type Severity Reaction Status Date / Time codeine Allergy Other Verified 06/11/20 13:10 Penicillins Allergy Cannot Verified 06/11/20 13:10 Remember Sulfa (Sulfonamide Allergy Cannot Verified 06/11/20 13:10 Antibiotics) Remember tramadol Allergy Cannot Verified 06/11/20 13:10 Remember warfarin [From Coumadin] AdvReac Bleeding Verified 06/11/20 13:10 Home Meds: Home Meds Acyclovir 400 mg PO DAILY 02/18/16 [History] Aspirin 81 mg PO QPM 02/18/16 [History] Ipratropium/Albuterol Sulfate [Iprat-Albut 0.5-3(2.5) mg/3 ml] 1 dose INH Q4H PRN 02/18/16 [History] Multivitamin [Multi-Vitamin Daily] 1 tab PO DAILY 02/18/16 [History] Calcium Carbonate/Vitamin D3 [Caltrate 600+D 1500 MG-400 Units] 1 tab PO TIDMEALS 08/11/18 [History] Sennosides [Senna] 8.6 mg PO DAILY PRN 01/28/19 [History] carvediloL [Coreg] 25 mg PO BIDMEALS 01/28/19 [History] Budesonide/Formoterol [Symbicort 160-4.5 MCG] 2 puff INH BID 03/29/19 [History] Albuterol Sulfate [Albuterol Sulfate Hfa] 2 inh IN Q6HR 08/01/19 [History] Apixaban [Eliquis] 5 mg PO BID 08/01/19 [History] Ipratropium [Atrovent] 1 unit IN QID 08/01/19 [History] Losartan [Cozaar] 25 mg PO BEDTIME 08/01/19 [History] Nitroglycerin [Nitrostat] 0.4 mg SL ASDIRECTED PRN 08/01/19 [History] Polyvinyl Alcohol/Povidone/Pf [Refresh Classic Eye Drops] 1 drop EYEBOTH ASDIRECTED PRN 08/01/19 [History] atorvaSTATin Calcium [Atorvastatin Calcium] 20 mg PO BEDTIME 08/01/19 [History] guaiFENesin [Mucinex] 600 mg PO DAILY 08/01/19 [History] prednisoLONE acetate [Pred Forte 1% Ophth Susp] 1 drop EYEBOTH DAILY 08/01/19 [History] Acetaminophen/Diphenhydramine [Tylenol Pm Ex-Strength Caplet] 1 each PO BEDTIME 05/09/20 [History] Furosemide [Lasix] 20 mg PO 1200 05/09/20 [History] Acetaminophen [Tylenol] 650 mg PO Q6H PRN tablet 05/10/20 [Rx] Albuterol/Ipratropium [DuoNeb 3.0-0.5 MG/3 ML] 3 ml NEB Q4H neb 05/10/20 [Rx] predniSONE [Prednisone] 10 mg PO QAM #35 tablet 05/17/20 [Rx] Past Medical History HEENT History: Reports: Allergic Rhinitis, Cataract, Hard of Hearing Cardiovascular History: Reports: Heart Valve Replacement, Stents, Other (See Below) Other Cardiovascular History: endarterectomy Respiratory History: Reports: COPD, Interstitial Lung Disease, Pneumonia, Recurrent, SOB, Other (See Below) Other Respiratory History: has had cough. supplemental O2 via n/c continuous at home Gastrointestinal History: Reports: Cholelithiasis Other Gastrointestinal History: appy Genitourinary History: Reports: UTI, Recurrent DIRECTOR COMMUNICATIONS History: Reports: , Other (See Below) Other DIRECTOR COMMUNICATIONS History: hysterectomy Musculoskeletal History: Reports: Arthritis, Fracture Other Musculoskeletal History: Fx L tib fib 1980. Right proximal humerus fracture 10/2019 Endocrine/Metabolic History: Reports: Osteoporosis Hematologic History: Reports: None Oncologic (Cancer) History: Reports: Breast - Infectious Disease History Infectious Disease History: Reports: Chicken Pox, Measles, Mumps - Past Surgical History Head Surgeries/Procedures: Reports: None HEENT Surgical History: Reports: Other (See Below) Other HEENT Surgeries/Procedures: CEA February 2013 Cardiovascular Surgical History: Reports: Valve Replacement GI Surgical History: Reports: Appendectomy, Cholecystectomy Female Surgical History: Reports: Hysterectomy Endocrine Surgical History: Reports: None Musculoskeletal Surgical History: Reports: Knee Replacement Oncologic Surgical History: Reports: Mastectomy Social & Family History - Family History Family Medical History: Noncontributory HEENT: Reports: Cataract Cardiac: Reports: NM GI: Reports: GERD : Reports: None Neurological: Reports: Alzheimers Disease Endocrine/Metabolic: Reports: Diabetes, Gestational Immunologic: Reports: None Oncologic: Reports: Breast - Tobacco Use Smoking Status *Q: Former Smoker Used Tobacco, but Quit: Yes Month/Year Tobacco Last Used: 11/1987 - Caffeine Use Caffeine Use: Reports: Coffee Caffeine Use Comment: 3 cups a day - Recreational Drug Use Recreational Drug Use: No ED ROS GENERAL - Review of Systems Review Of Systems: See Below Constitutional: Reports: No Symptoms HEENT: Reports: No Symptoms Respiratory: Reports: Shortness of Breath, Wheezing Cardiovascular: Reports: No Symptoms GI/Abdominal: Reports: No Symptoms : Reports: No Symptoms Musculoskeletal: Reports: No Symptoms Skin: Reports: No Symptoms Neurological: Reports: No Symptoms Psychiatric: Reports: Anxiety ED EXAM, GENERAL - Physical Exam Exam: See Below Exam Limited By: No Limitations General Appearance: Alert, WD/WN, Anxious, Mild Distress Ears: Normal External Exam Nose: Normal Inspection Throat/Mouth: Normal Inspection Head: Atraumatic Neck: Other (pt in a hard collar secondary to cervical fx a month ago) Respiratory/Chest: Decreased Breath Sounds, Crackles, Rhonchi, Wheezing, Accessory Muscle Use, Retractions Cardiovascular: Normal Peripheral Pulses, Regular Rate, Rhythm GI/Abdominal: Normal Bowel Sounds Back Exam: Normal Inspection Extremities: Normal Inspection. No: Pedal Edema, Leg Pain Neurological: Alert, Oriented, CN II-XII Intact Course - Vital Signs Last Recorded V/S: Last Vital Signs Temp 98 F 07/14/20 09:41 Pulse 87 07/14/20 09:41 Resp 40 H 07/14/20 09:41 BP 132/77 07/14/20 09:41 Pulse Ox 99 07/14/20 09:41 - Orders/Labs/Meds Orders: Active Orders 24 hr Category Date Time Status Admission Status [Patient Status] [ADT] Routine ADT 07/14/20 11:22 Active Insert Hill Catheter [Insert Urinary Catheter] [OM.PC] Care 07/14/20 11:00 Ordered Q24H RT Aerosol Therapy [RC] ASDIRECTED Care 07/14/20 10:16 Active Urinary Catheter Assessment [RC] ASDIRECTED Care 07/14/20 10:59 Active Albuterol/Ipratropium [DuoNeb 3.0-0.5 MG/3 ML] Med 07/14/20 10:30 Active 3 ml NEB BID Sodium Chloride 0.9% [Normal Saline] 1,000 ml Med 07/14/20 11:00 Ordered IV ASDIRECTED Medication Orders Albuterol/Ipratropium (Duoneb 3.0-0.5 Mg/3 Ml) 3 ml NEB BID KIMO Last Admin: 07/14/20 10:53 Dose: 3 ml Documented by: [id number] Sodium Chloride (Normal Saline) 1,000 mls @ 75 mls/hr IV ASDIRECTED KIMO Labs: Laboratory Tests 07/14/20 07/14/20 Range/Units 10:00 10:00 WBC 13.1 H D (4.0-11.0) K/uL RBC 3.13 L (3.80-5.80) M/uL Hgb 9.6 L (11.5-16.5) g/dL Hct 31.4 L (37.0-47.0) % MCV 100 H (76-96) fL MCH 30.7 (27.0-32.0) pg MCHC 30.6 L (31.0-35.0) g/dL RDW 14.4 (11.0-16.0) % Plt Count 181 (150-500) K/uL MPV 9.1 (6.0-10.0) fL Neut % (Auto) 77.4 H (45.0-70.0) % Lymph % (Auto) 6.1 L (20.0-40.0) % [place] % (Auto) 13.5 H (3.0-10.0) % Eos % (Auto) 2.8 (1.0-5.0) % Baso % (Auto) 0.2 (0.0-0.5) % Neut # (Auto) 10.12 H (2.00-7.50) K/uL Lymph # (Auto) 0.80 L (1.50-4.00) K/uL [place] # (Auto) 1.77 H (0.20-0.80) K/uL Eos # (Auto) 0.36 (0.04-0.40) K/uL Baso # (Auto) 0.02 (0.02-0.10) K/uL Sodium 141 (136-145) mmol/L Potassium 4.0 (3.5-5.1) mmol/L Chloride 98 (98-107) mmol/L Carbon Dioxide 41.6 H (21.0-32.0) mmol/L Anion Gap 5.4 (5.0-15.0) mmol/L BUN 25 D (8-26) mg/dL Creatinine 0.96 D (0.55-1.02) mg/dL Est Cr Clr Drug Dosing 35.86 mL/min Estimated GFR (MDRD) 56 L (>60) MLS/MIN BUN/Creatinine Ratio 26.0 H (6-25) Glucose 102 H (74-100) mg/dL Calcium 9.2 (8.5-10.1) mg/dL Troponin I 0.040 D (0.000-0.060) ng/mL B-Natriuretic Peptide 21559 H D (0-450) pg/mL Meds: Medications Generic Name Dose Route Start Last Admin Trade Name Freq PRN Reason Stop Dose Admin Albuterol/Ipratropium 3 ml 07/14/20 10:30 07/14/20 10:53 Duoneb 3.0-0.5 Mg/3 Ml NEB 3 ml BID KIMO Administration Sodium Chloride 1,000 mls @ 75 mls/hr 07/14/20 11:00 Normal Saline IV ASDIRECTED KIMO Discontinued Medications Generic Name Dose Route Start Last Admin Trade Name Freq PRN Reason Stop Dose Admin Albuterol/Ipratropium Confirm 07/14/20 11:00 Duoneb 3.0-0.5 Mg/3 Ml Administered 07/14/20 11:01 Dose 3 ml .ROUTE .STK-MED ONE Furosemide 40 mg 07/14/20 10:19 Lasix IVPUSH 07/14/20 10:20 NOW ONE Furosemide 100 mg 07/14/20 10:40 07/14/20 11:08 Lasix IVPUSH 07/14/20 10:41 100 mg NOW ONE Administration Furosemide Confirm 07/14/20 11:11 Lasix Administered 07/14/20 11:12 Dose 100 mg .ROUTE .STK-MED ONE Prednisone 20 mg 07/14/20 10:18 07/14/20 10:53 Prednisone PO 07/14/20 10:19 20 mg ONETIME ONE Administration Prednisone Confirm 07/14/20 11:00 Prednisone Administered 07/14/20 11:01 Dose 20 mg .ROUTE .STK-MED ONE - Re-Assessments/Exams Free Text/Narrative Re-Assessment/Exam: 07/14/20 11:27 pt remained stable lab work done cxr - pulmonary vascular congestion and persistent interstitial edema Free Text/Narrative Re-Assessment/Exam: 07/14/20 11:45 Pt admitted to hospitalist service Spoke with Dr Carter who will write orders and follow-up Departure - Departure Time of Disposition: 11:45 Disposition: DC/Tfer to [facility] 02 Condition: Serious Clinical Impression: CHF (congestive heart failure), CHF exacerbation, COPD exacerbation COPD (chronic obstructive pulmonary disease) Qualifiers: COPD type: COPD with acute exacerbation Qualified Code(s): J44.1 - Chronic obstructive pulmonary disease with (acute) exacerbation - Discharge Information *PRESCRIPTION DRUG MONITORING PROGRAM REVIEWED*: Not Applicable *COPY OF PRESCRIPTION DRUG MONITORING REPORT IN PATIENT KERRI: Not Applicable Referrals: PCP,None [Primary Care Provider] - Forms: ED Department Discharge Sepsis Event Note (ED) - Evaluation Sepsis Screening Result: No Definite Risk - Focused Exam Vital Signs: Vital Signs Temp Pulse Resp BP Pulse Ox 07/14/20 09:41 98 F 87 40 H 132/77 99 - My Orders Last 24 Hours: My Active Orders 07/14/20 10:16 RT Aerosol Therapy [RC] ASDIRECTED 07/14/20 10:30 Albuterol/Ipratropium [DuoNeb 3.0-0.5 MG/3 ML] 3 ml NEB BID 07/14/20 10:59 Urinary Catheter Assessment [RC] ASDIRECTED 07/14/20 11:00 Insert Hill Catheter [Insert Urinary Catheter] [OM.PC] Q24H Sodium Chloride 0.9% [Normal Saline] 1,000 ml IV ASDIRECTED 07/14/20 11:22 Admission Status [Patient Status] [ADT] Routine - Assessment/Plan Last 24 Hours: My Active Orders 07/14/20 10:16 RT Aerosol Therapy [RC] ASDIRECTED 07/14/20 10:30 Albuterol/Ipratropium [DuoNeb 3.0-0.5 MG/3 ML] 3 ml NEB BID 07/14/20 10:59 Urinary Catheter Assessment [RC] ASDIRECTED 07/14/20 11:00 Insert Hill Catheter [Insert Urinary Catheter] [OM.PC] Q24H Sodium Chloride 0.9% [Normal Saline] 1,000 ml IV ASDIRECTED 07/14/20 11:22 Admission Status [Patient Status] [ADT] Routine
[2020-07-14] MEDS ORDERED: Albuterol/Ipratropium 3.0-0.5 MG/3 ML Neb Soln NEB SCH (10:30)
[2020-07-14] MEDS ORDERED: Furosemide 100 MG/10 ML SDV IVPUSH ONE (10:40)
[2020-07-14] MEDS ORDERED: predniSONE 20 MG Tab ONE (11:00)
[2020-07-14] MEDS ORDERED: Albuterol/Ipratropium 3.0-0.5 MG/3 ML Neb Soln ONE (11:00)
--- NOTE | 2020-07-14 11:01 | CR ---
DATE OF SERVICE: 07/14/2020 CLINICAL DATA: shortness of breath PA and lateral chest: Comparison is made to a prior exam dated 17 May 2020. The patient is status post median sternotomy. The heart size is normal. There is persistent pulmonary vascular congestion and persistent interstitial edema throughout both lungs. Minimal improvement of the interstitial edema from the prior exam. There is slight blunting of both costophrenic angles suggesting small bilateral pleural effusions. The exam is otherwise unchanged from the prior. Dictated by: Bunny Perez MD 07/14/2020 10:20[facility]
[2020-07-14] MEDS ORDERED: Furosemide 100 MG/10 ML SDV ONE (11:11)
[2020-07-14] MEDS ORDERED: predniSONE 10 MG Tab PO SCH (12:00)
--- NOTE | 2020-07-14 13:49 | PCM.PN ---
- General Info Date of Service: 07/14/20 - Patient Data Vitals - Most Recent: Last Vital Signs Temp 36.6 C 07/14/20 09:41 Pulse 87 07/14/20 09:41 Resp 40 H 07/14/20 09:41 BP 132/77 07/14/20 09:41 Pulse Ox 99 07/14/20 09:41 Weight - Most Recent: 48.988 kg Lab Results Last 24 Hours: Laboratory Results - last 24 hr 07/14/20 07/14/20 Range/Units 10:00 10:00 WBC 13.1 H D (4.0-11.0) K/uL RBC 3.13 L (3.80-5.80) M/uL Hgb 9.6 L (11.5-16.5) g/dL Hct 31.4 L (37.0-47.0) % MCV 100 H (76-96) fL MCH 30.7 (27.0-32.0) pg MCHC 30.6 L (31.0-35.0) g/dL RDW 14.4 (11.0-16.0) % Plt Count 181 (150-500) K/uL MPV 9.1 (6.0-10.0) fL Neut % (Auto) 77.4 H (45.0-70.0) % Lymph % (Auto) 6.1 L (20.0-40.0) % Merrick % (Auto) 13.5 H (3.0-10.0) % Eos % (Auto) 2.8 (1.0-5.0) % Baso % (Auto) 0.2 (0.0-0.5) % Neut # (Auto) 10.12 H (2.00-7.50) K/uL Lymph # (Auto) 0.80 L (1.50-4.00) K/uL Merrick # (Auto) 1.77 H (0.20-0.80) K/uL Eos # (Auto) 0.36 (0.04-0.40) K/uL Baso # (Auto) 0.02 (0.02-0.10) K/uL Sodium 141 (136-145) mmol/L Potassium 4.0 (3.5-5.1) mmol/L Chloride 98 (98-107) mmol/L Carbon Dioxide 41.6 H (21.0-32.0) mmol/L Anion Gap 5.4 (5.0-15.0) mmol/L BUN 25 D (8-26) mg/dL Creatinine 0.96 D (0.55-1.02) mg/dL Est Cr Clr Drug Dosing 35.86 mL/min Estimated GFR (MDRD) 56 L (>60) MLS/MIN BUN/Creatinine Ratio 26.0 H (6-25) Glucose 102 H (74-100) mg/dL Calcium 9.2 (8.5-10.1) mg/dL Troponin I 0.040 D (0.000-0.060) ng/mL B-Natriuretic Peptide 84070 H D (0-450) pg/mL Med Orders - Current: Current Medications Acetaminophen (Tylenol) 650 mg PO Q4H PRN PRN Reason: Pain (Mild 1-3)/fever Albuterol/Ipratropium (Duoneb 3.0-0.5 Mg/3 Ml) 3 ml NEB QID [facility] Sodium Chloride (Normal Saline) 1,000 mls @ 50 mls/hr IV ASDIRECTED [facility] Prednisone (Prednisone) 40 mg PO .DAILYTAPER [facility] Prednisone (Prednisone) 20 mg PO ONETIME ONE Stop: 07/14/20 16:01 Discontinued Medications Albuterol/Ipratropium (Duoneb 3.0-0.5 Mg/3 Ml) 3 ml NEB BID [facility] Last Admin: 07/14/20 10:53 Dose: 3 ml Documented by: Albuterol/Ipratropium (Duoneb 3.0-0.5 Mg/3 Ml) Confirm Administered Dose 3 ml .ROUTE .STK-MED ONE Stop: 07/14/20 11:01 Last Admin: 07/14/20 13:20 Dose: Not Given Documented by: Furosemide (Lasix) 40 mg IVPUSH NOW ONE Stop: 07/14/20 10:20 Last Admin: 07/14/20 13:27 Dose: Not Given Documented by: Furosemide (Lasix) 100 mg IVPUSH NOW ONE Stop: 07/14/20 10:41 Last Admin: 07/14/20 11:08 Dose: 100 mg Documented by: Furosemide (Lasix) Confirm Administered Dose 100 mg .ROUTE .STK-MED ONE Stop: 07/14/20 11:12 Last Admin: 07/14/20 13:21 Dose: Not Given Documented by: Prednisone (Prednisone) 20 mg PO ONETIME ONE Stop: 07/14/20 10:19 Last Admin: 07/14/20 10:53 Dose: 20 mg Documented by: Prednisone (Prednisone) Confirm Administered Dose 20 mg .ROUTE .STK-MED ONE Stop: 07/14/20 11:01 Last Admin: 07/14/20 13:21 Dose: Not Given Documented by: Sepsis Event Note - Evaluation Sepsis Screening Result: No Definite Risk - Focused Exam Vital Signs: Vital Signs Temp Pulse Resp BP Pulse Ox 07/14/20 09:41 36.6 C 87 40 H 132/77 99 - Problem List & Annotations (1) CHF exacerbation SNOMED Code(s): 092543743, [id number] Code(s): I50.9 - HEART FAILURE, UNSPECIFIED Status: Acute Current Visit: Yes Qualifiers: Heart failure type: unspecified Qualified Code(s): I50.9 - Heart failure, unspecified - Problem List Review Problem List Initiated/Reviewed/Updated: Yes - My Orders Last 24 Hours: My Active Orders 07/14/20 Lunch Heart Healthy Diet [DIET] 07/14/20 11:47 Patient Status [ADT] Routine Oxygen Therapy [RC] PRN Up With Assistance [RC] ASDIRECTED VTE/DVT Education [RC] Per Unit Routine Vital Signs [RC] Q4H Acetaminophen [TylenoL] 650 mg PO Q4H PRN 07/14/20 11:52 Cardiac Monitoring [RC] CONTINUOUS 07/14/20 11:53 Intake and Output [RC] QSHIFT 07/14/20 11:54 Ambulate [RC] PER UNIT ROUTINE Sequential Compression Device [OM.PC] Per Unit Routine 07/14/20 11:57 RT Aerosol Therapy [RC] ASDIRECTED 07/14/20 12:00 Albuterol/Ipratropium [DuoNeb 3.0-0.5 MG/3 ML] 3 ml NEB QID 07/14/20 12:15 Code Status [Resuscitation Status] Stat 07/14/20 14:00 POTASSIUM,K [CHEM] Routine 07/14/20 16:00 predniSONE 20 mg PO ONETIME ONE 07/15/20 07:00 BASIC METABOLIC PANEL,BMP [CHEM] Routine CBC WITH AUTO DIFF [HEME] Routine 07/15/20 12:00 predniSONE 40 mg PO .DAILYTAPER - Plan Plan:: E hospitalist collaboration: 80-year-old female admitted from the ED for increasing shortness of breath and CHF/Copd exacerbation. Patient has had increasing shortness of breath and difficulty breathing for the last couple days, possibly longer she thinks. She is status post hospitalization in [place] for a fall at home with a c2 fracture. She states no surgery was needed and she was treated with a c collar which she is suppose to wear at all times and she states she had a repeat xray since being back in [place] and states she was told it is stable. Encouraged her to wear her c collar. She states is an awful thing to wear. Denies new falls. She lives at home with her son. She has had a cough that has been white productive, No fever or chills. No chest pain. No nausea, vomiting, abdominal pain, diarrhea, dysuria. She does feel fatigued. She wears O2 2L 24hrs per day. She was on Eliquis in the past, but states they took her off of that at a hospitalization in [place], she is not sure why she was taken off, now she is on a baby ASA. She has had aflutter in the past that required cardioversion few years ago and states she has been in normal rhythm since then, but this week she noted her HR to be fast and take longer to get below 100. No cp or palpitations today. She states she takes Prednisone 10mg daily and Lasix 40mg in the AM and 20mg in the afternoon. In the ED leukocytosis 13.1, hemoglobin 9.6, hematocrit 31.4, platelets 181, sodium 141, potassium 4, chloride 98, CO2 41.6, anion gap 5.4, BUN 25, creatinine 0.96, glucose 112, calcium 9.2, BNP 18,845, troponin I 0.040. Chest x-ray vascular congestion and persistent interstitial edema throughout both lungs and slight blunting of both costophrenic angle suggesting small bilateral pleural effusions. Overall per rad similar to chest x-ray 05/17/2020. At the ED, patient was given Lasix 100 mg IV x1, DuoNeb, prednisone 20, Resendiz catheter placed. Patient has also been started on normal saline at 75 mL/h. PMH/PSH: Former smoker, Aortic valve replacement (pig) in the past, coronary artery disease with NSTEMI and coronary stent, left carotid endarterectomy, COPD on chronic 2 L O2 24 hours a day and she says daily prednisone 10mg, interstitial lung disease, pneumonia, UTI appendectomy, cholecystectomy, hysterectomy, knee replacement, mastectomy for breast cancer, osteoporosis, right proximal humerus fracture, left tib-fib fracture, Allergies to codeine, penicillin, sulfa, tramadol and cannot remember the reaction and also an allergy to warfarin due to bleeding. Medications: These have not been verified and she states Eliquis stopped and is on Prednisone 10mg daily. Acyclovir, aspirin, duo nebs, multivitamin, calcium plus vitamin D3, senna, Coreg, Symbicort, albuterol inhaler, Eliquis, Atrovent, Cozaar, nitroglycerin, atorvastatin, Mucinex, prednisolone eyedrops, Tylenol PM, Lasix 40 in the morning and 20 in the afternoon, duo nebs. Via telemedicine exam: Temp 98, heart rate 87, respiratory rate 40, BP 132/77, O2 sat 99 on 2 L. No apparent distress, alert, cooperative, Follows commands, no lateralizing weakness, but has generalized weakness Pupils equal, no scleral icterus Lips and mouth are dry, tongue midline on protrusion Heart regular rate and rhythm, no murmurs Lungs crackles b/l mid to lower lungs and expiratory wheezing intermittently posteriorly at the bases Abdomen bowel sounds are positive, soft, nondistended, nontender Lower extremities no pitting edema Skin dry, mildly pale Assessment and plan: Shortness of breath related to acute on chronic CHF exacerbation and COPD exacerbation. Unclear last echo ef and if systolic/diastolic, images here but do not have the report. Chest x-ray revealing vascular congestion and small bilateral pleural effusions. Also has significant wheezing on exam. Treat patient for CHF exacerbation with IV Lasix. Patient already received 100 mg IV Lasix in the ED with baseline Lasix dose of 40 mg in the morning and 20 mg at night, will plan 40 mg IV twice daily starting tomorrow, monitor renal function and electrolytes, keep the patient on telemetry, troponin was not elevated and no chest pain and will repeat trop this afternoon, ekg NSR without acute st changes but does have baseline inverted t waves which have been seen in the past, resendiz continue, she has had 600ml out in 2 hours thus would be cautious for hypotension developing she will be on NS at 50ml/hour. COPD exacerbation treat with ongoing oral steroid she received 20 mg in the ED and will give additional 20mg this afternoon and will plan 40 mg daily for 4 more days, then will need to tape to home 10mg daily if that is her chronic dose which needs to be verified. No current signs of pneumonia at this time. Continue nebs. She is chronically on O2 and remains at her baseline of 2 L. Keep cervical collar on and may need to obtain pcp/[place] records for details. Call e hospitalist with questions
[2020-07-14] MEDS: Albuterol/Ipratropium 3.0-0.5 MG/3 ML Neb Soln NEB SCH ×3 (15:25→21:03)
[2020-07-14] MEDS: Sodium Chloride 0.9% 1,000 ML IV SCH (15:31)
[2020-07-14] MEDS: Carvedilol 25 MG Tab PO SCH (21:03)
[2020-07-14] MEDS: atorvaSTATin 20 MG Tab PO SCH (21:03)
[2020-07-14] MEDS: Losartan 25 MG Tab PO SCH (21:03)
[2020-07-15] MEDS: Aspirin 81 MG Tab.Chew PO SCH (08:00)
[2020-07-15] MEDS ORDERED: predniSONE 10 MG Tab PO SCH ×2 (08:00)
[2020-07-15] MEDS ORDERED: Furosemide 40 MG/4 ML VIAL IVPUSH SCH (08:00)
[2020-07-15] MEDS: Carvedilol 25 MG Tab PO SCH ×2 (08:01→21:03)
[2020-07-15] MEDS: guaiFENesin 600 MG Tab.ER PO SCH (08:01)
[2020-07-15] MEDS: Acyclovir 400 MG Tab PO SCH (08:01)
[2020-07-15] MEDS: Albuterol/Ipratropium 3.0-0.5 MG/3 ML Neb Soln NEB SCH ×4 (08:02→21:02)
[2020-07-15] MEDS: Sodium Chloride 0.9% 1,000 ML IV SCH (11:11)
--- NOTE | 2020-07-15 11:59 | PCM.PN ---
- General Info Date of Service: 07/15/20 Admission Dx/Problem (Free Text): CHF, pneumonia Feeling better today, less effort breathing. Functional Status: Reports: Pain Controlled - Review of Systems General: Denies: Fever, Weakness HEENT: Reports: No Symptoms Pulmonary: Reports: Shortness of Breath. Denies: Cough Cardiovascular: Denies: Chest Pain Gastrointestinal: Reports: No Symptoms Musculoskeletal: Reports: No Symptoms Skin: Reports: No Symptoms Neurological: Reports: No Symptoms - Patient Data Vitals - Most Recent: Last Vital Signs Temp 97.6 F 07/15/20 08:00 Pulse 93 07/15/20 08:01 Resp 18 07/15/20 08:00 BP 131/64 07/15/20 08:01 Pulse Ox 98 07/15/20 08:00 Weight - Most Recent: 111 lb I&O - Last 24 Hours: Intake & Output 07/14/20 07/15/20 07/15/20 22:59 06:59 14:59 Intake Total 850 1029 Output Total 700 450 Balance 150 579 Lab Results Last 24 Hours: Laboratory Results - last 24 hr 07/14/20 07/15/20 07/15/20 Range/Units 14:10 08:25 08:25 WBC 13.0 H (4.0-11.0) K/uL RBC 3.26 L (3.80-5.80) M/uL Hgb 10.0 L (11.5-16.5) g/dL Hct 32.5 L (37.0-47.0) % MCV 100 H (76-96) fL MCH 30.7 (27.0-32.0) pg MCHC 30.8 L (31.0-35.0) g/dL RDW 14.4 (11.0-16.0) % Plt Count 177 (150-500) K/uL MPV 10.1 H (6.0-10.0) fL Neut % (Auto) 87.4 H (45.0-70.0) % Lymph % (Auto) 4.5 L (20.0-40.0) % Garrard % (Auto) 7.8 (3.0-10.0) % Eos % (Auto) 0.2 L (1.0-5.0) % Baso % (Auto) 0.1 (0.0-0.5) % Neut # (Auto) 11.34 H (2.00-7.50) K/uL Lymph # (Auto) 0.58 L (1.50-4.00) K/uL Garrard # (Auto) 1.01 H (0.20-0.80) K/uL Eos # (Auto) 0.02 L (0.04-0.40) K/uL Baso # (Auto) 0.01 L (0.02-0.10) K/uL Sodium 142 (136-145) mmol/L Potassium 4.1 4.5 (3.5-5.1) mmol/L Chloride 101 (98-107) mmol/L Carbon Dioxide 39.6 H (21.0-32.0) mmol/L Anion Gap 5.9 (5.0-15.0) mmol/L BUN 29 H (8-26) mg/dL Creatinine 0.99 (0.55-1.02) mg/dL Est Cr Clr Drug Dosing 34.77 mL/min Estimated GFR (MDRD) 54 L (>60) MLS/MIN BUN/Creatinine Ratio 29.3 H (6-25) Glucose 106 H (74-100) mg/dL Calcium 8.6 (8.5-10.1) mg/dL Total Bilirubin 0.4 D (0.0-1.0) mg/dL AST 19 (15-37) U/L ALT 19 (12-78) U/L Alkaline Phosphatase 44 L (46-116) U/L Troponin I 0.033 (0.000-0.060) ng/mL B-Natriuretic Peptide (0-450) pg/mL Total Protein 6.7 (6.4-8.2) g/dL Albumin 2.8 L (3.4-5.0) g/dL Globulin 3.9 (2.2-4.2) g/dL Albumin/Globulin Ratio 0.7 L (0.8-2.0) // Range/Units 08:25 WBC (4.0-11.0) K/uL RBC (3.80-5.80) M/uL Hgb (11.5-16.5) g/dL Hct (37.0-47.0) % MCV (76-96) fL MCH (27.0-32.0) pg MCHC (31.0-35.0) g/dL RDW (11.0-16.0) % Plt Count (150-500) K/uL MPV (6.0-10.0) fL Neut % (Auto) (45.0-70.0) % Lymph % (Auto) (20.0-40.0) % Garrard % (Auto) (3.0-10.0) % Eos % (Auto) (1.0-5.0) % Baso % (Auto) (0.0-0.5) % Neut # (Auto) (2.00-7.50) K/uL Lymph # (Auto) (1.50-4.00) K/uL Garrard # (Auto) (0.20-0.80) K/uL Eos # (Auto) (0.04-0.40) K/uL Baso # (Auto) (0.02-0.10) K/uL Sodium (136-145) mmol/L Potassium (3.5-5.1) mmol/L Chloride (98-107) mmol/L Carbon Dioxide (21.0-32.0) mmol/L Anion Gap (5.0-15.0) mmol/L BUN (8-26) mg/dL Creatinine (0.55-1.02) mg/dL Est Cr Clr Drug Dosing mL/min Estimated GFR (MDRD) (>60) MLS/MIN BUN/Creatinine Ratio (6-25) Glucose (74-100) mg/dL Calcium (8.5-10.1) mg/dL Total Bilirubin (0.0-1.0) mg/dL AST (15-37) U/L ALT (12-78) U/L Alkaline Phosphatase (46-116) U/L Troponin I (0.000-0.060) ng/mL B-Natriuretic Peptide 58681 H D (0-450) pg/mL Total Protein (6.4-8.2) g/dL Albumin (3.4-5.0) g/dL Globulin (2.2-4.2) g/dL Albumin/Globulin Ratio (0.8-2.0) Med Orders - Current: Current Medications Acetaminophen (Tylenol) 650 mg PO Q4H PRN PRN Reason: Pain (Mild 1-3)/fever Acyclovir (Zovirax) 400 mg PO DAILY COUNT INCLUDES [facility] Last Admin: 07/15/20 08:01 Dose: 400 mg Documented by: Albuterol/Ipratropium (Duoneb 3.0-0.5 Mg/3 Ml) 3 ml NEB QID COUNT INCLUDES [facility] Last Admin: 07/15/20 08:02 Dose: 3 ml Documented by: Aspirin (Aspirin) 81 mg PO DAILY COUNT INCLUDES THE [facility] Last Admin: 07/15/20 08:00 Dose: 81 mg Documented by: Atorvastatin Calcium (Lipitor) 20 mg PO BEDTIME COUNT INCLUDES THE [facility] Last Admin: 07/14/20 21:03 Dose: 20 mg Documented by: Carvedilol (Coreg) 25 mg PO BID COUNT INCLUDES [facility] Last Admin: 07/15/20 08:01 Dose: 25 mg Documented by: Furosemide (Lasix) 40 mg IVPUSH BID COUNT INCLUDES [facility] Last Admin: 07/15/20 08:02 Dose: 40 mg Documented by: Guaifenesin (Mucinex) 600 mg PO DAILY COUNT INCLUDES [facility] Last Admin: 07/15/20 08:01 Dose: 600 mg Documented by: Sodium Chloride (Normal Saline) 1,000 mls @ 50 mls/hr IV ASDIRECTED COUNT INCLUDES THE [facility] Last Admin: 07/15/20 11:11 Dose: 50 mls/hr Documented by: Losartan Potassium (Cozaar) 25 mg PO BEDTIME COUNT INCLUDES THE [facility] Last Admin: 07/14/20 21:03 Dose: 25 mg Documented by: Prednisone (Prednisone) 40 mg PO DAILY COUNT INCLUDES [facility] Stop: 07/15/20 23:59 Last Admin: 07/15/20 08:02 Dose: 40 mg Documented by: Prednisone (Prednisone) 30 mg PO DAILY COUNT INCLUDES THE [facility] Stop: 07/16/20 23:59 Prednisone (Prednisone) 20 mg PO DAILY COUNT INCLUDES THE [facility] Stop: 07/17/20 23:59 Prednisone (Prednisone) 10 mg PO DAILY COUNT INCLUDES THE [facility] Stop: 07/18/20 23:59 Discontinued Medications Albuterol/Ipratropium (Duoneb 3.0-0.5 Mg/3 Ml) 3 ml NEB BID COUNT INCLUDES THE [facility] Last Admin: 07/14/20 10:53 Dose: 3 ml Documented by: Albuterol/Ipratropium (Duoneb 3.0-0.5 Mg/3 Ml) Confirm Administered Dose 3 ml .ROUTE .[facility]-MED ONE Stop: 07/14/20 11:01 Last Admin: 07/14/20 13:20 Dose: Not Given Documented by: Furosemide (Lasix) 40 mg IVPUSH NOW ONE Stop: 07/14/20 10:20 Last Admin: 07/14/20 13:27 Dose: Not Given Documented by: Furosemide (Lasix) 100 mg IVPUSH NOW ONE Stop: 07/14/20 10:41 Last Admin: 07/14/20 11:08 Dose: 100 mg Documented by: Furosemide (Lasix) Confirm Administered Dose 100 mg .ROUTE .STK-MED ONE Stop: 07/14/20 11:12 Last Admin: 07/14/20 13:21 Dose: Not Given Documented by: Prednisone (Prednisone) 20 mg PO ONETIME ONE Stop: 07/14/20 10:19 Last Admin: 07/14/20 10:53 Dose: 20 mg Documented by: Prednisone (Prednisone) Confirm Administered Dose 20 mg .ROUTE .STK-MED ONE Stop: 07/14/20 11:01 Last Admin: 07/14/20 13:21 Dose: Not Given Documented by: Prednisone (Prednisone) 40 mg PO DAILY COUNT INCLUDES THE [facility] Stop: 07/14/20 23:59 Last Admin: 07/14/20 17:05 Dose: Not Given Documented by: Prednisone (Prednisone) 20 mg PO ONETIME ONE Stop: 07/14/20 16:01 Last Admin: 07/14/20 15:26 Dose: 20 mg Documented by: Prednisone (Prednisone) 30 mg PO DAILY COUNT INCLUDES THE [facility] Stop: 07/15/20 08:01 Prednisone (Prednisone) 20 mg PO DAILY COUNT INCLUDES THE [facility] Stop: 07/16/20 23:59 Prednisone (Prednisone) 10 mg PO DAILY COUNT INCLUDES THE [facility] Stop: 07/17/20 23:59 - Exam Quality Assessment: Supplemental Oxygen General: Alert, Oriented, Cooperative, Mild Distress HEENT: Pupils Equal Neck: Supple, Trachea Midline, No JVD Lungs: Crackles Cardiovascular: Regular Rate, Regular Rhythm GI/Abdominal Exam: Normal Bowel Sounds, Soft, Non-Tender Back Exam: Normal Inspection Extremities: Normal Inspection Skin: Warm, Dry, Intact Neurological: No New Focal Deficit Psy/Mental Status: Alert, Normal Affect Sepsis Event Note - Evaluation Sepsis Screening Result: No Definite Risk - Focused Exam Vital Signs: Vital Signs Temp Pulse Pulse Resp BP BP Pulse Ox 07/15/20 08:01 93 131/64 07/15/20 08:00 97.6 F 93 18 131/64 98 07/15/20 04:00 97.6 F 87 20 133/68 98 07/15/20 00:00 98.7 F 81 18 128/75 93 L - Problem List Review Problem List Initiated/Reviewed/Updated: Yes - My Orders Last 24 Hours: My Active Orders 07/14/20 10:59 Urinary Catheter Assessment [RC] 07/14/20 11:00 Insert Hill Catheter [Insert Urinary Catheter] [OM.PC] Q24H Sodium Chloride 0.9% [Normal Saline] 1,000 ml IV ASDIRECTED 07/14/20 11:22 Admission Status [Patient Status] [ADT] Routine 07/14/20 13:06 EKG Documentation Completion [RC] ASDIRECTED 07/15/20 08:01 CXR [Chest 2V] [CR] Routine - Plan Plan:: E hospitalist collaboration: 80-year-old female admitted from the ED for increasing shortness of breath and CHF/Copd exacerbation. Patient has had increasing shortness of breath and difficulty breathing for the last couple days, possibly longer she thinks. She is status post hospitalization in [place] for a fall at home with a c2 fracture. She states no surgery was needed and she was treated with a c collar which she is suppose to wear at all times and she states she had a repeat xray since being back in [place] and states she was told it is stable. Encouraged her to wear her c collar. She states is an awful thing to wear. Denies new falls. She lives at home with her son. She has had a cough that has been white productive, No fever or chills. No chest pain. No nausea, vomiting, abdominal pain, diarrhea, dysuria. She does feel fatigued. She wears O2 2L 24hrs per day. She was on Eliquis in the past, but states they took her off of that at a hospitalization in [place], she is not sure why she was taken off, now she is on a baby ASA. She has had aflutter in the past that required cardioversion few years ago and states she has been in normal rhythm since then, but this week she noted her HR to be fast and take longer to get below 100. No cp or palpitations today. She states she takes Prednisone 10mg daily and Lasix 40mg in the AM and 20mg in the afternoon. In the ED leukocytosis 13.1, hemoglobin 9.6, hematocrit 31.4, platelets 181, sodium 141, potassium 4, chloride 98, CO2 41.6, anion gap 5.4, BUN 25, creatinine 0.96, glucose 112, calcium 9.2, BNP 18,845, troponin I 0.040. Chest x-ray vascular congestion and persistent interstitial edema throughout both lungs and slight blunting of both costophrenic angle suggesting small bilateral pleural effusions. Overall per rad similar to chest x-ray 05/17/2020. At the ED, patient was given Lasix 100 mg IV x1, DuoNeb, prednisone 20, Hill catheter placed. Patient has also been started on normal saline at 75 mL/h. PMH/PSH: Former smoker, Aortic valve replacement (pig) in the past, coronary artery disease with NSTEMI and coronary stent, left carotid endarterectomy, COPD on chronic 2 L O2 24 hours a day and she says daily prednisone 10mg, interstitial lung disease, pneumonia, UTI appendectomy, cholecystectomy, hysterectomy, knee replacement, mastectomy for breast cancer, osteoporosis, right proximal humerus fracture, left tib-fib fracture, Allergies to codeine, penicillin, sulfa, tramadol and cannot remember the reaction and also an allergy to warfarin due to bleeding. Medications: These have not been verified and she states Eliquis stopped and is on Prednisone 10mg daily. Acyclovir, aspirin, duo nebs, multivitamin, calcium plus vitamin D3, senna, Coreg, Symbicort, albuterol inhaler, Eliquis, Atrovent, Cozaar, nitroglycerin, atorvastatin, Mucinex, prednisolone eyedrops, Tylenol PM, Lasix 40 in the morning and 20 in the afternoon, duo nebs. Via telemedicine exam: Temp 98, heart rate 87, respiratory rate 40, BP 132/77, O2 sat 99 on 2 L. No apparent distress, alert, cooperative, Follows commands, no lateralizing weakness, but has generalized weakness Pupils equal, no scleral icterus Lips and mouth are dry, tongue midline on protrusion Heart regular rate and rhythm, no murmurs Lungs crackles b/l mid to lower lungs and expiratory wheezing intermittently posteriorly at the bases Abdomen bowel sounds are positive, soft, nondistended, nontender Lower extremities no pitting edema Skin dry, mildly pale Assessment and plan: Shortness of breath related to acute on chronic CHF exacerbation and COPD exacerbation. Unclear last echo ef and if systolic/diastolic, images here but do not have the report. Chest x-ray revealing vascular congestion and small bilateral pleural effusions. Also has significant wheezing on exam. Treat patient for CHF exacerbation with IV Lasix. Patient already received 100 mg IV Lasix in the ED with baseline Lasix dose of 40 mg in the morning and 20 mg at night, will plan 40 mg IV twice daily starting tomorrow, monitor renal function and electrolytes, keep the patient on telemetry, troponin was not elevated and no chest pain and will repeat trop this afternoon, ekg NSR without acute st changes but does have baseline inverted t waves which have been seen in the past, astrid continue, she has had 600ml out in 2 hours thus would be cautious for hypotension developing she will be on NS at 50ml/hour. COPD exacerbation treat with ongoing oral steroid she received 20 mg in the ED and will give additional 20mg this afternoon and will plan 40 mg daily for 4 more days, then will need to tape to home 10mg daily if that is her chronic dose which needs to be verified. No current signs of pneumonia at this time. Continue nebs. She is chronically on O2 and remains at her baseline of 2 L. Keep cervical collar on and may need to obtain pcp/[place] records for details. Call e hospitalist with questions
--- NOTE | 2020-07-15 15:36 | PCM.PN ---
- General Info Date of Service: 07/15/20 Admission Dx/Problem (Free Text): CHF, pneumonia Feeling better today, less effort breathing. Subjective Update: THis is a 80 yo woman with PMH AVR x 2, CHF, COPD admitted with Acute respiratory failure. * Pt with mx hospitalizations over the past several months. * Uses oxygen at home. * Adherent to medication regimen. * Lives with her son who helps her a lot. * Uses non-invasive ventilation at hs but not since last hospital stay due to becoming SOB. * No h/o ADEBAYO as far as she knows. 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 * Spouse in February * Mood has been poor--patient noting that sometimes she just wants to give up. * Not on SSRI or other anti-depressant. * Notes increasing difficulty with strength over the summer. * Nursing notes that patient was able to ambulate with CGA to the bathroom. * Able to adjust herself in bed. * No sore throat. * No fevers or chills. * Had a COVID test in April. * Last EF 2017 was 50%. 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 * Poor appetite. Gets full easily. * Likes fruits and vegetables. * Notes that her abdomen is murray than usual. Functional Status: Reports: Pain Controlled, Tolerating Diet, Ambulating, Urinating (Hill catheter in place) - Review of Systems General: Reports: Weakness, Fatigue, Malaise - Patient Data Vitals - Most Recent: Last Vital Signs Temp 36.7 C 07/15/20 12:00 Pulse 83 07/15/20 12:00 Resp 20 07/15/20 12:00 BP 119/60 07/15/20 12:00 Pulse Ox 96 07/15/20 12:00 Weight - Most Recent: 50.349 kg I&O - Last 24 Hours: Intake & Output 07/15/20 07/15/20 07/15/20 06:59 14:59 22:59 Intake Total 1029 Output Total 450 Balance 579 Lab Results Last 24 Hours: Reviewed. Med Orders - Current: Reviewed. - Exam Quality Assessment: Supplemental Oxygen General: Alert, Oriented, Cooperative, No Acute Distress, Other (coughs at times. ) Lungs: Other (course BS bilaterally with exp wheezes. breathing not labored. not using accessory muscles.) Cardiovascular: Regular Rate, Regular Rhythm, Murmurs (III/ SM heard at LUSB. ) GI/Abdominal Exam: Normal Bowel Sounds, Soft Sepsis Event Note - Evaluation Sepsis Screening Result: No Definite Risk - Focused Exam Vital Signs: Vital Signs Temp Pulse Pulse Resp BP BP Pulse Ox 07/15/20 12:00 36.7 C 83 20 119/60 96 07/15/20 08:01 93 131/64 07/15/20 08:00 36.4 C 93 18 131/64 98 07/15/20 04:00 36.4 C 87 20 133/68 98 - Problem List & Annotations (1) CHF exacerbation SNOMED Code(s): 876378564, 81315167097528 Code(s): I50.9 - HEART FAILURE, UNSPECIFIED Status: Acute Current Visit: Yes Qualified Code(s): I50.9 - Heart failure, unspecified (2) COPD exacerbation (3) Malnutrition SNOMED Code(s): 75204200 Code(s): E46 - UNSPECIFIED PROTEIN-CALORIE MALNUTRITION Status: Acute Current Visit: Yes (4) Grief reaction Current Visit: Yes (5) Cough - Problem List Review Problem List Initiated/Reviewed/Updated: Yes - My Orders Last 24 Hours: My Active Orders 07/15/20 15:10 Nursing Bedside Swallow Screen [RC] ASDIRECTED Overnight Pulse Oximetry [RC] Click to Edit OT Evaluation and Treatment [CONS] Routine PT Evaluation and Treatment [CONS] Routine Echo Comp w Cont [US] Routine CORONAVIRUS COVID-19 RAPID [MOLEC] Stat SEDIMENTATION RATE MANUAL [HEME] Routine VIRUS, RESP PANEL, DFA W/RFLX Stat 07/15/20 15:15 RADHA W/RFX TO ALL IF POSITIVE DAILY TSH+THYABS DAILY VITAMIN D, 25-HYDROXY DAILY 07/15/20 20:00 Pantoprazole [ProTONIX] 40 mg PO BEDTIME 07/16/20 08:00 Furosemide [Lasix] 60 mg IVPUSH DAILY - Assessment Assessment:: 1. Acute respiratory failure in setting of: * h/o CHF of unknown type. * h/o AVR with unknown cardiac function status * Known COPD with long history of environmental exposures and known pulmonary nodules on CT * Plan: * Stop IV Fluids * r/o Aspiration--bedside swallow and start PPI * Agree with steroids * 2D echo when possible. * Overnight oximetry * Change lasix to 60 mg IV daily for now. * Continue nebs * Add PT/OT * Pt likely to need SNF upon discharge or SB. * Have nursing do PHQ9 to assess mood as patient recently lost her . - Plan Plan:: E hospitalist collaboration: 80-year-old female admitted from the ED for increasing shortness of breath and CHF/Copd exacerbation. Patient has had increasing shortness of breath and difficulty breathing for the last couple days, possibly longer she thinks. She is status post hospitalization in [place] for a fall at home with a c2 fracture. She states no surgery was needed and she was treated with a c collar which she is suppose to wear at all times and she states she had a repeat xray since being back in [place] and states she was told it is stable. Encouraged her to wear her c collar. She states is an awful thing to wear. Denies new falls. She lives at home with her son. She has had a cough that has been white productive, No fever or chills. No chest pain. No nausea, vomiting, abdominal pain, diarrhea, dysuria. She does feel fatigued. She wears O2 2L 24hrs per day. She was on Eliquis in the past, but states they took her off of that at a hospitalization in [place], she is not sure why she was taken off, now she is on a baby ASA. She has had aflutter in the past that required cardioversion few years ago and states she has been in normal rhythm since then, but this week she noted her HR to be fast and take longer to get below 100. No cp or palpitations today. She states she takes Prednisone 10mg daily and Lasix 40mg in the AM and 20mg in the afternoon. In the ED leukocytosis 13.1, hemoglobin 9.6, hematocrit 31.4, platelets 181, sodium 141, potassium 4, chloride 98, CO2 41.6, anion gap 5.4, BUN 25, creatinine 0.96, glucose 112, calcium 9.2, BNP 18,845, troponin I 0.040. Chest x-ray vascular congestion and persistent interstitial edema throughout both lungs and slight blunting of both costophrenic angle suggesting small bilateral pleural effusions. Overall per rad similar to chest x-ray 05/17/2020. At the ED, patient was given Lasix 100 mg IV x1, DuoNeb, prednisone 20, Hill catheter placed. Patient has also been started on normal saline at 75 mL/h. PMH/PSH: Former smoker, Aortic valve replacement (pig) in the past, coronary artery disease with NSTEMI and coronary stent, left carotid endarterectomy, COPD on chronic 2 L O2 24 hours a day and she says daily prednisone 10mg, interstitial lung disease, pneumonia, UTI appendectomy, cholecystectomy, hysterectomy, knee replacement, mastectomy for breast cancer, osteoporosis, right proximal humerus fracture, left tib-fib fracture, Allergies to codeine, penicillin, sulfa, tramadol and cannot remember the reaction and also an allergy to warfarin due to bleeding. Medications: These have not been verified and she states Eliquis stopped and is on Prednisone 10mg daily. Acyclovir, aspirin, duo nebs, multivitamin, calcium plus vitamin D3, senna, Coreg, Symbicort, albuterol inhaler, Eliquis, Atrovent, Cozaar, nitroglycerin, atorvastatin, Mucinex, prednisolone eyedrops, Tylenol PM, Lasix 40 in the morning and 20 in the afternoon, duo nebs. Via telemedicine exam: Temp 98, heart rate 87, respiratory rate 40, BP 132/77, O2 sat 99 on 2 L. No apparent distress, alert, cooperative, Follows commands, no lateralizing weakness, but has generalized weakness Pupils equal, no scleral icterus Lips and mouth are dry, tongue midline on protrusion Heart regular rate and rhythm, no murmurs Lungs crackles b/l mid to lower lungs and expiratory wheezing intermittently posteriorly at the bases Abdomen bowel sounds are positive, soft, nondistended, nontender Lower extremities no pitting edema Skin dry, mildly pale Assessment and plan: Shortness of breath related to acute on chronic CHF exacerbation and COPD exacerbation. Unclear last echo ef and if systolic/diastolic, images here but do not have the report. Chest x-ray revealing vascular congestion and small bilateral pleural effusions. Also has significant wheezing on exam. Treat patient for CHF exacerbation with IV Lasix. Patient already received 100 mg IV Lasix in the ED with baseline Lasix dose of 40 mg in the morning and 20 mg at night, will plan 40 mg IV twice daily starting tomorrow, monitor renal function and electrolytes, keep the patient on telemetry, troponin was not elevated and no chest pain and will repeat trop this afternoon, ekg NSR without acute st changes but does have baseline inverted t waves which have been seen in the past, astrid continue, she has had 600ml out in 2 hours thus would be cautious for hypotension developing she will be on NS at 50ml/hour. COPD exacerbation treat with ongoing oral steroid she received 20 mg in the ED and will give additional 20mg this afternoon and will plan 40 mg daily for 4 more days, then will need to tape to home 10mg daily if that is her chronic dose which needs to be verified. No current signs of pneumonia at this time. Continue nebs. She is chronically on O2 and remains at her baseline of 2 L. Keep cervical collar on and may need to obtain pcp/[place] records for details. Call e hospitalist with questions
[2020-07-15] MEDS ORDERED: Bisacodyl 10 MG Supp RECTAL ONE (15:48)
[2020-07-15] MEDS ORDERED: Melatonin 3 MG Tab PO PRN (15:50)
[2020-07-15] MEDS ORDERED: Ondansetron 4 MG Tab.DIS PO PRN (15:50)
[2020-07-15] MEDS: atorvaSTATin 20 MG Tab PO SCH (21:02)
[2020-07-15] MEDS: Losartan 25 MG Tab PO SCH (21:03)
[2020-07-15] MEDS: Pantoprazole 40 MG Tab.CR PO SCH (21:03)
[2020-07-15] MEDS: Acetaminophen 325 MG Tab PO PRN (21:07)
[2020-07-16] MEDS: Albuterol/Ipratropium 3.0-0.5 MG/3 ML Neb Soln NEB SCH ×4 (07:34→19:35)
[2020-07-16] MEDS: Furosemide 100 MG/10 ML SDV IVPUSH SCH (07:34)
[2020-07-16] MEDS: guaiFENesin 600 MG Tab.ER PO SCH (07:36)
[2020-07-16] MEDS: Acyclovir 400 MG Tab PO SCH (07:36)
[2020-07-16] MEDS: Aspirin 81 MG Tab.Chew PO SCH (07:36)
[2020-07-16] MEDS: Carvedilol 25 MG Tab PO SCH ×2 (07:37→19:35)
[2020-07-16] MEDS ORDERED: predniSONE 10 MG Tab PO SCH (08:00)
[2020-07-16] MEDS ORDERED: predniSONE 20 MG Tab PO SCH (08:00)
--- NOTE | 2020-07-16 08:08 | CR ---
Date of Service: 07/15/20 Clinical Data: chf PA AND LATERAL CHEST: Comparison is made to a prior exam dated 07/14/20. The heart remains enlarged, unchanged. There is persistent mild pulmonary vascular congestion. There is interstitial edema throughout both lungs. There is persistent blunting of both costophrenic angles consistent with small bilateral pleural effusions. The exam is otherwise unchanged from the prior. [id number] [facility]
[2020-07-16] MEDS ORDERED: Cefepime 1 GM in Sodium Chloride 0.9% 50 ML IV SCH (10:00)
--- NOTE | 2020-07-16 10:03 | PCM.PN ---
- General Info Date of Service: 07/16/20 Admission Dx/Problem (Free Text): CHF, pneumonia Feeling better today, less effort breathing. Subjective Update: Patient not much better today though slept through the night. Only 500 MLS of urine from AM Lasix dose. Cough not better. Had a BM yesterday. PHQ9 score was 18. Functional Status: Reports: Pain Controlled - Patient Data Vitals - Most Recent: Last Vital Signs Temp 37.1 C 07/16/20 08:00 Pulse 86 07/16/20 08:00 Resp 20 07/16/20 08:00 BP 137/74 07/16/20 08:00 Pulse Ox 98 07/16/20 08:00 Weight - Most Recent: 51.766 kg I&O - Last 24 Hours: Intake & Output 07/15/20 07/16/20 07/16/20 22:59 06:59 14:59 Intake Total 700 200 Output Total 775 650 Balance -75 -450 Lab Results Last 24 Hours: Laboratory Results - last 24 hr 07/14/20 07/15/20 Range/Units 09:48 16:08 TSH, Ultra Sensitive 0.952 D (0.358-3.740) uIU/mL COVID-19 ([facility]) Negative Med Orders - Current: Current Medications Acetaminophen (Tylenol) 650 mg PO Q4H PRN PRN Reason: Pain (Mild 1-3)/fever Last Admin: 07/15/20 21:07 Dose: 650 mg Documented by: Acyclovir (Zovirax) 400 mg PO DAILY [facility] Last Admin: 07/16/20 07:36 Dose: 400 mg Documented by: Albuterol/Ipratropium (Duoneb 3.0-0.5 Mg/3 Ml) 3 ml NEB QID [facility] Last Admin: 07/16/20 07:34 Dose: 3 ml Documented by: Aspirin (Aspirin) 81 mg PO DAILY [facility] Last Admin: 07/16/20 07:36 Dose: 81 mg Documented by: Atorvastatin Calcium (Lipitor) 20 mg PO BEDTIME [facility] Last Admin: 07/15/20 21:02 Dose: 20 mg Documented by: Carvedilol (Coreg) 25 mg PO BID [facility] Last Admin: 07/16/20 07:37 Dose: 25 mg Documented by: Furosemide (Lasix) 60 mg IVPUSH DAILY [facility] Last Admin: 07/16/20 07:34 Dose: 60 mg Documented by: Furosemide (Lasix) 40 mg IVPUSH NOW ONE Stop: 07/16/20 14:01 Guaifenesin (Mucinex) 600 mg PO DAILY [facility] Last Admin: 07/16/20 07:36 Dose: 600 mg Documented by: Doxycycline Hyclate 100 mg/ (Sodium Chloride) 100 mls @ 100 mls/hr IV Q12HR [facility] Cefepime HCl 1 gm/ Sodium (Chloride) 50 mls @ 100 mls/hr IV Q12HR [facility] Losartan Potassium (Cozaar) 25 mg PO BEDTIME [facility] Last Admin: 07/15/20 21:03 Dose: 25 mg Documented by: Melatonin (Melatonin) 6 mg PO BEDTIME PRN PRN Reason: Sleep Metolazone (Zaroxolyn) 2.5 mg PO ONETIME ONE Stop: 07/16/20 13:31 Ondansetron HCl (Zofran Odt) 4 mg PO Q4H PRN PRN Reason: Nausea/Vomiting Pantoprazole Sodium (Protonix) 40 mg PO BEDTIME [facility] Last Admin: 07/15/20 21:03 Dose: 40 mg Documented by: Prednisone (Prednisone) 30 mg PO DAILY [facility] Stop: 07/16/20 23:59 Last Admin: 07/16/20 07:36 Dose: 30 mg Documented by: Prednisone (Prednisone) 20 mg PO DAILY [facility] Stop: 07/17/20 23:59 Prednisone (Prednisone) 10 mg PO DAILY [facility] Stop: 07/18/20 23:59 Senna/Docusate Sodium (Senna Plus) 1 tab PO DAILY PRN PRN Reason: Constipation Discontinued Medications Albuterol/Ipratropium (Duoneb 3.0-0.5 Mg/3 Ml) 3 ml NEB BID [facility] Last Admin: 07/14/20 10:53 Dose: 3 ml Documented by: Albuterol/Ipratropium (Duoneb 3.0-0.5 Mg/3 Ml) Confirm Administered Dose 3 ml .ROUTE .STK-MED ONE Stop: 07/14/20 11:01 Last Admin: 07/14/20 13:20 Dose: Not Given Documented by: Bisacodyl (Dulcolax) 10 mg RECTAL ONETIME ONE Stop: 07/15/20 15:49 Last Admin: 07/15/20 17:00 Dose: Not Given Documented by: Furosemide (Lasix) 40 mg IVPUSH NOW ONE Stop: 07/14/20 10:20 Last Admin: 07/14/20 13:27 Dose: Not Given Documented by: Furosemide (Lasix) 100 mg IVPUSH NOW ONE Stop: 07/14/20 10:41 Last Admin: 07/14/20 11:08 Dose: 100 mg Documented by: Furosemide (Lasix) Confirm Administered Dose 100 mg .ROUTE .STK-MED ONE Stop: 07/14/20 11:12 Last Admin: 07/14/20 13:21 Dose: Not Given Documented by: Furosemide (Lasix) 40 mg IVPUSH BID [facility] Last Admin: 07/15/20 08:02 Dose: 40 mg Documented by: Sodium Chloride (Normal Saline) 1,000 mls @ 50 mls/hr IV ASDIRECTED [facility] Last Admin: 07/15/20 11:11 Dose: 50 mls/hr Documented by: Prednisone (Prednisone) 20 mg PO ONETIME ONE Stop: 07/14/20 10:19 Last Admin: 07/14/20 10:53 Dose: 20 mg Documented by: Prednisone (Prednisone) Confirm Administered Dose 20 mg .ROUTE .STK-MED ONE Stop: 07/14/20 11:01 Last Admin: 07/14/20 13:21 Dose: Not Given Documented by: Prednisone (Prednisone) 40 mg PO DAILY [facility] Stop: 07/14/20 23:59 Last Admin: 07/14/20 17:05 Dose: Not Given Documented by: Prednisone (Prednisone) 20 mg PO ONETIME ONE Stop: 07/14/20 16:01 Last Admin: 07/14/20 15:26 Dose: 20 mg Documented by: Prednisone (Prednisone) 30 mg PO DAILY [facility] Stop: 07/15/20 08:01 Prednisone (Prednisone) 20 mg PO DAILY [facility] Stop: 07/16/20 23:59 Prednisone (Prednisone) 10 mg PO DAILY [facility] Stop: 07/17/20 23:59 Prednisone (Prednisone) 40 mg PO DAILY [facility] Stop: 07/15/20 23:59 Last Admin: 07/15/20 08:02 Dose: 40 mg Documented by: - Exam General: Alert, Oriented Lungs: Other (bilateral crackles, shallow breaths, no accessory muscle use.) Cardiovascular: Murmurs (III/ low pitched SM heard best at RUSB. ) Sepsis Event Note - Evaluation Sepsis Screening Result: No Definite Risk - Focused Exam Vital Signs: Vital Signs Temp Pulse Pulse Resp BP BP Pulse Ox 07/16/20 08:00 37.1 C 86 20 137/74 98 07/16/20 07:37 86 137/74 07/16/20 04:00 36.8 C 84 20 149/85 H 94 L 07/16/20 00:00 83 20 97 - Problem List & Annotations (1) CHF exacerbation SNOMED Code(s): 211602888, [id number] Code(s): I50.9 - HEART FAILURE, UNSPECIFIED Status: Acute Current Visit: Yes (2) COPD exacerbation (3) Malnutrition SNOMED Code(s): 59683049 Code(s): E46 - UNSPECIFIED PROTEIN-CALORIE MALNUTRITION Status: Acute Current Visit: Yes (4) Grief reaction Current Visit: Yes (5) Cough - Problem List Review Problem List Initiated/Reviewed/Updated: Yes - My Orders Last 24 Hours: My Active Orders 07/15/20 15:10 Nursing Bedside Swallow Screen [RC] ASDIRECTED Overnight Pulse Oximetry [RC] Click to Edit OT Evaluation and Treatment [CONS] Routine PT Evaluation and Treatment [CONS] Routine Echo Comp w Cont [US] Routine SEDIMENTATION RATE MANUAL [HEME] Routine VIRUS, RESP PANEL, DFA W/RFLX Stat 07/15/20 15:15 RADHA W/RFX TO ALL IF POSITIVE DAILY VITAMIN D, 25-HYDROXY DAILY 07/15/20 15:48 Docusate Sodium/Sennosides [Senna Plus] 1 tab PO DAILY PRN 07/15/20 15:50 Melatonin 6 mg PO BEDTIME PRN Ondansetron [Zofran ODT] 4 mg PO Q4H PRN 07/15/20 20:00 Pantoprazole [ProTONIX] 40 mg PO BEDTIME 07/16/20 08:00 Furosemide [Lasix] 60 mg IVPUSH DAILY 07/16/20 09:50 BASIC METABOLIC PANEL,BMP [CHEM] Routine CBC WITH AUTO DIFF [HEME] Routine 07/16/20 09:55 Cefepime [Maxipime] 1 gm Sodium Chloride 0.9% [Normal Saline] 50 ml IV Q12HR 07/16/20 13:30 metOLazone [Zaroxolyn] 2.5 mg PO ONETIME ONE 07/16/20 14:00 Furosemide [Lasix] 40 mg IVPUSH NOW ONE 07/16/20 20:00 Doxycycline [Vibramycin] 100 mg Sodium Chloride 0.9% [Normal Saline] 100 ml IV Q12HR 07/17/20 05:11 BASIC METABOLIC PANEL,BMP [CHEM] AM CBC WITH AUTO DIFF [HEME] AM - Assessment Assessment:: 1. Acute respiratory failure in setting of: * h/o CHF of unknown type. * h/o AVR with unknown cardiac function status * Known COPD with long history of environmental exposures and known pulmonary nodules on CT * Plan: * Add Doxy and Cefepime * Another dose of Lasix at 2 PM * Give Zaroxolyn prior * Consider adding SSRI tomorrow given score of 18 * Await echo results * CXR tomorrow if not better. * Labs today and in am. - Plan Plan:: E hospitalist collaboration: 80-year-old female admitted from the ED for increasing shortness of breath and CHF/Copd exacerbation. Patient has had increasing shortness of breath and difficulty breathing for the last couple days, possibly longer she thinks. She is status post hospitalization in [place] for a fall at home with a c2 fracture. She states no surgery was needed and she was treated with a c collar which she is suppose to wear at all times and she states she had a repeat xray since being back in [place] and states she was told it is stable. Encouraged her to wear her c collar. She states is an awful thing to wear. Denies new falls. She lives at home with her son. She has had a cough that has been white productive, No fever or chills. No chest pain. No nausea, vomiting, abdominal pain, diarrhea, dysuria. She does feel fatigued. She wears O2 2L 24hrs per day. She was on Eliquis in the past, but states they took her off of that at a hospitalization in [place], she is not sure why she was taken off, now she is on a baby ASA. She has had aflutter in the past that required cardioversion few years ago and states she has been in normal rhythm since then, but this week she noted her HR to be fast and take longer to get below 100. No cp or palpitations today. She states she takes Prednisone 10mg daily and Lasix 40mg in the AM and 20mg in the afternoon. In the ED leukocytosis 13.1, hemoglobin 9.6, hematocrit 31.4, platelets 181, sodium 141, potassium 4, chloride 98, CO2 41.6, anion gap 5.4, BUN 25, creatinine 0.96, glucose 112, calcium 9.2, BNP 18,845, troponin I 0.040. Chest x-ray vascular congestion and persistent interstitial edema throughout both lungs and slight blunting of both costophrenic angle suggesting small bilateral pleural effusions. Overall per rad similar to chest x-ray 05/17/2020. At the ED, patient was given Lasix 100 mg IV x1, DuoNeb, prednisone 20, Hill catheter placed. Patient has also been started on normal saline at 75 mL/h. PMH/PSH: Former smoker, Aortic valve replacement (pig) in the past, coronary artery disease with NSTEMI and coronary stent, left carotid endarterectomy, COPD on chronic 2 L O2 24 hours a day and she says daily prednisone 10mg, interstitial lung disease, pneumonia, UTI appendectomy, cholecystectomy, hysterectomy, knee replacement, mastectomy for breast cancer, osteoporosis, right proximal humerus fracture, left tib-fib fracture, Allergies to codeine, penicillin, sulfa, tramadol and cannot remember the reaction and also an allergy to warfarin due to bleeding. Medications: These have not been verified and she states Eliquis stopped and is on Prednisone 10mg daily. Acyclovir, aspirin, duo nebs, multivitamin, calcium plus vitamin D3, senna, Coreg, Symbicort, albuterol inhaler, Eliquis, Atrovent, Cozaar, nitroglycerin, atorvastatin, Mucinex, prednisolone eyedrops, Tylenol PM, Lasix 40 in the morning and 20 in the afternoon, duo nebs. Via telemedicine exam: Temp 98, heart rate 87, respiratory rate 40, BP 132/77, O2 sat 99 on 2 L. No apparent distress, alert, cooperative, Follows commands, no lateralizing weakness, but has generalized weakness Pupils equal, no scleral icterus Lips and mouth are dry, tongue midline on protrusion Heart regular rate and rhythm, no murmurs Lungs crackles b/l mid to lower lungs and expiratory wheezing intermittently posteriorly at the bases Abdomen bowel sounds are positive, soft, nondistended, nontender Lower extremities no pitting edema Skin dry, mildly pale Assessment and plan: Shortness of breath related to acute on chronic CHF exacerbation and COPD exacerbation. Unclear last echo ef and if systolic/diastolic, images here but do not have the report. Chest x-ray revealing vascular congestion and small bilateral pleural effusions. Also has significant wheezing on exam. Treat patient for CHF exacerbation with IV Lasix. Patient already received 100 mg IV Lasix in the ED with baseline Lasix dose of 40 mg in the morning and 20 mg at night, will plan 40 mg IV twice daily starting tomorrow, monitor renal function and electrolytes, keep the patient on telemetry, troponin was not elevated and no chest pain and will repeat trop this afternoon, ekg NSR without acute st changes but does have baseline inverted t waves which have been seen in the past, astrid continue, she has had 600ml out in 2 hours thus would be cautious for hypotension developing she will be on NS at 50ml/hour. COPD exacerbation treat with ongoing oral steroid she received 20 mg in the ED and will give additional 20mg this afternoon and will plan 40 mg daily for 4 more days, then will need to tape to home 10mg daily if that is her chronic dose which needs to be verified. No current signs of pneumonia at this time. Continue nebs. She is chronically on O2 and remains at her baseline of 2 L. Keep cervical collar on and may need to obtain pcp/[place] records for details. Call e hospitalist with questions
[2020-07-16] MEDS: Doxycycline 100 MG in Sodium Chloride 0.9% 100 ML IV SCH ×2 (10:40→20:55)
[2020-07-16] MEDS ORDERED: Levofloxacin/Dextrose 5%-Water 500 MG in Premix Bag 1 BAG IV SCH (11:30)
[2020-07-16] MEDS ORDERED: Metolazone 5 MG Tab PO ONE (13:30)
[2020-07-16] MEDS ORDERED: Furosemide 40 MG/4 ML VIAL IVPUSH ONE (14:00)
[2020-07-16] MEDS: atorvaSTATin 20 MG Tab PO SCH (19:35)
[2020-07-16] MEDS: Losartan 25 MG Tab PO SCH (19:35)
[2020-07-16] MEDS: Pantoprazole 40 MG Tab.CR PO SCH (19:36)
[2020-07-16] MEDS: Acetaminophen 325 MG Tab PO PRN (22:18)
[2020-07-17] MEDS ORDERED: Levofloxacin/Dextrose 5%-Water 250 MG in Premix Bag 1 BAG IV SCH (07:00)
[2020-07-17] MEDS: Albuterol/Ipratropium 3.0-0.5 MG/3 ML Neb Soln NEB SCH ×4 (07:45→20:27)
[2020-07-17] MEDS: Aspirin 81 MG Tab.Chew PO SCH (07:46)
[2020-07-17] MEDS: guaiFENesin 600 MG Tab.ER PO SCH (07:46)
[2020-07-17] MEDS: Acyclovir 400 MG Tab PO SCH (07:46)
[2020-07-17] MEDS: Carvedilol 25 MG Tab PO SCH ×2 (07:47→20:26)
[2020-07-17] MEDS ORDERED: predniSONE 10 MG Tab PO SCH (08:00)
[2020-07-17] MEDS ORDERED: predniSONE 20 MG Tab PO SCH (08:00)
[2020-07-17] MEDS: Doxycycline 100 MG in Sodium Chloride 0.9% 100 ML IV SCH ×2 (08:18→21:11)
[2020-07-17] MEDS ORDERED: Levofloxacin/Dextrose 5%-Water 50 ML IV ONE (08:51)
[2020-07-17] MEDS ORDERED: Metolazone 5 MG Tab PO ONE (09:25)
--- NOTE | 2020-07-17 09:31 | PCM.SN.2 ---
- Free Text/Narrative Note: Spoke to nursing about patient status. Pt is down 2 pounds today. Still on 2 L and SOB. Was started on levaquin and doxy yesterday. CR 1.1 today and bicarb is up. Not clear on how much CHF is playing a role for her. She has an echo scheduled for Friday. 1. Added one dose of Zaroxolyn prior to lasix today. 2. Would change her over to po lasix tomorrow. 3. PA/LAT CXR tomorrow 4. Viral studies pending. 5. Continue nebs. 6. If clinically worsens, would recommend transfer if patient agrees as she may benefit from an assessment. 7. Patient uses Non-invasive ventilation at home. Could consider having family bring this back in so she can sleep with it tonight.
[2020-07-17] MEDS: Levofloxacin/Dextrose 5%-Water 250 MG in Premix Bag 1 BAG IV SCH (09:53)
[2020-07-17] MEDS: Albuterol/Ipratropium 3.0-0.5 MG/3 ML Neb Soln NEB PRN (09:57)
[2020-07-17] MEDS: Furosemide 100 MG/10 ML SDV IVPUSH SCH (10:58)
[2020-07-17] MEDS: atorvaSTATin 20 MG Tab PO SCH (20:27)
[2020-07-17] MEDS: Losartan 25 MG Tab PO SCH (20:27)
[2020-07-17] MEDS: Pantoprazole 40 MG Tab.CR PO SCH (20:27)
[2020-07-17] MEDS: Sodium Chloride 0.9% 10 ML Syringe FLUSH PRN ×2 (21:10→22:12)
[2020-07-17] MEDS: Acetaminophen 325 MG Tab PO PRN (21:27)
[2020-07-18] MEDS: Albuterol/Ipratropium 3.0-0.5 MG/3 ML Neb Soln NEB PRN (03:46)
--- NOTE | 2020-07-18 07:39 | CR ---
Date of Service: 07/17/20 Clinical Data: SOB PA CHEST: Comparison is made to a prior exam dated 07/15/20. The heart size is stable. The diffuse interstitial infiltrates appear essentially unchanged. No new abnormalities. [id number] [facility]
--- NOTE | 2020-07-18 07:50 | PCM.PN ---
- General Info Date of Service: 07/17/20 - Review of Systems General: Reports: Weakness. Denies: Fever HEENT: Reports: No Symptoms Pulmonary: Reports: Shortness of Breath, Cough Cardiovascular: Denies: Chest Pain Musculoskeletal: Reports: No Symptoms Neurological: Reports: No Symptoms, Weakness - Patient Data Vitals - Most Recent: Last Vital Signs Temp 97.5 F 07/18/20 03:44 Pulse 78 07/18/20 03:44 Resp 20 07/18/20 03:44 BP 129/74 07/18/20 03:44 Pulse Ox 93 L 07/18/20 03:44 Weight - Most Recent: 112 lb 4 oz I&O - Last 24 Hours: Intake & Output 07/17/20 07/18/20 07/18/20 22:59 06:59 14:59 Intake Total 1090 300 Output Total 1800 725 Balance -710 -425 Lab Results Last 24 Hours: Laboratory Results - last 24 hr 07/17/20 07/17/20 07/17/20 Range/Units 08:30 08:30 08:30 WBC 13.4 H (4.0-11.0) K/uL RBC 3.32 L (3.80-5.80) M/uL Hgb 10.2 L (11.5-16.5) g/dL Hct 33.4 L (37.0-47.0) % MCV 101 H (76-96) fL MCH 30.7 (27.0-32.0) pg MCHC 30.5 L (31.0-35.0) g/dL RDW 14.5 (11.0-16.0) % Plt Count 206 (150-500) K/uL MPV 9.7 (6.0-10.0) fL Neut % (Auto) 79.9 H (45.0-70.0) % Lymph % (Auto) 6.9 L (20.0-40.0) % [place] % (Auto) 11.6 H (3.0-10.0) % Eos % (Auto) 1.5 (1.0-5.0) % Baso % (Auto) 0.1 (0.0-0.5) % Neut # (Auto) 10.72 H (2.00-7.50) K/uL Lymph # (Auto) 0.93 L (1.50-4.00) K/uL [place] # (Auto) 1.56 H (0.20-0.80) K/uL Eos # (Auto) 0.20 (0.04-0.40) K/uL Baso # (Auto) 0.01 L (0.02-0.10) K/uL Sodium 141 (136-145) mmol/L Potassium 3.7 (3.5-5.1) mmol/L Chloride 101 (98-107) mmol/L Carbon Dioxide 40.5 H (21.0-32.0) mmol/L Anion Gap 3.2 L (5.0-15.0) mmol/L BUN 25 (8-26) mg/dL Creatinine 1.11 H (0.55-1.02) mg/dL Est Cr Clr Drug Dosing 31.01 mL/min Estimated GFR (MDRD) 47 L (>60) MLS/MIN BUN/Creatinine Ratio 22.5 (6-25) Glucose 89 D (74-100) mg/dL Calcium 8.0 L (8.5-10.1) mg/dL B-Natriuretic Peptide 17314 H (0-450) pg/mL Med Orders - Current: Current Medications Acetaminophen (Tylenol) 650 mg PO Q4H PRN PRN Reason: Pain (Mild 1-3)/fever Last Admin: 07/17/20 21:27 Dose: 650 mg Documented by: Acyclovir (Zovirax) 400 mg PO DAILY [facility] Last Admin: 07/17/20 07:46 Dose: 400 mg Documented by: Albuterol/Ipratropium (Duoneb 3.0-0.5 Mg/3 Ml) 3 ml NEB QID [facility] Last Admin: 07/17/20 20:27 Dose: 3 ml Documented by: Albuterol/Ipratropium (Duoneb 3.0-0.5 Mg/3 Ml) 3 ml NEB Q4H PRN PRN Reason: Dyspnea Last Admin: 07/18/20 03:46 Dose: 3 ml Documented by: Aspirin (Aspirin) 81 mg PO DAILY [facility] Last Admin: 07/17/20 07:46 Dose: 81 mg Documented by: Atorvastatin Calcium (Lipitor) 20 mg PO BEDTIME [facility] Last Admin: 07/17/20 20:27 Dose: 20 mg Documented by: Carvedilol (Coreg) 25 mg PO BID [facility] Last Admin: 07/17/20 20:26 Dose: 25 mg Documented by: Furosemide (Lasix) 60 mg IVPUSH DAILY [facility] Last Admin: 07/17/20 10:58 Dose: 60 mg Documented by: Guaifenesin (Mucinex) 600 mg PO DAILY [facility] Last Admin: 07/17/20 07:46 Dose: 600 mg Documented by: Doxycycline Hyclate 100 mg/ (Sodium Chloride) 100 mls @ 100 mls/hr IV Q12HR [facility] Last Admin: 07/17/20 21:11 Dose: 100 mls/hr Documented by: Levofloxacin/Dextrose 250 mg/ (Premix) 50 mls @ 50 mls/hr IV Q24H [facility] Last Admin: 07/17/20 09:53 Dose: 50 mls/hr Documented by: Losartan Potassium (Cozaar) 25 mg PO BEDTIME [facility] Last Admin: 07/17/20 20:27 Dose: 25 mg Documented by: Melatonin (Melatonin) 6 mg PO BEDTIME PRN PRN Reason: Sleep Ondansetron HCl (Zofran Odt) 4 mg PO Q4H PRN PRN Reason: Nausea/Vomiting Pantoprazole Sodium (Protonix) 40 mg PO BEDTIME [facility] Last Admin: 07/17/20 20:27 Dose: 40 mg Documented by: Prednisone (Prednisone) 10 mg PO DAILY [facility] Stop: 07/18/20 23:59 Senna/Docusate Sodium (Senna Plus) 1 tab PO DAILY PRN PRN Reason: Constipation Sodium Chloride (Saline Flush) 10 ml FLUSH BID PRN PRN Reason: Keep Vein Open Last Admin: 07/17/20 22:12 Dose: 10 ml Documented by: Discontinued Medications Albuterol/Ipratropium (Duoneb 3.0-0.5 Mg/3 Ml) 3 ml NEB BID [facility] Last Admin: 07/14/20 10:53 Dose: 3 ml Documented by: Albuterol/Ipratropium (Duoneb 3.0-0.5 Mg/3 Ml) Confirm Administered Dose 3 ml .ROUTE .STK-MED ONE Stop: 07/14/20 11:01 Last Admin: 07/14/20 13:20 Dose: Not Given Documented by: Bisacodyl (Dulcolax) 10 mg RECTAL ONETIME ONE Stop: 07/15/20 15:49 Last Admin: 07/15/20 17:00 Dose: Not Given Documented by: Furosemide (Lasix) 40 mg IVPUSH NOW ONE Stop: 07/14/20 10:20 Last Admin: 07/14/20 13:27 Dose: Not Given Documented by: Furosemide (Lasix) 100 mg IVPUSH NOW ONE Stop: 07/14/20 10:41 Last Admin: 07/14/20 11:08 Dose: 100 mg Documented by: Furosemide (Lasix) Confirm Administered Dose 100 mg .ROUTE .STK-MED ONE Stop: 07/14/20 11:12 Last Admin: 07/14/20 13:21 Dose: Not Given Documented by: Furosemide (Lasix) 40 mg IVPUSH BID [facility] Last Admin: 07/15/20 08:02 Dose: 40 mg Documented by: Furosemide (Lasix) 40 mg IVPUSH NOW ONE Stop: 07/16/20 14:01 Last Admin: 07/16/20 13:50 Dose: 40 mg Documented by: Sodium Chloride (Normal Saline) 1,000 mls @ 50 mls/hr IV ASDIRECTED [facility] Last Admin: 07/15/20 11:11 Dose: 50 mls/hr Documented by: Cefepime HCl 1 gm/ Sodium (Chloride) 50 mls @ 100 mls/hr IV Q12H [facility] Last Admin: 07/16/20 12:14 Dose: Not Given Documented by: Levofloxacin/Dextrose 500 mg/ (Premix) 100 mls @ 100 mls/hr IV Q24H [facility] Last Admin: 07/16/20 12:54 Dose: 100 mls/hr Documented by: Levofloxacin/Dextrose 250 mg/ (Premix) 50 mls @ 50 mls/hr IV Q24H [facility] Levofloxacin/Dextrose (Levaquin In D5w 250 Mg/50 Ml) Confirm Administered Dose 50 mls @ as directed IV .STK-MED ONE Stop: 07/17/20 08:52 Last Admin: 07/17/20 09:48 Dose: Not Given Documented by: Metolazone (Zaroxolyn) 2.5 mg PO ONETIME ONE Stop: 07/16/20 13:31 Last Admin: 07/16/20 12:51 Dose: 2.5 mg Documented by: Metolazone (Zaroxolyn) 2.5 mg PO ONETIME ONE Stop: 07/17/20 09:26 Last Admin: 07/17/20 09:47 Dose: 2.5 mg Documented by: Prednisone (Prednisone) 20 mg PO ONETIME ONE Stop: 07/14/20 10:19 Last Admin: 07/14/20 10:53 Dose: 20 mg Documented by: Prednisone (Prednisone) Confirm Administered Dose 20 mg .ROUTE .STK-MED ONE Stop: 07/14/20 11:01 Last Admin: 07/14/20 13:21 Dose: Not Given Documented by: Prednisone (Prednisone) 40 mg PO DAILY [facility] Stop: 07/14/20 23:59 Last Admin: 07/14/20 17:05 Dose: Not Given Documented by: Prednisone (Prednisone) 20 mg PO ONETIME ONE Stop: 07/14/20 16:01 Last Admin: 07/14/20 15:26 Dose: 20 mg Documented by: Prednisone (Prednisone) 30 mg PO DAILY [facility] Stop: 07/15/20 08:01 Prednisone (Prednisone) 20 mg PO DAILY [facility] Stop: 07/16/20 23:59 Prednisone (Prednisone) 10 mg PO DAILY [facility] Stop: 07/17/20 23:59 Prednisone (Prednisone) 40 mg PO DAILY [facility] Stop: 07/15/20 23:59 Last Admin: 07/15/20 08:02 Dose: 40 mg Documented by: Prednisone (Prednisone) 30 mg PO DAILY [facility] Stop: 07/16/20 23:59 Last Admin: 07/16/20 07:36 Dose: 30 mg Documented by: Prednisone (Prednisone) 20 mg PO DAILY [facility] Stop: 07/17/20 23:59 Last Admin: 07/17/20 07:47 Dose: 20 mg Documented by: - Exam Quality Assessment: Supplemental Oxygen General: Alert, Oriented, Cooperative, Mild Distress HEENT: Pupils Equal Neck: Supple Lungs: Rhonchi, Wheezing Cardiovascular: Regular Rate, Murmurs GI/Abdominal Exam: Normal Bowel Sounds Sepsis Event Note - Evaluation Sepsis Screening Result: No Definite Risk - Focused Exam Vital Signs: Vital Signs Temp Pulse Pulse Resp BP BP Pulse Ox 07/18/20 03:44 97.5 F 78 20 129/74 93 L 07/18/20 00:00 97.2 F 81 19 132/70 95 07/17/20 20:27 129/70 07/17/20 20:26 83 129/70 07/17/20 20:00 97.6 F 83 19 129/70 99 - Problem List Review Problem List Initiated/Reviewed/Updated: Yes - My Orders Last 24 Hours: My Active Orders 07/17/20 08:00 Levofloxacin/Dextrose 5%-Water [Levaquin in D5W 250 MG/50 ML] 250 mg Premix Bag 1 bag IV Q24H 07/17/20 22:18 Sodium Chloride 0.9% [Saline Flush] 10 ml FLUSH BID PRN - Assessment Assessment:: 1. Acute respiratory failure in setting of: * h/o CHF of unknown type. * h/o AVR with unknown cardiac function status * Known COPD with long history of environmental exposures and known pulmonary nodules on CT * Plan: * Add Doxy and Cefepime * Another dose of Lasix at 2 PM * Give Zaroxolyn prior * Consider adding SSRI tomorrow given score of 18 * Await echo results * CXR tomorrow if not better. * Labs today and in am. - Plan Plan:: E hospitalist collaboration: 80-year-old female admitted from the ED for increasing shortness of breath and CHF/Copd exacerbation. Patient has had increasing shortness of breath and difficulty breathing for the last couple days, possibly longer she thinks. She is status post hospitalization in [place] for a fall at home with a c2 fracture. She states no surgery was needed and she was treated with a c collar which she is suppose to wear at all times and she states she had a repeat xray since being back in [place] and states she was told it is stable. Encouraged her to wear her c collar. She states is an awful thing to wear. Denies new falls. She lives at home with her son. She has had a cough that has been white productive, No fever or chills. No chest pain. No nausea, vomiting, abdominal pain, diarrhea, dysuria. She does feel fatigued. She wears O2 2L 24hrs per day. She was on Eliquis in the past, but states they took her off of that at a hospitalization in [place], she is not sure why she was taken off, now she is on a baby ASA. She has had aflutter in the past that required cardioversion few years ago and states she has been in normal rhythm since then, but this week she noted her HR to be fast and take longer to get below 100. No cp or palpitations today. She states she takes Prednisone 10mg daily and Lasix 40mg in the AM and 20mg in the afternoon. In the ED leukocytosis 13.1, hemoglobin 9.6, hematocrit 31.4, platelets 181, sodium 141, potassium 4, chloride 98, CO2 41.6, anion gap 5.4, BUN 25, creatinine 0.96, glucose 112, calcium 9.2, BNP 18,845, troponin I 0.040. Chest x-ray vascular congestion and persistent interstitial edema throughout both lungs and slight blunting of both costophrenic angle suggesting small bilateral pleural effusions. Overall per rad similar to chest x-ray 05/17/2020. At the ED, patient was given Lasix 100 mg IV x1, DuoNeb, prednisone 20, Resendiz catheter placed. Patient has also been started on normal saline at 75 mL/h. PMH/PSH: Former smoker, Aortic valve replacement (pig) in the past, coronary artery disease with NSTEMI and coronary stent, left carotid endarterectomy, COPD on chronic 2 L O2 24 hours a day and she says daily prednisone 10mg, interstitial lung disease, pneumonia, UTI appendectomy, cholecystectomy, hysterectomy, knee replacement, mastectomy for breast cancer, osteoporosis, right proximal humerus fracture, left tib-fib fracture, Allergies to codeine, penicillin, sulfa, tramadol and cannot remember the reaction and also an allergy to warfarin due to bleeding. Medications: These have not been verified and she states Eliquis stopped and is on Prednisone 10mg daily. Acyclovir, aspirin, duo nebs, multivitamin, calcium plus vitamin D3, senna, Coreg, Symbicort, albuterol inhaler, Eliquis, Atrovent, Cozaar, nitroglycerin, atorvastatin, Mucinex, prednisolone eyedrops, Tylenol PM, Lasix 40 in the morning and 20 in the afternoon, duo nebs. Via telemedicine exam: Temp 98, heart rate 87, respiratory rate 40, BP 132/77, O2 sat 99 on 2 L. No apparent distress, alert, cooperative, Follows commands, no lateralizing weakness, but has generalized weakness Pupils equal, no scleral icterus Lips and mouth are dry, tongue midline on protrusion Heart regular rate and rhythm, no murmurs Lungs crackles b/l mid to lower lungs and expiratory wheezing intermittently posteriorly at the bases Abdomen bowel sounds are positive, soft, nondistended, nontender Lower extremities no pitting edema Skin dry, mildly pale Assessment and plan: Shortness of breath related to acute on chronic CHF exacerbation and COPD exacerbation. Unclear last echo ef and if systolic/diastolic, images here but do not have the report. Chest x-ray revealing vascular congestion and small bilateral pleural effusions. Also has significant wheezing on exam. Treat patient for CHF exacerbation with IV Lasix. Patient already received 100 mg IV Lasix in the ED with baseline Lasix dose of 40 mg in the morning and [address] [facility], will plan 40 mg IV twice daily starting tomorrow, monitor renal function and electrolytes, keep the patient on telemetry, troponin was not elevated and no chest pain and will repeat trop this afternoon, ekg NSR without acute st changes but does have baseline inverted t waves which have been seen in the past, resendiz continue, she has had 600ml out in 2 hours thus would be cautious for hypotension developing she will be on NS at 50ml/hour. COPD exacerbation treat with ongoing oral steroid she received 20 mg in the ED and will give additional 20mg this afternoon and will plan 40 mg daily for 4 more days, then will need to tape to home 10mg daily if that is her chronic dose which needs to be verified. No current signs of pneumonia at this time. Continue nebs. She is chronically on O2 and remains at her baseline of 2 L. Keep cervical collar on and may need to obtain pcp/[facility] records for details. Call e hospitalist with questions
[2020-07-18] MEDS ORDERED: predniSONE 10 MG Tab PO SCH (08:00)
[2020-07-18] MEDS: Acyclovir 400 MG Tab PO SCH (08:44)
[2020-07-18] MEDS: Carvedilol 25 MG Tab PO SCH ×2 (08:45→19:49)
[2020-07-18] MEDS: Furosemide 100 MG/10 ML SDV IVPUSH SCH (08:45)
[2020-07-18] MEDS: Albuterol/Ipratropium 3.0-0.5 MG/3 ML Neb Soln NEB SCH ×4 (08:45→19:50)
[2020-07-18] MEDS: Doxycycline 100 MG in Sodium Chloride 0.9% 100 ML IV SCH (08:46)
[2020-07-18] MEDS: guaiFENesin 600 MG Tab.ER PO SCH (08:46)
[2020-07-18] MEDS: Aspirin 81 MG Tab.Chew PO SCH (08:46)
[2020-07-18] MEDS: Levofloxacin/Dextrose 5%-Water 50 ML IV SCH (10:25)
[2020-07-18] MEDS: Levofloxacin/Dextrose 5%-Water 250 MG in Premix Bag 1 BAG IV SCH (10:27)
[2020-07-18] MEDS: Pantoprazole 40 MG Tab.CR PO SCH (19:48)
[2020-07-18] MEDS: Losartan 25 MG Tab PO SCH (19:49)
[2020-07-18] MEDS: atorvaSTATin 20 MG Tab PO SCH (19:50)
[2020-07-19] MEDS: Albuterol/Ipratropium 3.0-0.5 MG/3 ML Neb Soln NEB PRN (04:46)
[2020-07-19] MEDS: Furosemide 100 MG/10 ML SDV IVPUSH SCH (07:29)
[2020-07-19] MEDS: Carvedilol 25 MG Tab PO SCH ×2 (07:32→19:51)
[2020-07-19] MEDS: Aspirin 81 MG Tab.Chew PO SCH (07:32)
[2020-07-19] MEDS: Acyclovir 400 MG Tab PO SCH (07:32)
[2020-07-19] MEDS: guaiFENesin 600 MG Tab.ER PO SCH (07:33)
[2020-07-19] MEDS: Levofloxacin/Dextrose 5%-Water 50 ML IV SCH (07:38)
[2020-07-19] MEDS: Albuterol/Ipratropium 3.0-0.5 MG/3 ML Neb Soln NEB SCH ×4 (07:44→19:52)
--- NOTE | 2020-07-19 08:48 | PCM.PN ---
- General Info Date of Service: 07/19/20 Subjective Update: Patient continues with cough and chest congestion. She notes some improvement in her breathing but has a very productive cough. She denies fever or chills. She is very weak. She continues to use her C-collar when possible and agrees to use it whenever getting out of bed. She has refused to use her C-collar consistently and understands the risks of another fall or injury to her neck can be life ending. Functional Status: Reports: Pain Controlled, Tolerating Diet, Ambulating - Review of Systems General: Reports: Weakness HEENT: Reports: No Symptoms Pulmonary: Reports: No Symptoms Cardiovascular: Reports: No Symptoms Gastrointestinal: Reports: No Symptoms Genitourinary: Reports: No Symptoms Musculoskeletal: Reports: No Symptoms Skin: Reports: No Symptoms Neurological: Reports: Difficulty Walking, Weakness Psychiatric: Reports: No Symptoms - Patient Data Vitals - Most Recent: Last Vital Signs Temp 36.1 C 07/19/20 08:00 Pulse 83 07/19/20 08:00 Resp 28 H 07/19/20 08:00 BP 111/61 07/19/20 08:00 Pulse Ox 99 07/19/20 08:00 Weight - Most Recent: 50.405 kg I&O - Last 24 Hours: Intake & Output 07/18/20 07/19/20 07/19/20 22:59 06:59 14:59 Intake Total 710 200 Output Total 600 700 Balance 110 -500 Lab Results Last 24 Hours: Laboratory Results - last 24 hr 07/18/20 07/18/20 Range/Units 08:35 12:00 Sodium 142 (136-145) mmol/L Potassium 3.5 (3.5-5.1) mmol/L Chloride 98 (98-107) mmol/L Carbon Dioxide 40.0 H (21.0-32.0) mmol/L Anion Gap 7.5 (5.0-15.0) mmol/L BUN 31 H D (8-26) mg/dL Creatinine 1.19 H (0.55-1.02) mg/dL Est Cr Clr Drug Dosing 28.93 mL/min Estimated GFR (MDRD) 44 L (>60) MLS/MIN BUN/Creatinine Ratio 26.1 H (6-25) Glucose 117 H D (74-100) mg/dL Calcium 8.2 L (8.5-10.1) mg/dL Troponin I 0.028 (0.000-0.060) ng/mL Med Orders - Current: Current Medications Acetaminophen (Tylenol) 650 mg PO Q4H PRN PRN Reason: Pain (Mild 1-3)/fever Last Admin: 07/17/20 21:27 Dose: 650 mg Documented by: Acyclovir (Zovirax) 400 mg PO DAILY [facility] Last Admin: 07/19/20 07:32 Dose: 400 mg Documented by: Albuterol/Ipratropium (Duoneb 3.0-0.5 Mg/3 Ml) 3 ml NEB QID [facility] Last Admin: 07/19/20 07:44 Dose: 3 ml Documented by: Albuterol/Ipratropium (Duoneb 3.0-0.5 Mg/3 Ml) 3 ml NEB Q4H PRN PRN Reason: Dyspnea Last Admin: 07/19/20 04:46 Dose: 3 ml Documented by: Aspirin (Aspirin) 81 mg PO DAILY [facility] Last Admin: 07/19/20 07:32 Dose: 81 mg Documented by: Atorvastatin Calcium (Lipitor) 20 mg PO BEDTIME [facility] Last Admin: 07/18/20 19:50 Dose: 20 mg Documented by: Carvedilol (Coreg) 25 mg PO BID [facility] Last Admin: 07/19/20 07:32 Dose: 25 mg Documented by: Furosemide (Lasix) 60 mg IVPUSH DAILY [facility] Last Admin: 07/19/20 07:29 Dose: 60 mg Documented by: Guaifenesin (Mucinex) 600 mg PO DAILY [facility] Last Admin: 07/19/20 07:33 Dose: 600 mg Documented by: Levofloxacin/Dextrose (Levaquin In D5w 250 Mg/50 Ml) 50 mls @ 50 mls/hr IV DAILY [facility] Last Admin: 07/19/20 07:38 Dose: 50 mls/hr Documented by: Losartan Potassium (Cozaar) 25 mg PO BEDTIME [facility] Last Admin: 07/18/20 19:49 Dose: 25 mg Documented by: Melatonin (Melatonin) 6 mg PO BEDTIME PRN PRN Reason: Sleep Ondansetron HCl (Zofran Odt) 4 mg PO Q4H PRN PRN Reason: Nausea/Vomiting Pantoprazole Sodium (Protonix) 40 mg PO BEDTIME [facility] Last Admin: 07/18/20 19:48 Dose: 40 mg Documented by: Senna/Docusate Sodium (Senna Plus) 1 tab PO DAILY PRN PRN Reason: Constipation Sodium Chloride (Saline Flush) 10 ml FLUSH BID PRN PRN Reason: Keep Vein Open Last Admin: 07/17/20 22:12 Dose: 10 ml Documented by: Discontinued Medications Albuterol/Ipratropium (Duoneb 3.0-0.5 Mg/3 Ml) 3 ml NEB BID [facility] Last Admin: 07/14/20 10:53 Dose: 3 ml Documented by: Albuterol/Ipratropium (Duoneb 3.0-0.5 Mg/3 Ml) Confirm Administered Dose 3 ml .ROUTE .[facility] ONE Stop: 07/14/20 11:01 Last Admin: 07/14/20 13:20 Dose: Not Given Documented by: Bisacodyl (Dulcolax) 10 mg RECTAL ONETIME ONE Stop: 07/15/20 15:49 Last Admin: 07/15/20 17:00 Dose: Not Given Documented by: Furosemide (Lasix) 40 mg IVPUSH NOW ONE Stop: 07/14/20 10:20 Last Admin: 07/14/20 13:27 Dose: Not Given Documented by: Furosemide (Lasix) 100 mg IVPUSH NOW ONE Stop: 07/14/20 10:41 Last Admin: 07/14/20 11:08 Dose: 100 mg Documented by: Furosemide (Lasix) Confirm Administered Dose 100 mg .ROUTE .STK-MED ONE Stop: 07/14/20 11:12 Last Admin: 07/14/20 13:21 Dose: Not Given Documented by: Furosemide (Lasix) 40 mg IVPUSH BID [facility] Last Admin: 07/15/20 08:02 Dose: 40 mg Documented by: Furosemide (Lasix) 40 mg IVPUSH NOW ONE Stop: 07/16/20 14:01 Last Admin: 07/16/20 13:50 Dose: 40 mg Documented by: Sodium Chloride (Normal Saline) 1,000 mls @ 50 mls/hr IV ASDIRECTED [facility] Last Admin: 07/15/20 11:11 Dose: 50 mls/hr Documented by: Doxycycline Hyclate 100 mg/ (Sodium Chloride) 100 mls @ 100 mls/hr IV Q12HR [facility] Last Admin: 07/18/20 08:46 Dose: 100 mls/hr Documented by: Cefepime HCl 1 gm/ Sodium (Chloride) 50 mls @ 100 mls/hr IV Q12H [facility] Last Admin: 07/16/20 12:14 Dose: Not Given Documented by: Levofloxacin/Dextrose 500 mg/ (Premix) 100 mls @ 100 mls/hr IV Q24H [facility] Last Admin: 07/16/20 12:54 Dose: 100 mls/hr Documented by: Levofloxacin/Dextrose 250 mg/ (Premix) 50 mls @ 50 mls/hr IV Q24H [facility] Levofloxacin/Dextrose 250 mg/ (Premix) 50 mls @ 50 mls/hr IV Q24H [facility] Last Admin: 07/18/20 10:27 Dose: Not Given Documented by: Levofloxacin/Dextrose (Levaquin In D5w 250 Mg/50 Ml) Confirm Administered Dose 50 mls @ as directed IV .STK-MED ONE Stop: 07/17/20 08:52 Last Admin: 07/17/20 09:48 Dose: Not Given Documented by: Metolazone (Zaroxolyn) 2.5 mg PO ONETIME ONE Stop: 07/16/20 13:31 Last Admin: 07/16/20 12:51 Dose: 2.5 mg Documented by: Metolazone (Zaroxolyn) 2.5 mg PO ONETIME ONE Stop: 07/17/20 09:26 Last Admin: 07/17/20 09:47 Dose: 2.5 mg Documented by: Prednisone (Prednisone) 20 mg PO ONETIME ONE Stop: 07/14/20 10:19 Last Admin: 07/14/20 10:53 Dose: 20 mg Documented by: Prednisone (Prednisone) Confirm Administered Dose 20 mg .ROUTE .STK-MED ONE Stop: 07/14/20 11:01 Last Admin: 07/14/20 13:21 Dose: Not Given Documented by: Prednisone (Prednisone) 40 mg PO DAILY [facility] Stop: 07/14/20 23:59 Last Admin: 07/14/20 17:05 Dose: Not Given Documented by: Prednisone (Prednisone) 20 mg PO ONETIME ONE Stop: 07/14/20 16:01 Last Admin: 07/14/20 15:26 Dose: 20 mg Documented by: Prednisone (Prednisone) 30 mg PO DAILY [facility] Stop: 07/15/20 08:01 Prednisone (Prednisone) 20 mg PO DAILY [facility] Stop: 07/16/20 23:59 Prednisone (Prednisone) 10 mg PO DAILY [facility] Stop: 07/17/20 23:59 Prednisone (Prednisone) 40 mg PO DAILY [facility] Stop: 07/15/20 23:59 Last Admin: 07/15/20 08:02 Dose: 40 mg Documented by: Prednisone (Prednisone) 30 mg PO DAILY [facility] Stop: 07/16/20 23:59 Last Admin: 07/16/20 07:36 Dose: 30 mg Documented by: Prednisone (Prednisone) 20 mg PO DAILY [facility] Stop: 07/17/20 23:59 Last Admin: 07/17/20 07:47 Dose: 20 mg Documented by: Prednisone (Prednisone) 10 mg PO DAILY [facility] Stop: 07/18/20 23:59 Last Admin: 07/18/20 08:44 Dose: 10 mg Documented by: - Exam General: Alert, Oriented, Cooperative HEENT: Pupils Equal, Pupils Reactive, EOMI Neck: Supple Lungs: Clear to Auscultation, Normal Respiratory Effort Cardiovascular: Regular Rate, Regular Rhythm GI/Abdominal Exam: Normal Bowel Sounds, Soft, Non-Tender Back Exam: Normal Inspection Extremities: Normal Inspection, Normal Range of Motion Skin: Warm, Dry, Intact Neurological: No New Focal Deficit Psy/Mental Status: Alert, Normal Affect, Normal Mood Sepsis Event Note - Evaluation Sepsis Screening Result: No Definite Risk - Focused Exam Vital Signs: Vital Signs Temp Pulse Pulse Resp BP BP Pulse Ox 07/19/20 08:00 36.1 C 83 28 H 111/61 99 07/19/20 07:32 83 111/61 07/19/20 04:00 36.3 C 83 18 134/87 98 07/19/20 00:00 36.3 C 83 18 123/76 97 - Problem List & Annotations (1) Leukocytosis, unspecified SNOMED Code(s): 847650701, 985041853 Code(s): D72.829 - ELEVATED WHITE BLOOD CELL COUNT, UNSPECIFIED Status: Acute Priority: High Current Visit: Yes (2) CHF (congestive heart failure) SNOMED Code(s): 64228115 Code(s): I50.9 - HEART FAILURE, UNSPECIFIED Status: Acute Priority: High Current Visit: Yes (3) COPD exacerbation SNOMED Code(s): 500218111 Code(s): J44.1 - CHRONIC OBSTRUCTIVE PULMONARY DISEASE W (ACUTE) EXACERBATION Status: Acute Priority: High Current Visit: Yes (4) Chest congestion SNOMED Code(s): 62739003 Code(s): R09.89 - OTH SYMPTOMS AND SIGNS INVOLVING THE CIRC AND RESP SYSTEMS Status: Acute Priority: High Current Visit: Yes (5) Cough SNOMED Code(s): 72152041 Code(s): R05 - COUGH Status: Acute Priority: High Current Visit: Yes - Problem List Review Problem List Initiated/Reviewed/Updated: Yes - My Orders Last 24 Hours: My Active Orders 07/18/20 11:39 EKG Documentation Completion [RC] ASDIRECTED 07/19/20 08:12 BASIC METABOLIC PANEL,BMP [CHEM] Routine CBC WITH AUTO DIFF [HEME] Routine - Assessment Assessment:: 1. Acute respiratory failure in setting of: * h/o CHF of unknown type. * h/o AVR with unknown cardiac function status * Known COPD with long history of environmental exposures and known pulmonary nodules on CT * Plan: * Add Doxy and Cefepime * Another dose of Lasix at 2 PM * Give Zaroxolyn prior * Consider adding SSRI tomorrow given score of 18 * Await echo results * CXR tomorrow if not better. * Labs today and in am. - Plan Plan:: E hospitalist collaboration: 80-year-old female admitted from the ED for increasing shortness of breath and CHF/Copd exacerbation. Patient has had increasing shortness of breath and difficulty breathing for the last couple days, possibly longer she thinks. She is status post hospitalization in [place] for a fall at home with a c2 fracture. She states no surgery was needed and she was treated with a c collar which she is suppose to wear at all times and she states she had a repeat xray since being back in [place] and states she was told it is stable. Encouraged her to wear her c collar. She states is an awful thing to wear. Denies new falls. She lives at home with her son. She has had a cough that has been white productive, No fever or chills. No chest pain. No nausea, vomiting, abdominal pain, diarrhea, dysuria. She does feel fatigued. She wears O2 2L 24hrs per day. She was on Eliquis in the past, but states they took her off of that at a hospitalization in [place], she is not sure why she was taken off, now she is on a baby ASA. She has had aflutter in the past that required cardioversion few years ago and states she has been in normal rhythm since then, but this week she noted her HR to be fast and take longer to get below 100. No cp or palpitations today. She states she takes Prednisone 10mg daily and Lasix 40mg in the AM and 20mg in the afternoon. In the ED leukocytosis 13.1, hemoglobin 9.6, hematocrit 31.4, platelets 181, sodium 141, potassium 4, chloride 98, CO2 41.6, anion gap 5.4, BUN 25, creatinine 0.96, glucose 112, calcium 9.2, BNP 18,845, troponin I 0.040. Chest x-ray vascular congestion and persistent interstitial edema throughout both lungs and slight blunting of both costophrenic angle suggesting small bilateral pleural effusions. Overall per rad similar to chest x-ray 05/17/2020. At the ED, patient was given Lasix 100 mg IV x1, DuoNeb, prednisone 20, Resendiz catheter placed. Patient has also been started on normal saline at 75 mL/h. PMH/PSH: Former smoker, Aortic valve replacement (pig) in the past, coronary artery disease with NSTEMI and coronary stent, left carotid endarterectomy, COPD on chronic 2 L O2 24 hours a day and she says daily prednisone 10mg, interstitial lung disease, pneumonia, UTI appendectomy, cholecystectomy, hysterectomy, knee replacement, mastectomy for breast cancer, osteoporosis, right proximal humerus fracture, left tib-fib fracture, Allergies to codeine, penicillin, sulfa, tramadol and cannot remember the reaction and also an allergy to warfarin due to bleeding. Medications: These have not been verified and she states Eliquis stopped and is on Prednisone 10mg daily. Acyclovir, aspirin, duo nebs, multivitamin, calcium plus vitamin D3, senna, Coreg, Symbicort, albuterol inhaler, Eliquis, Atrovent, Cozaar, nitroglycerin, atorvastatin, Mucinex, prednisolone eyedrops, Tylenol PM, Lasix 40 in the morning and 20 in the afternoon, duo nebs. Via telemedicine exam: Temp 98, heart rate 87, respiratory rate 40, BP 132/77, O2 sat 99 on 2 L. No apparent distress, alert, cooperative, Follows commands, no lateralizing weakness, but has generalized weakness Pupils equal, no scleral icterus Lips and mouth are dry, tongue midline on protrusion Heart regular rate and rhythm, no murmurs Lungs crackles b/l mid to lower lungs and expiratory wheezing intermittently posteriorly at the bases Abdomen bowel sounds are positive, soft, nondistended, nontender Lower extremities no pitting edema Skin dry, mildly pale Assessment and plan: Shortness of breath related to acute on chronic CHF exacerbation and COPD exacerbation. Unclear last echo ef and if systolic/diastolic, images here but do not have the report. Chest x-ray revealing vascular congestion and small bilateral pleural effusions. Also has significant wheezing on exam. Treat patient for CHF exacerbation with IV Lasix. Patient already received 100 mg IV Lasix in the ED with baseline Lasix dose of 40 mg in the morning and 20 mg at night, will plan 40 mg IV twice daily starting tomorrow, monitor renal function and electrolytes, keep the patient on telemetry, troponin was not elevated and no chest pain and will repeat trop this afternoon, ekg NSR without acute st changes but does have baseline inverted t waves which have been seen in the past, resendiz continue, she has had 600ml out in 2 hours thus would be cautious for hypotension developing she will be on NS at 50ml/hour. COPD exacerbation treat with ongoing oral steroid she received 20 mg in the ED and will give additional 20mg this afternoon and will plan 40 mg daily for 4 more days, then will need to tape to home 10mg daily if that is her chronic dose which needs to be verified. No current signs of pneumonia at this time. Continue nebs. She is chronically on O2 and remains at her baseline of 2 L. Keep cervical collar on and may need to obtain pcp/[facility] records for details. Call e hospitalist with questions 07/19/20 F/u ECHO to be done today. Continue management of CHF and COPD exacerbation. Patient was placed on small prednisone taper - will continue to monitor chest congestion and consider a higher or longer taper. Continue Lasix as directed with daily weights. Consider guaifenesin for cough and chest congestion. Counseled patient on C-collar use and the necessity and patient understands the risks of taking it off and falling would be life threatening. Patient may benefit from subacute rehabilitation due to weakness getting up from bed and ambulating.
[2020-07-19] MEDS: atorvaSTATin 20 MG Tab PO SCH (19:51)
[2020-07-19] MEDS: Pantoprazole 40 MG Tab.CR PO SCH (19:51)
[2020-07-19] MEDS: Losartan 25 MG Tab PO SCH (20:09)
[2020-07-20] MEDS: Furosemide 100 MG/10 ML SDV IVPUSH SCH (08:10)
[2020-07-20] MEDS: Albuterol/Ipratropium 3.0-0.5 MG/3 ML Neb Soln NEB SCH ×4 (08:10→20:12)
[2020-07-20] MEDS: Levofloxacin/Dextrose 5%-Water 50 ML IV SCH (08:19)
[2020-07-20] MEDS: guaiFENesin 600 MG Tab.ER PO SCH ×3 (08:26→20:12)
[2020-07-20] MEDS: Acyclovir 400 MG Tab PO SCH (08:26)
[2020-07-20] MEDS: Aspirin 81 MG Tab.Chew PO SCH (08:26)
[2020-07-20] MEDS: Carvedilol 25 MG Tab PO SCH ×2 (08:26→20:11)
--- NOTE | 2020-07-20 09:54 | PCM.PN ---
- General Info Date of Service: 07/20/20 Subjective Update: This is a 80yo F with continued shortness of breath. She notes increased cough and productive sputum. She denies much improvement the past day. Denies fever or chills. - Review of Systems General: Reports: Weakness HEENT: Reports: No Symptoms Pulmonary: Reports: Shortness of Breath, Cough, Sputum Cardiovascular: Reports: No Symptoms Gastrointestinal: Reports: No Symptoms Genitourinary: Reports: No Symptoms Musculoskeletal: Reports: No Symptoms - Patient Data Vitals - Most Recent: Last Vital Signs Temp 37.2 C 07/20/20 08:00 Pulse 94 07/20/20 08:26 Resp 24 H 07/20/20 08:00 BP 130/61 07/20/20 08:26 Pulse Ox 94 L 07/20/20 08:00 Weight - Most Recent: 50.405 kg I&O - Last 24 Hours: Intake & Output 07/19/20 07/20/20 07/20/20 22:59 06:59 14:59 Intake Total 50 250 Balance 50 250 Lab Results Last 24 Hours: Laboratory Results - last 24 hr 07/14/20 07/14/20 07/19/20 Range/Units 09:48 09:48 10:15 WBC 14.7 H (4.0-11.0) K/uL RBC 3.20 L (3.80-5.80) M/uL Hgb 9.8 L (11.5-16.5) g/dL Hct 32.1 L (37.0-47.0) % MCV 100 H (76-96) fL MCH 30.6 (27.0-32.0) pg MCHC 30.5 L (31.0-35.0) g/dL RDW 14.6 (11.0-16.0) % Plt Count 185 (150-500) K/uL MPV 8.9 (6.0-10.0) fL Neut % (Auto) 82.7 H (45.0-70.0) % Lymph % (Auto) 5.6 L (20.0-40.0) % [place] % (Auto) 9.6 (3.0-10.0) % Eos % (Auto) 2.0 (1.0-5.0) % Baso % (Auto) 0.1 (0.0-0.5) % Neut # (Auto) 12.20 H (2.00-7.50) K/uL Lymph # (Auto) 0.82 L (1.50-4.00) K/uL [place] # (Auto) 1.41 H (0.20-0.80) K/uL Eos # (Auto) 0.29 (0.04-0.40) K/uL Baso # (Auto) 0.02 (0.02-0.10) K/uL Sodium (136-145) mmol/L Potassium (3.5-5.1) mmol/L Chloride (98-107) mmol/L Carbon Dioxide (21.0-32.0) mmol/L Anion Gap (5.0-15.0) mmol/L BUN (8-26) mg/dL Creatinine (0.55-1.02) mg/dL Est Cr Clr Drug Dosing mL/min Estimated GFR (MDRD) (>60) MLS/MIN BUN/Creatinine Ratio (6-25) Glucose (74-100) mg/dL Calcium (8.5-10.1) mg/dL Vitamin D 25-Hydroxy 61.1 (30.0-100.0) ng/mL Thyroid Peroxidase Ab 13 (0-34) IU/mL 07/19/20 07/20/20 Range/Units 10:15 07:45 WBC 15.3 H (4.0-11.0) K/uL RBC 3.14 L (3.80-5.80) M/uL Hgb 9.5 L (11.5-16.5) g/dL Hct 31.3 L (37.0-47.0) % MCV 100 H (76-96) fL MCH 30.3 (27.0-32.0) pg MCHC 30.4 L (31.0-35.0) g/dL RDW 14.6 (11.0-16.0) % Plt Count 166 (150-500) K/uL MPV 9.4 (6.0-10.0) fL Neut % (Auto) 82.4 H (45.0-70.0) % Lymph % (Auto) 6.0 L (20.0-40.0) % [place] % (Auto) 9.6 (3.0-10.0) % Eos % (Auto) 1.8 (1.0-5.0) % Baso % (Auto) 0.2 (0.0-0.5) % Neut # (Auto) 12.64 H (2.00-7.50) K/uL Lymph # (Auto) 0.92 L (1.50-4.00) K/uL [place] # (Auto) 1.48 H (0.20-0.80) K/uL Eos # (Auto) 0.27 (0.04-0.40) K/uL Baso # (Auto) 0.03 (0.02-0.10) K/uL Sodium 141 (136-145) mmol/L Potassium 3.5 (3.5-5.1) mmol/L Chloride 98 (98-107) mmol/L Carbon Dioxide 38.5 H (21.0-32.0) mmol/L Anion Gap 8.0 (5.0-15.0) mmol/L BUN 35 H (8-26) mg/dL Creatinine 1.31 H (0.55-1.02) mg/dL Est Cr Clr Drug Dosing 26.28 mL/min Estimated GFR (MDRD) 39 L (>60) MLS/MIN BUN/Creatinine Ratio 26.7 H (6-25) Glucose 121 H (74-100) mg/dL Calcium 8.2 L (8.5-10.1) mg/dL Vitamin D 25-Hydroxy (30.0-100.0) ng/mL Thyroid Peroxidase Ab (0-34) IU/mL Med Orders - Current: Current Medications Acetaminophen (Tylenol) 650 mg PO Q4H PRN PRN Reason: Pain (Mild 1-3)/fever Last Admin: 07/17/20 21:27 Dose: 650 mg Documented by: Acyclovir (Zovirax) 400 mg PO DAILY [facility] Last Admin: 07/20/20 08:26 Dose: 400 mg Documented by: Albuterol/Ipratropium (Duoneb 3.0-0.5 Mg/3 Ml) 3 ml NEB QID [facility] Last Admin: 07/20/20 08:10 Dose: 3 ml Documented by: Albuterol/Ipratropium (Duoneb 3.0-0.5 Mg/3 Ml) 3 ml NEB Q4H PRN PRN Reason: Dyspnea Last Admin: 07/19/20 04:46 Dose: 3 ml Documented by: Aspirin (Aspirin) 81 mg PO DAILY [facility] Last Admin: 07/20/20 08:26 Dose: 81 mg Documented by: Atorvastatin Calcium (Lipitor) 20 mg PO BEDTIME [facility] Last Admin: 07/19/20 19:51 Dose: 20 mg Documented by: Carvedilol (Coreg) 25 mg PO BID [facility] Last Admin: 07/20/20 08:26 Dose: 25 mg Documented by: Furosemide (Lasix) 60 mg IVPUSH DAILY [facility] Last Admin: 07/20/20 08:10 Dose: 60 mg Documented by: Guaifenesin (Mucinex) 600 mg PO DAILY [facility] Last Admin: 07/20/20 08:26 Dose: 600 mg Documented by: Levofloxacin/Dextrose (Levaquin In D5w 250 Mg/50 Ml) 50 mls @ 50 mls/hr IV DAILY [facility] Last Admin: 07/20/20 08:19 Dose: 50 mls/hr Documented by: Ceftriaxone Sodium 1 gm/ (Sodium Chloride) 50 mls @ 200 mls/hr IV Q24H [facility] Azithromycin 500 mg/ Sodium (Chloride) 250 mls @ 250 mls/hr IV Q24H [facility] Losartan Potassium (Cozaar) 25 mg PO BEDTIME [facility] Last Admin: 07/19/20 20:09 Dose: 25 mg Documented by: Melatonin (Melatonin) 6 mg PO BEDTIME PRN PRN Reason: Sleep Last Admin: 07/19/20 19:51 Dose: 6 mg Documented by: Methylprednisolone Sodium Succinate (Solu-Medrol) 40 mg IVPUSH Q12H [facility] Ondansetron HCl (Zofran Odt) 4 mg PO Q4H PRN PRN Reason: Nausea/Vomiting Pantoprazole Sodium (Protonix) 40 mg PO BEDTIME [facility] Last Admin: 07/19/20 19:51 Dose: 40 mg Documented by: Senna/Docusate Sodium (Senna Plus) 1 tab PO DAILY PRN PRN Reason: Constipation Sodium Chloride (Saline Flush) 10 ml FLUSH BID PRN PRN Reason: Keep Vein Open Last Admin: 07/17/20 22:12 Dose: 10 ml Documented by: Discontinued Medications Albuterol/Ipratropium (Duoneb 3.0-0.5 Mg/3 Ml) 3 ml NEB BID [facility] Last Admin: 07/14/20 10:53 Dose: 3 ml Documented by: Albuterol/Ipratropium (Duoneb 3.0-0.5 Mg/3 Ml) Confirm Administered Dose 3 ml .ROUTE .[facility] ONE Stop: 07/14/20 11:01 Last Admin: 07/14/20 13:20 Dose: Not Given Documented by: Bisacodyl (Dulcolax) 10 mg RECTAL ONETIME ONE Stop: 07/15/20 15:49 Last Admin: 07/15/20 17:00 Dose: Not Given Documented by: Furosemide (Lasix) 40 mg IVPUSH NOW ONE Stop: 07/14/20 10:20 Last Admin: 07/14/20 13:27 Dose: Not Given Documented by: Furosemide (Lasix) 100 mg IVPUSH NOW ONE Stop: 07/14/20 10:41 Last Admin: 07/14/20 11:08 Dose: 100 mg Documented by: Furosemide (Lasix) Confirm Administered Dose 100 mg .ROUTE .[facility] ONE Stop: 07/14/20 11:12 Last Admin: 07/14/20 13:21 Dose: Not Given Documented by: Furosemide (Lasix) 40 mg IVPUSH BID [facility] Last Admin: 07/15/20 08:02 Dose: 40 mg Documented by: Furosemide (Lasix) 40 mg IVPUSH NOW ONE Stop: 07/16/20 14:01 Last Admin: 07/16/20 13:50 Dose: 40 mg Documented by: Sodium Chloride (Normal Saline) 1,000 mls @ 50 mls/hr IV ASDIRECTED [facility] Last Admin: 07/15/20 11:11 Dose: 50 mls/hr Documented by: Doxycycline Hyclate 100 mg/ (Sodium Chloride) 100 mls @ 100 mls/hr IV Q12HR [facility] Last Admin: 07/18/20 08:46 Dose: 100 mls/hr Documented by: Cefepime HCl 1 gm/ Sodium (Chloride) 50 mls @ 100 mls/hr IV Q12H [facility] Last Admin: 07/16/20 12:14 Dose: Not Given Documented by: Levofloxacin/Dextrose 500 mg/ (Premix) 100 mls @ 100 mls/hr IV Q24H [facility] Last Admin: 07/16/20 12:54 Dose: 100 mls/hr Documented by: Levofloxacin/Dextrose 250 mg/ (Premix) 50 mls @ 50 mls/hr IV Q24H [facility] Levofloxacin/Dextrose 250 mg/ (Premix) 50 mls @ 50 mls/hr IV Q24H [facility] Last Admin: 07/18/20 10:27 Dose: Not Given Documented by: Levofloxacin/Dextrose (Levaquin In D5w 250 Mg/50 Ml) Confirm Administered Dose 50 mls @ as directed IV .[facility] ONE Stop: 07/17/20 08:52 Last Admin: 07/17/20 09:48 Dose: Not Given Documented by: Metolazone (Zaroxolyn) 2.5 mg PO ONETIME ONE Stop: 07/16/20 13:31 Last Admin: 07/16/20 12:51 Dose: 2.5 mg Documented by: Metolazone (Zaroxolyn) 2.5 mg PO ONETIME ONE Stop: 07/17/20 09:26 Last Admin: 07/17/20 09:47 Dose: 2.5 mg Documented by: Prednisone (Prednisone) 20 mg PO ONETIME ONE Stop: 07/14/20 10:19 Last Admin: 07/14/20 10:53 Dose: 20 mg Documented by: Prednisone (Prednisone) Confirm Administered Dose 20 mg .ROUTE .[facility] ONE Stop: 07/14/20 11:01 Last Admin: 07/14/20 13:21 Dose: Not Given Documented by: Prednisone (Prednisone) 40 mg PO DAILY [facility] Stop: 07/14/20 23:59 Last Admin: 07/14/20 17:05 Dose: Not Given Documented by: Prednisone (Prednisone) 20 mg PO ONETIME ONE Stop: 07/14/20 16:01 Last Admin: 07/14/20 15:26 Dose: 20 mg Documented by: Prednisone (Prednisone) 30 mg PO DAILY [facility] Stop: 07/15/20 08:01 Prednisone (Prednisone) 20 mg PO DAILY [facility] Stop: 07/16/20 23:59 Prednisone (Prednisone) 10 mg PO DAILY [facility] Stop: 07/17/20 23:59 Prednisone (Prednisone) 40 mg PO DAILY [facility] Stop: 07/15/20 23:59 Last Admin: 07/15/20 08:02 Dose: 40 mg Documented by: Prednisone (Prednisone) 30 mg PO DAILY [facility] Stop: 07/16/20 23:59 Last Admin: 07/16/20 07:36 Dose: 30 mg Documented by: Prednisone (Prednisone) 20 mg PO DAILY [facility] Stop: 07/17/20 23:59 Last Admin: 07/17/20 07:47 Dose: 20 mg Documented by: Prednisone (Prednisone) 10 mg PO DAILY [facility] Stop: 07/18/20 23:59 Last Admin: 07/18/20 08:44 Dose: 10 mg Documented by: - Exam Quality Assessment: Supplemental Oxygen General: Alert, Oriented, Cooperative HEENT: Pupils Equal, Pupils Reactive, EOMI Neck: Supple Lungs: Decreased Breath Sounds, Rhonchi, Wheezing Cardiovascular: Regular Rate, Regular Rhythm GI/Abdominal Exam: Normal Bowel Sounds, Soft, Non-Tender Extremities: Normal Inspection Peripheral Pulses: 2+: Dorsalis Pedis (L), Dorsalis Pedis (R) Psy/Mental Status: Alert, Normal Affect, Normal Mood Sepsis Event Note - Evaluation Sepsis Screening Result: Sepsis Risk - Focused Exam Vital Signs: Vital Signs Temp Pulse Pulse Resp BP BP Pulse Ox 07/20/20 08:26 94 130/61 07/20/20 08:00 37.2 C 94 24 H 130/61 94 L 07/20/20 00:00 36.4 C 90 20 118/49 L 99 - Problem List & Annotations (1) Leukocytosis, unspecified SNOMED Code(s): 914585302, 812237830 Code(s): D72.829 - ELEVATED WHITE BLOOD CELL COUNT, UNSPECIFIED Status: Acute Priority: High Current Visit: Yes (2) CHF (congestive heart failure) SNOMED Code(s): 43578842 Code(s): I50.9 - HEART FAILURE, UNSPECIFIED Status: Acute Priority: High Current Visit: Yes (3) COPD exacerbation SNOMED Code(s): 550933135 Code(s): J44.1 - CHRONIC OBSTRUCTIVE PULMONARY DISEASE W (ACUTE) EXACERBATION Status: Acute Priority: High Current Visit: Yes (4) Chest congestion SNOMED Code(s): 53166619 Code(s): R09.89 - OTH SYMPTOMS AND SIGNS INVOLVING THE CIRC AND RESP SYSTEMS Status: Acute Priority: High Current Visit: Yes (5) Cough SNOMED Code(s): 53410323 Code(s): R05 - COUGH Status: Acute Priority: High Current Visit: Yes - Problem List Review Problem List Initiated/Reviewed/Updated: Yes - My Orders Last 24 Hours: My Active Orders 07/20/20 08:50 CULTURE BLOOD [BC] Routine 07/20/20 09:00 Azithromycin [Zithromax] 500 mg Sodium Chloride 0.9% [Normal Saline] 250 ml IV Q24H cefTRIAXone [Rocephin] 1 gm Sodium Chloride 0.9% [Normal Saline] 50 ml IV Q24H methylPREDNISolone Sod Succ [Solu-MEDROL] 40 mg IVPUSH Q12H - Assessment Assessment:: 1. Acute respiratory failure in setting of: * h/o CHF of unknown type. * h/o AVR with unknown cardiac function status * Known COPD with long history of environmental exposures and known pulmonary nodules on CT * Plan: * Add Doxy and Cefepime * Another dose of Lasix at 2 PM * Give Zaroxolyn prior * Consider adding SSRI tomorrow given score of 18 * Await echo results * CXR tomorrow if not better. * Labs today and in am. - Plan Plan:: E hospitalist collaboration: 80-year-old female admitted from the ED for increasing shortness of breath and CHF/Copd exacerbation. Patient has had increasing shortness of breath and difficulty breathing for the last couple days, possibly longer she thinks. She is status post hospitalization in [place] for a fall at home with a c2 fracture. She states no surgery was needed and she was treated with a c collar which she is suppose to wear at all times and she states she had a repeat xray since being back in [place] and states she was told it is stable. Encouraged her to wear her c collar. She states is an awful thing to wear. Denies new falls. She lives at home with her son. She has had a cough that has been white productive, No fever or chills. No chest pain. No nausea, vomiting, abdominal pain, diarrhea, dysuria. She does feel fatigued. She wears O2 2L 24hrs per day. She was on E liquis in the past, but states they took her off of that at a hospitalization in [place], she is not sure why she was taken off, now she is on a baby ASA. She has had aflutter in the past that required cardioversion few years ago and states she has been in normal rhythm since then, but this week she noted her HR to be fast and take longer to get below 100. No cp or palpitations today. She states she takes Prednisone 10mg daily and Lasix 40mg in the AM and 20mg in the afternoon. In the ED leukocytosis 13.1, hemoglobin 9.6, hematocrit 31.4, platelets 181, sodium 141, potassium 4, chloride 98, CO2 41.6, anion gap 5.4, BUN 25, creatinine 0.96, glucose 112, calcium 9.2, BNP 18,845, troponin I 0.040. Chest x-ray vascular congestion and persistent interstitial edema throughout both lungs and slight blunting of both costophrenic angle suggesting small bilateral pleural effusions. Overall per rad similar to chest x-ray 05/17/2020. At the ED, patient was given Lasix 100 mg IV x1, DuoNeb, prednisone 20, Ersendiz catheter placed. Patient has also been started on normal saline at 75 mL/h. PMH/PSH: Former smoker, Aortic valve replacement (pig) in the past, coronary artery disease with NSTEMI and coronary stent, left carotid endarterectomy, COPD on chronic 2 L O2 24 hours a day and she says daily prednisone 10mg, interstitial lung disease, pneumonia, UTI appendectomy, cholecystectomy, hysterectomy, knee replacement, mastectomy for breast cancer, osteoporosis, right proximal humerus fracture, left tib-fib fracture, Allergies to codeine, penicillin, sulfa, tramadol and cannot remember the reaction and also an allergy to warfarin due to bleeding. Medications: These have not been verified and she states Eliquis stopped and is on Prednisone 10mg daily. Acyclovir, aspirin, duo nebs, multivitamin, calcium plus vitamin D3, senna, Coreg, Symbicort, albuterol inhaler, Eliquis, Atrovent, Cozaar, nitroglycerin, atorvastatin, Mucinex, prednisolone eyedrops, Tylenol PM, Lasix 40 in the m orning and 20 in the afternoon, duo nebs. Via telemedicine exam: Temp 98, heart rate 87, respiratory rate 40, BP 132/77, O2 sat 99 on 2 L. No apparent distress, alert, cooperative, Follows commands, no lateralizing weakness, but has generalized weakness Pupils equal, no scleral icterus Lips and mouth are dry, tongue midline on protrusion Heart regular rate and rhythm, no murmurs Lungs crackles b/l mid to lower lungs and expiratory wheezing intermittently posteriorly at the bases Abdomen bowel sounds are positive, soft, nondistended, nontender Lower extremities no pitting edema Skin dry, mildly pale Assessment and plan: Shortness of breath related to acute on chronic CHF exacerbation and COPD exacerbation. Unclear last echo ef and if systolic/diastolic, images here but do not have the report. Chest x-ray revealing vascular congestion and small bilateral pleural effusions. Also has significant wheezing on exam. Treat patient for CHF exacerbation with IV Lasix. Patient already received 100 mg IV Lasix in the ED with baseline Lasix dose of 40 mg in the morning and 20 mg at night, will plan 40 mg IV twice daily starting tomorrow, monitor renal function and electrolytes, keep the patient on telemetry, troponin was not elevated and no chest pain and will repeat trop this afternoon, ekg NSR without acute st changes but does have baseline inverted t waves which have been seen in the past, resendiz continue, she has had 600ml out in 2 hours thus would be cautious for hypotension developing she will be on NS at 50ml/hour. COPD exacerbation treat with ongoing oral steroid she received 20 mg in the ED and will give additional 20mg this afternoon and will plan 40 mg daily for 4 more days, then will need to tape to home 10mg daily if that is her chronic dose which needs to be verified. No current signs of pneumonia at this time. Continue nebs. She is chronically on O2 and remains at her baseline of 2 L. Keep cervical collar on and may need to obtain pcp/[facility] records for details. Call e hospitalist with questions 07/19/20 F/u ECHO to be done today. Continue management of CHF and COPD exacerbation. Patient was placed on small prednisone taper - will continue to monitor chest congestion and consider a higher or longer taper. Continue Lasix as directed with daily weights. Consider guaifenesin for cough and chest congestion. Counseled patient on C-collar use and the necessity and patient understands the risks of taking it off and falling would be life threatening. Patient may benefit from subacute rehabilitation due to weakness getting up from bed and ambulating. 07/20/20 Persistent Leukocytosis. Changing antibiotics for management and repeat labs in am. Continue management of CHF and COPD exacerbation. Solumedrol added as shortness of breath continues. Continue lasix and f/u weights and labs. Start guaifenesin for cough and congestion. Counseled on C-collar again, and patient agrees on wearing if out of bed.
[2020-07-20] MEDS ORDERED: methylPREDNISolone Sodium Succinate 40 MG/1 ML SDV ONE (11:39)
[2020-07-20] MEDS: methylPREDNISolone Sodium Succinate 40 MG/1 ML SDV IVPUSH SCH ×2 (11:49→20:12)
[2020-07-20] MEDS: cefTRIAXone 1 GM in Sodium Chloride 0.9% 50 ML IV SCH (11:54)
[2020-07-20] MEDS: Azithromycin 500 MG in Sodium Chloride 0.9% 250 ML IV SCH (12:24)
[2020-07-20] MEDS: Losartan 25 MG Tab PO SCH (20:10)
[2020-07-20] MEDS: atorvaSTATin 20 MG Tab PO SCH (20:11)
[2020-07-20] MEDS: Pantoprazole 40 MG Tab.CR PO SCH (20:11)
[2020-07-21] MEDS: Albuterol/Ipratropium 3.0-0.5 MG/3 ML Neb Soln NEB PRN (03:03)
[2020-07-21] MEDS: Aspirin 81 MG Tab.Chew PO SCH (07:59)
[2020-07-21] MEDS: Carvedilol 25 MG Tab PO SCH (07:59)
[2020-07-21] MEDS: guaiFENesin 600 MG Tab.ER PO SCH (08:00)
[2020-07-21] MEDS: Acyclovir 400 MG Tab PO SCH (08:01)
[2020-07-21] MEDS: Albuterol/Ipratropium 3.0-0.5 MG/3 ML Neb Soln NEB SCH ×2 (08:02→12:04)
[2020-07-21] MEDS: Furosemide 100 MG/10 ML SDV IVPUSH SCH (08:03)
[2020-07-21] MEDS: methylPREDNISolone Sodium Succinate 40 MG/1 ML SDV IVPUSH SCH (09:35)
[2020-07-21] MEDS: cefTRIAXone 1 GM in Sodium Chloride 0.9% 50 ML IV SCH (09:49)
[2020-07-21] MEDS: Azithromycin 500 MG in Sodium Chloride 0.9% 250 ML IV SCH (10:09)
--- NOTE | 2020-07-21 10:44 | PCM.DCSUM1 ---
Discharge Summary - Discharge Data Discharge Date: 07/21/20 Discharge Disposition: DC/Tfer W/I Hosp To Swing [facility] Condition: Good - Referral to Home Health Primary Care Physician: PCP None - Discharge Diagnosis/Problem(s) (1) Leukocytosis, unspecified SNOMED Code(s): 074158729, 751898911 ICD Code: D72.829 - ELEVATED WHITE BLOOD CELL COUNT, UNSPECIFIED Status: Acute Priority: High Current Visit: Yes (2) CHF (congestive heart failure) SNOMED Code(s): 85778143 ICD Code: I50.9 - HEART FAILURE, UNSPECIFIED Status: Acute Priority: High Current Visit: Yes (3) COPD exacerbation SNOMED Code(s): 712030466 ICD Code: J44.1 - CHRONIC OBSTRUCTIVE PULMONARY DISEASE W (ACUTE) EXACERBATION Status: Acute Priority: High Current Visit: Yes (4) Chest congestion SNOMED Code(s): 67862093 ICD Code: R09.89 - OTH SYMPTOMS AND SIGNS INVOLVING THE CIRC AND RESP SYSTEMS Status: Acute Priority: High Current Visit: Yes (5) Cough SNOMED Code(s): 91378349 ICD Code: R05 - COUGH Status: Acute Priority: High Current Visit: Yes - Patient Summary/Data Consults: Consultations 07/15/20 15:10 OT Evaluation and Treatment [CONS] Routine Please Evaluate and Treat. OT Reason for Consult: Strengthening Pending Discharge: No Discharge Disposition: Care Home Facility Special Instructions: Patient gets very Short of Breath in the shower at home. This query below is only for informational purposes and is not editable. Admission Diagnosis/Problem: CHF, Congestive heart failure PT Evaluation and Treatment [CONS] Routine Please Evaluate and Treat. PT Reason for Consult: Strengthening Pending Discharge: No Discharge Disposition: Care Home Facility This query below is only for informational purposes and is not editable. Admission Diagnosis/Problem: CHF, Congestive heart failure - Discharge Plan *PRESCRIPTION DRUG MONITORING PROGRAM REVIEWED*: Not Applicable *COPY OF PRESCRIPTION DRUG MONITORING REPORT IN PATIENT KERRI: Not Applicable Home Medications: Home Meds Acyclovir 400 mg PO DAILY 02/18/16 [History] Aspirin 81 mg PO QPM 02/18/16 [History] Multivitamin [Multi-Vitamin Daily] 1 tab PO DAILY 02/18/16 [History] Calcium Carbonate/Vitamin D3 [Caltrate 600+D 1500 MG-400 Units] 1 tab PO TIDMEALS 08/11/18 [History] carvediloL [Coreg] 25 mg PO BIDMEALS 01/28/19 [History] Losartan [Cozaar] 25 mg PO BEDTIME 08/01/19 [History] Nitroglycerin [Nitrostat] 0.4 mg SL ASDIRECTED PRN 08/01/19 [History] atorvaSTATin Calcium [Atorvastatin Calcium] 20 mg PO BEDTIME 08/01/19 [History] guaiFENesin [Mucinex] 600 mg PO DAILY 08/01/19 [History] prednisoLONE acetate [Pred Forte 1% Ophth Susp] 1 drop EYEBOTH DAILY 08/01/19 [History] Acetaminophen/Diphenhydramine [Tylenol Pm Ex-Strength Caplet] 1 each PO BEDTIME 05/09/20 [History] Furosemide [Lasix] 20 mg PO 1200 05/09/20 [History] Acetaminophen [Tylenol] 650 mg PO Q6H PRN tablet 05/10/20 [Rx] Albuterol [Proventil Neb Soln] 0.63 mg NEB 1200 07/14/20 [History] Budesonide [Pulmicort] 0.5 mg IH BID 07/14/20 [History] Formoterol [Perforomist] 20 mcg INH BID 07/14/20 [History] Iron 18 mg PO DAILY 07/14/20 [History] Revefenacin [Yupelri] 1 dose IH DAILY 07/14/20 [History] guaiFENesin [Robitussin] 100 mg PO BEDTIME 07/14/20 [History] predniSONE [Prednisone] 10 mg PO DAILY 07/14/20 [History] Forms: ED Department Discharge Referrals: PCP,None [Primary Care Provider] - - Discharge Summary/Plan Comment DC Time >30 min.: Yes Discharge Summary/Plan Comment: Patient discharged into swing bed for rehabilitation and IV antibiotics. F/u labs as needed. Continue to monitor CHF and COPD. - General Info Date of Service: 07/21/20 Functional Status: Reports: Pain Controlled, Tolerating Diet, Ambulating, Incentive Spirometry - Review of Systems General: Reports: Weakness, Fatigue HEENT: Reports: No Symptoms Pulmonary: Reports: Shortness of Breath, Sputum, Wheezing Cardiovascular: Reports: No Symptoms Gastrointestinal: Reports: No Symptoms Genitourinary: Reports: No Symptoms Musculoskeletal: Reports: Neck Pain Skin: Reports: No Symptoms Neurological: Reports: Difficulty Walking, Weakness Psychiatric: Reports: No Symptoms - Patient Data Vitals - Most Recent: Last Vital Signs Temp 36.6 C 07/21/20 08:00 Pulse 93 07/21/20 08:00 Resp 22 H 07/21/20 08:00 BP 104/54 L 07/21/20 08:00 Pulse Ox 97 07/21/20 08:00 Weight - Most Recent: 50.576 kg I&O - Last 24 hours: Intake & Output 07/20/20 07/21/20 07/21/20 22:59 06:59 14:59 Intake Total 350 250 Balance 350 250 Lab Results - Last 24 hrs: Laboratory Results - last 24 hr 07/21/20 07/21/20 Range/Units 07:40 07:40 WBC 12.8 H (4.0-11.0) K/uL RBC 3.19 L (3.80-5.80) M/uL Hgb 9.8 L (11.5-16.5) g/dL Hct 31.3 L (37.0-47.0) % MCV 98 H (76-96) fL MCH 30.7 (27.0-32.0) pg MCHC 31.3 (31.0-35.0) g/dL RDW 14.3 (11.0-16.0) % Plt Count 173 (150-500) K/uL MPV 9.6 (6.0-10.0) fL Neut % (Auto) 96.0 H (45.0-70.0) % Lymph % (Auto) 2.7 L (20.0-40.0) % [place] % (Auto) 1.3 L (3.0-10.0) % Eos % (Auto) 0.0 L (1.0-5.0) % Baso % (Auto) 0.0 (0.0-0.5) % Neut # (Auto) 12.24 H (2.00-7.50) K/uL Lymph # (Auto) 0.35 L (1.50-4.00) K/uL [place] # (Auto) 0.16 L (0.20-0.80) K/uL Eos # (Auto) 0.00 L (0.04-0.40) K/uL Baso # (Auto) 0.00 L (0.02-0.10) K/uL Sodium 139 (136-145) mmol/L Potassium 4.1 (3.5-5.1) mmol/L Chloride 98 (98-107) mmol/L Carbon Dioxide 38.6 H (21.0-32.0) mmol/L Anion Gap 6.5 (5.0-15.0) mmol/L BUN 48 H D (8-26) mg/dL Creatinine 1.43 H (0.55-1.02) mg/dL Est Cr Clr Drug Dosing 24.07 mL/min Estimated GFR (MDRD) 35 L (>60) MLS/MIN BUN/Creatinine Ratio 33.6 H (6-25) Glucose 135 H (74-100) mg/dL Calcium 8.4 L (8.5-10.1) mg/dL Total Bilirubin 0.4 (0.0-1.0) mg/dL AST 14 L (15-37) U/L ALT 17 (12-78) U/L Alkaline Phosphatase 43 L (46-116) U/L Total Protein 6.4 (6.4-8.2) g/dL Albumin 2.5 L (3.4-5.0) g/dL Globulin 3.9 (2.2-4.2) g/dL Albumin/Globulin Ratio 0.6 L (0.8-2.0) Med Orders - Current: Current Medications Acetaminophen (Tylenol) 650 mg PO Q4H PRN PRN Reason: Pain (Mild 1-3)/fever Last Admin: 07/17/20 21:27 Dose: 650 mg Documented by: Acyclovir (Zovirax) 400 mg PO DAILY [facility] Last Admin: 07/21/20 08:01 Dose: 400 mg Documented by: Albuterol/Ipratropium (Duoneb 3.0-0.5 Mg/3 Ml) 3 ml NEB QID [facility] Last Admin: 07/21/20 08:02 Dose: 3 ml Documented by: Albuterol/Ipratropium (Duoneb 3.0-0.5 Mg/3 Ml) 3 ml NEB Q4H PRN PRN Reason: Dyspnea Last Admin: 07/21/20 03:03 Dose: 3 ml Documented by: Aspirin (Aspirin) 81 mg PO DAILY [facility] Last Admin: 07/21/20 07:59 Dose: 81 mg Documented by: Atorvastatin Calcium (Lipitor) 20 mg PO BEDTIME [facility] Last Admin: 07/20/20 20:11 Dose: 20 mg Documented by: Carvedilol (Coreg) 25 mg PO BID [facility] Last Admin: 07/21/20 07:59 Dose: 25 mg Documented by: Furosemide (Lasix) 60 mg IVPUSH DAILY [facility] Last Admin: 07/21/20 08:03 Dose: 60 mg Documented by: Guaifenesin (Mucinex) 600 mg PO DAILY [facility] Last Admin: 07/20/20 08:26 Dose: 600 mg Documented by: Guaifenesin (Mucinex) 600 mg PO BID [facility] Last Admin: 07/21/20 08:00 Dose: 600 mg Documented by: Ceftriaxone Sodium 1 gm/ (Sodium Chloride) 50 mls @ 200 mls/hr IV Q24H [facility] Stop: 07/21/20 23:59 Last Admin: 07/21/20 09:49 Dose: 200 mls/hr Documented by: Azithromycin 500 mg/ Sodium (Chloride) 250 mls @ 250 mls/hr IV Q24H [facility] Stop: 07/27/20 23:59 Last Admin: 07/21/20 10:09 Dose: 250 mls/hr Documented by: Ceftriaxone Sodium 1 gm/ (Sodium Chloride) 50 mls @ 100 mls/hr IV Q24H [facility] Stop: 07/27/20 23:59 Losartan Potassium (Cozaar) 25 mg PO BEDTIME [facility] Last Admin: 07/20/20 20:10 Dose: 25 mg Documented by: Melatonin (Melatonin) 6 mg PO BEDTIME PRN PRN Reason: Sleep Last Admin: 07/19/20 19:51 Dose: 6 mg Documented by: Methylprednisolone Sodium Succinate (Solu-Medrol) 40 mg IVPUSH Q12H [facility] Last Admin: 07/21/20 09:35 Dose: 40 mg Documented by: Ondansetron HCl (Zofran Odt) 4 mg PO Q4H PRN PRN Reason: Nausea/Vomiting Pantoprazole Sodium (Protonix) 40 mg PO BEDTIME [facility] Last Admin: 07/20/20 20:11 Dose: 40 mg Documented by: Senna/Docusate Sodium (Senna Plus) 1 tab PO DAILY PRN PRN Reason: Constipation Sodium Chloride (Saline Flush) 10 ml FLUSH BID PRN PRN Reason: Keep Vein Open Last Admin: 07/17/20 22:12 Dose: 10 ml Documented by: Discontinued Medications Albuterol/Ipratropium (Duoneb 3.0-0.5 Mg/3 Ml) 3 ml NEB BID [facility] Last Admin: 07/14/20 10:53 Dose: 3 ml Documented by: Albuterol/Ipratropium (Duoneb 3.0-0.5 Mg/3 Ml) Confirm Administered Dose 3 ml .ROUTE .[facility] ONE Stop: 07/14/20 11:01 Last Admin: 07/14/20 13:20 Dose: Not Given Documented by: Bisacodyl (Dulcolax) 10 mg RECTAL ONETIME ONE Stop: 07/15/20 15:49 Last Admin: 07/15/20 17:00 Dose: Not Given Documented by: Furosemide (Lasix) 40 mg IVPUSH NOW ONE Stop: 07/14/20 10:20 Last Admin: 07/14/20 13:27 Dose: Not Given Documented by: Furosemide (Lasix) 100 mg IVPUSH NOW ONE Stop: 07/14/20 10:41 Last Admin: 07/14/20 11:08 Dose: 100 mg Documented by: Furosemide (Lasix) Confirm Administered Dose 100 mg .ROUTE .[facility] ONE Stop: 07/14/20 11:12 Last Admin: 07/14/20 13:21 Dose: Not Given Documented by: Furosemide (Lasix) 40 mg IVPUSH BID [facility] Last Admin: 07/15/20 08:02 Dose: 40 mg Documented by: Furosemide (Lasix) 40 mg IVPUSH NOW ONE Stop: 07/16/20 14:01 Last Admin: 07/16/20 13:50 Dose: 40 mg Documented by: Sodium Chloride (Normal Saline) 1,000 mls @ 50 mls/hr IV ASDIRECTED [facility] Last Admin: 07/15/20 11:11 Dose: 50 mls/hr Documented by: Doxycycline Hyclate 100 mg/ (Sodium Chloride) 100 mls @ 100 mls/hr IV Q12HR [facility] Last Admin: 07/18/20 08:46 Dose: 100 mls/hr Documented by: Cefepime HCl 1 gm/ Sodium (Chloride) 50 mls @ 100 mls/hr IV Q12H [facility] Last Admin: 07/16/20 12:14 Dose: Not Given Documented by: Levofloxacin/Dextrose 500 mg/ (Premix) 100 mls @ 100 mls/hr IV Q24H [facility] Last Admin: 07/16/20 12:54 Dose: 100 mls/hr Documented by: Levofloxacin/Dextrose 250 mg/ (Premix) 50 mls @ 50 mls/hr IV Q24H [facility] Levofloxacin/Dextrose 250 mg/ (Premix) 50 mls @ 50 mls/hr IV Q24H [facility] Last Admin: 07/18/20 10:27 Dose: Not Given Documented by: Levofloxacin/Dextrose (Levaquin In D5w 250 Mg/50 Ml) Confirm Administered Dose 50 mls @ as directed IV .STK-MED ONE Stop: 07/17/20 08:52 Last Admin: 07/17/20 09:48 Dose: Not Given Documented by: Levofloxacin/Dextrose (Levaquin In D5w 250 Mg/50 Ml) 50 mls @ 50 mls/hr IV DAILY [facility] Last Admin: 07/20/20 08:19 Dose: 50 mls/hr Documented by: Methylprednisolone Sodium Succinate (Solu-Medrol) Confirm Administered Dose 40 mg .ROUTE .STK-MED ONE Stop: 07/20/20 11:40 Last Admin: 07/20/20 11:51 Dose: Not Given Documented by: Metolazone (Zaroxolyn) 2.5 mg PO ONETIME ONE Stop: 07/16/20 13:31 Last Admin: 07/16/20 12:51 Dose: 2.5 mg Documented by: Metolazone (Zaroxolyn) 2.5 mg PO ONETIME ONE Stop: 07/17/20 09:26 Last Admin: 07/17/20 09:47 Dose: 2.5 mg Documented by: Prednisone (Prednisone) 20 mg PO ONETIME ONE Stop: 07/14/20 10:19 Last Admin: 07/14/20 10:53 Dose: 20 mg Documented by: Prednisone (Prednisone) Confirm Administered Dose 20 mg .ROUTE .STK-MED ONE Stop: 07/14/20 11:01 Last Admin: 07/14/20 13:21 Dose: Not Given Documented by: Prednisone (Prednisone) 40 mg PO DAILY [facility] Stop: 07/14/20 23:59 Last Admin: 07/14/20 17:05 Dose: Not Given Documented by: Prednisone (Prednisone) 20 mg PO ONETIME ONE Stop: 07/14/20 16:01 Last Admin: 07/14/20 15:26 Dose: 20 mg Documented by: Prednisone (Prednisone) 30 mg PO DAILY [facility] Stop: 07/15/20 08:01 Prednisone (Prednisone) 20 mg PO DAILY [facility] Stop: 07/16/20 23:59 Prednisone (Prednisone) 10 mg PO DAILY [facility] Stop: 07/17/20 23:59 Prednisone (Prednisone) 40 mg PO DAILY [facility] Stop: 07/15/20 23:59 Last Admin: 07/15/20 08:02 Dose: 40 mg Documented by: Prednisone (Prednisone) 30 mg PO DAILY [facility] Stop: 07/16/20 23:59 Last Admin: 07/16/20 07:36 Dose: 30 mg Documented by: Prednisone (Prednisone) 20 mg PO DAILY [facility] Stop: 07/17/20 23:59 Last Admin: 07/17/20 07:47 Dose: 20 mg Documented by: Prednisone (Prednisone) 10 mg PO DAILY [facility] Stop: 07/18/20 23:59 Last Admin: 07/18/20 08:44 Dose: 10 mg Documented by: - Exam Quality Assessment: Reports: Supplemental Oxygen General: Reports: Alert, Oriented, Cooperative HEENT: Reports: Pupils Equal, Pupils Reactive, EOMI Lungs: Reports: Decreased Breath Sounds, Rales, Rhonchi, Wheezing Cardiovascular: Reports: Regular Rate, Regular Rhythm GI/Abdominal Exam: Normal Bowel Sounds, Soft, Non-Tender Back Exam: Reports: Normal Inspection, Full Range of Motion Skin: Reports: Warm, Dry, Intact
--- NOTE | 2020-07-21 10:58 | CR ---
DATE OF SERVICE: 07/20/20 CLINICAL DATA: Shortness of breath. AP CHEST: Comparison made to a prior exam dated 07/17/20. The heart size is stable. There are persistent interstitial infiltrates throughout both lungs, not significantly changed from the prior exam. There is poorly defined ground glass opacity in the right lung base that was not present on the prior exam. Atelectasis or pneumonia should be considered. The exam is otherwise unchanged. [id number] MTDD
[2020-07-21] MEDS ORDERED: Lactobacillus Acidophilus/Lactobacillus Sporogenes (Probiotic) Tab PO SCH (12:00)
[2020-07-21] MEDS ORDERED: Menthol/Zinc Oxide Ointment 113 GM Tube TOP PRN (15:00)
[2020-07-21 15:13] LABS: ANA DIRECT Negative (Negative)
[2020-07-21] MEDS ORDERED: Nitroglycerin 0.4 MG Tab.SL SL PRN (20:11)
[2020-07-21] MEDS ORDERED: Acetaminophen 325 MG Tab PO PRN (20:11)
[2020-07-22] MEDS: Calcium Carbonate/Vitamin D3 1500 MG-400 Units Tab PO SCH ×3 (08:00→18:57)
[2020-07-22] MEDS ORDERED: predniSONE 10 MG Tab PO SCH (08:00)
[2020-07-22] MEDS: Multivitamins with Iron/Calcium/Folic Acid/Minerals Tab PO SCH (08:00)
[2020-07-22] MEDS: guaiFENesin 600 MG Tab.ER PO SCH (08:00)
[2020-07-22] MEDS ORDERED: prednisoLONE Acetate 1% Ophth Susp 5 ML Bottle EYEBOTH SCH (08:00)
[2020-07-22] MEDS ORDERED: Acetaminophen 325 MG Tab PO PRN (08:00)
[2020-07-22] MEDS ORDERED: Sodium Chloride 0.9% 10 ML Syringe FLUSH PRN (08:00)
[2020-07-22] MEDS: Carvedilol 25 MG Tab PO SCH ×2 (08:00→17:37)
[2020-07-22] MEDS ORDERED: Non-Formulary Medication 1 Each (Iron [Iron] 18 MG) PO SCH ×2 (08:00)
[2020-07-22] MEDS: Azithromycin 500 MG in Sodium Chloride 0.9% 250 ML IV SCH (10:56)
[2020-07-22] MEDS: cefTRIAXone 1 GM in Sodium Chloride 0.9% 50 ML IV SCH (11:00)
[2020-07-22] MEDS ORDERED: methylPREDNISolone Sodium Succinate 40 MG/1 ML SDV IVPUSH SCH ×2 (11:45→12:00)
[2020-07-22] MEDS ORDERED: Albuterol/Ipratropium 3.0-0.5 MG/3 ML Neb Soln NEB SCH (12:00)
[2020-07-22] MEDS ORDERED: methylPREDNISolone Sodium Succinate 40 MG/1 ML SDV IVPUSH ONE (12:00)
[2020-07-22] MEDS ORDERED: Furosemide 20 MG Tab PO SCH (12:00)
[2020-07-22] MEDS ORDERED: Lactobacillus Acidophilus/Lactobacillus Sporogenes (Probiotic) Tab ONE (12:24)
[2020-07-22] MEDS: Lactobacillus Acidophilus/Lactobacillus Sporogenes (Probiotic) Tab PO SCH (12:29)
[2020-07-22] MEDS: Albuterol/Ipratropium 3.0-0.5 MG/3 ML Neb Soln NEB SCH ×3 (14:46→20:32)
--- NOTE | 2020-07-22 16:13 | PCM.PN ---
- General Info Date of Service: 07/22/20 Functional Status: Reports: Tolerating Diet, Ambulating, Urinating, Incentive Spirometry Pain Score: 0 - Review of Systems General: Reports: Fatigue. Denies: Fever Pulmonary: Reports: Cough, Sputum, Wheezing Cardiovascular: Reports: Dyspnea on Exertion. Denies: Chest Pain, Palpitations, Edema Gastrointestinal: Reports: No Symptoms Genitourinary: Reports: No Symptoms Musculoskeletal: Reports: Neck Pain Skin: Reports: Bruising (well healing bruises to face from previous fall) Neurological: Reports: No Symptoms Psychiatric: Reports: No Symptoms - Patient Data Vitals - Most Recent: Last Vital Signs Temp 97.8 F 07/22/20 10:51 Pulse 92 07/22/20 10:51 Resp 20 07/22/20 10:51 BP 115/80 07/22/20 10:51 Pulse Ox 97 07/22/20 11:30 Weight - Most Recent: 111 lb 8 oz Henrik Results Last 24 Hours: Microbiology 07/20/20 15:20 Aerobic Blood Culture - Preliminary Blood NO GROWTH AFTER 2 DAYS Anaerobic Blood Culture - Preliminary NO GROWTH AFTER 2 DAYS Med Orders - Current: Current Medications Acetaminophen (Tylenol) 650 mg PO Q4H PRN PRN Reason: Pain (moderate 4-6) Albuterol (Proventil Neb Soln) 2.5 mg NEB Q2H PRN PRN Reason: Dyspnea Albuterol/Ipratropium (Duoneb 3.0-0.5 Mg/3 Ml) 3 ml NEB QID [facility] Last Admin: 07/22/20 14:46 Dose: 3 ml Documented by: Aspirin (Aspirin) 81 mg PO QPM [facility] Atorvastatin Calcium (Lipitor) 20 mg PO BEDTIME [facility] Calcium Carbonate (Caltrate 600+D 1500 Mg-400 Units) 1 tab PO TIDMEALS [facility] Carvedilol (Coreg) 25 mg PO BIDMEALS [facility] Furosemide (Lasix) 20 mg PO 1200 [facility] Last Admin: 07/22/20 12:29 Dose: 20 mg Documented by: Guaifenesin (Mucinex) 600 mg PO DAILY [facility] Ceftriaxone Sodium 1 gm/ (Sodium Chloride) 50 mls @ 100 mls/hr IV Q24H [facility] Stop: 07/27/20 23:59 Azithromycin 500 mg/ Sodium (Chloride) 250 mls @ 250 mls/hr IV Q24H [facility] Lactobacillus Acidophilus (Acidolphilus Extra Strength) 1 tab PO DAILY [facility] Last Admin: 07/22/20 12:29 Dose: 1 tab Documented by: Losartan Potassium (Cozaar) 25 mg PO BEDTIME [facility] Melatonin (Melatonin) 6 mg PO BEDTIME PRN PRN Reason: Insomnia Methylprednisolone Sodium Succinate (Solu-Medrol) 40 mg IVPUSH Q12H [facility] Multivitamins/Minerals (Thera M Plus) 1 tab PO DAILY [facility] Non-Formulary Medication (Iron [Iron]) 18 mg PO DAILY [facility] Sodium Chloride (Saline Flush) 10 ml FLUSH BID PRN PRN Reason: Other Discontinued Medications Acetaminophen (Tylenol) 650 mg PO Q4H PRN PRN Reason: Pain (Mild 1-3)/fever Last Admin: 07/17/20 21:27 Dose: 650 mg Documented by: Acetaminophen (Tylenol) 650 mg PO Q6H PRN PRN Reason: Pain Acyclovir (Zovirax) 400 mg PO DAILY [facility] Last Admin: 07/21/20 08:01 Dose: 400 mg Documented by: Albuterol/Ipratropium (Duoneb 3.0-0.5 Mg/3 Ml) 3 ml NEB BID [facility] Last Admin: 07/14/20 10:53 Dose: 3 ml Documented by: Albuterol/Ipratropium (Duoneb 3.0-0.5 Mg/3 Ml) Confirm Administered Dose 3 ml .ROUTE .STK-MED ONE Stop: 07/14/20 11:01 Last Admin: 07/14/20 13:20 Dose: Not Given Documented by: Albuterol/Ipratropium (Duoneb 3.0-0.5 Mg/3 Ml) 3 ml NEB QID [facility] Last Admin: 07/21/20 12:04 Dose: 3 ml Documented by: Albuterol/Ipratropium (Duoneb 3.0-0.5 Mg/3 Ml) 3 ml NEB Q4H PRN PRN Reason: Dyspnea Last Admin: 07/21/20 03:03 Dose: 3 ml Documented by: Albuterol/Ipratropium (Duoneb 3.0-0.5 Mg/3 Ml) 3 ml NEB Q6H [facility] Aspirin (Aspirin) 81 mg PO DAILY [facility] Last Admin: 07/21/20 07:59 Dose: 81 mg Documented by: Atorvastatin Calcium (Lipitor) 20 mg PO BEDTIME [facility] Last Admin: 07/20/20 20:11 Dose: 20 mg Documented by: Bisacodyl (Dulcolax) 10 mg RECTAL ONETIME ONE Stop: 07/15/20 15:49 Last Admin: 07/15/20 17:00 Dose: Not Given Documented by: Calamine/Phenol (Calmoseptine) 0 gm TOP QID PRN PRN Reason: Other Carvedilol (Coreg) 25 mg PO BID [facility] Last Admin: 07/21/20 07:59 Dose: 25 mg Documented by: Furosemide (Lasix) 40 mg IVPUSH NOW ONE Stop: 07/14/20 10:20 Last Admin: 07/14/20 13:27 Dose: Not Given Documented by: Furosemide (Lasix) 100 mg IVPUSH NOW ONE Stop: 07/14/20 10:41 Last Admin: 07/14/20 11:08 Dose: 100 mg Documented by: Furosemide (Lasix) Confirm Administered Dose 100 mg .ROUTE .STK-MED ONE Stop: 07/14/20 11:12 Last Admin: 07/14/20 13:21 Dose: Not Given Documented by: Furosemide (Lasix) 40 mg IVPUSH BID [facility] Last Admin: 07/15/20 08:02 Dose: 40 mg Documented by: Furosemide (Lasix) 60 mg IVPUSH DAILY [facility] Last Admin: 07/21/20 08:03 Dose: 60 mg Documented by: Furosemide (Lasix) 40 mg IVPUSH NOW ONE Stop: 07/16/20 14:01 Last Admin: 07/16/20 13:50 Dose: 40 mg Documented by: Guaifenesin (Mucinex) 600 mg PO DAILY [facility] Last Admin: 07/20/20 08:26 Dose: 600 mg Documented by: Guaifenesin (Mucinex) 600 mg PO BID [facility] Last Admin: 07/21/20 08:00 Dose: 600 mg Documented by: Sodium Chloride (Normal Saline) 1,000 mls @ 50 mls/hr IV ASDIRECTED [facility] Last Admin: 07/15/20 11:11 Dose: 50 mls/hr Documented by: Doxycycline Hyclate 100 mg/ (Sodium Chloride) 100 mls @ 100 mls/hr IV Q12HR [facility] Last Admin: 07/18/20 08:46 Dose: 100 mls/hr Documented by: Cefepime HCl 1 gm/ Sodium (Chloride) 50 mls @ 100 mls/hr IV Q12H [facility] Last Admin: 07/16/20 12:14 Dose: Not Given Documented by: Levofloxacin/Dextrose 500 mg/ (Premix) 100 mls @ 100 mls/hr IV Q24H [facility] Last Admin: 07/16/20 12:54 Dose: 100 mls/hr Documented by: Levofloxacin/Dextrose 250 mg/ (Premix) 50 mls @ 50 mls/hr IV Q24H [facility] Levofloxacin/Dextrose 250 mg/ (Premix) 50 mls @ 50 mls/hr IV Q24H [facility] Last Admin: 07/18/20 10:27 Dose: Not Given Documented by: Levofloxacin/Dextrose (Levaquin In D5w 250 Mg/50 Ml) Confirm Administered Dose 50 mls @ as directed IV .STK-MED ONE Stop: 07/17/20 08:52 Last Admin: 07/17/20 09:48 Dose: Not Given Documented by: Levofloxacin/Dextrose (Levaquin In D5w 250 Mg/50 Ml) 50 mls @ 50 mls/hr IV DAILY [facility] Last Admin: 07/20/20 08:19 Dose: 50 mls/hr Documented by: Ceftriaxone Sodium 1 gm/ (Sodium Chloride) 50 mls @ 200 mls/hr IV Q24H [facility] Stop: 07/21/20 23:59 Last Admin: 07/21/20 09:49 Dose: 200 mls/hr Documented by: Azithromycin 500 mg/ Sodium (Chloride) 250 mls @ 250 mls/hr IV Q24H [facility] Stop: 07/27/20 23:59 Last Admin: 07/21/20 10:09 Dose: 250 mls/hr Documented by: Azithromycin 500 mg/ Sodium (Chloride) 250 mls @ 250 mls/hr IV Q24H [facility] Lactobacillus Acidophilus (Acidolphilus Extra Strength) 1 tab PO DAILY@1200 [facility] Last Admin: 07/21/20 12:04 Dose: 1 tab Documented by: Lactobacillus Acidophilus (Acidolphilus Extra Strength) Confirm Administered Dose 1 tab .ROUTE .STK-MED ONE Stop: 07/22/20 12:25 Last Admin: 07/22/20 13:54 Dose: Not Given Documented by: Losartan Potassium (Cozaar) 25 mg PO BEDTIME [facility] Last Admin: 07/20/20 20:10 Dose: 25 mg Documented by: Melatonin (Melatonin) 6 mg PO BEDTIME PRN PRN Reason: Sleep Last Admin: 07/19/20 19:51 Dose: 6 mg Documented by: Methylprednisolone Sodium Succinate (Solu-Medrol) 40 mg IVPUSH Q12H [facility] Last Admin: 07/21/20 09:35 Dose: 40 mg Documented by: Methylprednisolone Sodium Succinate (Solu-Medrol) Confirm Administered Dose 40 mg .ROUTE .STK-MED ONE Stop: 07/20/20 11:40 Last Admin: 07/20/20 11:51 Dose: Not Given Documented by: Methylprednisolone Sodium Succinate (Solu-Medrol) 40 mg IVPUSH Q12H [facility] Methylprednisolone Sodium Succinate (Solu-Medrol) 40 mg IVPUSH Q12H [facility] Methylprednisolone Sodium Succinate (Solu-Medrol) 40 mg IVPUSH ONETIME ONE Stop: 07/22/20 12:01 Last Admin: 07/22/20 12:30 Dose: 40 mg Documented by: Metolazone (Zaroxolyn) 2.5 mg PO ONETIME ONE Stop: 07/16/20 13:31 Last Admin: 07/16/20 12:51 Dose: 2.5 mg Documented by: Metolazone (Zaroxolyn) 2.5 mg PO ONETIME ONE Stop: 07/17/20 09:26 Last Admin: 07/17/20 09:47 Dose: 2.5 mg Documented by: Nitroglycerin (Nitrostat) 0.4 mg SL ASDIRECTED PRN PRN Reason: Chest Pain Non-Formulary Medication (Iron [Iron]) 18 mg PO DAILY [facility] Ondansetron HCl (Zofran Odt) 4 mg PO Q4H PRN PRN Reason: Nausea/Vomiting Pantoprazole Sodium (Protonix) 40 mg PO BEDTIME [facility] Last Admin: 07/20/20 20:11 Dose: 40 mg Documented by: Prednisolone Acetate (Pred Forte 1% Ophth Susp) 0 ml EYEBOTH DAILY [facility] Prednisone (Prednisone) 20 mg PO ONETIME ONE Stop: 07/14/20 10:19 Last Admin: 07/14/20 10:53 Dose: 20 mg Documented by: Prednisone (Prednisone) Confirm Administered Dose 20 mg .ROUTE .STK-MED ONE Stop: 07/14/20 11:01 Last Admin: 07/14/20 13:21 Dose: Not Given Documented by: Prednisone (Prednisone) 40 mg PO DAILY [facility] Stop: 07/14/20 23:59 Last Admin: 07/14/20 17:05 Dose: Not Given Documented by: Prednisone (Prednisone) 20 mg PO ONETIME ONE Stop: 07/14/20 16:01 Last Admin: 07/14/20 15:26 Dose: 20 mg Documented by: Prednisone (Prednisone) 30 mg PO DAILY [facility] Stop: 07/15/20 08:01 Prednisone (Prednisone) 20 mg PO DAILY [facility] Stop: 07/16/20 23:59 Prednisone (Prednisone) 10 mg PO DAILY [facility] Stop: 07/17/20 23:59 Prednisone (Prednisone) 40 mg PO DAILY [facility] Stop: 07/15/20 23:59 Last Admin: 07/15/20 08:02 Dose: 40 mg Documented by: Prednisone (Prednisone) 30 mg PO DAILY [facility] Stop: 07/16/20 23:59 Last Admin: 07/16/20 07:36 Dose: 30 mg Documented by: Prednisone (Prednisone) 20 mg PO DAILY [facility] Stop: 07/17/20 23:59 Last Admin: 07/17/20 07:47 Dose: 20 mg Documented by: Prednisone (Prednisone) 10 mg PO DAILY [facility] Stop: 07/18/20 23:59 Last Admin: 07/18/20 08:44 Dose: 10 mg Documented by: Prednisone (Prednisone) 10 mg PO DAILY [facility] Senna/Docusate Sodium (Senna Plus) 1 tab PO DAILY PRN PRN Reason: Constipation Sodium Chloride (Saline Flush) 10 ml FLUSH BID PRN PRN Reason: Keep Vein Open Last Admin: 07/17/20 22:12 Dose: 10 ml Documented by: - Exam Quality Assessment: Supplemental Oxygen General: Alert, Oriented HEENT: Other (left pupil larger than right, patient states this is her baseline) Lungs: Crackles, Wheezing Cardiovascular: Regular Rate, Regular Rhythm GI/Abdominal Exam: Normal Bowel Sounds Extremities: Normal Inspection, No Pedal Edema Peripheral Pulses: 3+: Dorsalis Pedis (L), Dorsalis Pedis (R) Skin: Warm, Dry Wound/Incisions: Healing Well Neurological: No New Focal Deficit Psy/Mental Status: Alert, Normal Affect, Normal Mood Sepsis Event Note - Evaluation Sepsis Screening Result: Sepsis Risk - Focused Exam Vital Signs: Vital Signs Temp Pulse Resp BP Pulse Ox Pulse Ox 07/22/20 11:30 97 07/22/20 10:51 97.8 F 92 20 115/80 97 - Problem List Review Problem List Initiated/Reviewed/Updated: Yes - Assessment Assessment:: 1. Acute respiratory failure in setting of: * h/o CHF of unknown type. * h/o AVR with unknown cardiac function status * Known COPD with long history of environmental exposures and known pulmonary nodules on CT * Plan: * Add Doxy and Cefepime * Another dose of Lasix at 2 PM * Give Zaroxolyn prior * Consider adding SSRI tomorrow given score of 18 * Await echo results * CXR tomorrow if not better. * Labs today and in am. - Plan Plan:: E hospitalist collaboration: 80-year-old female admitted from the ED for increasing shortness of breath and CHF/Copd exacerbation. Patient has had increasing shortness of breath and difficulty breathing for the last couple days, possibly longer she thinks. She is status post hospitalization in [place] for a fall at home with a c2 fracture. She states no surgery was needed and she was treated with a c collar which she is suppose to wear at all times and she states she had a repeat xray since being back in [place] and states she was told it is stable. Encouraged her to wear her c collar. She states is an awful thing to wear. Denies new falls. She lives at home with her son. She has had a cough that has been white productive, No fever or chills. No chest pain. No nausea, vomiting, abdominal pain, diarrhea, dysuria. She does feel fatigued. She wears O2 2L 24hrs per day. She was on Eliquis in the past, but states they took her off of that at a hospitalization in [place], she is not sure why she was taken off, now she is on a baby ASA. She has had aflutter in the past that required cardioversion few years ago and states she has been in normal rhythm since then, but this week she noted her HR to be fast and take longer to get below 100. No cp or palpitations today. She states she takes Prednisone 10mg daily and Lasix 40mg in the AM and 20mg in the afternoon. In the ED leukocytosis 13.1, hemoglobin 9.6, hematocrit 31.4, platelets 181, sodium 141, potassium 4, chloride 98, CO2 41.6, anion gap 5.4, BUN 25, creatini ne 0.96, glucose 112, calcium 9.2, BNP 18,845, troponin I 0.040. Chest x-ray vascular congestion and persistent interstitial edema throughout both lungs and slight blunting of both costophrenic angle suggesting small bilateral pleural effusions. Overall per rad similar to chest x-ray 05/17/2020. At the ED, patient was given Lasix 100 mg IV x1, DuoNeb, prednisone 20, Resendiz catheter placed. Patient has also been started on normal saline at 75 mL/h. PMH/PSH: Former smoker, Aortic valve replacement (pig) in the past, coronary artery disease with NSTEMI and coronary stent, left carotid endarterectomy, COPD on chronic 2 L O2 24 hours a day and she says daily prednisone 10mg, interstitial lung disease, pneumonia, UTI appendectomy, cholecystectomy, hysterectomy, knee replacement, mastectomy for breast cancer, osteoporosis, right proximal humerus fracture, left tib-fib fracture, Allergies to codeine, penicillin, sulfa, tramadol and cannot remember the reaction and also an allergy to warfarin due to bleeding. Medications: These have not been verified and she states Eliquis stopped and is on Prednisone 10mg daily. Acyclovir, aspirin, duo nebs, multivitamin, calcium plus vitamin D3, senna, Coreg, Symbicort, albuterol inhaler, Eliquis, Atrovent, Cozaar, nitroglycerin, atorvastatin, Mucinex, prednisolone eyedrops, Tylenol PM, Lasix 40 in the morning and 20 in the afternoon, duo nebs. Via telemedicine exam: Temp 98, heart rate 87, respiratory rate 40, BP 132/77, O2 sat 99 on 2 L. No apparent distress, alert, cooperative, Follows commands, no lateralizing weakness, but has generalized weakness Pupils equal, no scleral icterus Lips and mouth are dry, tongue midline on protrusion Heart regular rate and rhythm, no murmurs Lungs crackles b/l mid to lower lungs and expiratory wheezing intermittently posteriorly at the bases Abdomen bowel sounds are positive, soft, nondistended, nontender Lower extremities no pitting edema Skin dry, mildly pale Assessment and plan: Shortness of breath related to acute on chronic CHF exacerbation and COPD exacerbation. Unclear last echo ef and if systolic/diastolic, images here but do not have the report. Chest x-ray revealing vascular congestion and small bilateral pleural effusions. Also has significant wheezing on exam. Treat patient for CHF exacerbation with IV Lasix. Patient already received 100 mg IV Lasix in the ED with baseline Lasix dose of 40 mg in the morning and 20 mg at night, will plan 40 mg IV twice daily starting tomorrow, monitor renal function and electrolytes, keep the patient on telemetry, troponin was not elevated and no chest pain and will repeat trop this afternoon, ekg NSR without acute st changes but does have baseline inverted t waves which have been seen in the past, resendiz continue, she has had 600ml out in 2 hours thus would be cautious for hypotension developing she will be on NS at 50ml/hour. COPD exacerbation treat with ongoing oral steroid she received 20 mg in the ED and will give additional 20mg this afternoon and will plan 40 mg daily for 4 more days, then will need to tape to home 10mg daily if that is her chronic dose which needs to be verified. No current signs of pneumonia at this time. Continue nebs. She is chronically on O2 and remains at her baseline of 2 L. Keep cervical collar on and may need to obtain pcp/[facility] records for details. Call e hospitalist with questions 07/19/20 F/u ECHO to be done today. Continue management of CHF and COPD exacerbation. Patient was placed on small prednisone taper - will continue to monitor chest congestion and consider a higher or longer taper. Continue Lasix as directed with daily weights. Consider guaifenesin for cough and chest congestion. Counseled patient on C-collar use and the necessity and patient understands the risks of taking it off and falling would be life threatening. Patient may benefit from subacute rehabilitation due to weakness getting up from bed and ambulating. 07/20/20 Persistent Leukocytosis. Changing antibiotics for management and repeat labs in am. Continue management of CHF and COPD exacerbation. Solumedrol added as shortness of breath continues. Continue lasix and f/u weights and labs. Start guaifenesin for cough and congestion. Counseled on C-collar again, and patient agrees on wearing if out of bed.
[2020-07-22] MEDS ORDERED: Furosemide 20 MG Tab PO ONE (16:20)
[2020-07-22] MEDS: Albuterol 0.083% 2.5 MG/3 ML Neb Soln NEB PRN ×3 (16:24→22:37)
[2020-07-22] MEDS ORDERED: Carvedilol 25 MG Tab ONE (17:39)
[2020-07-22] MEDS ORDERED: Calcium Carbonate/Vitamin D3 1500 MG-400 Units Tab ONE (18:55)
[2020-07-22] MEDS: Losartan 25 MG Tab PO SCH (20:32)
[2020-07-22] MEDS: atorvaSTATin 20 MG Tab PO SCH (20:32)
[2020-07-22] MEDS: Aspirin 81 MG Tab.Chew PO SCH (20:33)
[2020-07-22] MEDS: methylPREDNISolone Sodium Succinate 40 MG/1 ML SDV IVPUSH SCH (20:33)
[2020-07-22] MEDS ORDERED: Melatonin 3 MG Tab ONE (21:50)
[2020-07-22] MEDS: Melatonin 3 MG Tab PO PRN (21:58)
[2020-07-23] MEDS: Albuterol 0.083% 2.5 MG/3 ML Neb Soln NEB PRN (03:53)
[2020-07-23] MEDS ORDERED: Ferrous Sulfate 325 MG Tab PO SCH (07:00)
[2020-07-23] MEDS ORDERED: Lactobacillus Acidophilus/Lactobacillus Sporogenes (Probiotic) Tab ONE (07:37)
[2020-07-23] MEDS ORDERED: Carvedilol 25 MG Tab ONE ×2 (07:38→17:21)
[2020-07-23] MEDS: Multivitamins with Iron/Calcium/Folic Acid/Minerals Tab PO SCH (08:13)
[2020-07-23] MEDS: Ferrous Sulfate 325 MG Tab PO SCH (08:13)
[2020-07-23] MEDS: Carvedilol 25 MG Tab PO SCH ×2 (08:14→17:23)
[2020-07-23] MEDS: Lactobacillus Acidophilus/Lactobacillus Sporogenes (Probiotic) Tab PO SCH (08:14)
[2020-07-23] MEDS: guaiFENesin 600 MG Tab.ER PO SCH (08:15)
[2020-07-23] MEDS: Albuterol/Ipratropium 3.0-0.5 MG/3 ML Neb Soln NEB SCH ×4 (08:15→19:50)
[2020-07-23] MEDS: Furosemide 40 MG Tab PO SCH ×2 (08:16→13:01)
[2020-07-23] MEDS: prednisoLONE Acetate 1% Ophth Susp 5 ML Bottle EYELF SCH (08:16)
[2020-07-23] MEDS: methylPREDNISolone Sodium Succinate 40 MG/1 ML SDV IVPUSH SCH ×2 (08:17→19:55)
[2020-07-23] MEDS ORDERED: Calcium Carbonate/Vitamin D3 1500 MG-400 Units Tab ONE ×3 (08:21→17:22)
[2020-07-23] MEDS ORDERED: cefTRIAXone 1 GM Vial ONE (08:24)
[2020-07-23] MEDS: Calcium Carbonate/Vitamin D3 1500 MG-400 Units Tab PO SCH ×3 (08:34→17:23)
[2020-07-23] MEDS: Azithromycin 500 MG in Sodium Chloride 0.9% 250 ML IV SCH (08:36)
[2020-07-23] MEDS: cefTRIAXone 1 GM in Sodium Chloride 0.9% 50 ML IV SCH (08:36)
[2020-07-23] MEDS ORDERED: Azithromycin 500 MG in Sodium Chloride 0.9% 250 ML IV SCH (09:00)
--- NOTE | 2020-07-23 09:00 | PCM.PN ---
- General Info Date of Service: 07/23/20 Subjective Update: Patient appears well, states she is feeling better, decreased WOB. Decreased crackles and wheezing bilaterally. Will continue 40mg lasix BID, IV ABX, and Duonebs Q4-6H Functional Status: Reports: Pain Controlled, Tolerating Diet, Urinating, Incentive Spirometry - Review of Systems General: Reports: No Symptoms HEENT: Reports: No Symptoms Pulmonary: Reports: Cough, Sputum Cardiovascular: Reports: No Symptoms, Dyspnea on Exertion. Denies: Edema Gastrointestinal: Reports: No Symptoms Genitourinary: Reports: No Symptoms Musculoskeletal: Reports: No Symptoms Neurological: Reports: No Symptoms Psychiatric: Reports: No Symptoms - Patient Data Vitals - Most Recent: Last Vital Signs Temp 98.1 F 07/23/20 07:00 Pulse 84 07/23/20 08:14 Resp 18 07/23/20 07:00 BP 115/51 L 07/23/20 08:14 Pulse Ox 98 07/23/20 07:00 Weight - Most Recent: 117 lb 3.2 oz I&O - Last 24 Hours: Intake & Output 07/22/20 07/23/20 07/23/20 22:59 06:59 14:59 Intake Total 1420 Balance 1420 Henrik Results Last 24 Hours: Microbiology 07/20/20 15:20 Aerobic Blood Culture - Preliminary Blood NO GROWTH AFTER 2 DAYS Anaerobic Blood Culture - Preliminary NO GROWTH AFTER 2 DAYS Med Orders - Current: Current Medications Acetaminophen (Tylenol) 650 mg PO Q4H PRN PRN Reason: Pain (moderate 4-6) Albuterol (Proventil Neb Soln) 2.5 mg NEB Q2H PRN PRN Reason: Dyspnea Last Admin: 07/23/20 03:53 Dose: 2.5 mg Documented by: Albuterol/Ipratropium (Duoneb 3.0-0.5 Mg/3 Ml) 3 ml NEB QID [facility] Last Admin: 07/23/20 08:15 Dose: 3 ml Documented by: Aspirin (Aspirin) 81 mg PO QPM [facility] Last Admin: 07/22/20 20:33 Dose: 81 mg Documented by: Atorvastatin Calcium (Lipitor) 20 mg PO BEDTIME [facility] Last Admin: 07/22/20 20:32 Dose: 20 mg Documented by: Calcium Carbonate (Caltrate 600+D 1500 Mg-400 Units) 1 tab PO TIDMEALS [facility] Last Admin: 07/23/20 08:34 Dose: 1 tab Documented by: Carvedilol (Coreg) 25 mg PO BIDMEALS [facility] Last Admin: 07/23/20 08:14 Dose: 25 mg Documented by: Ferrous Sulfate (Ferrous Sulfate) 325 mg PO DAILY@0800 [facility] Last Admin: 07/23/20 08:13 Dose: 325 mg Documented by: Furosemide (Lasix) 40 mg PO BID@0800,1400 [facility] Last Admin: 07/23/20 08:16 Dose: 40 mg Documented by: Guaifenesin (Mucinex) 600 mg PO DAILY [facility] Last Admin: 07/23/20 08:15 Dose: 600 mg Documented by: Ceftriaxone Sodium 1 gm/ (Sodium Chloride) 50 mls @ 100 mls/hr IV Q24H [facility] Stop: 07/27/20 23:59 Last Admin: 07/23/20 08:36 Dose: 100 mls/hr Documented by: Azithromycin 500 mg/ Sodium (Chloride) 250 mls @ 250 mls/hr IV Q24H [facility] Last Admin: 07/23/20 08:36 Dose: 250 mls/hr Documented by: Lactobacillus Acidophilus (Acidolphilus Extra Strength) 1 tab PO DAILY [facility] Last Admin: 07/23/20 08:14 Dose: 1 tab Documented by: Losartan Potassium (Cozaar) 25 mg PO BEDTIME [facility] Last Admin: 07/22/20 20:32 Dose: 25 mg Documented by: Melatonin (Melatonin) 6 mg PO BEDTIME PRN PRN Reason: Insomnia Last Admin: 07/22/20 21:58 Dose: 6 mg Documented by: Methylprednisolone Sodium Succinate (Solu-Medrol) 40 mg IVPUSH Q12H [facility] Last Admin: 07/23/20 08:17 Dose: 40 mg Documented by: Multivitamins/Minerals (Thera M Plus) 1 tab PO DAILY [facility] Last Admin: 07/23/20 08:13 Dose: 1 tab Documented by: Prednisolone Acetate (Pred Forte 1% Ophth Susp) 1 ml EYELF DAILY [facility] Last Admin: 07/23/20 08:16 Dose: 1 ml Documented by: Sodium Chloride (Saline Flush) 10 ml FLUSH BID PRN PRN Reason: Other Last Admin: 07/22/20 20:35 Dose: 10 ml Documented by: Discontinued Medications Acetaminophen (Tylenol) 650 mg PO Q4H PRN PRN Reason: Pain (Mild 1-3)/fever Last Admin: 07/17/20 21:27 Dose: 650 mg Documented by: Acetaminophen (Tylenol) 650 mg PO Q6H PRN PRN Reason: Pain Acyclovir (Zovirax) 400 mg PO DAILY [facility] Last Admin: 07/21/20 08:01 Dose: 400 mg Documented by: Albuterol/Ipratropium (Duoneb 3.0-0.5 Mg/3 Ml) 3 ml NEB BID [facility] Last Admin: 07/14/20 10:53 Dose: 3 ml Documented by: Albuterol/Ipratropium (Duoneb 3.0-0.5 Mg/3 Ml) Confirm Administered Dose 3 ml .ROUTE .STK-MED ONE Stop: 07/14/20 11:01 Last Admin: 07/14/20 13:20 Dose: Not Given Documented by: Albuterol/Ipratropium (Duoneb 3.0-0.5 Mg/3 Ml) 3 ml NEB QID [facility] Last Admin: 07/21/20 12:04 Dose: 3 ml Documented by: Albuterol/Ipratropium (Duoneb 3.0-0.5 Mg/3 Ml) 3 ml NEB Q4H PRN PRN Reason: Dyspnea Last Admin: 07/21/20 03:03 Dose: 3 ml Documented by: Albuterol/Ipratropium (Duoneb 3.0-0.5 Mg/3 Ml) 3 ml NEB Q6H [facility] Aspirin (Aspirin) 81 mg PO DAILY [facility] Last Admin: 07/21/20 07:59 Dose: 81 mg Documented by: Atorvastatin Calcium (Lipitor) 20 mg PO BEDTIME [facility] Last Admin: 07/20/20 20:11 Dose: 20 mg Documented by: Bisacodyl (Dulcolax) 10 mg RECTAL ONETIME ONE Stop: 07/15/20 15:49 Last Admin: 07/15/20 17:00 Dose: Not Given Documented by: Calamine/Phenol (Calmoseptine) 0 gm TOP QID PRN PRN Reason: Other Calcium Carbonate (Caltrate 600+D 1500 Mg-400 Units) Confirm Administered Dose 1 tab .ROUTE .STK-MED ONE Stop: 07/22/20 18:56 Last Admin: 07/22/20 19:39 Dose: Not Given Documented by: Calcium Carbonate (Caltrate 600+D 1500 Mg-400 Units) Confirm Administered Dose 1 tab .ROUTE .STK-MED ONE Stop: 07/23/20 08:22 Last Admin: 07/23/20 08:35 Dose: Not Given Documented by: Carvedilol (Coreg) 25 mg PO BID [facility] Last Admin: 07/21/20 07:59 Dose: 25 mg Documented by: Carvedilol (Coreg) Confirm Administered Dose 25 mg .ROUTE .STK-MED ONE Stop: 07/22/20 17:40 Last Admin: 07/22/20 17:47 Dose: Not Given Documented by: Carvedilol (Coreg) Confirm Administered Dose 25 mg .ROUTE .[facility]-MED ONE Stop: 07/23/20 07:39 Last Admin: 07/23/20 08:12 Dose: Not Given Documented by: Ceftriaxone Sodium (Rocephin) Confirm Administered Dose 1 gm .ROUTE .[facility]-MED ONE Stop: 07/23/20 08:25 Last Admin: 07/23/20 08:35 Dose: Not Given Documented by: Ferrous Sulfate (Ferrous Sulfate) 325 mg PO WITHBREAKFAST [facility] Last Admin: 07/22/20 08:00 Dose: 324 mg Documented by: Furosemide (Lasix) 40 mg IVPUSH NOW ONE Stop: 07/14/20 10:20 Last Admin: 07/14/20 13:27 Dose: Not Given Documented by: Furosemide (Lasix) 100 mg IVPUSH NOW ONE Stop: 07/14/20 10:41 Last Admin: 07/14/20 11:08 Dose: 100 mg Documented by: Furosemide (Lasix) Confirm Administered Dose 100 mg .ROUTE .STK-MED ONE Stop: 07/14/20 11:12 Last Admin: 07/14/20 13:21 Dose: Not Given Documented by: Furosemide (Lasix) 40 mg IVPUSH BID [facility] Last Admin: 07/15/20 08:02 Dose: 40 mg Documented by: Furosemide (Lasix) 60 mg IVPUSH DAILY [facility] Last Admin: 07/21/20 08:03 Dose: 60 mg Documented by: Furosemide (Lasix) 40 mg IVPUSH NOW ONE Stop: 07/16/20 14:01 Last Admin: 07/16/20 13:50 Dose: 40 mg Documented by: Furosemide (Lasix) 20 mg PO 1200 [facility] Last Admin: 07/22/20 12:29 Dose: 20 mg Documented by: Furosemide (Lasix) 20 mg PO ONETIME ONE Stop: 07/22/20 16:21 Last Admin: 07/22/20 16:24 Dose: 20 mg Documented by: Guaifenesin (Mucinex) 600 mg PO DAILY [facility] Last Admin: 07/20/20 08:26 Dose: 600 mg Documented by: Guaifenesin (Mucinex) 600 mg PO BID [facility] Last Admin: 07/21/20 08:00 Dose: 600 mg Documented by: Sodium Chloride (Normal Saline) 1,000 mls @ 50 mls/hr IV ASDIRECTED [facility] Last Admin: 07/15/20 11:11 Dose: 50 mls/hr Documented by: Doxycycline Hyclate 100 mg/ (Sodium Chloride) 100 mls @ 100 mls/hr IV Q12HR [facility] Last Admin: 07/18/20 08:46 Dose: 100 mls/hr Documented by: Cefepime HCl 1 gm/ Sodium (Chloride) 50 mls @ 100 mls/hr IV Q12H [facility] Last Admin: 07/16/20 12:14 Dose: Not Given Documented by: Levofloxacin/Dextrose 500 mg/ (Premix) 100 mls @ 100 mls/hr IV Q24H [facility] Last Admin: 07/16/20 12:54 Dose: 100 mls/hr Documented by: Levofloxacin/Dextrose 250 mg/ (Premix) 50 mls @ 50 mls/hr IV Q24H [facility] Levofloxacin/Dextrose 250 mg/ (Premix) 50 mls @ 50 mls/hr IV Q24H [facility] Last Admin: 07/18/20 10:27 Dose: Not Given Documented by: Levofloxacin/Dextrose (Levaquin In D5w 250 Mg/50 Ml) Confirm Administered Dose 50 mls @ as directed IV .STK-MED ONE Stop: 07/17/20 08:52 Last Admin: 07/17/20 09:48 Dose: Not Given Documented by: Levofloxacin/Dextrose (Levaquin In D5w 250 Mg/50 Ml) 50 mls @ 50 mls/hr IV DAILY [facility] Last Admin: 07/20/20 08:19 Dose: 50 mls/hr Documented by: Ceftriaxone Sodium 1 gm/ (Sodium Chloride) 50 mls @ 200 mls/hr IV Q24H [facility] Stop: 07/21/20 23:59 Last Admin: 07/21/20 09:49 Dose: 200 mls/hr Documented by: Azithromycin 500 mg/ Sodium (Chloride) 250 mls @ 250 mls/hr IV Q24H [facility] Stop: 07/27/20 23:59 Last Admin: 07/21/20 10:09 Dose: 250 mls/hr Documented by: Azithromycin 500 mg/ Sodium (Chloride) 250 mls @ 250 mls/hr IV Q24H [facility] Lactobacillus Acidophilus (Acidolphilus Extra Strength) 1 tab PO DAILY@1200 [facility] Last Admin: 07/21/20 12:04 Dose: 1 tab Documented by: Lactobacillus Acidophilus (Acidolphilus Extra Strength) Confirm Administered Dose 1 tab .ROUTE .STK-MED ONE Stop: 07/22/20 12:25 Last Admin: 07/22/20 13:54 Dose: Not Given Documented by: Lactobacillus Acidophilus (Acidolphilus Extra Strength) Confirm Administered Dose 1 tab .ROUTE .STK-MED ONE Stop: 07/23/20 07:38 Last Admin: 07/23/20 08:12 Dose: Not Given Documented by: Losartan Potassium (Cozaar) 25 mg PO BEDTIME [facility] Last Admin: 07/20/20 20:10 Dose: 25 mg Documented by: Melatonin (Melatonin) 6 mg PO BEDTIME PRN PRN Reason: Sleep Last Admin: 07/19/20 19:51 Dose: 6 mg Documented by: Melatonin (Melatonin) Confirm Administered Dose 6 mg .ROUTE .STK-MED ONE Stop: 07/22/20 21:51 Last Admin: 07/22/20 22:13 Dose: Not Given Documented by: Methylprednisolone Sodium Succinate (Solu-Medrol) 40 mg IVPUSH Q12H [facility] Last Admin: 07/21/20 09:35 Dose: 40 mg Documented by: Methylprednisolone Sodium Succinate (Solu-Medrol) Confirm Administered Dose 40 mg .ROUTE .STK-MED ONE Stop: 07/20/20 11:40 Last Admin: 07/20/20 11:51 Dose: Not Given Documented by: Methylprednisolone Sodium Succinate (Solu-Medrol) 40 mg IVPUSH Q12H [facility] Methylprednisolone Sodium Succinate (Solu-Medrol) 40 mg IVPUSH Q12H [facility] Last Admin: 07/22/20 17:36 Dose: Not Given Documented by: Methylprednisolone Sodium Succinate (Solu-Medrol) 40 mg IVPUSH ONETIME ONE Stop: 07/22/20 12:01 Last Admin: 07/22/20 12:30 Dose: 40 mg Documented by: Metolazone (Zaroxolyn) 2.5 mg PO ONETIME ONE Stop: 07/16/20 13:31 Last Admin: 07/16/20 12:51 Dose: 2.5 mg Documented by: Metolazone (Zaroxolyn) 2.5 mg PO ONETIME ONE Stop: 07/17/20 09:26 Last Admin: 07/17/20 09:47 Dose: 2.5 mg Documented by: Nitroglycerin (Nitrostat) 0.4 mg SL ASDIRECTED PRN PRN Reason: Chest Pain Non-Formulary Medication (Iron [Iron]) 18 mg PO DAILY [facility] Non-Formulary Medication (Iron [Iron]) 18 mg PO DAILY [facility] Ondansetron HCl (Zofran Odt) 4 mg PO Q4H PRN PRN Reason: Nausea/Vomiting Pantoprazole Sodium (Protonix) 40 mg PO BEDTIME [facility] Last Admin: 07/20/20 20:11 Dose: 40 mg Documented by: Prednisolone Acetate (Pred Forte 1% Ophth Susp) 0 ml EYEBOTH DAILY [facility] Last Admin: 07/22/20 08:00 Dose: 1 drop Documented by: Prednisone (Prednisone) 20 mg PO ONETIME ONE Stop: 07/14/20 10:19 Last Admin: 07/14/20 10:53 Dose: 20 mg Documented by: Prednisone (Prednisone) Confirm Administered Dose 20 mg .ROUTE .STK-MED ONE Stop: 07/14/20 11:01 Last Admin: 07/14/20 13:21 Dose: Not Given Documented by: Prednisone (Prednisone) 40 mg PO DAILY [facility] Stop: 07/14/20 23:59 Last Admin: 07/14/20 17:05 Dose: Not Given Documented by: Prednisone (Prednisone) 20 mg PO ONETIME ONE Stop: 07/14/20 16:01 Last Admin: 07/14/20 15:26 Dose: 20 mg Documented by: Prednisone (Prednisone) 30 mg PO DAILY [facility] Stop: 07/15/20 08:01 Prednisone (Prednisone) 20 mg PO DAILY [facility] Stop: 07/16/20 23:59 Prednisone (Prednisone) 10 mg PO DAILY [facility] Stop: 07/17/20 23:59 Prednisone (Prednisone) 40 mg PO DAILY [facility] Stop: 07/15/20 23:59 Last Admin: 07/15/20 08:02 Dose: 40 mg Documented by: Prednisone (Prednisone) 30 mg PO DAILY [facility] Stop: 07/16/20 23:59 Last Admin: 07/16/20 07:36 Dose: 30 mg Documented by: Prednisone (Prednisone) 20 mg PO DAILY [facility] Stop: 07/17/20 23:59 Last Admin: 07/17/20 07:47 Dose: 20 mg Documented by: Prednisone (Prednisone) 10 mg PO DAILY [facility] Stop: 07/18/20 23:59 Last Admin: 07/18/20 08:44 Dose: 10 mg Documented by: Prednisone (Prednisone) 10 mg PO DAILY [facility] Last Admin: 07/22/20 08:00 Dose: 10 mg Documented by: Senna/Docusate Sodium (Senna Plus) 1 tab PO DAILY PRN PRN Reason: Constipation Sodium Chloride (Saline Flush) 10 ml FLUSH BID PRN PRN Reason: Keep Vein Open Last Admin: 07/17/20 22:12 Dose: 10 ml Documented by: Sepsis Event Note - Evaluation Sepsis Screening Result: No Definite Risk - Focused Exam Vital Signs: Vital Signs Temp Pulse Pulse Resp BP BP Pulse Ox 07/23/20 08:14 84 115/51 L 07/23/20 07:00 98.1 F 84 18 115/51 L 98 07/23/20 03:00 97.8 F 84 18 127/55 L 98 07/22/20 23:00 97.4 F 89 20 122/54 L 98 - Problem List Review Problem List Initiated/Reviewed/Updated: Yes - My Orders Last 24 Hours: My Active Orders 07/23/20 08:00 B-TYPE NATRIURETIC PEPTIDE,BNP [CHEM] Routine CBC WITH AUTO DIFF [HEME] Routine COMPREHENSIVE METABOLIC PN,CMP [CHEM] Routine Furosemide [Lasix] 40 mg PO BID@0800,1400 - Assessment Assessment:: 1. Acute respiratory failure in setting of: * h/o CHF of unknown type. * h/o AVR with unknown cardiac function status * Known COPD with long history of environmental exposures and known pulmonary nodules on CT * Plan: * Add Doxy and Cefepime * Another dose of Lasix at 2 PM * Give Zaroxolyn prior * Consider adding SSRI tomorrow given score of 18 * Await echo results * CXR tomorrow if not better. * Labs today and in am. - Plan Plan:: E hospitalist collaboration: 80-year-old female admitted from the ED for increasing shortness of breath and CHF/Copd exacerbation. Patient has had increasing shortness of breath and difficulty breathing for the last couple days, possibly longer she thinks. She is status post hospitalization in [place] for a fall at home with a c2 fracture. She states no surgery was needed and she was treated with a c collar which she is suppose to wear at all times and she states she had a repeat xray since being back in [place] and states she was told it is stable. Encouraged her to wear her c collar. She states is an awful thing to wear. Denies new falls. She lives at home with her son. She has had a cough that has been white productive, No fever or chills. No chest pain. No nausea, vomiting, abdominal pain, diarrhea, dysuria. She does feel fatigued. She wears O2 2L 24hrs per day. She was on Eliquis in the past, but states they took her off of that at a hospitalization in [place], she is not sure why she was taken off, now she is on a baby ASA. She has had aflutter in the past that required cardioversion few years ago and states she has been in normal rhythm since then, but this week she noted her HR to be fast and take longer to get below 100. No cp or palpitations today. She states she takes Prednisone 10mg daily and Lasix 40mg in the AM and 20mg in the afternoon. In the ED leukocytosis 13.1, hemoglobin 9.6, hematocrit 31.4, platelets 181, sodium 141, potassium 4, chloride 98, CO2 41.6, anion gap 5.4, BUN 25, creatinine 0.96, glucose 112, calcium 9.2, BNP 18,845, troponin I 0.040. Chest x-ray vascular congestion and persistent interstitial edema throughout both lungs and slight blunting of both costophrenic angle suggesting small bilateral pleural effusions. Overall per rad similar to chest x-ray 05/17/2020. At the ED, patient was given Lasix 100 mg IV x1, DuoNeb, prednisone 20, Hill catheter placed. Patient has also been started on normal saline at 75 mL/h. PMH/PSH: Former smoker, Aortic valve replacement (pig) in the past, coronary artery disease with NSTEMI and coronary stent, left carotid endarterectomy, COPD on chronic 2 L O2 24 hours a day and she says daily prednisone 10mg, interstitial lung disease, pneumonia, UTI appendectomy, cholecystectomy, hysterectomy, knee replacement, mastectomy for breast cancer, osteoporosis, right proximal humerus fracture, left tib-fib fracture, Allergies to codeine, penicillin, sulfa, tramadol and cannot remember the reaction and also an allergy to warfarin due to bleeding. Medications: These have not been verified and she states Eliquis stopped and is on Prednisone 10mg daily. Acyclovir, aspirin, duo nebs, multivitamin, calcium plus vitamin D3, senna, Coreg, Symbicort, albuterol inhaler, Eliquis, Atrovent, Cozaar, nitroglycerin, atorvastatin, Mucinex, prednisolone eyedrops, Tylenol PM, Lasix 40 in the morning and 20 in the afternoon, duo nebs. Via telemedicine exam: Temp 98, heart rate 87, respiratory rate 40, BP 132/77, O2 sat 99 on 2 L. No apparent distress, alert, cooperative, Follows commands, no lateralizing weakness, but has generalized weakness Pupils equal, no scleral icterus Lips and mouth are dry, tongue midline on protrusion Heart regular rate and rhythm, no murmurs Lungs crackles b/l mid to lower lungs and expiratory wheezing intermittently posteriorly at the bases Abdomen bowel sounds are positive, soft, nondistended, nontender Lower extremities no pitting edema Skin dry, mildly pale Assessment and plan: Shortness of breath related to acute on chronic CHF exacerbation and COPD exacerbation. Unclear last echo ef and if systolic/diastolic, images here but do not have the report. Chest x-ray revealing vascular congestion and small bilateral pleural effusions. Also has significant wheezing on exam. Treat patient for CHF exacerbation with IV Lasix. Patient already received 100 mg IV Lasix in the ED with baseline Lasix dose of 40 mg in the morning and 20 mg at night, will plan 40 mg IV twice daily starting tomorrow, monitor renal function and electrolytes, keep the patient on telemetry, troponin was not elevated and no chest pain and will repeat trop this afternoon, ekg NSR without acute st changes but does have baseline inverted t waves which have been seen in the past, astrid continue, she has had 600ml out in 2 hours thus would be cautious for hypotension developing she will be on NS at 50ml/hour. COPD exacerbation treat with ongoing oral steroid she received 20 mg in the ED and will give additional 20mg this afternoon and will plan 40 mg daily for 4 more days, then will need to tape to home 10mg daily if that is her chronic dose which needs to be verified. No current signs of pneumonia at this time. Continue nebs. She is chronically on O2 and remains at her baseline of 2 L. Keep cervical collar on and may need to obtain pcp/[place] records for details. Call e hospitalist with questions 07/19/20 F/u ECHO to be done today. Continue management of CHF and COPD exacerbation. Patient was placed on small prednisone taper - will continue to monitor chest congestion and consider a higher or longer taper. Continue Lasix as directed with daily weights. Consider guaifenesin for cough and chest congestion. Counseled patient on C-collar use and the necessity and patient understands the risks of taking it off and falling would be life threatening. Patient may benefit from subacute rehabilitation due to weakness getting up from bed and ambulating. 07/20/20 Persistent Leukocytosis. Changing antibiotics for management and repeat labs in am. Continue management of CHF and COPD exacerbation. Solumedrol added as shortness of breath continues. Continue lasix and f/u weights and labs. Start guaifenesin for cough and congestion. Counseled on C-collar again, and patient agrees on wearing if out of bed.
[2020-07-23] MEDS: atorvaSTATin 20 MG Tab PO SCH (19:50)
[2020-07-23] MEDS: Aspirin 81 MG Tab.Chew PO SCH (19:50)
[2020-07-23] MEDS: Losartan 25 MG Tab PO SCH (19:50)
[2020-07-23] MEDS ORDERED: Melatonin 3 MG Tab ONE (21:06)
[2020-07-23] MEDS: Melatonin 3 MG Tab PO PRN (21:11)
[2020-07-24] MEDS: Albuterol 0.083% 2.5 MG/3 ML Neb Soln NEB PRN (02:15)
--- NOTE | 2020-07-24 07:36 | PCM.PN ---
- General Info Date of Service: 07/24/20 Subjective Update: Patient awake, no C/O of pain or SOB in bed. Lung sounds have scattered crackles throughout, but much improved over the weekend. She is hoping for DC today. - Review of Systems General: Reports: No Symptoms HEENT: Reports: No Symptoms Pulmonary: Reports: Cough Cardiovascular: Reports: Dyspnea on Exertion Gastrointestinal: Reports: No Symptoms Genitourinary: Reports: No Symptoms Musculoskeletal: Reports: No Symptoms Neurological: Reports: No Symptoms Psychiatric: Reports: No Symptoms - Patient Data Vitals - Most Recent: Last Vital Signs Temp 98.4 F 07/23/20 23:57 Pulse 86 07/23/20 23:57 Resp 24 H 07/23/20 23:57 BP 120/69 07/23/20 23:57 Pulse Ox 98 07/23/20 23:57 Weight - Most Recent: 117 lb 3.2 oz I&O - Last 24 Hours: Intake & Output 07/23/20 07/24/20 07/24/20 22:59 06:59 14:59 Intake Total 350 Balance 350 Lab Results Last 24 Hours: Laboratory Results - last 24 hr 07/23/20 07/23/20 Range/Units 09:20 09:30 WBC 12.0 H D (4.0-11.0) K/uL RBC 3.03 L (3.80-5.80) M/uL Hgb 9.3 L (11.5-16.5) g/dL Hct 30.2 L (37.0-47.0) % MCV 100 H (76-96) fL MCH 30.7 (27.0-32.0) pg MCHC 30.8 L (31.0-35.0) g/dL RDW 14.0 (11.0-16.0) % Plt Count 203 (150-500) K/uL MPV 10.4 H (6.0-10.0) fL Neut % (Auto) 95.0 H (45.0-70.0) % Lymph % (Auto) 2.4 L (20.0-40.0) % [place] % (Auto) 2.5 L (3.0-10.0) % Eos % (Auto) 0.1 L (1.0-5.0) % Baso % (Auto) 0.0 (0.0-0.5) % Neut # (Auto) 11.42 H (2.00-7.50) K/uL Lymph # (Auto) 0.29 L (1.50-4.00) K/uL [place] # (Auto) 0.30 (0.20-0.80) K/uL Eos # (Auto) 0.01 L (0.04-0.40) K/uL Baso # (Auto) 0.00 L (0.02-0.10) K/uL Sodium 141 (136-145) mmol/L Potassium 3.5 (3.5-5.1) mmol/L Chloride 101 (98-107) mmol/L Carbon Dioxide 35.5 H (21.0-32.0) mmol/L Anion Gap 8.0 (5.0-15.0) mmol/L BUN 57 H* (8-26) mg/dL Creatinine 1.26 H (0.55-1.02) mg/dL Est Cr Clr Drug Dosing 27.32 mL/min Estimated GFR (MDRD) 41 L (>60) MLS/MIN BUN/Creatinine Ratio 45.2 H (6-25) Glucose 201 H D (74-100) mg/dL Calcium 7.7 L (8.5-10.1) mg/dL Total Bilirubin 0.2 D (0.0-1.0) mg/dL AST 21 (15-37) U/L ALT 22 (12-78) U/L Alkaline Phosphatase 46 (46-116) U/L B-Natriuretic Peptide 24647 H D (0-450) pg/mL Total Protein 6.2 L (6.4-8.2) g/dL Albumin 2.5 L (3.4-5.0) g/dL Globulin 3.7 (2.2-4.2) g/dL Albumin/Globulin Ratio 0.7 L (0.8-2.0) Henrik Results Last 24 Hours: Microbiology 07/20/20 15:20 Aerobic Blood Culture - Preliminary Blood NO GROWTH AFTER 3 DAYS Anaerobic Blood Culture - Preliminary NO GROWTH AFTER 3 DAYS Med Orders - Current: Current Medications Acetaminophen (Tylenol) 650 mg PO Q4H PRN PRN Reason: Pain (moderate 4-6) Albuterol (Proventil Neb Soln) 2.5 mg NEB Q2H PRN PRN Reason: Dyspnea Last Admin: 07/24/20 02:15 Dose: 2.5 mg Documented by: Albuterol/Ipratropium (Duoneb 3.0-0.5 Mg/3 Ml) 3 ml NEB QID [facility] Last Admin: 07/23/20 19:50 Dose: 3 ml Documented by: Aspirin (Aspirin) 81 mg PO QPM [facility] Last Admin: 07/23/20 19:50 Dose: 81 mg Documented by: Atorvastatin Calcium (Lipitor) 20 mg PO BEDTIME [facility] Last Admin: 07/23/20 19:50 Dose: 20 mg Documented by: Calcium Carbonate (Caltrate 600+D 1500 Mg-400 Units) 1 tab PO TIDMEALS [facility] Last Admin: 07/23/20 17:23 Dose: 1 tab Documented by: Carvedilol (Coreg) 25 mg PO BIDMEALS [facility] Last Admin: 07/23/20 17:23 Dose: 25 mg Documented by: Ferrous Sulfate (Ferrous Sulfate) 325 mg PO DAILY@0800 [facility] Last Admin: 07/23/20 08:13 Dose: 325 mg Documented by: Furosemide (Lasix) 40 mg PO BID@0800,1400 [facility] Last Admin: 07/23/20 13:01 Dose: 40 mg Documented by: Guaifenesin (Mucinex) 600 mg PO DAILY [facility] Last Admin: 07/23/20 08:15 Dose: 600 mg Documented by: Ceftriaxone Sodium 1 gm/ (Sodium Chloride) 50 mls @ 100 mls/hr IV Q24H [facility] Stop: 07/27/20 23:59 Last Admin: 07/23/20 08:36 Dose: 100 mls/hr Documented by: Azithromycin 500 mg/ Sodium (Chloride) 250 mls @ 250 mls/hr IV Q24H [facility] Last Admin: 07/23/20 08:36 Dose: 250 mls/hr Documented by: Lactobacillus Acidophilus (Acidolphilus Extra Strength) 1 tab PO DAILY [facility] Last Admin: 07/23/20 08:14 Dose: 1 tab Documented by: Losartan Potassium (Cozaar) 25 mg PO BEDTIME [facility] Last Admin: 07/23/20 19:50 Dose: 25 mg Documented by: Melatonin (Melatonin) 6 mg PO BEDTIME PRN PRN Reason: Insomnia Last Admin: 07/23/20 21:11 Dose: 6 mg Documented by: Methylprednisolone Sodium Succinate (Solu-Medrol) 40 mg IVPUSH Q12H [facility] Last Admin: 07/23/20 19:55 Dose: 40 mg Documented by: Multivitamins/Minerals (Thera M Plus) 1 tab PO DAILY [facility] Last Admin: 07/23/20 08:13 Dose: 1 tab Documented by: Prednisolone Acetate (Pred Forte 1% Ophth Susp) 1 ml EYELF DAILY [facility] Last Admin: 07/23/20 08:16 Dose: 1 ml Documented by: Sodium Chloride (Saline Flush) 10 ml FLUSH BID PRN PRN Reason: Other Last Admin: 07/22/20 20:35 Dose: 10 ml Documented by: Discontinued Medications Acetaminophen (Tylenol) 650 mg PO Q4H PRN PRN Reason: Pain (Mild 1-3)/fever Last Admin: 07/17/20 21:27 Dose: 650 mg Documented by: Acetaminophen (Tylenol) 650 mg PO Q6H PRN PRN Reason: Pain Acyclovir (Zovirax) 400 mg PO DAILY [facility] Last Admin: 07/21/20 08:01 Dose: 400 mg Documented by: Albuterol/Ipratropium (Duoneb 3.0-0.5 Mg/3 Ml) 3 ml NEB BID [facility] Last Admin: 07/14/20 10:53 Dose: 3 ml Documented by: Albuterol/Ipratropium (Duoneb 3.0-0.5 Mg/3 Ml) Confirm Administered Dose 3 ml .ROUTE .STK-MED ONE Stop: 07/14/20 11:01 Last Admin: 07/14/20 13:20 Dose: Not Given Documented by: Albuterol/Ipratropium (Duoneb 3.0-0.5 Mg/3 Ml) 3 ml NEB QID [facility] Last Admin: 07/21/20 12:04 Dose: 3 ml Documented by: Albuterol/Ipratropium (Duoneb 3.0-0.5 Mg/3 Ml) 3 ml NEB Q4H PRN PRN Reason: Dyspnea Last Admin: 07/21/20 03:03 Dose: 3 ml Documented by: Albuterol/Ipratropium (Duoneb 3.0-0.5 Mg/3 Ml) 3 ml NEB Q6H [facility] Aspirin (Aspirin) 81 mg PO DAILY [facility] Last Admin: 07/21/20 07:59 Dose: 81 mg Documented by: Atorvastatin Calcium (Lipitor) 20 mg PO BEDTIME [facility] Last Admin: 07/20/20 20:11 Dose: 20 mg Documented by: Bisacodyl (Dulcolax) 10 mg RECTAL ONETIME ONE Stop: 07/15/20 15:49 Last Admin: 07/15/20 17:00 Dose: Not Given Documented by: Calamine/Phenol (Calmoseptine) 0 gm TOP QID PRN PRN Reason: Other Calcium Carbonate (Caltrate 600+D 1500 Mg-400 Units) Confirm Administered Dose 1 tab .ROUTE .STK-MED ONE Stop: 07/22/20 18:56 Last Admin: 07/22/20 19:39 Dose: Not Given Documented by: Calcium Carbonate (Caltrate 600+D 1500 Mg-400 Units) Confirm Administered Dose 1 tab .ROUTE .STK-MED ONE Stop: 07/23/20 08:22 Last Admin: 07/23/20 08:35 Dose: Not Given Documented by: Calcium Carbonate (Caltrate 600+D 1500 Mg-400 Units) Confirm Administered Dose 1 tab .ROUTE .STK-MED ONE Stop: 07/23/20 12:59 Last Admin: 07/23/20 16:26 Dose: Not Given Documented by: Calcium Carbonate (Caltrate 600+D 1500 Mg-400 Units) Confirm Administered Dose 1 tab .ROUTE .STK-MED ONE Stop: 07/23/20 17:23 Last Admin: 07/23/20 17:26 Dose: Not Given Documented by: Carvedilol (Coreg) 25 mg PO BID [facility] Last Admin: 07/21/20 07:59 Dose: 25 mg Documented by: Carvedilol (Coreg) Confirm Administered Dose 25 mg .ROUTE .STK-MED ONE Stop: 07/22/20 17:40 Last Admin: 07/22/20 17:47 Dose: Not Given Documented by: Carvedilol (Coreg) Confirm Administered Dose 25 mg .ROUTE .STK-MED ONE Stop: 07/23/20 07:39 Last Admin: 07/23/20 08:12 Dose: Not Given Documented by: Carvedilol (Coreg) Confirm Administered Dose 25 mg .ROUTE .STK-MED ONE Stop: 07/23/20 17:22 Last Admin: 07/23/20 17:26 Dose: Not Given Documented by: Ceftriaxone Sodium (Rocephin) Confirm Administered Dose 1 gm .ROUTE .STK-MED ONE Stop: 07/23/20 08:25 Last Admin: 07/23/20 08:35 Dose: Not Given Documented by: Ferrous Sulfate (Ferrous Sulfate) 325 mg PO WITHBREAKFAST [facility] Last Admin: 07/22/20 08:00 Dose: 324 mg Documented by: Furosemide (Lasix) 40 mg IVPUSH NOW ONE Stop: 07/14/20 10:20 Last Admin: 07/14/20 13:27 Dose: Not Given Documented by: Furosemide (Lasix) 100 mg IVPUSH NOW ONE Stop: 07/14/20 10:41 Last Admin: 07/14/20 11:08 Dose: 100 mg Documented by: Furosemide (Lasix) Confirm Administered Dose 100 mg .ROUTE .[facility] ONE Stop: 07/14/20 11:12 Last Admin: 07/14/20 13:21 Dose: Not Given Documented by: Furosemide (Lasix) 40 mg IVPUSH BID [facility] Last Admin: 07/15/20 08:02 Dose: 40 mg Documented by: Furosemide (Lasix) 60 mg IVPUSH DAILY [facility] Last Admin: 07/21/20 08:03 Dose: 60 mg Documented by: Furosemide (Lasix) 40 mg IVPUSH NOW ONE Stop: 07/16/20 14:01 Last Admin: 07/16/20 13:50 Dose: 40 mg Documented by: Furosemide (Lasix) 20 mg PO 1200 [facility] Last Admin: 07/22/20 12:29 Dose: 20 mg Documented by: Furosemide (Lasix) 20 mg PO ONETIME ONE Stop: 07/22/20 16:21 Last Admin: 07/22/20 16:24 Dose: 20 mg Documented by: Guaifenesin (Mucinex) 600 mg PO DAILY [facility] Last Admin: 07/20/20 08:26 Dose: 600 mg Documented by: Guaifenesin (Mucinex) 600 mg PO BID [facility] Last Admin: 07/21/20 08:00 Dose: 600 mg Documented by: Sodium Chloride (Normal Saline) 1,000 mls @ 50 mls/hr IV ASDIRECTED [facility] Last Admin: 07/15/20 11:11 Dose: 50 mls/hr Documented by: Doxycycline Hyclate 100 mg/ (Sodium Chloride) 100 mls @ 100 mls/hr IV Q12HR [facility] Last Admin: 07/18/20 08:46 Dose: 100 mls/hr Documented by: Cefepime HCl 1 gm/ Sodium (Chloride) 50 mls @ 100 mls/hr IV Q12H [facility] Last Admin: 07/16/20 12:14 Dose: Not Given Documented by: Levofloxacin/Dextrose 500 mg/ (Premix) 100 mls @ 100 mls/hr IV Q24H [facility] Last Admin: 07/16/20 12:54 Dose: 100 mls/hr Documented by: Levofloxacin/Dextrose 250 mg/ (Premix) 50 mls @ 50 mls/hr IV Q24H [facility] Levofloxacin/Dextrose 250 mg/ (Premix) 50 mls @ 50 mls/hr IV Q24H [facility] Last Admin: 07/18/20 10:27 Dose: Not Given Documented by: Levofloxacin/Dextrose (Levaquin In D5w 250 Mg/50 Ml) Confirm Administered Dose 50 mls @ as directed IV .STIngageapp-MED ONE Stop: 07/17/20 08:52 Last Admin: 07/17/20 09:48 Dose: Not Given Documented by: Levofloxacin/Dextrose (Levaquin In D5w 250 Mg/50 Ml) 50 mls @ 50 mls/hr IV DAILY [facility] Last Admin: 07/20/20 08:19 Dose: 50 mls/hr Documented by: Ceftriaxone Sodium 1 gm/ (Sodium Chloride) 50 mls @ 200 mls/hr IV Q24H [facility] Stop: 07/21/20 23:59 Last Admin: 07/21/20 09:49 Dose: 200 mls/hr Documented by: Azithromycin 500 mg/ Sodium (Chloride) 250 mls @ 250 mls/hr IV Q24H [facility] Stop: 07/27/20 23:59 Last Admin: 07/21/20 10:09 Dose: 250 mls/hr Documented by: Azithromycin 500 mg/ Sodium (Chloride) 250 mls @ 250 mls/hr IV Q24H [facility] Lactobacillus Acidophilus (Acidolphilus Extra Strength) 1 tab PO DAILY@1200 [facility] Last Admin: 07/21/20 12:04 Dose: 1 tab Documented by: Lactobacillus Acidophilus (Acidolphilus Extra Strength) Confirm Administered Dose 1 tab .ROUTE .STK-MED ONE Stop: 07/22/20 12:25 Last Admin: 07/22/20 13:54 Dose: Not Given Documented by: Lactobacillus Acidophilus (Acidolphilus Extra Strength) Confirm Administered Dose 1 tab .ROUTE .STK-MED ONE Stop: 07/23/20 07:38 Last Admin: 07/23/20 08:12 Dose: Not Given Documented by: Losartan Potassium (Cozaar) 25 mg PO BEDTIME [facility] Last Admin: 07/20/20 20:10 Dose: 25 mg Documented by: Melatonin (Melatonin) 6 mg PO BEDTIME PRN PRN Reason: Sleep Last Admin: 07/19/20 19:51 Dose: 6 mg Documented by: Melatonin (Melatonin) Confirm Administered Dose 6 mg .ROUTE .STK-MED ONE Stop: 07/22/20 21:51 Last Admin: 07/22/20 22:13 Dose: Not Given Documented by: Melatonin (Melatonin) Confirm Administered Dose 6 mg .ROUTE .STK-MED ONE Stop: 07/23/20 21:07 Last Admin: 07/24/20 02:17 Dose: Not Given Documented by: Methylprednisolone Sodium Succinate (Solu-Medrol) 40 mg IVPUSH Q12H [facility] Last Admin: 07/21/20 09:35 Dose: 40 mg Documented by: Methylprednisolone Sodium Succinate (Solu-Medrol) Confirm Administered Dose 40 mg .ROUTE .STK-MED ONE Stop: 07/20/20 11:40 Last Admin: 07/20/20 11:51 Dose: Not Given Documented by: Methylprednisolone Sodium Succinate (Solu-Medrol) 40 mg IVPUSH Q12H [facility] Methylprednisolone Sodium Succinate (Solu-Medrol) 40 mg IVPUSH Q12H [facility] Last Admin: 07/22/20 17:36 Dose: Not Given Documented by: Methylprednisolone Sodium Succinate (Solu-Medrol) 40 mg IVPUSH ONETIME ONE Stop: 07/22/20 12:01 Last Admin: 07/22/20 12:30 Dose: 40 mg Documented by: Metolazone (Zaroxolyn) 2.5 mg PO ONETIME ONE Stop: 07/16/20 13:31 Last Admin: 07/16/20 12:51 Dose: 2.5 mg Documented by: Metolazone (Zaroxolyn) 2.5 mg PO ONETIME ONE Stop: 07/17/20 09:26 Last Admin: 07/17/20 09:47 Dose: 2.5 mg Documented by: Nitroglycerin (Nitrostat) 0.4 mg SL ASDIRECTED PRN PRN Reason: Chest Pain Non-Formulary Medication (Iron [Iron]) 18 mg PO DAILY [facility] Non-Formulary Medication (Iron [Iron]) 18 mg PO DAILY [facility] Ondansetron HCl (Zofran Odt) 4 mg PO Q4H PRN PRN Reason: Nausea/Vomiting Pantoprazole Sodium (Protonix) 40 mg PO BEDTIME [facility] Last Admin: 07/20/20 20:11 Dose: 40 mg Documented by: Prednisolone Acetate (Pred Forte 1% Ophth Susp) 0 ml EYEBOTH DAILY [facility] Last Admin: 07/22/20 08:00 Dose: 1 drop Documented by: Prednisone (Prednisone) 20 mg PO ONETIME ONE Stop: 07/14/20 10:19 Last Admin: 07/14/20 10:53 Dose: 20 mg Documented by: Prednisone (Prednisone) Confirm Administered Dose 20 mg .ROUTE .STK-MED ONE Stop: 07/14/20 11:01 Last Admin: 07/14/20 13:21 Dose: Not Given Documented by: Prednisone (Prednisone) 40 mg PO DAILY [facility] Stop: 07/14/20 23:59 Last Admin: 07/14/20 17:05 Dose: Not Given Documented by: Prednisone (Prednisone) 20 mg PO ONETIME ONE Stop: 07/14/20 16:01 Last Admin: 07/14/20 15:26 Dose: 20 mg Documented by: Prednisone (Prednisone) 30 mg PO DAILY [facility] Stop: 07/15/20 08:01 Prednisone (Prednisone) 20 mg PO DAILY [facility] Stop: 07/16/20 23:59 Prednisone (Prednisone) 10 mg PO DAILY [facility] Stop: 07/17/20 23:59 Prednisone (Prednisone) 40 mg PO DAILY [facility] Stop: 07/15/20 23:59 Last Admin: 07/15/20 08:02 Dose: 40 mg Documented by: Prednisone (Prednisone) 30 mg PO DAILY [facility] Stop: 07/16/20 23:59 Last Admin: 07/16/20 07:36 Dose: 30 mg Documented by: Prednisone (Prednisone) 20 mg PO DAILY [facility] Stop: 07/17/20 23:59 Last Admin: 07/17/20 07:47 Dose: 20 mg Documented by: Prednisone (Prednisone) 10 mg PO DAILY [facility] Stop: 07/18/20 23:59 Last Admin: 07/18/20 08:44 Dose: 10 mg Documented by: Prednisone (Prednisone) 10 mg PO DAILY [facility] Last Admin: 07/22/20 08:00 Dose: 10 mg Documented by: Senna/Docusate Sodium (Senna Plus) 1 tab PO DAILY PRN PRN Reason: Constipation Sodium Chloride (Saline Flush) 10 ml FLUSH BID PRN PRN Reason: Keep Vein Open Last Admin: 07/17/20 22:12 Dose: 10 ml Documented by: Sepsis Event Note - Evaluation Sepsis Screening Result: No Definite Risk - Focused Exam Vital Signs: Vital Signs Temp Pulse Resp BP BP Pulse Ox 07/23/20 23:57 98.4 F 86 24 H 120/69 98 07/23/20 19:50 129/55 L - Problem List Review Problem List Initiated/Reviewed/Updated: Yes - My Orders Last 24 Hours: My Active Orders 07/23/20 08:00 Furosemide [Lasix] 40 mg PO BID@0800,1400 07/24/20 06:49 B-TYPE NATRIURETIC PEPTIDE,BNP [CHEM] Routine CBC WITH AUTO DIFF [HEME] Routine COMPREHENSIVE METABOLIC PN,CMP [CHEM] Routine - Assessment Assessment:: 1. Acute respiratory failure in setting of: * h/o CHF of unknown type. * h/o AVR with unknown cardiac function status * Known COPD with long history of environmental exposures and known pulmonary nodules on CT * Plan: * Add Doxy and Cefepime * Another dose of Lasix at 2 PM * Give Zaroxolyn prior * Consider adding SSRI tomorrow given score of 18 * Await echo results * CXR tomorrow if not better. * Labs today and in am. - Plan Plan:: E hospitalist collaboration: 80-year-old female admitted from the ED for increasing shortness of breath and CHF/Copd exacerbation. Patient has had increasing shortness of breath and difficulty breathing for the last couple days, possibly longer she thinks. She is status post hospitalization in [place] for a fall at home with a c2 fracture. She states no surgery was needed and she was treated with a c collar which she is suppose to wear at all times and she states she had a repeat xray since being back in [place] and states she was told it is stable. Encouraged her to wear her c collar. She states is an awful thing to wear. Denies new falls. She lives at home with her son. She has had a cough that has been white productive, No fever or chills. No chest pain. No nausea, vomiting, abdominal pain, diarrhea, dysuria. She does feel fatigued. She wears O2 2L 24hrs per day. She was on Eliquis in the past, but states they took her off of that at a hospitalization in [place], she is not sure why she was taken off, now she is on a baby ASA. She has had aflutter in the past that required cardioversion few years ago and states she has been in normal rhythm since then, but this week she noted her HR to be fast and take longer to get below 100. No cp or palpitations today. She states she takes Prednisone 10mg daily and Lasix 40mg in the AM and 20mg in the afternoon. In the ED leukocytosis 13.1, hemoglobin 9.6, hematocrit 31.4, platelets 181, sodium 141, potassium 4, chloride 98, CO2 41.6, anion gap 5.4, BUN 25, creatinine 0.96, glucose 112, calcium 9.2, BNP 18,845, troponin I 0.040. Chest x-ray vascular congestion and persistent interstitial edema throughout both lungs and slight blunting of both costophrenic angle suggesting small bilateral pleural effusions. Overall per rad similar to chest x-ray 05/17/2020. At the ED, patient was given Lasix 100 mg IV x1, DuoNeb, prednisone 20, Resendiz catheter placed. Patient has also been started on normal saline at 75 mL/h. PMH/PSH: Former smoker, Aortic valve replacement (pig) in the past, coronary artery disease with NSTEMI and coronary stent, left carotid endarterectomy, COPD on chronic 2 L O2 24 hours a day and she says daily prednisone 10mg, interstitial lung disease, pneumonia, UTI appendectomy, cholecystectomy, hysterectomy, knee replacement, mastectomy for breast cancer, osteoporosis, right proximal humerus fracture, left tib-fib fracture, Allergies to codeine, penicillin, sulfa, tramadol and cannot remember the reaction and also an allergy to warfarin due to bleeding. Medications: These have not been verified and she states Eliquis stopped and is on Prednisone 10mg daily. Acyclovir, aspirin, duo nebs, multivitamin, calcium plus vitamin D3, senna, Coreg, Symbicort, albuterol inhaler, Eliquis, Atrovent, Cozaar, nitroglycerin, atorvastatin, Mucinex, prednisolone eyedrops, Tylenol PM, Lasix 40 in the morning and 20 in the afternoon, duo nebs. Via telemedicine exam: Temp 98, heart rate 87, respiratory rate 40, BP 132/77, O2 sat 99 on 2 L. No apparent distress, alert, cooperative, Follows commands, no lateralizing weakness, but has generalized weakness Pupils equal, no scleral icterus Lips and mouth are dry, tongue midline on protrusion Heart regular rate and rhythm, no murmurs Lungs crackles b/l mid to lower lungs and expiratory wheezing intermittently posteriorly at the bases Abdomen bowel sounds are positive, soft, nondistended, nontender Lower extremities no pitting edema Skin dry, mildly pale Assessment and plan: Shortness of breath related to acute on chronic CHF exacerbation and COPD exacerbation. Unclear last echo ef and if systolic/diastolic, images here but do not have the report. Chest x-ray revealing vascular congestion and small bilateral pleural effusions. Also has significant wheezing on exam. Treat patient for CHF exacerbation with IV Lasix. Patient already received 100 mg IV Lasix in the ED with baseline Lasix dose of 40 mg in the morning and 20 mg at night, will plan 40 mg IV twice daily starting tomorrow, monitor renal function and electrolytes, keep the patient on telemetry, troponin was not elevated and no chest pain and will repeat trop this afternoon, ekg NSR without acute st changes but does have baseline inverted t waves which have been seen in the past, resendiz continue, she has had 600ml out in 2 hours thus would be cautious for hypotension developing she will be on NS at 50ml/hour. COPD exacerbation treat with ongoing oral steroid she received 20 mg in the ED and will give additional 20mg this afternoon and will plan 40 mg daily for 4 more days, then will need to tape to home 10mg daily if that is her chronic dose which needs to be verified. No current signs of pneumonia at this time. Continue nebs. She is chronically on O2 and remains at her baseline of 2 L. Keep cervical collar on and may need to obtain pcp/[place] records for details. Call e hospitalist with questions 07/19/20 F/u ECHO to be done today. Continue management of CHF and COPD exacerbation. Patient was placed on small prednisone taper - will continue to monitor chest congestion and consider a higher or longer taper. Continue Lasix as directed with daily weights. Consider guaifenesin for cough and chest congestion. Counseled patient on C-collar use and the necessity and patient understands the risks of taking it off and falling would be life threatening. Patient may benefit from subacute rehabilitation due to weakness getting up from bed and ambulating. 07/20/20 Persistent Leukocytosis. Changing antibiotics for management and repeat labs in am. Continue management of CHF and COPD exacerbation. Solumedrol added as shortness of breath continues. Continue lasix and f/u weights and labs. Start guaifenesin for cough and congestion. Counseled on C-collar again, and patient agrees on wearing if out of bed.
[2020-07-24] MEDS: methylPREDNISolone Sodium Succinate 40 MG/1 ML SDV IVPUSH SCH (07:45)
[2020-07-24] MEDS: Ferrous Sulfate 325 MG Tab PO SCH (07:45)
[2020-07-24] MEDS: Furosemide 40 MG Tab PO SCH ×2 (07:45→14:16)
[2020-07-24] MEDS: guaiFENesin 600 MG Tab.ER PO SCH (07:45)
[2020-07-24] MEDS: Multivitamins with Iron/Calcium/Folic Acid/Minerals Tab PO SCH (07:45)
[2020-07-24] MEDS: Carvedilol 25 MG Tab PO SCH (07:50)
[2020-07-24] MEDS: Lactobacillus Acidophilus/Lactobacillus Sporogenes (Probiotic) Tab PO SCH (07:51)
[2020-07-24] MEDS: Calcium Carbonate/Vitamin D3 1500 MG-400 Units Tab PO SCH ×2 (07:51→12:54)
[2020-07-24] MEDS: Albuterol/Ipratropium 3.0-0.5 MG/3 ML Neb Soln NEB SCH ×2 (07:51→12:45)
[2020-07-24] MEDS: cefTRIAXone 1 GM in Sodium Chloride 0.9% 50 ML IV SCH (08:38)
[2020-07-24] MEDS: prednisoLONE Acetate 1% Ophth Susp 5 ML Bottle EYELF SCH (08:42)
[2020-07-24] MEDS: Azithromycin 500 MG in Sodium Chloride 0.9% 250 ML IV SCH (09:12)
--- NOTE | 2020-07-24 09:27 | PCM.PN ---
- General Info Date of Service: 07/24/20 Subjective Update: Patient notes significant improvement over the weekend. She states she would like to go home. Denies shortness of breath worse than baseline. She notes her strength as improved as well. Functional Status: Reports: Pain Controlled, Tolerating Diet - Review of Systems General: Reports: Weakness HEENT: Reports: No Symptoms Pulmonary: Reports: Shortness of Breath Cardiovascular: Reports: No Symptoms Gastrointestinal: Reports: No Symptoms Genitourinary: Reports: No Symptoms Musculoskeletal: Reports: No Symptoms - Patient Data Vitals - Most Recent: Last Vital Signs Temp 36.9 C 07/23/20 23:57 Pulse 83 07/24/20 07:50 Resp 24 H 07/23/20 23:57 BP 138/59 L 07/24/20 07:50 Pulse Ox 98 07/23/20 23:57 Weight - Most Recent: 53.161 kg I&O - Last 24 Hours: Intake & Output 07/23/20 07/24/20 07/24/20 22:59 06:59 14:59 Intake Total 350 Balance 350 Lab Results Last 24 Hours: Laboratory Results - last 24 hr 07/23/20 07/23/20 07/24/20 Range/Units 09:20 09:30 07:20 WBC 12.0 H D 12.7 H (4.0-11.0) K/uL RBC 3.03 L 3.06 L (3.80-5.80) M/uL Hgb 9.3 L 9.4 L (11.5-16.5) g/dL Hct 30.2 L 30.9 L (37.0-47.0) % MCV 100 H 101 H (76-96) fL MCH 30.7 30.7 (27.0-32.0) pg MCHC 30.8 L 30.4 L (31.0-35.0) g/dL RDW 14.0 14.0 (11.0-16.0) % Plt Count 203 201 (150-500) K/uL MPV 10.4 H 9.8 (6.0-10.0) fL Neut % (Auto) 95.0 H 93.1 H (45.0-70.0) % Lymph % (Auto) 2.4 L 2.1 L (20.0-40.0) % [place] % (Auto) 2.5 L 4.8 (3.0-10.0) % Eos % (Auto) 0.1 L 0.0 L (1.0-5.0) % Baso % (Auto) 0.0 0.0 (0.0-0.5) % Neut # (Auto) 11.42 H 11.84 H (2.00-7.50) K/uL Lymph # (Auto) 0.29 L 0.27 L (1.50-4.00) K/uL [place] # (Auto) 0.30 0.61 (0.20-0.80) K/uL Eos # (Auto) 0.01 L 0.00 L (0.04-0.40) K/uL Baso # (Auto) 0.00 L 0.00 L (0.02-0.10) K/uL Sodium 141 (136-145) mmol/L Potassium 3.5 (3.5-5.1) mmol/L Chloride 101 (98-107) mmol/L Carbon Dioxide 35.5 H (21.0-32.0) mmol/L Anion Gap 8.0 (5.0-15.0) mmol/L BUN 57 H* (8-26) mg/dL Creatinine 1.26 H (0.55-1.02) mg/dL Est Cr Clr Drug Dosing 27.32 mL/min Estimated GFR (MDRD) 41 L (>60) MLS/MIN BUN/Creatinine Ratio 45.2 H (6-25) Glucose 201 H D (74-100) mg/dL Calcium 7.7 L (8.5-10.1) mg/dL Total Bilirubin 0.2 D (0.0-1.0) mg/dL AST 21 (15-37) U/L ALT 22 (12-78) U/L Alkaline Phosphatase 46 (46-116) U/L B-Natriuretic Peptide 24830 H D (0-450) pg/mL Total Protein 6.2 L (6.4-8.2) g/dL Albumin 2.5 L (3.4-5.0) g/dL Globulin 3.7 (2.2-4.2) g/dL Albumin/Globulin Ratio 0.7 L (0.8-2.0) 07/24/20 Range/Units 07:20 WBC (4.0-11.0) K/uL RBC (3.80-5.80) M/uL Hgb (11.5-16.5) g/dL Hct (37.0-47.0) % MCV (76-96) fL MCH (27.0-32.0) pg MCHC (31.0-35.0) g/dL RDW (11.0-16.0) % Plt Count (150-500) K/uL MPV (6.0-10.0) fL Neut % (Auto) (45.0-70.0) % Lymph % (Auto) (20.0-40.0) % [place] % (Auto) (3.0-10.0) % Eos % (Auto) (1.0-5.0) % Baso % (Auto) (0.0-0.5) % Neut # (Auto) (2.00-7.50) K/uL Lymph # (Auto) (1.50-4.00) K/uL [place] # (Auto) (0.20-0.80) K/uL Eos # (Auto) (0.04-0.40) K/uL Baso # (Auto) (0.02-0.10) K/uL Sodium 144 (136-145) mmol/L Potassium 3.8 (3.5-5.1) mmol/L Chloride 103 (98-107) mmol/L Carbon Dioxide 40.0 H (21.0-32.0) mmol/L Anion Gap 4.8 L (5.0-15.0) mmol/L BUN 52 H* (8-26) mg/dL Creatinine 1.08 H (0.55-1.02) mg/dL Est Cr Clr Drug Dosing 31.87 mL/min Estimated GFR (MDRD) 49 L (>60) MLS/MIN BUN/Creatinine Ratio 48.1 H (6-25) Glucose 139 H D (74-100) mg/dL Calcium 8.3 L (8.5-10.1) mg/dL Total Bilirubin 0.2 (0.0-1.0) mg/dL AST 18 (15-37) U/L ALT 23 (12-78) U/L Alkaline Phosphatase 37 L (46-116) U/L B-Natriuretic Peptide 21653 H (0-450) pg/mL Total Protein 6.0 L (6.4-8.2) g/dL Albumin 2.5 L (3.4-5.0) g/dL Globulin 3.5 (2.2-4.2) g/dL Albumin/Globulin Ratio 0.7 L (0.8-2.0) Henrik Results Last 24 Hours: Microbiology 07/20/20 15:20 Aerobic Blood Culture - Preliminary Blood NO GROWTH AFTER 3 DAYS Anaerobic Blood Culture - Preliminary NO GROWTH AFTER 3 DAYS Med Orders - Current: Current Medications Acetaminophen (Tylenol) 650 mg PO Q4H PRN PRN Reason: Pain (moderate 4-6) Albuterol (Proventil Neb Soln) 2.5 mg NEB Q2H PRN PRN Reason: Dyspnea Last Admin: 07/24/20 02:15 Dose: 2.5 mg Documented by: Albuterol/Ipratropium (Duoneb 3.0-0.5 Mg/3 Ml) 3 ml NEB QID [facility] Last Admin: 07/24/20 07:51 Dose: 3 ml Documented by: Aspirin (Aspirin) 81 mg PO QPM [facility] Last Admin: 07/23/20 19:50 Dose: 81 mg Documented by: Atorvastatin Calcium (Lipitor) 20 mg PO BEDTIME [facility] Last Admin: 07/23/20 19:50 Dose: 20 mg Documented by: Calcium Carbonate (Caltrate 600+D 1500 Mg-400 Units) 1 tab PO TIDMEALS [facility] Last Admin: 07/24/20 07:51 Dose: 1 tab Documented by: Carvedilol (Coreg) 25 mg PO BIDMEALS [facility] Last Admin: 07/24/20 07:50 Dose: 25 mg Documented by: Ferrous Sulfate (Ferrous Sulfate) 325 mg PO DAILY@0800 [facility] Last Admin: 07/24/20 07:45 Dose: 325 mg Documented by: Furosemide (Lasix) 40 mg PO BID@0800,1400 [facility] Last Admin: 07/24/20 07:45 Dose: 40 mg Documented by: Guaifenesin (Mucinex) 600 mg PO DAILY [facility] Last Admin: 07/24/20 07:45 Dose: 600 mg Documented by: Ceftriaxone Sodium 1 gm/ (Sodium Chloride) 50 mls @ 100 mls/hr IV Q24H [facility] Stop: 09/17/20 23:59 Last Admin: 07/24/20 08:38 Dose: 100 mls/hr Documented by: Azithromycin 500 mg/ Sodium (Chloride) 250 mls @ 250 mls/hr IV Q24H [facility] Last Admin: 07/24/20 09:12 Dose: 250 mls/hr Documented by: Lactobacillus Acidophilus (Acidolphilus Extra Strength) 1 tab PO DAILY [facility] Last Admin: 07/24/20 07:51 Dose: 1 tab Documented by: Losartan Potassium (Cozaar) 25 mg PO BEDTIME [facility] Last Admin: 07/23/20 19:50 Dose: 25 mg Documented by: Melatonin (Melatonin) 6 mg PO BEDTIME PRN PRN Reason: Insomnia Last Admin: 07/23/20 21:11 Dose: 6 mg Documented by: Methylprednisolone Sodium Succinate (Solu-Medrol) 40 mg IVPUSH Q12H [facility] Last Admin: 07/24/20 07:45 Dose: 40 mg Documented by: Multivitamins/Minerals (Thera M Plus) 1 tab PO DAILY [facility] Last Admin: 07/24/20 07:45 Dose: 1 tab Documented by: Prednisolone Acetate (Pred Forte 1% Ophth Susp) 1 ml EYELF DAILY [facility] Last Admin: 07/24/20 08:42 Dose: 1 ml Documented by: Sodium Chloride (Saline Flush) 10 ml FLUSH BID PRN PRN Reason: Other Last Admin: 07/22/20 20:35 Dose: 10 ml Documented by: Discontinued Medications Acetaminophen (Tylenol) 650 mg PO Q4H PRN PRN Reason: Pain (Mild 1-3)/fever Last Admin: 07/17/20 21:27 Dose: 650 mg Documented by: Acetaminophen (Tylenol) 650 mg PO Q6H PRN PRN Reason: Pain Acyclovir (Zovirax) 400 mg PO DAILY [facility] Last Admin: 07/21/20 08:01 Dose: 400 mg Documented by: Albuterol/Ipratropium (Duoneb 3.0-0.5 Mg/3 Ml) 3 ml NEB BID [facility] Last Admin: 07/14/20 10:53 Dose: 3 ml Documented by: Albuterol/Ipratropium (Duoneb 3.0-0.5 Mg/3 Ml) Confirm Administered Dose 3 ml .ROUTE .STK-MED ONE Stop: 07/14/20 11:01 Last Admin: 07/14/20 13:20 Dose: Not Given Documented by: Albuterol/Ipratropium (Duoneb 3.0-0.5 Mg/3 Ml) 3 ml NEB QID [facility] Last Admin: 07/21/20 12:04 Dose: 3 ml Documented by: Albuterol/Ipratropium (Duoneb 3.0-0.5 Mg/3 Ml) 3 ml NEB Q4H PRN PRN Reason: Dyspnea Last Admin: 07/21/20 03:03 Dose: 3 ml Documented by: Albuterol/Ipratropium (Duoneb 3.0-0.5 Mg/3 Ml) 3 ml NEB Q6H [facility] Aspirin (Aspirin) 81 mg PO DAILY [facility] Last Admin: 07/21/20 07:59 Dose: 81 mg Documented by: Atorvastatin Calcium (Lipitor) 20 mg PO BEDTIME [facility] Last Admin: 07/20/20 20:11 Dose: 20 mg Documented by: Bisacodyl (Dulcolax) 10 mg RECTAL ONETIME ONE Stop: 07/15/20 15:49 Last Admin: 07/15/20 17:00 Dose: Not Given Documented by: Calamine/Phenol (Calmoseptine) 0 gm TOP QID PRN PRN Reason: Other Calcium Carbonate (Caltrate 600+D 1500 Mg-400 Units) Confirm Administered Dose 1 tab .ROUTE .STK-MED ONE Stop: 07/22/20 18:56 Last Admin: 07/22/20 19:39 Dose: Not Given Documented by: Calcium Carbonate (Caltrate 600+D 1500 Mg-400 Units) Confirm Administered Dose 1 tab .ROUTE .STK-MED ONE Stop: 07/23/20 08:22 Last Admin: 07/23/20 08:35 Dose: Not Given Documented by: Calcium Carbonate (Caltrate 600+D 1500 Mg-400 Units) Confirm Administered Dose 1 tab .ROUTE .STK-MED ONE Stop: 07/23/20 12:59 Last Admin: 07/23/20 16:26 Dose: Not Given Documented by: Calcium Carbonate (Caltrate 600+D 1500 Mg-400 Units) Confirm Administered Dose 1 tab .ROUTE .STK-MED ONE Stop: 07/23/20 17:23 Last Admin: 07/23/20 17:26 Dose: Not Given Documented by: Carvedilol (Coreg) 25 mg PO BID [facility] Last Admin: 07/21/20 07:59 Dose: 25 mg Documented by: Carvedilol (Coreg) Confirm Administered Dose 25 mg .ROUTE .[email or web address] ONE Stop: 07/22/20 17:40 Last Admin: 07/22/20 17:47 Dose: Not Given Documented by: Carvedilol (Coreg) Confirm Administered Dose 25 mg .ROUTE .[email or web address] ONE Stop: 07/23/20 07:39 Last Admin: 07/23/20 08:12 Dose: Not Given Documented by: Carvedilol (Coreg) Confirm Administered Dose 25 mg .ROUTE .[email or web address] Stop: 07/23/20 17:22 Last Admin: 07/23/20 17:26 Dose: Not Given Documented by: Ceftriaxone Sodium (Rocephin) Confirm Administered Dose 1 gm .ROUTE .[email or web address] ONE Stop: 07/23/20 08:25 Last Admin: 07/23/20 08:35 Dose: Not Given Documented by: Ferrous Sulfate (Ferrous Sulfate) 325 mg PO WITHBREAKFAST [facility] Last Admin: 07/22/20 08:00 Dose: 324 mg Documented by: Furosemide (Lasix) 40 mg IVPUSH NOW ONE Stop: 07/14/20 10:20 Last Admin: 07/14/20 13:27 Dose: Not Given Documented by: Furosemide (Lasix) 100 mg IVPUSH NOW ONE Stop: 07/14/20 10:41 Last Admin: 07/14/20 11:08 Dose: 100 mg Documented by: Furosemide (Lasix) Confirm Administered Dose 100 mg .ROUTE .[email or web address] Stop: 07/14/20 11:12 Last Admin: 07/14/20 13:21 Dose: Not Given Documented by: Furosemide (Lasix) 40 mg IVPUSH BID [facility] Last Admin: 07/15/20 08:02 Dose: 40 mg Documented by: Furosemide (Lasix) 60 mg IVPUSH DAILY [facility] Last Admin: 07/21/20 08:03 Dose: 60 mg Documented by: Furosemide (Lasix) 40 mg IVPUSH NOW ONE Stop: 07/16/20 14:01 Last Admin: 07/16/20 13:50 Dose: 40 mg Documented by: Furosemide (Lasix) 20 mg PO 1200 [facility] Last Admin: 07/22/20 12:29 Dose: 20 mg Documented by: Furosemide (Lasix) 20 mg PO ONETIME ONE Stop: 07/22/20 16:21 Last Admin: 07/22/20 16:24 Dose: 20 mg Documented by: Guaifenesin (Mucinex) 600 mg PO DAILY [facility] Last Admin: 07/20/20 08:26 Dose: 600 mg Documented by: Guaifenesin (Mucinex) 600 mg PO BID [facility] Last Admin: 07/21/20 08:00 Dose: 600 mg Documented by: Sodium Chloride (Normal Saline) 1,000 mls @ 50 mls/hr IV ASDIRECTED [facility] Last Admin: 07/15/20 11:11 Dose: 50 mls/hr Documented by: Doxycycline Hyclate 100 mg/ (Sodium Chloride) 100 mls @ 100 mls/hr IV Q12HR [facility] Last Admin: 07/18/20 08:46 Dose: 100 mls/hr Documented by: Cefepime HCl 1 gm/ Sodium (Chloride) 50 mls @ 100 mls/hr IV Q12H [facility] Last Admin: 07/16/20 12:14 Dose: Not Given Documented by: Levofloxacin/Dextrose 500 mg/ (Premix) 100 mls @ 100 mls/hr IV Q24H [facility] Last Admin: 07/16/20 12:54 Dose: 100 mls/hr Documented by: Levofloxacin/Dextrose 250 mg/ (Premix) 50 mls @ 50 mls/hr IV Q24H [facility] Levofloxacin/Dextrose 250 mg/ (Premix) 50 mls @ 50 mls/hr IV Q24H [facility] Last Admin: 07/18/20 10:27 Dose: Not Given Documented by: Levofloxacin/Dextrose (Levaquin In D5w 250 Mg/50 Ml) Confirm Administered Dose 50 mls @ as directed IV .STK-MED ONE Stop: 07/17/20 08:52 Last Admin: 07/17/20 09:48 Dose: Not Given Documented by: Levofloxacin/Dextrose (Levaquin In D5w 250 Mg/50 Ml) 50 mls @ 50 mls/hr IV DAILY [facility] Last Admin: 07/20/20 08:19 Dose: 50 mls/hr Documented by: Ceftriaxone Sodium 1 gm/ (Sodium Chloride) 50 mls @ 200 mls/hr IV Q24H [facility] Stop: 07/21/20 23:59 Last Admin: 07/21/20 09:49 Dose: 200 mls/hr Documented by: Azithromycin 500 mg/ Sodium (Chloride) 250 mls @ 250 mls/hr IV Q24H [facility] Stop: 07/27/20 23:59 Last Admin: 07/21/20 10:09 Dose: 250 mls/hr Documented by: Azithromycin 500 mg/ Sodium (Chloride) 250 mls @ 250 mls/hr IV Q24H [facility] Lactobacillus Acidophilus (Acidolphilus Extra Strength) 1 tab PO DAILY@1200 [facility] Last Admin: 07/21/20 12:04 Dose: 1 tab Documented by: Lactobacillus Acidophilus (Acidolphilus Extra Strength) Confirm Administered Dose 1 tab .ROUTE .STK-MED ONE Stop: 07/22/20 12:25 Last Admin: 07/22/20 13:54 Dose: Not Given Documented by: Lactobacillus Acidophilus (Acidolphilus Extra Strength) Confirm Administered Dose 1 tab .ROUTE .STK-MED ONE Stop: 07/23/20 07:38 Last Admin: 07/23/20 08:12 Dose: Not Given Documented by: Losartan Potassium (Cozaar) 25 mg PO BEDTIME [facility] Last Admin: 07/20/20 20:10 Dose: 25 mg Documented by: Melatonin (Melatonin) 6 mg PO BEDTIME PRN PRN Reason: Sleep Last Admin: 07/19/20 19:51 Dose: 6 mg Documented by: Melatonin (Melatonin) Confirm Administered Dose 6 mg .ROUTE .STK-MED ONE Stop: 07/22/20 21:51 Last Admin: 07/22/20 22:13 Dose: Not Given Documented by: Melatonin (Melatonin) Confirm Administered Dose 6 mg .ROUTE .STK-MED ONE Stop: 07/23/20 21:07 Last Admin: 07/24/20 02:17 Dose: Not Given Documented by: Methylprednisolone Sodium Succinate (Solu-Medrol) 40 mg IVPUSH Q12H [facility] Last Admin: 07/21/20 09:35 Dose: 40 mg Documented by: Methylprednisolone Sodium Succinate (Solu-Medrol) Confirm Administered Dose 40 mg .ROUTE .STK-MED ONE Stop: 07/20/20 11:40 Last Admin: 07/20/20 11:51 Dose: Not Given Documented by: Methylprednisolone Sodium Succinate (Solu-Medrol) 40 mg IVPUSH Q12H [facility] Methylprednisolone Sodium Succinate (Solu-Medrol) 40 mg IVPUSH Q12H [facility] Last Admin: 07/22/20 17:36 Dose: Not Given Documented by: Methylprednisolone Sodium Succinate (Solu-Medrol) 40 mg IVPUSH ONETIME ONE Stop: 07/22/20 12:01 Last Admin: 07/22/20 12:30 Dose: 40 mg Documented by: Metolazone (Zaroxolyn) 2.5 mg PO ONETIME ONE Stop: 07/16/20 13:31 Last Admin: 07/16/20 12:51 Dose: 2.5 mg Documented by: Metolazone (Zaroxolyn) 2.5 mg PO ONETIME ONE Stop: 07/17/20 09:26 Last Admin: 07/17/20 09:47 Dose: 2.5 mg Documented by: Nitroglycerin (Nitrostat) 0.4 mg SL ASDIRECTED PRN PRN Reason: Chest Pain Non-Formulary Medication (Iron [Iron]) 18 mg PO DAILY [facility] Non-Formulary Medication (Iron [Iron]) 18 mg PO DAILY [facility] Ondansetron HCl (Zofran Odt) 4 mg PO Q4H PRN PRN Reason: Nausea/Vomiting Pantoprazole Sodium (Protonix) 40 mg PO BEDTIME [facility] Last Admin: 07/20/20 20:11 Dose: 40 mg Documented by: Prednisolone Acetate (Pred Forte 1% Ophth Susp) 0 ml EYEBOTH DAILY [facility] Last Admin: 07/22/20 08:00 Dose: 1 drop Documented by: Prednisone (Prednisone) 20 mg PO ONETIME ONE Stop: 07/14/20 10:19 Last Admin: 07/14/20 10:53 Dose: 20 mg Documented by: Prednisone (Prednisone) Confirm Administered Dose 20 mg .ROUTE .STK-MED ONE Stop: 07/14/20 11:01 Last Admin: 07/14/20 13:21 Dose: Not Given Documented by: Prednisone (Prednisone) 40 mg PO DAILY [facility] Stop: 07/14/20 23:59 Last Admin: 07/14/20 17:05 Dose: Not Given Documented by: Prednisone (Prednisone) 20 mg PO ONETIME ONE Stop: 07/14/20 16:01 Last Admin: 07/14/20 15:26 Dose: 20 mg Documented by: Prednisone (Prednisone) 30 mg PO DAILY [facility] Stop: 07/15/20 08:01 Prednisone (Prednisone) 20 mg PO DAILY [facility] Stop: 07/16/20 23:59 Prednisone (Prednisone) 10 mg PO DAILY [facility] Stop: 07/17/20 23:59 Prednisone (Prednisone) 40 mg PO DAILY [facility] Stop: 07/15/20 23:59 Last Admin: 07/15/20 08:02 Dose: 40 mg Documented by: Prednisone (Prednisone) 30 mg PO DAILY [facility] Stop: 07/16/20 23:59 Last Admin: 07/16/20 07:36 Dose: 30 mg Documented by: Prednisone (Prednisone) 20 mg PO DAILY [facility] Stop: 07/17/20 23:59 Last Admin: 07/17/20 07:47 Dose: 20 mg Documented by: Prednisone (Prednisone) 10 mg PO DAILY [facility] Stop: 07/18/20 23:59 Last Admin: 07/18/20 08:44 Dose: 10 mg Documented by: Prednisone (Prednisone) 10 mg PO DAILY [facility] Last Admin: 07/22/20 08:00 Dose: 10 mg Documented by: Senna/Docusate Sodium (Senna Plus) 1 tab PO DAILY PRN PRN Reason: Constipation Sodium Chloride (Saline Flush) 10 ml FLUSH BID PRN PRN Reason: Keep Vein Open Last Admin: 07/17/20 22:12 Dose: 10 ml Documented by: - Exam Quality Assessment: Supplemental Oxygen General: Alert, Oriented, Cooperative HEENT: Pupils Equal, Pupils Reactive, EOMI Neck: Supple Lungs: Decreased Breath Sounds, Rhonchi Cardiovascular: Regular Rate, Regular Rhythm GI/Abdominal Exam: Normal Bowel Sounds Extremities: Normal Inspection Neurological: No New Focal Deficit Psy/Mental Status: Alert, Normal Affect, Normal Mood Sepsis Event Note - Evaluation Sepsis Screening Result: No Definite Risk - Focused Exam Vital Signs: Vital Signs Temp Pulse Pulse Resp BP BP Pulse Ox 07/24/20 07:50 83 138/59 L 07/23/20 23:57 36.9 C 86 24 H 120/69 98 - Problem List & Annotations (1) Leukocytosis, unspecified SNOMED Code(s): 541848253, 198992033 Code(s): D72.829 - ELEVATED WHITE BLOOD CELL COUNT, UNSPECIFIED Status: Acute Priority: High Current Visit: Yes (2) CHF (congestive heart failure) SNOMED Code(s): 00782841 Code(s): I50.9 - HEART FAILURE, UNSPECIFIED Status: Acute Priority: High Current Visit: Yes (3) COPD exacerbation SNOMED Code(s): 362106534 Code(s): J44.1 - CHRONIC OBSTRUCTIVE PULMONARY DISEASE W (ACUTE) EXACERBATION Status: Acute Priority: High Current Visit: Yes (4) Chest congestion SNOMED Code(s): 35357919 Code(s): R09.89 - OTH SYMPTOMS AND SIGNS INVOLVING THE CIRC AND RESP SYSTEMS Status: Acute Priority: High Current Visit: Yes (5) Cough SNOMED Code(s): 06994722 Code(s): R05 - COUGH Status: Acute Priority: High Current Visit: Yes - Problem List Review Problem List Initiated/Reviewed/Updated: Yes - My Orders Last 24 Hours: My Active Orders 07/23/20 09:00 Azithromycin [Zithromax] 500 mg Sodium Chloride 0.9% [Normal Saline] 250 ml IV Q24H - Assessment Assessment:: 1. Acute respiratory failure in setting of: * h/o CHF of unknown type. * h/o AVR with unknown cardiac function status * Known COPD with long history of environmental exposures and known pulmonary nodules on CT * Plan: * Add Doxy and Cefepime * Another dose of Lasix at 2 PM * Give Zaroxolyn prior * Consider adding SSRI tomorrow given score of 18 * Await echo results * CXR tomorrow if not better. * Labs today and in am. - Plan Plan:: E hospitalist collaboration: 80-year-old female admitted from the ED for increasing shortness of breath and CHF/Copd exacerbation. Patient has had increasing shortness of breath and difficulty breathing for the last couple days, possibly longer she thinks. She is status post hospitalization in [place] for a fall at home with a c2 fracture. She states no surgery was needed and she was treated with a c collar which she is suppose to wear at all times and she states she had a repeat xray since being back in [place] and states she was told it is stable. Encouraged her to wear her c collar. She states is an awful thing to wear. Denies new falls. She lives at home with her son. She has had a cough that has been white productive, No fever or chills. No chest pain. No nausea, vomiting, abdominal pain, diarrhea, dysuria. She does feel fatigued. She wears O2 2L 24hrs per day. She was on Eliquis in the past, but states they took her off of that at a hospitalization in [place], she is not sure why she was taken off, now she is on a baby ASA. She has had aflutter in the past that required cardioversion few years ago and stat es she has been in normal rhythm since then, but this week she noted her HR to be fast and take longer to get below 100. No cp or palpitations today. She states she takes Prednisone 10mg daily and Lasix 40mg in the AM and 20mg in the afternoon. In the ED leukocytosis 13.1, hemoglobin 9.6, hematocrit 31.4, platelets 181, sodium 141, potassium 4, chloride 98, CO2 41.6, anion gap 5.4, BUN 25, crea tinine 0.96, glucose 112, calcium 9.2, BNP 18,845, troponin I 0.040. Chest x- ray vascular congestion and persistent interstitial edema throughout both lungs and slight blunting of both costophrenic angle suggesting small bilateral pleural effusions. Overall per rad similar to chest x-ray 05/17/2020. At the ED, patient was given Lasix 100 mg IV x1, DuoNeb, prednisone 20, Hill catheter placed. Patient has also been started on normal saline at 75 mL/h. PMH/PSH: Former smoker, Aortic valve replacement (pig) in the past, coronary artery disease with NSTEMI and coronary stent, left carotid endarterectomy, COPD on chronic 2 L O2 24 hours a day and she says daily prednisone 10mg, interstitial lung disease, pneumonia, UTI appendectomy, cholecystectomy, hysterectomy, knee replacement, mastectomy for breast cancer, osteoporosis, right proximal humerus fracture, left tib-fib fracture, Allergies to codeine, penicillin, sulfa, tramadol and cannot remember the reaction and also an allergy to warfarin due to bleeding. Medications: These have not been verified and she states Eliquis stopped and is on Prednisone 10mg daily. Acyclovir, aspirin, duo nebs, multivitamin, calcium plus vitamin D3, senna, Coreg, Symbicort, albuterol inhaler, Eliquis, Atrovent, Cozaar, nitroglycerin, atorvastatin, Mucinex, prednisolone eyedrops, Tylenol PM, Lasix 40 in the morning and 20 in the afternoon, duo nebs. Via telemedicine exam: Temp 98, heart rate 87, respiratory rate 40, BP 132/77, O2 sat 99 on 2 L. No apparent distress, alert, cooperative, Follows commands, no lateralizing weakness, but has generalized weakness Pupils equal, no scleral icterus Lips and mouth are dry, tongue midline on protrusion Heart regular rate and rhythm, no murmurs Lungs crackles b/l mid to lower lungs and expiratory wheezing intermittently posteriorly at the bases Abdomen bowel sounds are positive, soft, nondistended, nontender Lower extremities no pitting edema Skin dry, mildly pale Assessment and plan: Shortness of breath related to acute on chronic CHF exacerbation and COPD exacerbation. Unclear last echo ef and if systolic/diastolic, images here but do not have the report. Chest x-ray revealing vascular congestion and small bilateral pleural effusions. Also has significant wheezing on exam. Treat patient for CHF exacerbation with IV Lasix. Patient already received 100 mg IV Lasix in the ED with baseline Lasix dose of 40 mg in the morning and 20 mg at night, will plan 40 mg IV twice daily starting tomorrow, monitor renal function and electrolytes, keep the patient on telemetry, troponin was not elevated and no chest pain and will repeat trop this afternoon, ekg NSR without acute st changes but does have baseline inverted t waves which have been seen in the past, astrid continue, she has had 600ml out in 2 hours thus would be cautious for hypotension developing she will be on NS at 50ml/hour. COPD exacerbation treat with ongoing oral steroid she received 20 mg in the ED and will give ad ditional 20mg this afternoon and will plan 40 mg daily for 4 more days, then will need to tape to home 10mg daily if that is her chronic dose which needs to be verified. No current signs of pneumonia at this time. Continue nebs. She is chronically on O2 and remains at her baseline of 2 L. Keep cervical collar on and may need to obtain pcp/[facility] records for details. Call e hospitalist with questions 07/19/20 F/u ECHO to be done today. Continue management of CHF and COPD exacerbation. Patient was placed on small prednisone taper - will continue to monitor chest congestion and consider a higher or longer taper. Continue Lasix as directed with daily weights. Consider guaifenesin for cough and chest congestion. Counseled patient on C-collar use and the necessity and patient understands the risks of taking it off and falling would be life threatening. Patient may benefit from subacute rehabilitation due to weakness getting up from bed and ambulating. 07/20/20 Persistent Leukocytosis. Changing antibiotics for management and repeat labs in am. Continue management of CHF and COPD exacerbation. Solumedrol added as shortness of breath continues. Continue lasix and f/u weights and labs. Start guaifenesin for cough and congestion. Counseled on C-collar again, and patient agrees on wearing if out of bed. 07/24/20 Monitoring leukocytosis. F/u PT/OT recommendations today. F/u this afternoon and then plan for further management vs d/c. Continue lasix, weights, and labs. Patient using C-collar as directed.
[2020-07-24 12:26] VITALS: BP 134/59; PULSE 82
[2020-07-24] MEDS ORDERED: Calcium Carbonate/Vitamin D3 1500 MG-400 Units Tab ONE (12:53)
[2020-07-24] MEDS ORDERED: [UNRECOGNIZED DRUG - REMARK] PO PRN (13:56)
[2020-07-24] MEDS ORDERED: Albuterol 0.083% 2.5 MG/3 ML Neb Soln INH PRN (13:56)
[2020-07-24] MEDS ORDERED: Docusate Sodium 100 MG Cap PO PRN (13:56)
--- NOTE | 2020-07-24 14:02 | PCM.DCSUM1 ---
Discharge Summary - Discharge Data Discharge Date: 07/24/20 Discharge Disposition: Home, Self-Care 01 Condition: Good - Referral to Home Health Primary Care Physician: PCP None - Discharge Diagnosis/Problem(s) (1) Leukocytosis, unspecified SNOMED Code(s): 687277965, 550250668 ICD Code: D72.829 - ELEVATED WHITE BLOOD CELL COUNT, UNSPECIFIED Status: Acute Priority: High Current Visit: Yes (2) CHF (congestive heart failure) SNOMED Code(s): 27199956 ICD Code: I50.9 - HEART FAILURE, UNSPECIFIED Status: Acute Priority: High Current Visit: Yes (3) COPD exacerbation SNOMED Code(s): 830072407 ICD Code: J44.1 - CHRONIC OBSTRUCTIVE PULMONARY DISEASE W (ACUTE) EXACERBATION Status: Acute Priority: High Current Visit: Yes (4) Chest congestion SNOMED Code(s): 61659682 ICD Code: R09.89 - OTH SYMPTOMS AND SIGNS INVOLVING THE CIRC AND RESP SYSTEMS Status: Acute Priority: High Current Visit: Yes (5) Cough SNOMED Code(s): 61692098 ICD Code: R05 - COUGH Status: Acute Priority: High Current Visit: Yes - Patient Summary/Data Consults: Consultations 07/15/20 15:10 OT Evaluation and Treatment [CONS] Routine Please Evaluate and Treat. OT Reason for Consult: Strengthening Pending Discharge: No Discharge Disposition: Assisted Facility Special Instructions: Patient gets very Short of Breath in the shower at home. This query below is only for informational purposes and is not editable. Admission Diagnosis/Problem: CHF, Congestive heart failure PT Evaluation and Treatment [CONS] Routine Please Evaluate and Treat. PT Reason for Consult: Strengthening Pending Discharge: No Discharge Disposition: Assisted Facility This query below is only for informational purposes and is not editable. Admission Diagnosis/Problem: CHF, Congestive heart failure - Patient Instructions Diet: Heart Healthy Diet Activity: As Tolerated, Cough & Deep Breathe - Discharge Plan *PRESCRIPTION DRUG MONITORING PROGRAM REVIEWED*: Not Applicable *COPY OF PRESCRIPTION DRUG MONITORING REPORT IN PATIENT KERRI: Not Applicable Prescriptions/Med Rec: cephALEXin [Keflex] 500 mg PO TID #30 cap Home Medications: Home Meds Acyclovir 1 tab PO DAILY 02/18/16 [History] Aspirin 81 mg PO QPM 02/18/16 [History] Multivitamin [Multi-Vitamin Daily] 1 tab PO DAILY 02/18/16 [History] Calcium Carbonate/Vitamin D3 [Caltrate 600+D 1500 MG-400 Units] 1 tab PO TIDMEALS 08/11/18 [History] carvediloL [Coreg] 1 tab PO BID 01/28/19 [History] Losartan [Cozaar] 1 tab PO BEDTIME 08/01/19 [History] Nitroglycerin [Nitrostat] 0.4 mg SL ASDIRECTED PRN 08/01/19 [History] guaiFENesin [Mucinex] 1 tab PO DAILY 08/01/19 [History] prednisoLONE acetate [Pred Forte 1% Ophth Susp] 1 drop EYELF DAILY 08/01/19 [History] Acetaminophen/Diphenhydramine [Tylenol Pm Ex-Strength Caplet] 1 tab PO BEDTIME 05/09/20 [History] Acetaminophen [Tylenol] 650 mg PO Q6H PRN tablet 05/10/20 [Rx] Budesonide [Pulmicort] 1 vial IH BID 07/14/20 [History] Formoterol [Perforomist] 1 vial INH BID 07/14/20 [History] Revefenacin [Yupelri] 1 vial IH DAILY 07/14/20 [History] predniSONE [Prednisone] 1 tab PO DAILY 07/14/20 [History] Albuterol [Proventil Neb Soln] 1 vial INH ASDIRECTED PRN 07/22/20 [History] Docusate Sodium [Colace] 100 mg PO ASDIRECTED PRN 07/22/20 [History] Ferrous Sulfate 1 tab PO DAILY 07/22/20 [History] Furosemide [Lasix] 1 tab PO BID 07/22/20 [History] atorvaSTATin [Lipitor] 1 tab PO BEDTIME 07/22/20 [History] diphenhydrAMINE HCL [Benadryl Allergy] 1 tab PO ASDIRECTED PRN 07/22/20 [History] guaiFENesin/Dextromethorphan [Robitussin Cough-Chest Dm Liq] 20 ml PO BEDTIME 07/22/20 [History] Acetaminophen [Tylenol] 650 mg PO Q4H PRN tablet 07/24/20 [Rx] Acidophilus/Lactobac Spor [Acidolphilus X-Strength] 1 tab PO DAILY tablet 07/24/20 [Rx] Albuterol [Proventil Neb Soln] 2.5 mg NEB Q2H PRN neb 07/24/20 [Rx] Albuterol/Ipratropium [DuoNeb 3.0-0.5 MG/3 ML] 3 ml NEB QID neb 07/24/20 [Rx] Melatonin 6 mg PO BEDTIME PRN tablet 07/24/20 [Rx] cephALEXin [Keflex] 500 mg PO TID #30 cap 07/24/20 [Rx] prednisoLONE acetate [Pred Forte 1% Ophth Susp] 1 ml EYELF DAILY bottle 07/24/20 [Rx] Forms: ED Department Discharge Referrals: PCP,None [Primary Care Provider] - - Discharge Summary/Plan Comment DC Time >30 min.: Yes - Patient Data Vitals - Most Recent: Last Vital Signs Temp 36.3 C 07/24/20 12:00 Pulse 82 07/24/20 12:00 Resp 18 07/24/20 12:00 BP 134/59 L 07/24/20 12:00 Pulse Ox 99 07/24/20 12:00 Weight - Most Recent: 53.161 kg I&O - Last 24 hours: Intake & Output 07/23/20 07/24/20 07/24/20 22:59 06:59 14:59 Intake Total 350 Balance 350 Lab Results - Last 24 hrs: Laboratory Results - last 24 hr 07/24/20 07/24/20 Range/Units 07:20 07:20 WBC 12.7 H (4.0-11.0) K/uL RBC 3.06 L (3.80-5.80) M/uL Hgb 9.4 L (11.5-16.5) g/dL Hct 30.9 L (37.0-47.0) % MCV 101 H (76-96) fL MCH 30.7 (27.0-32.0) pg MCHC 30.4 L (31.0-35.0) g/dL RDW 14.0 (11.0-16.0) % Plt Count 201 (150-500) K/uL MPV 9.8 (6.0-10.0) fL Neut % (Auto) 93.1 H (45.0-70.0) % Lymph % (Auto) 2.1 L (20.0-40.0) % [place] % (Auto) 4.8 (3.0-10.0) % Eos % (Auto) 0.0 L (1.0-5.0) % Baso % (Auto) 0.0 (0.0-0.5) % Neut # (Auto) 11.84 H (2.00-7.50) K/uL Lymph # (Auto) 0.27 L (1.50-4.00) K/uL [place] # (Auto) 0.61 (0.20-0.80) K/uL Eos # (Auto) 0.00 L (0.04-0.40) K/uL Baso # (Auto) 0.00 L (0.02-0.10) K/uL Sodium 144 (136-145) mmol/L Potassium 3.8 (3.5-5.1) mmol/L Chloride 103 (98-107) mmol/L Carbon Dioxide 40.0 H (21.0-32.0) mmol/L Anion Gap 4.8 L (5.0-15.0) mmol/L BUN 52 H* (8-26) mg/dL Creatinine 1.08 H (0.55-1.02) mg/dL Est Cr Clr Drug Dosing 31.87 mL/min Estimated GFR (MDRD) 49 L (>60) MLS/MIN BUN/Creatinine Ratio 48.1 H (6-25) Glucose 139 H D (74-100) mg/dL Calcium 8.3 L (8.5-10.1) mg/dL Total Bilirubin 0.2 (0.0-1.0) mg/dL AST 18 (15-37) U/L ALT 23 (12-78) U/L Alkaline Phosphatase 37 L (46-116) U/L B-Natriuretic Peptide 86466 H (0-450) pg/mL Total Protein 6.0 L (6.4-8.2) g/dL Albumin 2.5 L (3.4-5.0) g/dL Globulin 3.5 (2.2-4.2) g/dL Albumin/Globulin Ratio 0.7 L (0.8-2.0) MEGAN Results - Last 24 hrs: Microbiology 07/20/20 15:20 Aerobic Blood Culture - Preliminary Blood NO GROWTH AFTER 3 DAYS Anaerobic Blood Culture - Preliminary NO GROWTH AFTER 3 DAYS Med Orders - Current: Current Medications Acetaminophen (Tylenol) 650 mg PO Q4H PRN PRN Reason: Pain (moderate 4-6) Albuterol (Proventil Neb Soln) 2.5 mg NEB Q2H PRN PRN Reason: Dyspnea Last Admin: 07/24/20 02:15 Dose: 2.5 mg Documented by: Albuterol (Proventil Neb Soln) mg INH ASDIRECTED PRN PRN Reason: Shortness of Breath Albuterol/Ipratropium (Duoneb 3.0-0.5 Mg/3 Ml) 3 ml NEB QID [facility] Last Admin: 07/24/20 12:45 Dose: 3 ml Documented by: Aspirin (Aspirin) 81 mg PO QPM [facility] Last Admin: 07/23/20 19:50 Dose: 81 mg Documented by: Atorvastatin Calcium (Lipitor) 20 mg PO BEDTIME [facility] Last Admin: 07/23/20 19:50 Dose: 20 mg Documented by: Atorvastatin Calcium (Lipitor) 20 mg PO BEDTIME [facility] Budesonide (Pulmicort) mg INH BID [facility] Calcium Carbonate (Caltrate 600+D 1500 Mg-400 Units) 1 tab PO TIDMEALS [facility] Last Admin: 07/24/20 12:54 Dose: 1 tab Documented by: Carvedilol (Coreg) 25 mg PO BIDMEALS [facility] Last Admin: 07/24/20 07:50 Dose: 25 mg Documented by: Docusate Sodium (Colace) 100 mg PO ASDIRECTED PRN PRN Reason: Constipation Ferrous Sulfate (Ferrous Sulfate) 325 mg PO DAILY@0800 [facility] Last Admin: 07/24/20 07:45 Dose: 325 mg Documented by: Ferrous Sulfate (Ferrous Sulfate) 325 mg PO DAILY [facility] Furosemide (Lasix) 40 mg PO BID@0800,1400 [facility] Last Admin: 07/24/20 07:45 Dose: 40 mg Documented by: Furosemide (Lasix) 40 mg PO BID [facility] Guaifenesin (Mucinex) 600 mg PO DAILY [facility] Last Admin: 07/24/20 07:45 Dose: 600 mg Documented by: Ceftriaxone Sodium 1 gm/ (Sodium Chloride) 50 mls @ 100 mls/hr IV Q24H [facility] Stop: 07/27/20 23:59 Last Admin: 07/24/20 08:38 Dose: 100 mls/hr Documented by: Azithromycin 500 mg/ Sodium (Chloride) 250 mls @ 250 mls/hr IV Q24H [facility] Last Admin: 07/24/20 09:12 Dose: 250 mls/hr Documented by: Lactobacillus Acidophilus (Acidolphilus Extra Strength) 1 tab PO DAILY [facility] Last Admin: 07/24/20 07:51 Dose: 1 tab Documented by: Losartan Potassium (Cozaar) 25 mg PO BEDTIME [facility] Last Admin: 07/23/20 19:50 Dose: 25 mg Documented by: Melatonin (Melatonin) 6 mg PO BEDTIME PRN PRN Reason: Insomnia Last Admin: 07/23/20 21:11 Dose: 6 mg Documented by: Methylprednisolone Sodium Succinate (Solu-Medrol) 40 mg IVPUSH Q12H [facility] Last Admin: 07/24/20 07:45 Dose: 40 mg Documented by: Multivitamins/Minerals (Thera M Plus) 1 tab PO DAILY [facility] Last Admin: 07/24/20 07:45 Dose: 1 tab Documented by: Non-Formulary Medication (Diphenhydramine Hcl [Benadryl Allergy]) 1 tab PO ASDIRECTED PRN PRN Reason: Insomnia Non-Formulary Medication (Formoterol [Perforomist]) 1 vial INH BID [facility] Non-Formulary Medication (Guaifenesin/Dextromethorphan [Robitussin Cough-Chest Dm Liq]) 20 ml PO BEDTIME [facility] Non-Formulary Medication (Revefenacin [Yupelri]) 1 vial IH DAILY [facility] Non-Formulary Medication (Acetaminophen/Diphenhydramine [Tylenol Pm Ex-Strength Caplet]) 1 tab PO BEDTIME [facility] Prednisolone Acetate (Pred Forte 1% Ophth Susp) 1 ml EYELF DAILY [facility] Last Admin: 07/24/20 08:42 Dose: 1 ml Documented by: Sodium Chloride (Saline Flush) 10 ml FLUSH BID PRN PRN Reason: Other Last Admin: 07/22/20 20:35 Dose: 10 ml Documented by: Discontinued Medications Acetaminophen (Tylenol) 650 mg PO Q4H PRN PRN Reason: Pain (Mild 1-3)/fever Last Admin: 07/17/20 21:27 Dose: 650 mg Documented by: Acetaminophen (Tylenol) 650 mg PO Q6H PRN PRN Reason: Pain Acyclovir (Zovirax) 400 mg PO DAILY [facility] Last Admin: 07/21/20 08:01 Dose: 400 mg Documented by: Albuterol/Ipratropium (Duoneb 3.0-0.5 Mg/3 Ml) 3 ml NEB BID [facility] Last Admin: 07/14/20 10:53 Dose: 3 ml Documented by: Albuterol/Ipratropium (Duoneb 3.0-0.5 Mg/3 Ml) Confirm Administered Dose 3 ml .ROUTE .STK-MED ONE Stop: 07/14/20 11:01 Last Admin: 07/14/20 13:20 Dose: Not Given Documented by: Albuterol/Ipratropium (Duoneb 3.0-0.5 Mg/3 Ml) 3 ml NEB QID [facility] Last Admin: 07/21/20 12:04 Dose: 3 ml Documented by: Albuterol/Ipratropium (Duoneb 3.0-0.5 Mg/3 Ml) 3 ml NEB Q4H PRN PRN Reason: Dyspnea Last Admin: 07/21/20 03:03 Dose: 3 ml Documented by: Albuterol/Ipratropium (Duoneb 3.0-0.5 Mg/3 Ml) 3 ml NEB Q6H [facility] Aspirin (Aspirin) 81 mg PO DAILY [facility] Last Admin: 07/21/20 07:59 Dose: 81 mg Documented by: Atorvastatin Calcium (Lipitor) 20 mg PO BEDTIME [facility] Last Admin: 07/20/20 20:11 Dose: 20 mg Documented by: Bisacodyl (Dulcolax) 10 mg RECTAL ONETIME ONE Stop: 07/15/20 15:49 Last Admin: 07/15/20 17:00 Dose: Not Given Documented by: Calamine/Phenol (Calmoseptine) 0 gm TOP QID PRN PRN Reason: Other Calcium Carbonate (Caltrate 600+D 1500 Mg-400 Units) Confirm Administered Dose 1 tab .ROUTE .STK-MED ONE Stop: 07/22/20 18:56 Last Admin: 07/22/20 19:39 Dose: Not Given Documented by: Calcium Carbonate (Caltrate 600+D 1500 Mg-400 Units) Confirm Administered Dose 1 tab .ROUTE .STK-MED ONE Stop: 07/23/20 08:22 Last Admin: 07/23/20 08:35 Dose: Not Given Documented by: Calcium Carbonate (Caltrate 600+D 1500 Mg-400 Units) Confirm Administered Dose 1 tab .ROUTE .STK-MED ONE Stop: 07/23/20 12:59 Last Admin: 07/23/20 16:26 Dose: Not Given Documented by: Calcium Carbonate (Caltrate 600+D 1500 Mg-400 Units) Confirm Administered Dose 1 tab .ROUTE .STK-MED ONE Stop: 07/23/20 17:23 Last Admin: 07/23/20 17:26 Dose: Not Given Documented by: Calcium Carbonate (Caltrate 600+D 1500 Mg-400 Units) Confirm Administered Dose 1 tab .ROUTE .STK-MED ONE Stop: 07/24/20 12:54 Carvedilol (Coreg) 25 mg PO BID [facility] Last Admin: 07/21/20 07:59 Dose: 25 mg Documented by: Carvedilol (Coreg) Confirm Administered Dose 25 mg .ROUTE .STK-MED ONE Stop: 07/22/20 17:40 Last Admin: 07/22/20 17:47 Dose: Not Given Documented by: Carvedilol (Coreg) Confirm Administered Dose 25 mg .ROUTE .STK-MED ONE Stop: 07/23/20 07:39 Last Admin: 07/23/20 08:12 Dose: Not Given Documented by: Carvedilol (Coreg) Confirm Administered Dose 25 mg .ROUTE .STK-MED ONE Stop: 07/23/20 17:22 Last Admin: 07/23/20 17:26 Dose: Not Given Documented by: Ceftriaxone Sodium (Rocephin) Confirm Administered Dose 1 gm .ROUTE .STK-MED ONE Stop: 07/23/20 08:25 Last Admin: 07/23/20 08:35 Dose: Not Given Documented by: Ferrous Sulfate (Ferrous Sulfate) 325 mg PO WITHBREAKFAST [facility] Last Admin: 07/22/20 08:00 Dose: 324 mg Documented by: Furosemide (Lasix) 40 mg IVPUSH NOW ONE Stop: 07/14/20 10:20 Last Admin: 07/14/20 13:27 Dose: Not Given Documented by: Furosemide (Lasix) 100 mg IVPUSH NOW ONE Stop: 07/14/20 10:41 Last Admin: 07/14/20 11:08 Dose: 100 mg Documented by: Furosemide (Lasix) Confirm Administered Dose 100 mg .ROUTE .STK-MED ONE Stop: 07/14/20 11:12 Last Admin: 07/14/20 13:21 Dose: Not Given Documented by: Furosemide (Lasix) 40 mg IVPUSH BID [facility] Last Admin: 07/15/20 08:02 Dose: 40 mg Documented by: Furosemide (Lasix) 60 mg IVPUSH DAILY [facility] Last Admin: 07/21/20 08:03 Dose: 60 mg Documented by: Furosemide (Lasix) 40 mg IVPUSH NOW ONE Stop: 07/16/20 14:01 Last Admin: 07/16/20 13:50 Dose: 40 mg Documented by: Furosemide (Lasix) 20 mg PO 1200 [facility] Last Admin: 07/22/20 12:29 Dose: 20 mg Documented by: Furosemide (Lasix) 20 mg PO ONETIME ONE Stop: 07/22/20 16:21 Last Admin: 07/22/20 16:24 Dose: 20 mg Documented by: Guaifenesin (Mucinex) 600 mg PO DAILY [facility] Last Admin: 07/20/20 08:26 Dose: 600 mg Documented by: Guaifenesin (Mucinex) 600 mg PO BID [facility] Last Admin: 07/21/20 08:00 Dose: 600 mg Documented by: Sodium Chloride (Normal Saline) 1,000 mls @ 50 mls/hr IV ASDIRECTED [facility] Last Admin: 07/15/20 11:11 Dose: 50 mls/hr Documented by: Doxycycline Hyclate 100 mg/ (Sodium Chloride) 100 mls @ 100 mls/hr IV Q12HR [facility] Last Admin: 07/18/20 08:46 Dose: 100 mls/hr Documented by: Cefepime HCl 1 gm/ Sodium (Chloride) 50 mls @ 100 mls/hr IV Q12H [facility] Last Admin: 07/16/20 12:14 Dose: Not Given Documented by: Levofloxacin/Dextrose 500 mg/ (Premix) 100 mls @ 100 mls/hr IV Q24H [facility] Last Admin: 07/16/20 12:54 Dose: 100 mls/hr Documented by: Levofloxacin/Dextrose 250 mg/ (Premix) 50 mls @ 50 mls/hr IV Q24H [facility] Levofloxacin/Dextrose 250 mg/ (Premix) 50 mls @ 50 mls/hr IV Q24H [facility] Last Admin: 07/18/20 10:27 Dose: Not Given Documented by: Levofloxacin/Dextrose (Levaquin In D5w 250 Mg/50 Ml) Confirm Administered Dose 50 mls @ as directed IV .STK-MED ONE Stop: 07/17/20 08:52 Last Admin: 07/17/20 09:48 Dose: Not Given Documented by: Levofloxacin/Dextrose (Levaquin In D5w 250 Mg/50 Ml) 50 mls @ 50 mls/hr IV DAILY [facility] Last Admin: 07/20/20 08:19 Dose: 50 mls/hr Documented by: Ceftriaxone Sodium 1 gm/ (Sodium Chloride) 50 mls @ 200 mls/hr IV Q24H [facility] Stop: 07/21/20 23:59 Last Admin: 07/21/20 09:49 Dose: 200 mls/hr Documented by: Azithromycin 500 mg/ Sodium (Chloride) 250 mls @ 250 mls/hr IV Q24H [facility] Stop: 07/27/20 23:59 Last Admin: 07/21/20 10:09 Dose: 250 mls/hr Documented by: Azithromycin 500 mg/ Sodium (Chloride) 250 mls @ 250 mls/hr IV Q24H [facility] Lactobacillus Acidophilus (Acidolphilus Extra Strength) 1 tab PO DAILY@1200 [facility] Last Admin: 07/21/20 12:04 Dose: 1 tab Documented by: Lactobacillus Acidophilus (Acidolphilus Extra Strength) Confirm Administered Dose 1 tab .ROUTE .STK-MED ONE Stop: 07/22/20 12:25 Last Admin: 07/22/20 13:54 Dose: Not Given Documented by: Lactobacillus Acidophilus (Acidolphilus Extra Strength) Confirm Administered Dose 1 tab .ROUTE .STK-MED ONE Stop: 07/23/20 07:38 Last Admin: 07/23/20 08:12 Dose: Not Given Documented by: Losartan Potassium (Cozaar) 25 mg PO BEDTIME [facility] Last Admin: 07/20/20 20:10 Dose: 25 mg Documented by: Melatonin (Melatonin) 6 mg PO BEDTIME PRN PRN Reason: Sleep Last Admin: 07/19/20 19:51 Dose: 6 mg Documented by: Melatonin (Melatonin) Confirm Administered Dose 6 mg .ROUTE .STK-MED ONE Stop: 07/22/20 21:51 Last Admin: 07/22/20 22:13 Dose: Not Given Documented by: Melatonin (Melatonin) Confirm Administered Dose 6 mg .ROUTE .STK-MED ONE Stop: 07/23/20 21:07 Last Admin: 07/24/20 02:17 Dose: Not Given Documented by: Methylprednisolone Sodium Succinate (Solu-Medrol) 40 mg IVPUSH Q12H [facility] Last Admin: 07/21/20 09:35 Dose: 40 mg Documented by: Methylprednisolone Sodium Succinate (Solu-Medrol) Confirm Administered Dose 40 mg .ROUTE .STK-MED ONE Stop: 07/20/20 11:40 Last Admin: 07/20/20 11:51 Dose: Not Given Documented by: Methylprednisolone Sodium Succinate (Solu-Medrol) 40 mg IVPUSH Q12H [facility] Methylprednisolone Sodium Succinate (Solu-Medrol) 40 mg IVPUSH Q12H [facility] Last Admin: 07/22/20 17:36 Dose: Not Given Documented by: Methylprednisolone Sodium Succinate (Solu-Medrol) 40 mg IVPUSH ONETIME ONE Stop: 07/22/20 12:01 Last Admin: 07/22/20 12:30 Dose: 40 mg Documented by: Metolazone (Zaroxolyn) 2.5 mg PO ONETIME ONE Stop: 07/16/20 13:31 Last Admin: 07/16/20 12:51 Dose: 2.5 mg Documented by: Metolazone (Zaroxolyn) 2.5 mg PO ONETIME ONE Stop: 07/17/20 09:26 Last Admin: 07/17/20 09:47 Dose: 2.5 mg Documented by: Nitroglycerin (Nitrostat) 0.4 mg SL ASDIRECTED PRN PRN Reason: Chest Pain Non-Formulary Medication (Iron [Iron]) 18 mg PO DAILY [facility] Non-Formulary Medication (Iron [Iron]) 18 mg PO DAILY [facility] Ondansetron HCl (Zofran Odt) 4 mg PO Q4H PRN PRN Reason: Nausea/Vomiting Pantoprazole Sodium (Protonix) 40 mg PO BEDTIME [facility] Last Admin: 07/20/20 20:11 Dose: 40 mg Documented by: Prednisolone Acetate (Pred Forte 1% Ophth Susp) 0 ml EYEBOTH DAILY [facility] Last Admin: 07/22/20 08:00 Dose: 1 drop Documented by: Prednisone (Prednisone) 20 mg PO ONETIME ONE Stop: 07/14/20 10:19 Last Admin: 07/14/20 10:53 Dose: 20 mg Documented by: Prednisone (Prednisone) Confirm Administered Dose 20 mg .ROUTE .STK-MED ONE Stop: 07/14/20 11:01 Last Admin: 07/14/20 13:21 Dose: Not Given Documented by: Prednisone (Prednisone) 40 mg PO DAILY [facility] Stop: 07/14/20 23:59 Last Admin: 07/14/20 17:05 Dose: Not Given Documented by: Prednisone (Prednisone) 20 mg PO ONETIME ONE Stop: 07/14/20 16:01 Last Admin: 07/14/20 15:26 Dose: 20 mg Documented by: Prednisone (Prednisone) 30 mg PO DAILY [facility] Stop: 07/15/20 08:01 Prednisone (Prednisone) 20 mg PO DAILY [facility] Stop: 07/16/20 23:59 Prednisone (Prednisone) 10 mg PO DAILY [facility] Stop: 07/17/20 23:59 Prednisone (Prednisone) 40 mg PO DAILY [facility] Stop: 07/15/20 23:59 Last Admin: 07/15/20 08:02 Dose: 40 mg Documented by: Prednisone (Prednisone) 30 mg PO DAILY [facility] Stop: 07/16/20 23:59 Last Admin: 07/16/20 07:36 Dose: 30 mg Documented by: Prednisone (Prednisone) 20 mg PO DAILY [facility] Stop: 07/17/20 23:59 Last Admin: 07/17/20 07:47 Dose: 20 mg Documented by: Prednisone (Prednisone) 10 mg PO DAILY [facility] Stop: 07/18/20 23:59 Last Admin: 07/18/20 08:44 Dose: 10 mg Documented by: Prednisone (Prednisone) 10 mg PO DAILY [facility] Last Admin: 07/22/20 08:00 Dose: 10 mg Documented by: Senna/Docusate Sodium (Senna Plus) 1 tab PO DAILY PRN PRN Reason: Constipation Sodium Chloride (Saline Flush) 10 ml FLUSH BID PRN PRN Reason: Keep Vein Open Last Admin: 07/17/20 22:12 Dose: 10 ml Documented by:
[2020-07-24] MEDS ORDERED: guaiFENesin/Dextromethorphan 100-10 MG/5 ML Soln 10 ML Cup PO SCH (20:00)
[2020-07-24] MEDS ORDERED: Furosemide 40 MG Tab PO SCH (20:00)
[2020-07-24] MEDS ORDERED: Budesonide 0.5 MG/2 ML Neb Susp INH SCH (20:00)
[2020-07-24] MEDS ORDERED: FORMOTEROL INH SCH (20:00)
[2020-07-24] MEDS ORDERED: atorvaSTATin 20 MG Tab PO SCH (20:00)
[2020-07-25] MEDS ORDERED: Ferrous Sulfate 325 MG Tab PO SCH (08:00)
[2020-07-25] MEDS ORDERED: REVEFENACIN IH SCH (08:00)
== END 2020-07-24 16:06 | disposition home or self-care (01) | DRG 291 ==
LOC: LB.ED 09:29 → LB.MS 11:22 → UNDODISIN 07-21 15:00
PROVIDERS: ADMIT Physician Assistant Surgical; ATTEND Physician Assistant Surgical
DX: I50.9 Heart failure, unspecified (principal); J96.00 Acute respiratory failure, unspecified whether with hypoxia or hypercapnia; J44.1 Chronic obstructive pulmonary disease with (acute) exacerbation; J30.9 Allergic rhinitis, unspecified; H91.90 Unspecified hearing loss, unspecified ear; E46 Unspecified protein-calorie malnutrition; M19.90 Unspecified osteoarthritis, unspecified site; M81.0 Age-related osteoporosis without current pathological fracture; Z99.81 Dependence on supplemental oxygen; Z87.440 Personal history of urinary (tract) infections; F43.20 Adjustment disorder, unspecified; Z20.828 Contact with and (suspected) exposure to other viral communicable diseases; Z88.5 Allergy status to narcotic agent; Z88.0 Allergy status to penicillin; Z88.2 Allergy status to sulfonamides; Z90.10 Acquired absence of unspecified breast and nipple; Z96.659 Presence of unspecified artificial knee joint; Z98.890 Other specified postprocedural states; Z88.8 Allergy status to other drugs, medicaments and biological substances; H26.9 Unspecified cataract; Z79.82 Long term (current) use of aspirin; Z79.52 Long term (current) use of systemic steroids; Z79.899 Other long term (current) drug therapy; Z79.01 Long term (current) use of anticoagulants; Z95.2 Presence of prosthetic heart valve; Z87.01 Personal history of pneumonia (recurrent); Z90.49 Acquired absence of other specified parts of digestive tract; Z87.891 Personal history of nicotine dependence; Z95.5 Presence of coronary angioplasty implant and graft; Z90.710 Acquired absence of both cervix and uterus; Z85.3 Personal history of malignant neoplasm of breast; Z68.22 Body mass index [BMI] 22.0-22.9, adult
CPT/HCPCS: 36415 ×2; 51702 ×2; 71046; 80048; 82306; 83880; 84443; 84484; 85025; 86376; 86800; 94640; 96374; 99285; J1940; J7512; 71045; 80053; 84132; 85651; 86038; 87040; 87260; 87275; 87276; 87279; 87280; 87299; 93005; 93306; 97110-GP; 97161-GP; 97165-GO; 97530-GO; 97535-GO; 99222; 99231; 99232; 99239; A0425; A0428; A9270-GY; J0456; J0696; J1956; J2920; J3490; J7030; J7050; J7620-GY; U0002

== ENCOUNTER 2020-08-06 08:24 | Emergency (ER) | payer MEDICARE, BC ==
[2020-08-06 09:27] VITALS: BP 125/64; PULSE 76
[2020-08-06] MEDS ORDERED: Albuterol/Ipratropium 3.0-0.5 MG/3 ML Neb Soln NEB PRN (09:49)
[2020-08-06] MEDS ORDERED: Furosemide 40 MG/4 ML VIAL IVPUSH ONE (10:59)
[2020-08-06] MEDS ORDERED: Furosemide 40 MG/4 ML VIAL ONE (11:08)
--- NOTE | 2020-08-06 12:41 | ER ---
REASON FOR EMERGENCY ROOM VISIT: Increasing shortness of breath and weight gain. HISTORY: This 80-year-old woman is well known to this emergency department with her innumerable visits and hospitalizations, primarily related to exacerbations of either congestive heart failure or COPD or combination of both. She has been on home oxygen on a p.r.n. basis as needed for quite some time. However, over the past 2 or 3 days she has had some worsening of her shortness of breath and she has noticed approximately a 5-pound weight gain over the past week. She does have a chronic cough which she states has essentially been unchanged. She has not had any fever or chills. She has not had any nausea, vomiting, or GI upsets. She was recently hospitalized. She was recently treated for a C2 fracture involving the odontoid secondary to a fall in early June. For this, she has been wearing a [place] collar. She had been seen by a neurosurgeon at in [facility] for this. In that regard, she has no complaints. She has no neurologic symptoms. PAST MEDICAL HISTORY: Please see electronic medical record. This includes. 1. COPD, severe. 2. Congestive heart failure. 3. History of recurrent pneumonia. 4. History of non-STEMI myocardial infarction. 5. History of cholecystectomy. 6. Osteoporosis with history of fractures. 7. C2 cervical fracture in June. ALLERGIES: SHE IS ALLERGIC TO CODEINE, PENICILLIN, SULFA, TRAMADOL, AND WARFARIN. MEDICATIONS: Reviewed. Please see electronic medical record. They include the followin. Acetaminophen. 2. Acyclovir. 3. Albuterol inhaler p.r.n. 4. Aspirin. 5. Atorvastatin. 6. Symbicort. 7. Calcium and vitamin D. 8. Carvedilol. 9. Furosemide. 10.Guaifenesin. 11.Ipratropium inhaler. 12.Nitroglycerin p.r.n. REVIEW OF SYSTEMS: Pertinent positives and negatives as listed in the HPI. PHYSICAL EXAMINATION: VITAL SIGNS: See EMR. She is afebrile. Her respiratory rate is 20, O2 saturations on 2 L of oxygen per nasal cannula is 96%, blood pressure 125/64, heart rate 76. HEENT: She has a small healing eschar over a laceration and underlying induration from her earlier fall. There is no evidence of infection at this point. There is no scleral icterus. Her Burlington collar was left in place. CHEST: She does have scattered rhonchi (this is a chronic problem with her). CARDIAC: Regular rate without murmur. ABDOMEN: Soft and nontender. EXTREMITIES: She does have some mild ankle edema (which she states has increased over the past week or so). LABORATORY DATA: Her BMP was reviewed. She does have a higher than normal CO2 at 42, but she runs high in the high 30s oftentimes anyway. Her electrolytes are normal. Her creatinine is 1.0. A swab for COVID-19 was negative. Chest x-ray does show some impressive scarring bilaterally and cardiomegaly, but no significant change from previous earlier films. IMPRESSION: Increased dyspnea and weight gain, probably related to exacerbation of congestive heart failure. PLAN: An IV was started. She was given 1 dose of 40 mg of Lasix. She had received a DuoNeb treatment x1 and placed on oxygen at 2 L/minute per nasal cannula. Within a short time, she felt much better and was anxious to go home. I felt that this was sensible. Certainly, if she should have more problems going forward, she should get all of this again and follow up with her provider, Dr. Littlejohn. She agrees with this and all questions were answered. AUGUST/ARAM /[id number]
--- NOTE | 2020-08-07 14:20 | CR ---
DATE OF SERVICE: 08/06/20 CLINICAL DATA: SOB. PA AND LATERAL CHEST: Comparison is made to a prior exam dated 07/20/20. The patient is status post median sternotomy. The heart remains enlarged, unchanged. There is calcification of the aortic arch. There are persistent interstitial infiltrates throughout both lungs that have not changed significantly from the prior study. The ground glass opacity in the right lung base on the prior exam has partially cleared. There is blunting of both costophrenic angles on today's exam consistent with small bilateral pleural effusions. The exam is otherwise unchanged from the prior. [id number] [facility]
== END 2020-08-06 11:30 | disposition home or self-care (01) ==
LOC: LB.ED 08:24
DX: R06.02 Shortness of breath (principal); R63.5 Abnormal weight gain; J44.9 Chronic obstructive pulmonary disease, unspecified; I50.9 Heart failure, unspecified; Z90.49 Acquired absence of other specified parts of digestive tract; Z88.5 Allergy status to narcotic agent; Z88.0 Allergy status to penicillin; Z88.2 Allergy status to sulfonamides; Z88.8 Allergy status to other drugs, medicaments and biological substances; Z79.82 Long term (current) use of aspirin; Z79.899 Other long term (current) drug therapy; Z20.828 Contact with and (suspected) exposure to other viral communicable diseases
CPT/HCPCS: 36415; 71046; 80048; 96374; 99284; 99285; J1940; U0002; J7620-GY

== ENCOUNTER 2020-08-15 08:14 | Inpatient (IN) | payer MEDICARE, BC, OTHER ==
[2020-08-15] MEDS ORDERED: methylPREDNISolone Sodium Succinate 40 MG/1 ML SDV IVPUSH ONE (10:05)
[2020-08-15] MEDS: Albuterol/Ipratropium 3.0-0.5 MG/3 ML Neb Soln NEB PRN ×2 (10:30→18:42)
--- NOTE | 2020-08-15 13:17 | EDM.PDOC ---
ED HPI GENERAL MEDICAL PROBLEM - General Chief Complaint: General Stated Complaint: FATIGUE/SOB Time Seen by Provider: 08/15/20 10:30 Source of Information: Reports: Patient History Limitations: Reports: No Limitations - History of Present Illness INITIAL COMMENTS - FREE TEXT/NARRATIVE: Patient is a 80 y/o female who presents for SOB that has worsened the last 2-3 days. She has a PMHx significant for CHF and COPD. Patient is on 2 L of oxygen NC at home. On room air, she had oxygen saturation of 78%, but it improved to 98% on 2 L. No weight gain, no leg swelling. No fever. Patient was swabbed for COVID (negative) and had gone home awaiting the test result before she was examined. - Related Data Allergies Allergy/AdvReac Type Severity Reaction Status Date / Time codeine Allergy Other Verified 08/15/20 08:42 Penicillins Allergy Cannot Verified 08/15/20 08:42 Remember Sulfa (Sulfonamide Allergy Cannot Verified 08/15/20 08:42 Antibiotics) Remember tramadol Allergy Cannot Verified 08/15/20 08:42 Remember warfarin [From Coumadin] AdvReac Bleeding Verified 08/15/20 08:42 Home Meds: Home Meds Aspirin 81 mg PO QPM 02/18/16 [History] Multivitamin [Multi-Vitamin Daily] 1 tab PO DAILY 02/18/16 [History] Calcium Carbonate/Vitamin D3 [Caltrate 600+D 1500 MG-400 Units] 1 tab PO TIDMEALS 08/11/18 [History] carvediloL [Coreg] 1 tab PO BID 01/28/19 [History] Losartan [Cozaar] 1 tab PO BEDTIME 08/01/19 [History] Nitroglycerin [Nitrostat] 0.4 mg SL ASDIRECTED PRN 08/01/19 [History] guaiFENesin [Mucinex] 1 tab PO DAILY 08/01/19 [History] prednisoLONE acetate [Pred Forte 1% Ophth Susp] 1 drop EYELF DAILY 08/01/19 [History] Acetaminophen/Diphenhydramine [Tylenol Pm Ex-Strength Caplet] 1 tab PO BEDTIME 05/09/20 [History] Budesonide [Pulmicort] 1 vial IH BID 07/14/20 [History] Formoterol [Perforomist] 1 vial INH BID 07/14/20 [History] Revefenacin [Yupelri] 1 vial IH DAILY 07/14/20 [History] predniSONE [Prednisone] 1 tab PO DAILY 07/14/20 [History] Docusate Sodium [Colace] 100 mg PO ASDIRECTED PRN 07/22/20 [History] Ferrous Sulfate 1 tab PO DAILY 07/22/20 [History] Furosemide [Lasix] 1 tab PO BID 07/22/20 [History] atorvaSTATin [Lipitor] 1 tab PO BEDTIME 07/22/20 [History] diphenhydrAMINE HCL [Benadryl Allergy] 1 tab PO ASDIRECTED PRN 07/22/20 [History] guaiFENesin/Dextromethorphan [Robitussin Cough-Chest Dm Liq] 20 ml PO BEDTIME 07/22/20 [History] Acetaminophen [Tylenol] 650 mg PO Q4H PRN tablet 07/24/20 [Rx] Albuterol [Proventil Neb Soln] 2.5 mg NEB Q2H PRN neb 07/24/20 [Rx] Albuterol/Ipratropium [DuoNeb 3.0-0.5 MG/3 ML] 3 ml NEB QID neb 07/24/20 [Rx] Melatonin 6 mg PO BEDTIME PRN tablet 07/24/20 [Rx] Acyclovir 400 mg PO DAILY 08/15/20 [History] Past Medical History HEENT History: Reports: Allergic Rhinitis, Cataract, Hard of Hearing Cardiovascular History: Reports: Heart Murmur, Heart Valve Replacement, Stents, Other (See Below) Other Cardiovascular History: endarterectomy Respiratory History: Reports: COPD, Interstitial Lung Disease, Pneumonia, Recurrent, SOB, Other (See Below) Other Respiratory History: has had cough. 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 Right proximal humerus fracture 10/2019. C2 Fx Endocrine/Metabolic History: Reports: Osteoporosis Hematologic History: Reports: None Oncologic (Cancer) History: Reports: Breast - Infectious Disease History Infectious Disease History: Reports: Chicken Pox, Shingles - Past Surgical History HEENT Surgical History: Reports: Other (See Below) Other HEENT Surgeries/Procedures: CEA February 2013 Cardiovascular Surgical History: Reports: Carotid Endarterectomy, Valve Replacement GI Surgical History: Reports: Appendectomy, Cholecystectomy Female Surgical History: Reports: Hysterectomy Endocrine Surgical History: Reports: None Musculoskeletal Surgical History: Reports: Knee Replacement Oncologic Surgical History: Reports: Mastectomy Social & Family History - Family History Family Medical History: Noncontributory HEENT: Reports: Cataract Cardiac: Reports: [place] GI: Reports: GERD : Reports: None Neurological: Reports: Alzheimers Disease Endocrine/Metabolic: Reports: Diabetes, Gestational Immunologic: Reports: None Oncologic: Reports: Breast - Tobacco Use Smoking Status *Q: Former Smoker Years of Tobacco use: 20 Packs/Tins Daily: 1 Used Tobacco, but Quit: Yes Month/Year Tobacco Last Used: 1984 Second Hand Smoke Exposure: No - Caffeine Use Caffeine Use: Reports: Coffee Caffeine Use Comment: 3 cups a day - Recreational Drug Use Recreational Drug Use: No Drug Use in Last 12 Months: No ED ROS GENERAL - Review of Systems Review Of Systems: See Below Constitutional: Reports: No Symptoms HEENT: Reports: No Symptoms Respiratory: Reports: Shortness of Breath, Cough Cardiovascular: Reports: No Symptoms Endocrine: Reports: No Symptoms GI/Abdominal: Reports: No Symptoms : Reports: No Symptoms Skin: Reports: No Symptoms Neurological: Reports: No Symptoms ED EXAM, GENERAL - Physical Exam Exam: See Below Exam Limited By: No Limitations General Appearance: Alert, No Apparent Distress Head: Atraumatic, Normocephalic Respiratory/Chest: No Respiratory Distress, No Accessory Muscle Use, Chest Non- Tender, Decreased Breath Sounds, Crackles, Rhonchi Cardiovascular: Normal Peripheral Pulses, Regular Rate, Rhythm, No Edema, No Murmur Neurological: Alert, Oriented Skin Exam: Warm, Dry Course - Vital Signs Text/Narrative:: Bibasilar infiltrates seen on exam. Labs unremarkable except elevated BNP. NO signs of edema. Will admit patient for COPD exacerbation and pneumonia. Rocephin, azithromyin, solumedrol (80 mg IV), and duonebs. Last Recorded V/S: Last Vital Signs Temp 36.3 C 08/15/20 11:52 Pulse 86 08/15/20 11:52 Resp 20 08/15/20 11:52 BP 119/60 08/15/20 11:52 Pulse Ox 97 10/06/20 11:52 - Orders/Labs/Meds Orders: Active Orders 24 hr Category Date Time Status Chest 2V [CR] Stat Exams 08/15/20 10:27 Taken Labs: Laboratory Tests 08/15/20 08/15/20 08/15/20 Range/Units 08:26 10:27 10:27 WBC 9.9 D (4.0-11.0) K/uL RBC 2.96 L (3.80-5.80) M/uL Hgb 9.2 L (11.5-16.5) g/dL Hct 31.0 L (37.0-47.0) % MCV 105 H (76-96) fL MCH 31.1 (27.0-32.0) pg MCHC 29.7 L (31.0-35.0) g/dL RDW 14.7 (11.0-16.0) % Plt Count 188 (150-500) K/uL MPV 9.9 (6.0-10.0) fL Neut % (Auto) 82.2 H (45.0-70.0) % Lymph % (Auto) 6.5 L (20.0-40.0) % [place] % (Auto) 8.7 (3.0-10.0) % Eos % (Auto) 2.4 (1.0-5.0) % Baso % (Auto) 0.2 (0.0-0.5) % Neut # (Auto) 8.14 H (2.00-7.50) K/uL Lymph # (Auto) 0.64 L (1.50-4.00) K/uL [place] # (Auto) 0.86 H (0.20-0.80) K/uL Eos # (Auto) 0.24 (0.04-0.40) K/uL Baso # (Auto) 0.02 (0.02-0.10) K/uL Sodium 145 (136-145) mmol/L Potassium 4.2 (3.5-5.1) mmol/L Chloride 99 (98-107) mmol/L Carbon Dioxide 44.9 H (21.0-32.0) mmol/L Anion Gap 5.3 (5.0-15.0) mmol/L BUN 26 (8-26) mg/dL Creatinine 1.02 (0.55-1.02) mg/dL Est Cr Clr Drug Dosing TNP Estimated GFR (MDRD) 52 L (>60) MLS/MIN BUN/Creatinine Ratio 25.5 H (6-25) Glucose 105 H (74-100) mg/dL Lactic Acid (0.4-2.0) mmol/L Calcium 9.0 (8.5-10.1) mg/dL Total Bilirubin 0.6 D (0.0-1.0) mg/dL AST 18 (15-37) U/L ALT 23 (12-78) U/L Alkaline Phosphatase 47 (46-116) U/L B-Natriuretic Peptide 12375 H (0-450) pg/mL Total Protein 6.6 (6.4-8.2) g/dL Albumin 3.1 L (3.4-5.0) g/dL Globulin 3.5 (2.2-4.2) g/dL Albumin/Globulin Ratio 0.9 (0.8-2.0) SARS CoV-2 RNA Rapid VIKY Negative 08/15/20 Range/Units 10:27 WBC (4.0-11.0) K/uL RBC (3.80-5.80) M/uL Hgb (11.5-16.5) g/dL Hct (37.0-47.0) % MCV (76-96) fL MCH (27.0-32.0) pg MCHC (31.0-35.0) g/dL RDW (11.0-16.0) % Plt Count (150-500) K/uL MPV (6.0-10.0) fL Neut % (Auto) (45.0-70.0) % Lymph % (Auto) (20.0-40.0) % [place] % (Auto) (3.0-10.0) % Eos % (Auto) (1.0-5.0) % Baso % (Auto) (0.0-0.5) % Neut # (Auto) (2.00-7.50) K/uL Lymph # (Auto) (1.50-4.00) K/uL [place] # (Auto) (0.20-0.80) K/uL Eos # (Auto) (0.04-0.40) K/uL Baso # (Auto) (0.02-0.10) K/uL Sodium (136-145) mmol/L Potassium (3.5-5.1) mmol/L Chloride (98-107) mmol/L Carbon Dioxide (21.0-32.0) mmol/L Anion Gap (5.0-15.0) mmol/L BUN (8-26) mg/dL Creatinine (0.55-1.02) mg/dL Est Cr Clr Drug Dosing Estimated GFR (MDRD) (>60) MLS/MIN BUN/Creatinine Ratio (6-25) Glucose (74-100) mg/dL Lactic Acid 0.8 (0.4-2.0) mmol/L Calcium (8.5-10.1) mg/dL Total Bilirubin (0.0-1.0) mg/dL AST (15-37) U/L ALT (12-78) U/L Alkaline Phosphatase (46-116) U/L B-Natriuretic Peptide (0-450) pg/mL Total Protein (6.4-8.2) g/dL Albumin (3.4-5.0) g/dL Globulin (2.2-4.2) g/dL Albumin/Globulin Ratio (0.8-2.0) SARS CoV-2 RNA Rapid VIKY Departure - Departure Time of Disposition: 12:30 Disposition: Admitted As Inpatient 67 Condition: Fair Clinical Impression: COPD with acute exacerbation Pneumonia Qualifiers: Pneumonia type: due to unspecified organism Laterality: bilateral Lung location: unspecified part of lung Qualified Code(s): J18.9 - Pneumonia, unspecified organism - Discharge Information *PRESCRIPTION DRUG MONITORING PROGRAM REVIEWED*: Not Applicable *COPY OF PRESCRIPTION DRUG MONITORING REPORT IN PATIENT KERRI: Not Applicable Sepsis Event Note (ED) - Evaluation Sepsis Screening Result: No Definite Risk - My Orders Last 24 Hours: My Active Orders 08/15/20 10:27 Chest 2V [CR] Stat - Assessment/Plan Last 24 Hours: My Active Orders 08/15/20 10:27 Chest 2V [CR] Stat
[2020-08-15] MEDS ORDERED: cefTRIAXone 1 GM in Sodium Chloride 0.9% 50 ML IV ONE (13:18)
[2020-08-15] MEDS ORDERED: Azithromycin 500 MG Tab PO ONE ×2 (13:19→17:34)
[2020-08-15] MEDS ORDERED: methylPREDNISolone Sodium Succinate 125 MG/2 ML SDV IV ONE (14:00)
--- NOTE | 2020-08-15 15:12 | CR ---
CLINICAL DATA: Crackles. PA AND LATERAL CHEST, 15 AUGUST 2020: Comparison made to a prior exam dated 06 August 2020. The heart remains enlarged, unchanged. There are persistent interstitial infiltrates throughout both lungs that have not changed significantly from the prior exam. The poorly-defined ground-glass opacity in the right lung base from the prior study appears improved. No new abnormalities. Job: [id number] MTDD
[2020-08-15] MEDS ORDERED: Furosemide 40 MG/4 ML VIAL IVPUSH ONE (19:41)
[2020-08-15] MEDS ORDERED: Furosemide 40 MG/4 ML VIAL ONE (19:44)
[2020-08-15] MEDS ORDERED: Aspirin 81 MG Tab.EC **OWN MED PO SCH (20:00)
[2020-08-15] MEDS: FORMOTEROL 20 MCG NEB SCH ×2 (20:20→21:42)
[2020-08-15] MEDS ORDERED: Acetaminophen 325 MG Tab PO PRN (20:26)
[2020-08-15] MEDS: Budesonide 0.5 MG/2 ML Neb Susp NEB SCH (20:30)
[2020-08-15] MEDS ORDERED: Losartan 25 MG Tab **OWN MED PO SCH (20:45)
[2020-08-15] MEDS: TYLENOL PM PO SCH (21:45)
[2020-08-15] MEDS: Carvedilol 25 MG Tab PO SCH (21:47)
[2020-08-16] MEDS ORDERED: Ferrous Sulfate 325 MG Tab **OWN MED PO SCH (07:00)
[2020-08-16] MEDS: FORMOTEROL 20 MCG NEB SCH (07:58)
[2020-08-16] MEDS: Carvedilol 25 MG Tab PO SCH ×3 (07:59→22:52)
[2020-08-16] MEDS ORDERED: Docusate Sodium 100 MG Cap PO PRN (08:00)
[2020-08-16] MEDS ORDERED: Furosemide 40 MG Tab **OWN MED PO SCH (08:00)
[2020-08-16] MEDS: atorvaSTATin 20 MG Tab PO SCH (08:00)
[2020-08-16] MEDS ORDERED: PREDNISONE 10 MG PO SCH (08:00)
[2020-08-16] MEDS: Budesonide 0.5 MG/2 ML Neb Susp NEB SCH ×2 (08:20→20:13)
[2020-08-16] MEDS: REVEFENACIN 175 MCG NEB SCH (08:29)
[2020-08-16] MEDS: cefTRIAXone 1 GM in Sodium Chloride 0.9% 50 ML IV SCH (09:17)
[2020-08-16] MEDS ORDERED: Furosemide 40 MG/4 ML VIAL IVPUSH SCH (10:00)
[2020-08-16] MEDS: Azithromycin 500 MG in Sodium Chloride 0.9% 250 ML IV SCH (10:13)
--- NOTE | 2020-08-16 11:04 | PCM.HP.2 ---
H&P History of Present Illness - General Date of Service: 08/16/20 Admit Problem/Dx: Admission Diagnosis/Problem Admission Diagnosis/Problem Pneumonia Source of Information: Patient History Limitations: Reports: Respiratory Distress - History of Present Illness Initial Comments - Free Text/Narative: Patient to be placed in admit due to worsening CHF, Pneumonia and COPD exac erbation. She has multiple co-morbidities and the combined health concerns have been difficult to manage. She notes some improvement of her breathing but overall she feels weak, short of breath and unwell. Location: Reports: Generalized (weakness) Worsens with: Reports: Movement Associated Symptoms: Reports: Shortness of Breath, Weakness Left Arm Pain Score (Numeric/FACES): 2 - Related Data Allergies/Adverse Reactions: Allergies Allergy/AdvReac Type Severity Reaction Status Date / Time codeine Allergy Other Verified 08/15/20 08:42 Penicillins Allergy Cannot Verified 08/15/20 08:42 Remember Sulfa (Sulfonamide Allergy Cannot Verified 08/15/20 08:42 Antibiotics) Remember tramadol Allergy Cannot Verified 08/15/20 08:42 Remember warfarin [From Coumadin] AdvReac Bleeding Verified 08/15/20 08:42 Home Medications: Home Meds Aspirin 81 mg PO QPM 02/18/16 [History] Multivitamin [Multi-Vitamin Daily] 1 tab PO DAILY 02/18/16 [History] Calcium Carbonate/Vitamin D3 [Caltrate 600+D 1500 MG-400 Units] 1 tab PO TIDMEALS 08/11/18 [History] carvediloL [Coreg] 1 tab PO BID 01/28/19 [History] Losartan [Cozaar] 1 tab PO BEDTIME 08/01/19 [History] Nitroglycerin [Nitrostat] 0.4 mg SL ASDIRECTED PRN 08/01/19 [History] guaiFENesin [Mucinex] 1 tab PO DAILY 08/01/19 [History] prednisoLONE acetate [Pred Forte 1% Ophth Susp] 1 drop EYELF DAILY 08/01/19 [History] Acetaminophen/Diphenhydramine [Tylenol Pm Ex-Strength Caplet] 1 tab PO BEDTIME 05/09/20 [History] Budesonide [Pulmicort] 1 vial IH BID 07/14/20 [History] Formoterol [Perforomist] 1 vial INH BID 07/14/20 [History] Revefenacin [Yupelri] 1 vial IH DAILY 07/14/20 [History] predniSONE [Prednisone] 1 tab PO DAILY 07/14/20 [History] Docusate Sodium [Colace] 100 mg PO ASDIRECTED PRN 07/22/20 [History] Ferrous Sulfate 1 tab PO DAILY 07/22/20 [History] Furosemide [Lasix] 1 tab PO BID 07/22/20 [History] atorvaSTATin [Lipitor] 1 tab PO BEDTIME 07/22/20 [History] diphenhydrAMINE HCL [Benadryl Allergy] 1 tab PO ASDIRECTED PRN 07/22/20 [ History] guaiFENesin/Dextromethorphan [Robitussin Cough-Chest Dm Liq] 20 ml PO BEDTIME 07/22/20 [History] Acetaminophen [Tylenol] 650 mg PO Q4H PRN tablet 07/24/20 [Rx] Albuterol [Proventil Neb Soln] 2.5 mg NEB Q2H PRN neb 07/24/20 [Rx] Albuterol/Ipratropium [DuoNeb 3.0-0.5 MG/3 ML] 3 ml NEB QID neb 07/24/20 [Rx] Melatonin 6 mg PO BEDTIME PRN tablet 07/24/20 [Rx] Acyclovir 400 mg PO DAILY 08/15/20 [History] Past Medical History HEENT History: Reports: Allergic Rhinitis, Cataract, Hard of Hearing Cardiovascular History: Reports: Heart Murmur, Heart Valve Replacement, Stents, Other (See Below) Other Cardiovascular History: endarterectomy Respiratory History: Reports: COPD, Interstitial Lung Disease, Pneumonia, Recurrent, SOB, Other (See Below) Other Respiratory History: has had cough. supplemental O2 via n/c continuous at home Gastrointestinal History: Reports: Cholelithiasis Other Gastrointestinal History: appy Genitourinary History: Reports: UTI, Recurrent [employer] History: Reports: , Other (See Below) Other OB/BYN History: hysterectomy Musculoskeletal History: Reports: Arthritis, Fracture Other Musculoskeletal History: Fx L tib fib 1981. Right proximal humerus fracture 10/2019. C2 Fx Endocrine/Metabolic History: Reports: Osteoporosis Hematologic History: Reports: None Oncologic (Cancer) History: Reports: Breast - Infectious Disease History Infectious Disease History: Reports: Chicken Pox, Shingles - Past Surgical History HEENT Surgical History: Reports: Other (See Below) Other HEENT Surgeries/Procedures: CEA February 2013 Cardiovascular Surgical History: Reports: Carotid Endarterectomy, Valve Replacement GI Surgical History: Reports: Appendectomy, Cholecystectomy Female Surgical History: Reports: Hysterectomy Endocrine Surgical History: Reports: None Musculoskeletal Surgical History: Reports: Knee Replacement Oncologic Surgical History: Reports: Mastectomy Social & Family History - Family History Family Medical History: Noncontributory HEENT: Reports: Cataract Cardiac: Reports: LA GI: Reports: GERD : Reports: None Neurological: Reports: Alzheimers Disease Endocrine/Metabolic: Reports: Diabetes, Gestational Immunologic: Reports: None Oncologic: Reports: Breast - Tobacco Use Smoking Status *Q: Former Smoker Years of Tobacco use: 20 Packs/Tins Daily: 1 Used Tobacco, but Quit: Yes Month/Year Tobacco Last Used: 1984 Second Hand Smoke Exposure: No - Caffeine Use Caffeine Use: Reports: Coffee Caffeine Use Comment: 3 cups a day - Recreational Drug Use Recreational Drug Use: No Drug Use in Last 12 Months: No H&P Review of Systems - Review of Systems: Review Of Systems: Comprehensive ROS is negative, except as noted in HPI. Exam - Exam Exam: See Below - Vital Signs Vital Signs: Last Vital Signs Temp 36.6 C 08/16/20 07:49 Pulse 92 08/16/20 07:59 Resp 20 08/16/20 07:49 BP 130/81 08/16/20 07:59 Pulse Ox 97 08/16/20 07:49 Weight: 50.802 kg - Exam Quality Assessment: Supplemental Oxygen General: Alert, Oriented, Cooperative HEENT: PERRLA, Conjunctiva Clear, EACs Clear Neck: Supple, Trachea Midline Lungs: Decreased Breath Sounds, Crackles, Rales, Rhonchi Cardiovascular: Regular Rate, Regular Rhythm GI/Abdominal Exam: Normal Bowel Sounds, Soft, Non-Tender Back Exam: Normal Inspection Extremities: Normal Inspection Peripheral Pulses: 2+: Dorsalis Pedis (L), Dorsalis Pedis (R) Skin: Warm, Dry, Intact Neuro Extensive - Mental Status: Alert, Oriented x3 Psychiatric: Alert, Normal Affect, Normal Mood - Patient Data Lab Results Last 24 hrs: Laboratory Results - last 24 hr 08/15/20 08/15/20 08/15/20 Range/Units 10:27 10:27 10:27 WBC 9.9 D (4.0-11.0) K/uL RBC 2.96 L (3.80-5.80) M/uL Hgb 9.2 L (11.5-16.5) g/dL Hct 31.0 L (37.0-47.0) % MCV 105 H (76-96) fL MCH 31.1 (27.0-32.0) pg MCHC 29.7 L (31.0-35.0) g/dL RDW 14.7 (11.0-16.0) % Plt Count 188 (150-500) K/uL MPV 9.9 (6.0-10.0) fL Neut % (Auto) 82.2 H (45.0-70.0) % Lymph % (Auto) 6.5 L (20.0-40.0) % [place] % (Auto) 8.7 (3.0-10.0) % Eos % (Auto) 2.4 (1.0-5.0) % Baso % (Auto) 0.2 (0.0-0.5) % Neut # (Auto) 8.14 H (2.00-7.50) K/uL Lymph # (Auto) 0.64 L (1.50-4.00) K/uL [place] # (Auto) 0.86 H (0.20-0.80) K/uL Eos # (Auto) 0.24 (0.04-0.40) K/uL Baso # (Auto) 0.02 (0.02-0.10) K/uL Sodium 145 (136-145) mmol/L Potassium 4.2 (3.5-5.1) mmol/L Chloride 99 (98-107) mmol/L Carbon Dioxide 44.9 H (21.0-32.0) mmol/L Anion Gap 5.3 (5.0-15.0) mmol/L BUN 26 (8-26) mg/dL Creatinine 1.02 (0.55-1.02) mg/dL Est Cr Clr Drug Dosing TNP Estimated GFR (MDRD) 52 L (>60) MLS/MIN BUN/Creatinine Ratio 25.5 H (6-25) Glucose 105 H (74-100) mg/dL Lactic Acid 0.8 (0.4-2.0) mmol/L Calcium 9.0 (8.5-10.1) mg/dL Total Bilirubin 0.6 D (0.0-1.0) mg/dL AST 18 (15-37) U/L ALT 23 (12-78) U/L Alkaline Phosphatase 47 (46-116) U/L B-Natriuretic Peptide 53373 H (0-450) pg/mL Total Protein 6.6 (6.4-8.2) g/dL Albumin 3.1 L (3.4-5.0) g/dL Globulin 3.5 (2.2-4.2) g/dL Albumin/Globulin Ratio 0.9 (0.8-2.0) 08/16/20 08/16/20 Range/Units 07:23 07:45 WBC 7.8 D (4.0-11.0) K/uL RBC 2.99 L (3.80-5.80) M/uL Hgb 9.2 L (11.5-16.5) g/dL Hct 30.6 L (37.0-47.0) % MCV 102 H (76-96) fL MCH 30.8 (27.0-32.0) pg MCHC 30.1 L (31.0-35.0) g/dL RDW 14.5 (11.0-16.0) % Plt Count 213 (150-500) K/uL MPV 10.0 (6.0-10.0) fL Neut % (Auto) 92.9 H (45.0-70.0) % Lymph % (Auto) 4.9 L (20.0-40.0) % [place] % (Auto) 2.1 L (3.0-10.0) % Eos % (Auto) 0.0 L (1.0-5.0) % Baso % (Auto) 0.1 (0.0-0.5) % Neut # (Auto) 7.23 (2.00-7.50) K/uL Lymph # (Auto) 0.38 L (1.50-4.00) K/uL [place] # (Auto) 0.16 L (0.20-0.80) K/uL Eos # (Auto) 0.00 L (0.04-0.40) K/uL Baso # (Auto) 0.01 L (0.02-0.10) K/uL Sodium 143 (136-145) mmol/L Potassium 4.6 (3.5-5.1) mmol/L Chloride 99 (98-107) mmol/L Carbon Dioxide 43.8 H (21.0-32.0) mmol/L Anion Gap 4.8 L (5.0-15.0) mmol/L BUN 33 H D (8-26) mg/dL Creatinine 1.16 H (0.55-1.02) mg/dL Est Cr Clr Drug Dosing 29.67 Estimated GFR (MDRD) 45 L (>60) MLS/MIN BUN/Creatinine Ratio 28.4 H (6-25) Glucose 145 H D (74-100) mg/dL Lactic Acid (0.4-2.0) mmol/L Calcium 8.5 (8.5-10.1) mg/dL Total Bilirubin (0.0-1.0) mg/dL AST (15-37) U/L ALT (12-78) U/L Alkaline Phosphatase (46-116) U/L B-Natriuretic Peptide 66200 H D (0-450) pg/mL Total Protein (6.4-8.2) g/dL Albumin (3.4-5.0) g/dL Globulin (2.2-4.2) g/dL Albumin/Globulin Ratio (0.8-2.0) Result Diagrams: 08/17/20 07:05 08/17/20 07:05 Sepsis Event Note - Evaluation Sepsis Screening Result: No Definite Risk - Focused Exam Vital Signs: Vital Signs Temp Pulse Pulse Resp BP BP Pulse Ox 08/16/20 07:59 92 130/81 08/16/20 07:49 36.6 C 96 20 130/81 97 08/16/20 04:00 36.8 C 86 24 H 140/81 95 08/15/20 23:52 36.9 C 85 28 H 118/61 92 L - Problem List (1) COPD with acute exacerbation SNOMED Code(s): 684083867 ICD Code: J44.1 - CHRONIC OBSTRUCTIVE PULMONARY DISEASE W (ACUTE) EXACERBATION Status: Acute Priority: High Current Visit: Yes (2) Pneumonia SNOMED Code(s): 800712888 ICD Code: J18.9 - PNEUMONIA, UNSPECIFIED ORGANISM Status: Acute Priority: High Current Visit: Yes Qualifiers: Pneumonia type: due to unspecified organism Laterality: bilateral Lung location: unspecified part of lung Qualified Code(s): J18.9 - Pneumonia, unspecified organism (3) CHF (congestive heart failure) SNOMED Code(s): 21033942 ICD Code: I50.9 - HEART FAILURE, UNSPECIFIED Status: Acute Priority: High Current Visit: Yes Qualifiers: Heart failure chronicity: acute on chronic (4) CHF exacerbation SNOMED Code(s): 491209700, 85359085393918 ICD Code: I50.9 - HEART FAILURE, UNSPECIFIED Status: Acute Priority: High Current Visit: Yes Qualifiers: Heart failure type: unspecified Qualified Code(s): I50.9 - Heart failure, unspecified Problem List Initiated/Reviewed/Updated: Yes Orders Last 24hrs: Active Orders 24 hr Category Date Time Status Admission Status [Patient Status] [ADT] Routine ADT 08/16/20 11:01 Active Patient Status [ADT] Routine ADT 08/15/20 11:21 Active EKG Documentation Completion [RC] ASDIRECTED Care 08/16/20 10:15 Active RT Aerosol Therapy [RC] ASDIRECTED Care 08/15/20 13:22 Active RT Aerosol Therapy [RC] ASDIRECTED Care 08/15/20 20:35 Active Telemetry Monitoring [Cardiac Monitoring] [RC] .As Care 08/16/20 10:15 Active Directed Adult Diet [DIET] Diet 08/16/20 Breakfast Ordered Echo Comp wo Cont [US] Urgent Exams 08/16/20 10:15 Ordered CULTURE MRSA SURVEY [RM] Routine Lab 08/16/20 07:53 Received TROPONIN I [CHEM] Urgent Lab 08/16/20 10:16 Ordered Acetaminophen [TylenoL] Med 08/15/20 20:26 Active 650 mg PO Q6H PRN Albuterol/Ipratropium [DuoNeb 3.0-0.5 MG/3 ML] Med 08/15/20 13:22 Active 3 ml NEB Q4H PRN Aspirin [Halfprin] Med 08/15/20 20:00 Active 81 mg PO BEDTIME Azithromycin [Zithromax] 500 mg Med 08/16/20 10:00 Active Sodium Chloride 0.9% [Normal Saline] 250 ml IV Q24H Budesonide [Pulmicort] Med 08/15/20 20:30 Active 0.5 mg NEB BID Docusate Sodium [Colace] Med 08/16/20 08:00 Active 100 mg PO DAILY PRN Ferrous Sulfate Med 08/16/20 07:00 Active 325 mg PO WITHBREAKFAST Furosemide [Lasix] Med 08/16/20 10:00 Active 40 mg IVPUSH BID Furosemide [Lasix] Med 08/16/20 08:00 Hold 40 mg PO BID@0800,1300 Losartan [Cozaar] Med 08/15/20 20:45 Active 25 mg PO BEDTIME Patient's Own Medication [Ptom] Med 08/16/20 08:00 Active 1 each NEB DAILY Patient's Own Medication [Ptom] Med 08/15/20 20:00 Active 1 each PO BEDTIME atorvaSTATin [Lipitor] Med 08/16/20 08:00 Active 20 mg PO DAILY carvediloL [Coreg] Med 08/15/20 21:15 Active 25 mg PO BID cefTRIAXone [Rocephin] 1 gm Med 08/16/20 08:45 Active Sodium Chloride 0.9% [Normal Saline] 50 ml IV Q24H predniSONE Med 08/16/20 08:00 Active 20 mg PO DAILY Resuscitation Status Routine Resus Stat 08/15/20 23:21 Ordered EKG 12 Lead [EK] Routine Ther 08/16/20 10:15 Ordered Medication Orders Acetaminophen (Tylenol) 650 mg PO Q6H PRN PRN Reason: Pain Stop: 08/18/20 23:59 Albuterol/Ipratropium (Duoneb 3.0-0.5 Mg/3 Ml) 3 ml NEB Q4H PRN PRN Reason: Shortness of Breath Last Admin: 08/15/20 18:42 Dose: 3 ml Documented by: Admin: 08/15/20 10:30 Dose: 3 ml Documented by: JADEN Aspirin (Halfprin) 81 mg PO BEDTIME [facility] Last Admin: 08/15/20 21:44 Dose: 81 mg Documented by: CHUY Atorvastatin Calcium (Lipitor) 20 mg PO DAILY [facility] Last Admin: 08/16/20 08:00 Dose: 20 mg Documented by: ANU Budesonide (Pulmicort) 0.5 mg NEB BID [facility] Last Admin: 08/16/20 08:20 Dose: 0.5 mg Documented by: Admin: 08/15/20 20:30 Dose: 0.5 mg Documented by: CHUY Carvedilol (Coreg) 25 mg PO BID [facility] Last Admin: 08/16/20 07:59 Dose: 25 mg Documented by: Admin: 08/15/20 21:47 Dose: 25 mg Documented by: CHUY Docusate Sodium (Colace) 100 mg PO DAILY PRN PRN Reason: Constipation Stop: 08/18/20 23:59 Ferrous Sulfate (Ferrous Sulfate) 325 mg PO WITHBREAKFAST [facility] Last Admin: 08/16/20 07:59 Dose: 325 mg Documented by: ANU Furosemide (Lasix) 40 mg PO BID@0800,1300 [facility] Last Admin: 08/16/20 08:45 Dose: Not Given Documented by: ANU Furosemide (Lasix) 40 mg IVPUSH BID [facility] Ceftriaxone Sodium 1 gm/ (Sodium Chloride) 50 mls @ 200 mls/hr IV Q24H [facility] Last Admin: 08/16/20 09:17 Dose: 200 mls/hr Documented by: DERIK Azithromycin 500 mg/ Sodium (Chloride) 250 mls @ 250 mls/hr IV Q24H [facility] Last Admin: 08/16/20 10:13 Dose: 250 mls/hr Documented by: ANU Losartan Potassium (Cozaar) 25 mg PO BEDTIME [facility] Last Admin: 08/15/20 21:48 Dose: 25 mg Documented by: CHUY Tylenol Pm Caplet (Own Med) 1 each PO BEDTIME [facility] Last Admin: 08/15/20 21:45 Dose: 1 each Documented by: CHUY Formoterol ( Perforomist) 20 Mcg Own Med 1 each NEB BID [facility] Last Admin: 08/16/20 07:58 Dose: 1 each Documented by: Admin: 08/15/20 21:42 Dose: Not Given Documented by: Admin: 08/15/20 20:20 Dose: 1 each Documented by: CHUY Revefenacin (Yupelri ) 175 Mcg Neb Own Med 1 each NEB DAILY [facility] Last Admin: 08/16/20 08:29 Dose: 1 each Documented by: REHAN Prednisone (Prednisone) 20 mg PO DAILY [facility] Last Admin: 08/16/20 08:00 Dose: 20 mg Documented by: ANU Assessment/Plan Comment:: Patient admitted for Pneumonia - on IV antibiotics. f/u Labs in am. COPD Exacerbation - on IV solumedrol, nebulizers and NC oxygen. CHF Exacerbation - on Lasix, but does appear dry, will monitor fluids closely and daily weights. Patient is clinically better but BNP worse. Close monitoring and telemetry. PT/OT for weakness and deconditioning.
[2020-08-16] MEDS: Albuterol/Ipratropium 3.0-0.5 MG/3 ML Neb Soln NEB PRN ×2 (12:42→16:09)
[2020-08-16] MEDS: Furosemide 40 MG/4 ML VIAL IVPUSH SCH (16:08)
[2020-08-16] MEDS: methylPREDNISolone Sodium Succinate 125 MG/2 ML SDV IVPUSH SCH (17:02)
[2020-08-16] MEDS: TYLENOL PM PO SCH (20:13)
[2020-08-16] MEDS ORDERED: Losartan 25 MG Tab PO ONE (20:15)
[2020-08-17] MEDS: Albuterol/Ipratropium 3.0-0.5 MG/3 ML Neb Soln NEB PRN ×2 (01:23→14:41)
[2020-08-17] MEDS: methylPREDNISolone Sodium Succinate 125 MG/2 ML SDV IVPUSH SCH (04:55)
[2020-08-17] MEDS: Arformoterol 15 MCG/2 ML Neb Soln INH SCH ×2 (07:38→20:36)
[2020-08-17] MEDS: Furosemide 40 MG/4 ML VIAL IVPUSH SCH (07:40)
[2020-08-17] MEDS: cefTRIAXone 1 GM in Sodium Chloride 0.9% 50 ML IV SCH (07:51)
[2020-08-17] MEDS: Carvedilol 25 MG Tab PO SCH ×2 (07:53→20:30)
[2020-08-17] MEDS: Aspirin 81 MG Tab.EC PO SCH (07:53)
[2020-08-17] MEDS: Ferrous Sulfate 325 MG Tab **OWN MED PO SCH (07:57)
[2020-08-17] MEDS: Budesonide 0.5 MG/2 ML Neb Susp NEB SCH ×2 (08:23→20:27)
[2020-08-17] MEDS: REVEFENACIN 175 MCG NEB SCH (08:49)
[2020-08-17] MEDS: Azithromycin 500 MG in Sodium Chloride 0.9% 250 ML IV SCH (09:21)
--- NOTE | 2020-08-17 09:47 | PCM.PN ---
- General Info Date of Service: 08/17/20 Subjective Update: Patient notes continued - Review of Systems General: Reports: Weakness HEENT: Reports: No Symptoms Pulmonary: Reports: Shortness of Breath Cardiovascular: Reports: No Symptoms Gastrointestinal: Reports: No Symptoms Musculoskeletal: Reports: No Symptoms Skin: Reports: No Symptoms Neurological: Reports: Weakness Psychiatric: Reports: No Symptoms - Patient Data Vitals - Most Recent: Last Vital Signs Temp 36.6 C 08/17/20 04:30 Pulse 87 08/17/20 07:53 Resp 20 08/17/20 04:30 BP 144/70 H 08/17/20 07:53 Pulse Ox 96 08/17/20 04:30 Weight - Most Recent: 50.802 kg I&O - Last 24 Hours: Intake & Output 08/16/20 08/17/20 08/17/20 22:59 06:59 14:59 Intake Total 1420 240 Output Total 525 325 Balance 895 -85 Lab Results Last 24 Hours: Laboratory Results - last 24 hr 08/16/20 08/16/20 08/16/20 Range/Units 07:30 07:45 15:00 WBC 7.8 D (4.0-11.0) K/uL RBC 2.99 L (3.80-5.80) M/uL Hgb 9.2 L (11.5-16.5) g/dL Hct 30.6 L (37.0-47.0) % MCV 102 H (76-96) fL MCH 30.8 (27.0-32.0) pg MCHC 30.1 L (31.0-35.0) g/dL RDW 14.5 (11.0-16.0) % Plt Count 213 (150-500) K/uL MPV 10.0 (6.0-10.0) fL Neut % (Auto) 92.9 H (45.0-70.0) % Lymph % (Auto) 4.9 L (20.0-40.0) % Rhea % (Auto) 2.1 L (3.0-10.0) % Eos % (Auto) 0.0 L (1.0-5.0) % Baso % (Auto) 0.1 (0.0-0.5) % Neut # (Auto) 7.23 (2.00-7.50) K/uL Lymph # (Auto) 0.38 L (1.50-4.00) K/uL Rhea # (Auto) 0.16 L (0.20-0.80) K/uL Eos # (Auto) 0.00 L (0.04-0.40) K/uL Baso # (Auto) 0.01 L (0.02-0.10) K/uL Sodium (136-145) mmol/L Potassium (3.5-5.1) mmol/L Chloride (98-107) mmol/L Carbon Dioxide (21.0-32.0) mmol/L Anion Gap (5.0-15.0) mmol/L BUN (8-26) mg/dL Creatinine (0.55-1.02) mg/dL Est Cr Clr Drug Dosing mL/min Estimated GFR (MDRD) (>60) MLS/MIN BUN/Creatinine Ratio (6-25) Glucose (74-100) mg/dL Calcium (8.5-10.1) mg/dL Troponin I 0.062 H* D 0.059 (0.000-0.060) ng/mL 08/17/20 08/17/20 Range/Units 07:05 07:05 WBC 8.5 (4.0-11.0) K/uL RBC 2.91 L (3.80-5.80) M/uL Hgb 8.9 L (11.5-16.5) g/dL Hct 30.4 L (37.0-47.0) % MCV 105 H (76-96) fL MCH 30.6 (27.0-32.0) pg MCHC 29.3 L (31.0-35.0) g/dL RDW 14.7 (11.0-16.0) % Plt Count 218 (150-500) K/uL MPV 10.1 H (6.0-10.0) fL Neut % (Auto) 95.0 H (45.0-70.0) % Lymph % (Auto) 3.0 L (20.0-40.0) % Rhea % (Auto) 2.0 L (3.0-10.0) % Eos % (Auto) 0.0 L (1.0-5.0) % Baso % (Auto) 0.0 (0.0-0.5) % Neut # (Auto) 8.05 H (2.00-7.50) K/uL Lymph # (Auto) 0.25 L (1.50-4.00) K/uL Rhea # (Auto) 0.17 L (0.20-0.80) K/uL Eos # (Auto) 0.00 L (0.04-0.40) K/uL Baso # (Auto) 0.00 L (0.02-0.10) K/uL Sodium 145 (136-145) mmol/L Potassium 4.5 (3.5-5.1) mmol/L Chloride 102 (98-107) mmol/L Carbon Dioxide 43.3 H (21.0-32.0) mmol/L Anion Gap 4.2 L (5.0-15.0) mmol/L BUN 34 H (8-26) mg/dL Creatinine 1.06 H (0.55-1.02) mg/dL Est Cr Clr Drug Dosing 32.47 mL/min Estimated GFR (MDRD) 50 L (>60) MLS/MIN BUN/Creatinine Ratio 32.1 H (6-25) Glucose 149 H (74-100) mg/dL Calcium 7.7 L (8.5-10.1) mg/dL Troponin I 0.064 H* (0.000-0.060) ng/mL Med Orders - Current: Current Medications Acetaminophen (Tylenol) 650 mg PO Q6H PRN PRN Reason: Pain Stop: 08/18/20 23:59 Albuterol/Ipratropium (Duoneb 3.0-0.5 Mg/3 Ml) 3 ml NEB Q4H PRN PRN Reason: Shortness of Breath Last Admin: 08/17/20 01:23 Dose: 3 ml Documented by: Arformoterol Tartrate (Brovana) 15 mcg INH BID [facility] Last Admin: 08/17/20 07:38 Dose: 15 mcg Documented by: Aspirin (Halfprin) 81 mg PO DAILY [facility] Last Admin: 08/17/20 07:53 Dose: 81 mg Documented by: Atorvastatin Calcium (Lipitor) 20 mg PO DAILY [facility] Budesonide (Pulmicort) 0.5 mg NEB BID [facility] Last Admin: 10/08/20 08:23 Dose: 0.5 mg Documented by: Carvedilol (Coreg) 25 mg PO BID [facility] Last Admin: 08/17/20 07:53 Dose: 25 mg Documented by: Docusate Sodium (Colace) 100 mg PO DAILY PRN PRN Reason: Constipation Stop: 08/18/20 23:59 Ferrous Sulfate (Ferrous Sulfate) 325 mg PO DAILY@0800 [facility] Last Admin: 08/17/20 07:57 Dose: 325 mg Documented by: Furosemide (Lasix) 40 mg IVPUSH BIDDIURETIC [facility] Last Admin: 08/17/20 07:40 Dose: 40 mg Documented by: Ceftriaxone Sodium 1 gm/ (Sodium Chloride) 50 mls @ 200 mls/hr IV Q24H [facility] Last Admin: 08/17/20 07:51 Dose: 200 mls/hr Documented by: Azithromycin 500 mg/ Sodium (Chloride) 250 mls @ 250 mls/hr IV Q24H [facility] Last Admin: 08/17/20 09:21 Dose: 250 mls/hr Documented by: Losartan Potassium (Cozaar) 25 mg PO BEDTIME [facility] Methylprednisolone Sodium Succinate (Solu-Medrol) 125 mg IVPUSH Q12H [facility] Last Admin: 08/17/20 04:55 Dose: 125 mg Documented by: Tylenol Pm Caplet (Own Med) 1 each PO BEDTIME [facility] Last Admin: 08/16/20 20:13 Dose: 1 each Documented by: Revefenacin (Yupelri ) 175 Mcg Neb Own Med 1 each NEB DAILY [facility] Last Admin: 08/17/20 08:49 Dose: 1 each Documented by: Prednisone (Prednisone) 20 mg PO DAILY [facility] Discontinued Medications Aspirin (Halfprin) 81 mg PO BEDTIME [facility] Last Admin: 08/15/20 21:44 Dose: 81 mg Documented by: Atorvastatin Calcium (Lipitor) 20 mg PO DAILY [facility] Last Admin: 08/16/20 08:00 Dose: 20 mg Documented by: Azithromycin (Zithromax) 500 mg PO ONETIME ONE Stop: 08/15/20 13:20 Last Admin: 08/15/20 17:22 Dose: Not Given Documented by: Azithromycin (Zithromax) 500 mg PO ONETIME ONE Stop: 08/15/20 17:35 Last Admin: 08/15/20 18:00 Dose: 500 mg Documented by: Carvedilol (Coreg) 25 mg PO BID [facility] Last Admin: 08/16/20 22:52 Dose: Not Given Documented by: Ferrous Sulfate (Ferrous Sulfate) 325 mg PO WITHBREAKFAST [facility] Last Admin: 08/16/20 07:59 Dose: 325 mg Documented by: Furosemide (Lasix) 40 mg IVPUSH NOW ONE Stop: 08/15/20 19:42 Last Admin: 08/15/20 19:52 Dose: 40 mg Documented by: Furosemide (Lasix) Confirm Administered Dose 40 mg .ROUTE .STK-MED ONE Stop: 08/15/20 19:45 Last Admin: 08/15/20 19:52 Dose: Not Given Documented by: Furosemide (Lasix) 40 mg PO BID@0800,1300 [facility] Last Admin: 08/16/20 08:45 Dose: Not Given Documented by: Furosemide (Lasix) 40 mg IVPUSH BID [facility] Last Admin: 08/16/20 10:12 Dose: 40 mg Documented by: Ceftriaxone Sodium 1 gm/ (Sodium Chloride) 50 mls @ 100 mls/hr IV ONETIME ONE Stop: 08/15/20 13:47 Last Admin: 08/15/20 16:13 Dose: 100 mls/hr Documented by: Losartan Potassium (Cozaar) 25 mg PO BEDTIME [facility] Last Admin: 08/15/20 21:48 Dose: 25 mg Documented by: Losartan Potassium (Cozaar) 25 mg PO ONETIME ONE Stop: 08/16/20 20:16 Last Admin: 08/16/20 20:12 Dose: 25 mg Documented by: Methylprednisolone Sodium Succinate (Solu-Medrol) 80 mg IV ONETIME ONE Stop: 08/15/20 14:01 Last Admin: 08/15/20 16:14 Dose: 80 mg Documented by: Methylprednisolone Sodium Succinate (Solu-Medrol) 80 mg IVPUSH ONETIME ONE Stop: 08/15/20 10:06 Last Admin: 08/15/20 21:43 Dose: Not Given Documented by: Formoterol ( Perforomist) 20 Mcg Own Med 1 each NEB BID [facility] Last Admin: 08/16/20 07:58 Dose: 1 each Documented by: Prednisone (Prednisone) 20 mg PO DAILY [facility] Last Admin: 08/16/20 08:00 Dose: 20 mg Documented by: - Exam Quality Assessment: Supplemental Oxygen General: Alert, Oriented, Cooperative HEENT: Pupils Equal, Pupils Reactive, EOMI Neck: Supple Lungs: Decreased Breath Sounds, Crackles, Rales Cardiovascular: Regular Rate, Regular Rhythm GI/Abdominal Exam: Normal Bowel Sounds, Soft, Non-Tender Extremities: Normal Inspection Sepsis Event Note - Evaluation Sepsis Screening Result: No Definite Risk - Focused Exam Vital Signs: Vital Signs Temp Temp Pulse Pulse Resp BP BP 08/17/20 07:53 87 144/70 H 08/17/20 04:30 36.6 C 85 20 134/69 08/17/20 01:15 36.3 C 86 19 134/73 Pulse Ox 08/17/20 07:53 08/17/20 04:30 96 08/17/20 01:15 95 - Problem List & Annotations (1) CHF (congestive heart failure) SNOMED Code(s): 15935920 Code(s): I50.9 - HEART FAILURE, UNSPECIFIED Status: Acute Priority: High Current Visit: Yes Qualifiers: Heart failure chronicity: acute on chronic (2) CHF exacerbation SNOMED Code(s): 144859221, 58554740173343 Code(s): I50.9 - HEART FAILURE, UNSPECIFIED Status: Acute Priority: High Current Visit: Yes Qualifiers: Heart failure type: unspecified Qualified Code(s): I50.9 - Heart failure, unspecified (3) COPD with acute exacerbation SNOMED Code(s): 381209323 Code(s): J44.1 - CHRONIC OBSTRUCTIVE PULMONARY DISEASE W (ACUTE) EXACERBATION Status: Acute Priority: High Current Visit: Yes (4) Pneumonia SNOMED Code(s): 311235068 Code(s): J18.9 - PNEUMONIA, UNSPECIFIED ORGANISM Status: Acute Priority: High Current Visit: Yes Qualifiers: Pneumonia type: due to unspecified organism Laterality: bilateral Lung location: unspecified part of lung Qualified Code(s): J18.9 - Pneumonia, unspecified organism - Problem List Review Problem List Initiated/Reviewed/Updated: Yes - My Orders Last 24 Hours: My Active Orders 08/16/20 10:00 Azithromycin [Zithromax] 500 mg Sodium Chloride 0.9% [Normal Saline] 250 ml IV Q24H 08/16/20 10:15 Telemetry Monitoring [Cardiac Monitoring] [RC] 20,02,08,14 EKG 12 Lead [EK] Routine 08/16/20 11:00 Admission Status [Patient Status] [ADT] Routine 08/16/20 16:00 Furosemide [Lasix] 40 mg IVPUSH BIDDIURETIC 08/16/20 17:00 methylPREDNISolone Sod Succ [Solu-MEDROL] 125 mg IVPUSH Q12H 08/17/20 Breakfast Heart Healthy Diet [DIET] 08/17/20 18:00 atorvaSTATin [Lipitor] 20 mg PO DAILY - Plan Plan:: Pneumonia - Patient to continue IV antibiotics at this time. F/u labs in am. CHF exacerbation - This is acute on chronic and likely worsened from her pneumonia. Patient to stay on telemetry and discussion with Romina for e- Hospitalist to evaluate. COPD exacerbation - continue to slowly taper Solumedrol and continue nebulizers as scheduled. Patient stable and we will continue to monitor fluid status. PT/OT evaluation and management.
[2020-08-17] MEDS ORDERED: methylPREDNISolone Sodium Succinate 125 MG/2 ML SDV IVPUSH SCH (09:48)
[2020-08-17] MEDS: Metolazone 5 MG Tab PO SCH (13:02)
[2020-08-17] MEDS: atorvaSTATin 20 MG Tab PO SCH ×2 (15:58→20:32)
[2020-08-17] MEDS ORDERED: atorvaSTATin 20 MG Tab PO SCH ×2 (18:00→20:00)
[2020-08-17] MEDS: methylPREDNISolone Sodium Succinate 40 MG/1 ML SDV IV SCH (19:42)
[2020-08-17] MEDS: Losartan 25 MG Tab PO SCH (20:30)
[2020-08-17] MEDS: TYLENOL PM PO SCH (20:30)
[2020-08-17] MEDS: Sodium Chloride 0.9% 10 ML Syringe FLUSH PRN (20:55)
[2020-08-18] MEDS: methylPREDNISolone Sodium Succinate 40 MG/1 ML SDV IV SCH ×2 (07:32→19:23)
[2020-08-18] MEDS: Furosemide 40 MG/4 ML VIAL IVPUSH SCH (07:40)
[2020-08-18] MEDS: cefTRIAXone 1 GM in Sodium Chloride 0.9% 50 ML IV SCH (07:49)
[2020-08-18] MEDS: Metolazone 5 MG Tab PO SCH (07:50)
[2020-08-18] MEDS: Aspirin 81 MG Tab.EC PO SCH (07:50)
[2020-08-18] MEDS: Carvedilol 25 MG Tab PO SCH ×2 (07:50→19:23)
[2020-08-18] MEDS: Ferrous Sulfate 325 MG Tab **OWN MED PO SCH (07:52)
[2020-08-18] MEDS: Arformoterol 15 MCG/2 ML Neb Soln INH SCH ×2 (07:53→19:26)
[2020-08-18] MEDS: Budesonide 0.5 MG/2 ML Neb Susp NEB SCH ×2 (09:00→19:27)
[2020-08-18] MEDS: REVEFENACIN 175 MCG NEB SCH (09:15)
[2020-08-18] MEDS: Azithromycin 500 MG in Sodium Chloride 0.9% 250 ML IV SCH (09:34)
[2020-08-18] MEDS: Albuterol/Ipratropium 3.0-0.5 MG/3 ML Neb Soln NEB PRN (11:36)
--- NOTE | 2020-08-18 13:57 | PCM.PN ---
- General Info Date of Service: 08/18/20 Subjective Update: Patient is a 80 y/ female who was admitted for weakness, CHF/COPD exacerbation, and pneumonia. She feels much better today, doing spirometry, and eating normally. Patient wants to go home. Lasix was given initially and 350 mL urinary output. Lasix stopped and spirolactone started yesterday. - Patient Data Vitals - Most Recent: Last Vital Signs Temp 36.9 C 08/18/20 12:00 Pulse 71 08/18/20 12:00 Resp 20 08/18/20 12:00 BP 122/55 L 08/18/20 12:00 Pulse Ox 100 08/18/20 12:00 Weight - Most Recent: 52.617 kg I&O - Last 24 Hours: Intake & Output 08/17/20 08/18/20 08/18/20 22:59 06:59 14:59 Intake Total 5300 250 Output Total 800 800 Balance 4500 -550 Henrik Results Last 24 Hours: Microbiology 08/16/20 07:53 MRSA Surveillance Culture - Final Nares, Right NO MRSA ISOLATED Med Orders - Current: Current Medications Acetaminophen (Tylenol) 650 mg PO Q6H PRN PRN Reason: Pain Stop: 08/18/20 23:59 Albuterol/Ipratropium (Duoneb 3.0-0.5 Mg/3 Ml) 3 ml NEB Q4H PRN PRN Reason: Shortness of Breath Last Admin: 08/18/20 11:36 Dose: 3 ml Documented by: Arformoterol Tartrate (Brovana) 15 mcg INH BID [facility] Last Admin: 08/18/20 07:53 Dose: 15 mcg Documented by: Aspirin (Halfprin) 81 mg PO DAILY [facility] Last Admin: 08/18/20 07:50 Dose: 81 mg Documented by: Atorvastatin Calcium (Lipitor) 20 mg PO BEDTIME [facility] Last Admin: 08/17/20 20:32 Dose: 20 mg Documented by: Budesonide (Pulmicort) 0.5 mg NEB BID [facility] Last Admin: 08/18/20 09:00 Dose: 0.5 mg Documented by: Carvedilol (Coreg) 25 mg PO BID [facility] Last Admin: 08/18/20 07:50 Dose: 25 mg Documented by: Docusate Sodium (Colace) 100 mg PO DAILY PRN PRN Reason: Constipation Stop: 08/18/20 23:59 Ferrous Sulfate (Ferrous Sulfate) 325 mg PO DAILY@0800 [facility] Last Admin: 08/18/20 07:52 Dose: 325 mg Documented by: Furosemide (Lasix) 40 mg IVPUSH DAILY [facility] Last Admin: 08/18/20 07:40 Dose: 40 mg Documented by: Ceftriaxone Sodium 1 gm/ (Sodium Chloride) 50 mls @ 200 mls/hr IV Q24H [facility] Last Admin: 08/18/20 07:49 Dose: 200 mls/hr Documented by: Azithromycin 500 mg/ Sodium (Chloride) 250 mls @ 250 mls/hr IV Q24H [facility] Last Admin: 08/18/20 09:34 Dose: 250 mls/hr Documented by: Losartan Potassium (Cozaar) 25 mg PO BEDTIME [facility] Last Admin: 08/17/20 20:30 Dose: 25 mg Documented by: Methylprednisolone Sodium Succinate (Solu-Medrol) 80 mg IV BID [facility] Last Admin: 08/18/20 07:32 Dose: 80 mg Documented by: Metolazone (Zaroxolyn) 2.5 mg PO DAILY [facility] Last Admin: 08/18/20 07:50 Dose: 2.5 mg Documented by: Tylenol Pm Caplet (Own Med) 1 each PO BEDTIME [facility] Last Admin: 08/17/20 20:30 Dose: 1 each Documented by: Revefenacin (Yupelri ) 175 Mcg Neb Own Med 1 each NEB DAILY [facility] Last Admin: 08/18/20 09:15 Dose: 1 each Documented by: Prednisone (Prednisone) 20 mg PO DAILY [facility] Sodium Chloride (Saline Flush) 10 ml FLUSH ASDIRECTED PRN PRN Reason: Keep Vein Open Last Admin: 08/17/20 20:55 Dose: 10 ml Documented by: Discontinued Medications Aspirin (Halfprin) 81 mg PO BEDTIME [facility] Last Admin: 08/15/20 21:44 Dose: 81 mg Documented by: Atorvastatin Calcium (Lipitor) 20 mg PO DAILY [facility] Last Admin: 08/17/20 15:58 Dose: Not Given Documented by: Atorvastatin Calcium (Lipitor) 20 mg PO DAILY [facility] Atorvastatin Calcium (Lipitor) 20 mg PO DAILY [facility] Azithromycin (Zithromax) 500 mg PO ONETIME ONE Stop: 08/15/20 13:20 Last Admin: 08/15/20 17:22 Dose: Not Given Documented by: Azithromycin (Zithromax) 500 mg PO ONETIME ONE Stop: 08/15/20 17:35 Last Admin: 08/15/20 18:00 Dose: 500 mg Documented by: Carvedilol (Coreg) 25 mg PO BID [facility] Last Admin: 08/16/20 22:52 Dose: Not Given Documented by: Ferrous Sulfate (Ferrous Sulfate) 325 mg PO WITHBREAKFAST [facility] Last Admin: 08/16/20 07:59 Dose: 325 mg Documented by: Furosemide (Lasix) 40 mg IVPUSH NOW ONE Stop: 08/15/20 19:42 Last Admin: 08/15/20 19:52 Dose: 40 mg Documented by: Furosemide (Lasix) Confirm Administered Dose 40 mg .ROUTE .STK-MED ONE Stop: 08/15/20 19:45 Last Admin: 08/15/20 19:52 Dose: Not Given Documented by: Furosemide (Lasix) 40 mg PO BID@0800,1300 [facility] Last Admin: 08/16/20 08:45 Dose: Not Given Documented by: Furosemide (Lasix) 40 mg IVPUSH BID [facility] Last Admin: 08/16/20 10:12 Dose: 40 mg Documented by: Furosemide (Lasix) 40 mg IVPUSH BIDDIURETIC [facility] Last Admin: 08/17/20 07:40 Dose: 40 mg Documented by: Ceftriaxone Sodium 1 gm/ (Sodium Chloride) 50 mls @ 100 mls/hr IV ONETIME ONE Stop: 08/15/20 13:47 Last Admin: 08/15/20 16:13 Dose: 100 mls/hr Documented by: Azithromycin 500 mg/ Sodium (Chloride) 250 mls @ 250 mls/hr IV Q24H [facility] Last Admin: 08/17/20 09:21 Dose: 250 mls/hr Documented by: Losartan Potassium (Cozaar) 25 mg PO BEDTIME [facility] Last Admin: 08/15/20 21:48 Dose: 25 mg Documented by: Losartan Potassium (Cozaar) 25 mg PO ONETIME ONE Stop: 08/16/20 20:16 Last Admin: 08/16/20 20:12 Dose: 25 mg Documented by: Methylprednisolone Sodium Succinate (Solu-Medrol) 80 mg IV ONETIME ONE Stop: 08/15/20 14:01 Last Admin: 08/15/20 16:14 Dose: 80 mg Documented by: Methylprednisolone Sodium Succinate (Solu-Medrol) 80 mg IVPUSH ONETIME ONE Stop: 08/15/20 10:06 Last Admin: 08/15/20 21:43 Dose: Not Given Documented by: Methylprednisolone Sodium Succinate (Solu-Medrol) 125 mg IVPUSH Q12H [facility] Last Admin: 08/17/20 04:55 Dose: 125 mg Documented by: Formoterol ( Perforomist) 20 Mcg Own Med 1 each NEB BID [facility] Last Admin: 08/16/20 07:58 Dose: 1 each Documented by: Prednisone (Prednisone) 20 mg PO DAILY [facility] Last Admin: 08/16/20 08:00 Dose: 20 mg Documented by: - Exam Quality Assessment: Supplemental Oxygen General: Alert, Oriented Neck: Supple Lungs: Normal Respiratory Effort, Decreased Breath Sounds, Crackles, Wheezing Cardiovascular: Regular Rate, Regular Rhythm GI/Abdominal Exam: Normal Bowel Sounds, Soft, Non-Tender, No Distention Skin: Warm, Dry, Intact Neurological: No New Focal Deficit Psy/Mental Status: Alert, Normal Affect, Normal Mood Sepsis Event Note - Evaluation Sepsis Screening Result: No Definite Risk - Focused Exam Vital Signs: Vital Signs Temp Pulse Pulse Pulse Pulse Resp BP 08/18/20 12:00 36.9 C 71 20 08/18/20 07:53 36.3 C 81 28 H 08/18/20 07:50 81 130/75 08/18/20 04:00 86 BP BP Pulse Ox 08/18/20 12:00 122/55 L 100 08/18/20 07:53 130/75 100 08/18/20 07:50 08/18/20 04:00 - Problem List Review Problem List Initiated/Reviewed/Updated: Yes - My Orders Last 24 Hours: My Active Orders 08/17/20 20:00 Losartan [Cozaar] 25 mg PO BEDTIME methylPREDNISolone Sod Succ [Solu-MEDROL] 80 mg IV BID - Assessment Assessment:: Plan to keep patient the and have Dr. Littlejohn re-evaluate Friday. Patient is aggreeable to this. Lung exam improved from initial exam and will continue nebs treatments and abx. - Plan Plan:: Pneumonia - Patient to continue IV antibiotics at this time. F/u labs in am. CHF exacerbation - This is acute on chronic and likely worsened from her pneumonia. Patient to stay on telemetry and discussion with Romina for e- Hospitalist to evaluate. COPD exacerbation - continue to slowly taper Solumedrol and continue nebulizers as scheduled. Patient stable and we will continue to monitor fluid status. PT/OT evaluation and management.
[2020-08-18] MEDS: Losartan 25 MG Tab PO SCH (19:26)
[2020-08-18] MEDS: atorvaSTATin 20 MG Tab PO SCH (19:27)
[2020-08-18] MEDS: TYLENOL PM PO SCH (19:27)
[2020-08-18] MEDS: Sodium Chloride 0.9% 10 ML Syringe FLUSH PRN (19:32)
[2020-08-19] MEDS: Albuterol/Ipratropium 3.0-0.5 MG/3 ML Neb Soln NEB PRN ×3 (02:48→23:52)
[2020-08-19] MEDS: Budesonide 0.5 MG/2 ML Neb Susp NEB SCH ×2 (07:13→19:40)
[2020-08-19] MEDS: methylPREDNISolone Sodium Succinate 40 MG/1 ML SDV IV SCH ×2 (07:16→19:39)
[2020-08-19] MEDS ORDERED: methylPREDNISolone Sodium Succinate 40 MG/1 ML SDV ONE (07:22)
[2020-08-19] MEDS: REVEFENACIN 175 MCG NEB SCH (07:24)
[2020-08-19] MEDS: Furosemide 40 MG/4 ML VIAL IVPUSH SCH (07:27)
[2020-08-19] MEDS: Azithromycin 500 MG in Sodium Chloride 0.9% 250 ML IV SCH (07:34)
[2020-08-19] MEDS: Aspirin 81 MG Tab.EC PO SCH (07:36)
[2020-08-19] MEDS: Metolazone 5 MG Tab PO SCH (07:36)
[2020-08-19] MEDS: Acyclovir 400 MG Tab PO SCH (07:36)
[2020-08-19] MEDS: Ferrous Sulfate 325 MG Tab **OWN MED PO SCH (07:36)
[2020-08-19] MEDS: Carvedilol 25 MG Tab PO SCH ×2 (07:37→20:07)
[2020-08-19] MEDS: cefTRIAXone 1 GM in Sodium Chloride 0.9% 50 ML IV SCH (09:19)
[2020-08-19] MEDS: Arformoterol 15 MCG/2 ML Neb Soln INH SCH ×2 (10:34→20:07)
--- NOTE | 2020-08-19 18:37 | PCM.SN.2 ---
- Free Text/Narrative Note: Patient is looking better and stronger today. Still with crackles and rhonchi on lung exam, but taking larger breaths. will try CPAP for 10-15 mins at a time at patient's comfort to help break up any mucus plugging and shift any pulmonary edema out. No complaints and patient wanting to go home. Will continue to m and have Dr. Littlejohn follow up on Friday. NO let edema. Patient independent and able to move herself. Much improved since admission.
[2020-08-19] MEDS: TYLENOL PM PO SCH (20:06)
[2020-08-19] MEDS: Losartan 25 MG Tab PO SCH (20:07)
[2020-08-19] MEDS ORDERED: atorvaSTATin 20 MG Tab ONE (20:11)
[2020-08-19] MEDS: atorvaSTATin 20 MG Tab PO SCH (20:12)
[2020-08-20] MEDS: Arformoterol 15 MCG/2 ML Neb Soln INH SCH ×2 (07:55→19:20)
[2020-08-20] MEDS: methylPREDNISolone Sodium Succinate 40 MG/1 ML SDV IV SCH ×2 (07:55→20:25)
[2020-08-20] MEDS: Furosemide 40 MG/4 ML VIAL IVPUSH SCH (08:10)
[2020-08-20] MEDS: Ferrous Sulfate 325 MG Tab **OWN MED PO SCH (08:13)
[2020-08-20] MEDS: Aspirin 81 MG Tab.EC PO SCH (08:13)
[2020-08-20] MEDS: Acyclovir 400 MG Tab PO SCH (08:14)
[2020-08-20] MEDS: Metolazone 5 MG Tab PO SCH (08:14)
[2020-08-20] MEDS: Carvedilol 25 MG Tab PO SCH ×2 (08:14→20:13)
[2020-08-20] MEDS: Azithromycin 500 MG in Sodium Chloride 0.9% 250 ML IV SCH (08:30)
[2020-08-20] MEDS: Budesonide 0.5 MG/2 ML Neb Susp NEB SCH ×2 (09:00→20:03)
[2020-08-20] MEDS: REVEFENACIN 175 MCG NEB SCH (09:15)
[2020-08-20] MEDS: cefTRIAXone 1 GM in Sodium Chloride 0.9% 50 ML IV SCH (10:00)
--- NOTE | 2020-08-20 10:51 | PCM.SN.2 ---
- Free Text/Narrative Note: Patient is a 80 y/o female who is being treated for CHF/COPD exacerbation and pneumonia. Started CPAP trials last night and patient is able to cough more up and lung exam sounds better (less crackles and larger expansion with inhalation). Patient wants to do more throughout the day for 10-15 mins at a time. She feels stronger and wants to go home tomorrow. Dr Littlejohn will follow her tomorrow and, hopefully, she can go home tomorrow. NO leg edema. Cardiac is RRR and no murmurs heard.
[2020-08-20] MEDS: guaiFENesin 600 MG Tab.ER PO SCH (20:13)
[2020-08-20] MEDS: Losartan 25 MG Tab PO SCH (20:14)
[2020-08-20] MEDS: TYLENOL PM PO SCH (20:14)
[2020-08-20] MEDS: atorvaSTATin 20 MG Tab PO SCH (20:15)
[2020-08-20] MEDS ORDERED: atorvaSTATin 20 MG Tab ONE (20:16)
[2020-08-21] MEDS: Albuterol/Ipratropium 3.0-0.5 MG/3 ML Neb Soln NEB PRN ×2 (01:30→23:03)
[2020-08-21] MEDS: REVEFENACIN 175 MCG NEB SCH (08:30)
[2020-08-21] MEDS: Metolazone 5 MG Tab PO SCH (08:32)
[2020-08-21] MEDS: Acyclovir 400 MG Tab PO SCH (08:33)
[2020-08-21] MEDS: Aspirin 81 MG Tab.EC PO SCH (08:33)
[2020-08-21] MEDS: guaiFENesin 600 MG Tab.ER PO SCH ×2 (08:34→20:44)
[2020-08-21] MEDS: Carvedilol 25 MG Tab PO SCH ×2 (08:34→20:42)
[2020-08-21] MEDS: Furosemide 40 MG/4 ML VIAL IVPUSH SCH (08:35)
[2020-08-21] MEDS: predniSONE 20 MG Tab PO SCH (08:35)
[2020-08-21] MEDS: Budesonide 0.5 MG/2 ML Neb Susp NEB SCH ×2 (08:50→20:44)
[2020-08-21] MEDS: cefTRIAXone 1 GM in Sodium Chloride 0.9% 50 ML IV SCH (08:51)
[2020-08-21] MEDS: Arformoterol 15 MCG/2 ML Neb Soln INH SCH ×2 (09:00→21:05)
[2020-08-21] MEDS: Azithromycin 500 MG in Sodium Chloride 0.9% 250 ML IV SCH (09:22)
--- NOTE | 2020-08-21 10:30 | PCM.DCSUM1 ---
Discharge Summary - Discharge Data Discharge Date: 08/21/20 Discharge Disposition: DC/Tfer W/I Hosp To Swing [facility] Condition: Fair - Referral to Home Health Primary Care Physician: PCP None - Discharge Diagnosis/Problem(s) (1) CHF (congestive heart failure) SNOMED Code(s): 68989452 ICD Code: I50.9 - HEART FAILURE, UNSPECIFIED Status: Acute Priority: High Current Visit: Yes Qualifiers: Heart failure chronicity: acute on chronic (2) CHF exacerbation SNOMED Code(s): 432368490, 42434007097169 ICD Code: I50.9 - HEART FAILURE, UNSPECIFIED Status: Acute Priority: High Current Visit: Yes Qualifiers: Heart failure type: unspecified Qualified Code(s): I50.9 - Heart failure, unspecified (3) COPD with acute exacerbation SNOMED Code(s): 473307400 ICD Code: J44.1 - CHRONIC OBSTRUCTIVE PULMONARY DISEASE W (ACUTE) EXACERBATION Status: Acute Priority: High Current Visit: Yes (4) Pneumonia SNOMED Code(s): 079383833 ICD Code: J18.9 - PNEUMONIA, UNSPECIFIED ORGANISM Status: Acute Priority: High Current Visit: Yes Qualifiers: Pneumonia type: due to unspecified organism Laterality: bilateral Lung location: unspecified part of lung Qualified Code(s): J18.9 - Pneumonia, unspecified organism - Patient Summary/Data Consults: Consultations 08/17/20 11:58 Consult to Occupational Therapy [OT Evaluation and Treatment] [CONS] Routine Please Evaluate and Treat. OT Reason for Consult: ADL's This query below is only for informational purposes and is not editable. Admission Diagnosis/Problem: Pneumonia Consult to Physical Therapy [PT Evaluation and Treatment] [CONS] Routine Please Evaluate and Treat. PT Reason for Consult: Ambulation This query below is only for informational purposes and is not editable. Admission Diagnosis/Problem: Pneumonia - Discharge Plan *PRESCRIPTION DRUG MONITORING PROGRAM REVIEWED*: Not Applicable *COPY OF PRESCRIPTION DRUG MONITORING REPORT IN PATIENT KERRI: Not Applicable Home Medications: Home Meds Aspirin 81 mg PO QPM 02/18/16 [History] Multivitamin [Multi-Vitamin Daily] 1 tab PO DAILY 02/18/16 [History] Calcium Carbonate/Vitamin D3 [Caltrate 600+D 1500 MG-400 Units] 1 tab PO TIDMEALS 08/11/18 [History] carvediloL [Coreg] 1 tab PO BID 01/28/19 [History] Losartan [Cozaar] 1 tab PO BEDTIME 08/01/19 [History] Nitroglycerin [Nitrostat] 0.4 mg SL ASDIRECTED PRN 08/01/19 [History] guaiFENesin [Mucinex] 1 tab PO DAILY 08/01/19 [History] prednisoLONE acetate [Pred Forte 1% Ophth Susp] 1 drop EYELF DAILY 08/01/19 [History] Acetaminophen/Diphenhydramine [Tylenol Pm Ex-Strength Caplet] 1 tab PO BEDTIME 05/09/20 [History] Budesonide [Pulmicort] 1 vial IH BID 07/14/20 [History] Formoterol [Perforomist] 1 vial INH BID 07/14/20 [History] Revefenacin [Yupelri] 1 vial IH DAILY 07/14/20 [History] Docusate Sodium [Colace] 100 mg PO ASDIRECTED PRN 07/22/20 [History] Ferrous Sulfate 1 tab PO DAILY 07/22/20 [History] Furosemide [Lasix] 1 tab PO BID 07/22/20 [History] atorvaSTATin [Lipitor] 1 tab PO BEDTIME 07/22/20 [History] diphenhydrAMINE HCL [Benadryl Allergy] 1 tab PO ASDIRECTED PRN 07/22/20 [History] guaiFENesin/Dextromethorphan [Robitussin Cough-Chest Dm Liq] 20 ml PO BEDTIME 07/22/20 [History] Acetaminophen [Tylenol] 650 mg PO Q4H PRN tablet 07/24/20 [Rx] Albuterol [Proventil Neb Soln] 2.5 mg NEB Q2H PRN neb 07/24/20 [Rx] Albuterol/Ipratropium [DuoNeb 3.0-0.5 MG/3 ML] 3 ml NEB QID neb 07/24/20 [Rx] Melatonin 6 mg PO BEDTIME PRN tablet 07/24/20 [Rx] Acyclovir 400 mg PO DAILY 08/15/20 [History] Acyclovir [Zovirax] 400 mg PO DAILY tablet 08/21/20 [Rx] Albuterol/Ipratropium [DuoNeb 3.0-0.5 MG/3 ML] 3 ml NEB Q4H PRN neb 08/21/20 [Rx] Arformoterol [Brovana] 15 mcg INH BID neb 08/21/20 [Rx] Aspirin [Halfprin] 81 mg PO DAILY tab.ec 08/21/20 [Rx] Azithromycin [Zithromax] 500 mg IV Q24H vial 08/21/20 [Rx] Budesonide [Pulmicort] 0.5 mg NEB BID neb 08/21/20 [Rx] Ferrous Sulfate 325 mg PO DAILY@0800 tablet 08/21/20 [Rx] Furosemide [Lasix] 40 mg IVPUSH DAILY vial 08/21/20 [Rx] Losartan [Cozaar] 25 mg PO BEDTIME tablet 08/21/20 [Rx] Patient's Own Medication [Ptom] 1 each NEB DAILY each 08/21/20 [Rx] Patient's Own Medication [Ptom] 1 each PO BEDTIME each 08/21/20 [Rx] atorvaSTATin [Lipitor] 20 mg PO BEDTIME tablet 08/21/20 [Rx] carvediloL [Coreg] 25 mg PO BID tablet 08/21/20 [Rx] cefTRIAXone [Rocephin] 1 gm IV Q24H adv 08/21/20 [Rx] guaiFENesin [Mucinex] 600 mg PO BID tab.er 08/21/20 [Rx] metOLazone [Zaroxolyn] 2.5 mg PO DAILY tablet 08/21/20 [Rx] methylPREDNISolone Sod Succ [Solu-MEDROL] 80 mg IV BID sdv 08/21/20 [Rx] predniSONE 20 mg PO DAILY tablet 08/21/20 [Rx] - Discharge Summary/Plan Comment DC Time >30 min.: Yes Discharge Summary/Plan Comment: Patient to be discharged to swing bed. She will require a few more days of IV antibiotics, IV lasix taper. We will continue guaifenesin and Respiratory therapy as we are able to here. PT/OT as needed. - General Info Date of Service: 08/21/20 Functional Status: Reports: Pain Controlled, Tolerating Diet, Ambulating - Review of Systems General: Reports: Weakness HEENT: Reports: No Symptoms Pulmonary: Reports: Shortness of Breath, Cough, Wheezing Cardiovascular: Reports: No Symptoms Gastrointestinal: Reports: No Symptoms Genitourinary: Reports: Frequency Musculoskeletal: Reports: No Symptoms Neurological: Reports: No Symptoms Psychiatric: Reports: No Symptoms - Patient Data Vitals - Most Recent: Last Vital Signs Temp 36.6 C 08/21/20 06:44 Pulse 88 08/21/20 08:34 Resp 20 08/21/20 06:44 BP 143/80 H 08/21/20 08:34 Pulse Ox 99 08/21/20 06:44 Weight - Most Recent: 52.617 kg I&O - Last 24 hours: Intake & Output 08/20/20 08/21/20 08/21/20 22:59 06:59 14:59 Intake Total 1160 300 Output Total 1200 700 Balance -40 -400 Med Orders - Current: Current Medications Acyclovir (Zovirax) 400 mg PO DAILY [facility] Last Admin: 08/21/20 08:33 Dose: 400 mg Documented by: Albuterol/Ipratropium (Duoneb 3.0-0.5 Mg/3 Ml) 3 ml NEB Q4H PRN PRN Reason: Shortness of Breath Last Admin: 08/21/20 01:30 Dose: 3 ml Documented by: Arformoterol Tartrate (Brovana) 15 mcg INH BID [facility] Last Admin: 08/21/20 09:00 Dose: 15 mcg Documented by: Aspirin (Halfprin) 81 mg PO DAILY [facility] Last Admin: 08/21/20 08:33 Dose: 81 mg Documented by: Atorvastatin Calcium (Lipitor) 20 mg PO BEDTIME [facility] Last Admin: 08/20/20 20:15 Dose: 20 mg Documented by: Budesonide (Pulmicort) 0.5 mg NEB BID [facility] Last Admin: 08/21/20 08:50 Dose: 0.5 mg Documented by: Carvedilol (Coreg) 25 mg PO BID [facility] Last Admin: 08/21/20 08:34 Dose: 25 mg Documented by: Ferrous Sulfate (Ferrous Sulfate) 325 mg PO DAILY@0800 [facility] Last Admin: 08/20/20 08:13 Dose: 325 mg Documented by: Furosemide (Lasix) 40 mg IVPUSH DAILY [facility] Last Admin: 08/21/20 08:35 Dose: 40 mg Documented by: Guaifenesin (Mucinex) 600 mg PO BID [facility] Last Admin: 08/21/20 08:34 Dose: 600 mg Documented by: Ceftriaxone Sodium 1 gm/ (Sodium Chloride) 50 mls @ 200 mls/hr IV Q24H [facility] Last Admin: 08/21/20 08:51 Dose: 200 mls/hr Documented by: Azithromycin 500 mg/ Sodium (Chloride) 250 mls @ 250 mls/hr IV Q24H [facility] Last Admin: 08/21/20 09:22 Dose: 250 mls/hr Documented by: Losartan Potassium (Cozaar) 25 mg PO BEDTIME [facility] Last Admin: 08/20/20 20:14 Dose: 25 mg Documented by: Methylprednisolone Sodium Succinate (Solu-Medrol) 80 mg IV BID [facility] Last Admin: 08/20/20 20:25 Dose: 80 mg Documented by: Metolazone (Zaroxolyn) 2.5 mg PO DAILY [facility] Last Admin: 08/21/20 08:32 Dose: 2.5 mg Documented by: Tylenol Pm Caplet (Own Med) 1 each PO BEDTIME [facility] Last Admin: 08/20/20 20:14 Dose: 1 each Documented by: Revefenacin (Yupelri ) 175 Mcg Neb Own Med 1 each NEB DAILY [facility] Last Admin: 08/21/20 08:30 Dose: 1 each Documented by: Prednisone (Prednisone) 20 mg PO DAILY [facility] Last Admin: 08/21/20 08:35 Dose: 20 mg Documented by: Sodium Chloride (Saline Flush) 10 ml FLUSH ASDIRECTED PRN PRN Reason: Keep Vein Open Last Admin: 08/18/20 19:32 Dose: 10 ml Documented by: Discontinued Medications Acetaminophen (Tylenol) 650 mg PO Q6H PRN PRN Reason: Pain Stop: 08/18/20 23:59 Aspirin (Halfprin) 81 mg PO BEDTIME [facility] Last Admin: 08/15/20 21:44 Dose: 81 mg Documented by: Atorvastatin Calcium (Lipitor) 20 mg PO DAILY [facility] Last Admin: 08/17/20 15:58 Dose: Not Given Documented by: Atorvastatin Calcium (Lipitor) 20 mg PO DAILY [facility] Atorvastatin Calcium (Lipitor) 20 mg PO DAILY [facility] Atorvastatin Calcium (Lipitor) Confirm Administered Dose 20 mg .ROUTE .STK-MED ONE Stop: 08/19/20 20:12 Last Admin: 08/19/20 20:15 Dose: Not Given Documented by: Atorvastatin Calcium (Lipitor) Confirm Administered Dose 20 mg .ROUTE .STK-MED ONE Stop: 08/20/20 20:17 Last Admin: 08/20/20 20:26 Dose: Not Given Documented by: Azithromycin (Zithromax) 500 mg PO ONETIME ONE Stop: 08/15/20 13:20 Last Admin: 08/15/20 17:22 Dose: Not Given Documented by: Azithromycin (Zithromax) 500 mg PO ONETIME ONE Stop: 08/15/20 17:35 Last Admin: 08/15/20 18:00 Dose: 500 mg Documented by: Carvedilol (Coreg) 25 mg PO BID [facility] Last Admin: 08/16/20 22:52 Dose: Not Given Documented by: Docusate Sodium (Colace) 100 mg PO DAILY PRN PRN Reason: Constipation Stop: 08/18/20 23:59 Ferrous Sulfate (Ferrous Sulfate) 325 mg PO WITHBREAKFAST [facility] Last Admin: 08/16/20 07:59 Dose: 325 mg Documented by: Furosemide (Lasix) 40 mg IVPUSH NOW ONE Stop: 08/15/20 19:42 Last Admin: 08/15/20 19:52 Dose: 40 mg Documented by: Furosemide (Lasix) Confirm Administered Dose 40 mg .ROUTE .STK-MED ONE Stop: 08/15/20 19:45 Last Admin: 08/15/20 19:52 Dose: Not Given Documented by: Furosemide (Lasix) 40 mg PO BID@0800,1300 [facility] Last Admin: 08/16/20 08:45 Dose: Not Given Documented by: Furosemide (Lasix) 40 mg IVPUSH BID [facility] Last Admin: 08/16/20 10:12 Dose: 40 mg Documented by: Furosemide (Lasix) 40 mg IVPUSH BIDDIURETIC [facility] Last Admin: 08/17/20 07:40 Dose: 40 mg Documented by: Ceftriaxone Sodium 1 gm/ (Sodium Chloride) 50 mls @ 100 mls/hr IV ONETIME ONE Stop: 08/15/20 13:47 Last Admin: 08/15/20 16:13 Dose: 100 mls/hr Documented by: Azithromycin 500 mg/ Sodium (Chloride) 250 mls @ 250 mls/hr IV Q24H [facility] Last Admin: 08/17/20 09:21 Dose: 250 mls/hr Documented by: Losartan Potassium (Cozaar) 25 mg PO BEDTIME [facility] Last Admin: 08/15/20 21:48 Dose: 25 mg Documented by: Losartan Potassium (Cozaar) 25 mg PO ONETIME ONE Stop: 08/16/20 20:16 Last Admin: 08/16/20 20:12 Dose: 25 mg Documented by: Methylprednisolone Sodium Succinate (Solu-Medrol) 80 mg IV ONETIME ONE Stop: 08/15/20 14:01 Last Admin: 08/15/20 16:14 Dose: 80 mg Documented by: Methylprednisolone Sodium Succinate (Solu-Medrol) 80 mg IVPUSH ONETIME ONE Stop: 08/15/20 10:06 Last Admin: 08/15/20 21:43 Dose: Not Given Documented by: Methylprednisolone Sodium Succinate (Solu-Medrol) 125 mg IVPUSH Q12H [facility] Last Admin: 08/17/20 04:55 Dose: 125 mg Documented by: Methylprednisolone Sodium Succinate (Solu-Medrol) Confirm Administered Dose 40 mg .ROUTE .STK-MED ONE Stop: 08/19/20 07:23 Last Admin: 08/19/20 07:38 Dose: Not Given Documented by: Formoterol ( Perforomist) 20 Mcg Own Med 1 each NEB BID [facility] Last Admin: 08/16/20 07:58 Dose: 1 each Documented by: Prednisone (Prednisone) 20 mg PO DAILY [facility] Last Admin: 08/16/20 08:00 Dose: 20 mg Documented by: - Exam General: Reports: Alert, Oriented, Cooperative HEENT: Reports: Pupils Equal, Pupils Reactive, EOMI Neck: Reports: Supple Lungs: Reports: Decreased Breath Sounds, Crackles, Rales, Rhonchi, Wheezing Cardiovascular: Reports: Regular Rate, Regular Rhythm Extremities: Normal Inspection Skin: Reports: Warm, Dry, Intact Neurological: Reports: No New Focal Deficit Psy/Mental Status: Reports: Alert, Normal Affect
[2020-08-21] MEDS: methylPREDNISolone Sodium Succinate 40 MG/1 ML SDV IV SCH ×2 (10:37→19:55)
[2020-08-21] MEDS: Ferrous Sulfate 325 MG Tab **OWN MED PO SCH (10:37)
--- NOTE | 2020-08-21 11:27 | PCM.PN ---
- General Info Date of Service: 08/21/20 - Patient Data Vitals - Most Recent: Last Vital Signs Temp 36.6 C 08/21/20 06:44 Pulse 88 08/21/20 08:34 Resp 20 08/21/20 06:44 BP 143/80 H 08/21/20 08:34 Pulse Ox 99 08/21/20 06:44 Weight - Most Recent: 52.617 kg I&O - Last 24 Hours: Intake & Output 08/20/20 08/21/20 08/21/20 22:59 06:59 14:59 Intake Total 1160 300 Output Total 1200 700 Balance -40 -400 Med Orders - Current: Current Medications Acyclovir (Zovirax) 400 mg PO DAILY [facility] Last Admin: 08/21/20 08:33 Dose: 400 mg Documented by: Albuterol/Ipratropium (Duoneb 3.0-0.5 Mg/3 Ml) 3 ml NEB Q4H PRN PRN Reason: Shortness of Breath Last Admin: 08/21/20 01:30 Dose: 3 ml Documented by: Arformoterol Tartrate (Brovana) 15 mcg INH BID [facility] Last Admin: 08/21/20 09:00 Dose: 15 mcg Documented by: Aspirin (Halfprin) 81 mg PO DAILY [facility] Last Admin: 08/21/20 08:33 Dose: 81 mg Documented by: Atorvastatin Calcium (Lipitor) 20 mg PO BEDTIME [facility] Last Admin: 08/20/20 20:15 Dose: 20 mg Documented by: Budesonide (Pulmicort) 0.5 mg NEB BID [facility] Last Admin: 08/21/20 08:50 Dose: 0.5 mg Documented by: Carvedilol (Coreg) 25 mg PO BID [facility] Last Admin: 08/21/20 08:34 Dose: 25 mg Documented by: Ferrous Sulfate (Ferrous Sulfate) 325 mg PO DAILY@0800 [facility] Last Admin: 08/21/20 10:37 Dose: 325 mg Documented by: Furosemide (Lasix) 40 mg IVPUSH DAILY [facility] Last Admin: 08/21/20 08:35 Dose: 40 mg Documented by: Guaifenesin (Mucinex) 600 mg PO BID [facility] Last Admin: 08/21/20 08:34 Dose: 600 mg Documented by: Ceftriaxone Sodium 1 gm/ (Sodium Chloride) 50 mls @ 200 mls/hr IV Q24H [facility] Last Admin: 08/21/20 08:51 Dose: 200 mls/hr Documented by: Azithromycin 500 mg/ Sodium (Chloride) 250 mls @ 250 mls/hr IV Q24H [facility] Last Admin: 08/21/20 09:22 Dose: 250 mls/hr Documented by: Losartan Potassium (Cozaar) 25 mg PO BEDTIME [facility] Last Admin: 08/20/20 20:14 Dose: 25 mg Documented by: Methylprednisolone Sodium Succinate (Solu-Medrol) 80 mg IV BID [facility] Last Admin: 08/21/20 10:37 Dose: 80 mg Documented by: Metolazone (Zaroxolyn) 2.5 mg PO DAILY [facility] Last Admin: 08/21/20 08:32 Dose: 2.5 mg Documented by: Tylenol Pm Caplet (Own Med) 1 each PO BEDTIME [facility] Last Admin: 08/20/20 20:14 Dose: 1 each Documented by: Revefenacin (Yupelri ) 175 Mcg Neb Own Med 1 each NEB DAILY [facility] Last Admin: 08/21/20 08:30 Dose: 1 each Documented by: Prednisone (Prednisone) 20 mg PO DAILY [facility] Last Admin: 08/21/20 08:35 Dose: 20 mg Documented by: Sodium Chloride (Saline Flush) 10 ml FLUSH ASDIRECTED PRN PRN Reason: Keep Vein Open Last Admin: 08/18/20 19:32 Dose: 10 ml Documented by: Discontinued Medications Acetaminophen (Tylenol) 650 mg PO Q6H PRN PRN Reason: Pain Stop: 08/18/20 23:59 Aspirin (Halfprin) 81 mg PO BEDTIME [facility] Last Admin: 08/15/20 21:44 Dose: 81 mg Documented by: Atorvastatin Calcium (Lipitor) 20 mg PO DAILY [facility] Last Admin: 08/17/20 15:58 Dose: Not Given Documented by: Atorvastatin Calcium (Lipitor) 20 mg PO DAILY [facility] Atorvastatin Calcium (Lipitor) 20 mg PO DAILY [facility] Atorvastatin Calcium (Lipitor) Confirm Administered Dose 20 mg .ROUTE .STK-MED ONE Stop: 08/19/20 20:12 Last Admin: 08/19/20 20:15 Dose: Not Given Documented by: Atorvastatin Calcium (Lipitor) Confirm Administered Dose 20 mg .ROUTE .STK-MED ONE Stop: 08/20/20 20:17 Last Admin: 08/20/20 20:26 Dose: Not Given Documented by: Azithromycin (Zithromax) 500 mg PO ONETIME ONE Stop: 08/15/20 13:20 Last Admin: 08/15/20 17:22 Dose: Not Given Documented by: Azithromycin (Zithromax) 500 mg PO ONETIME ONE Stop: 08/15/20 17:35 Last Admin: 08/15/20 18:00 Dose: 500 mg Documented by: Carvedilol (Coreg) 25 mg PO BID [facility] Last Admin: 08/16/20 22:52 Dose: Not Given Documented by: Docusate Sodium (Colace) 100 mg PO DAILY PRN PRN Reason: Constipation Stop: 08/18/20 23:59 Ferrous Sulfate (Ferrous Sulfate) 325 mg PO WITHBREAKFAST [facility] Last Admin: 08/16/20 07:59 Dose: 325 mg Documented by: Furosemide (Lasix) 40 mg IVPUSH NOW ONE Stop: 08/15/20 19:42 Last Admin: 08/15/20 19:52 Dose: 40 mg Documented by: Furosemide (Lasix) Confirm Administered Dose 40 mg .ROUTE .STK-MED ONE Stop: 08/15/20 19:45 Last Admin: 08/15/20 19:52 Dose: Not Given Documented by: Furosemide (Lasix) 40 mg PO BID@0800,1300 [facility] Last Admin: 08/16/20 08:45 Dose: Not Given Documented by: Furosemide (Lasix) 40 mg IVPUSH BID [facility] Last Admin: 08/16/20 10:12 Dose: 40 mg Documented by: Furosemide (Lasix) 40 mg IVPUSH BIDDIURETIC [facility] Last Admin: 08/17/20 07:40 Dose: 40 mg Documented by: Ceftriaxone Sodium 1 gm/ (Sodium Chloride) 50 mls @ 100 mls/hr IV ONETIME ONE Stop: 08/15/20 13:47 Last Admin: 08/15/20 16:13 Dose: 100 mls/hr Documented by: Azithromycin 500 mg/ Sodium (Chloride) 250 mls @ 250 mls/hr IV Q24H [facility] Last Admin: 08/17/20 09:21 Dose: 250 mls/hr Documented by: Losartan Potassium (Cozaar) 25 mg PO BEDTIME [facility] Last Admin: 08/15/20 21:48 Dose: 25 mg Documented by: Losartan Potassium (Cozaar) 25 mg PO ONETIME ONE Stop: 08/16/20 20:16 Last Admin: 08/16/20 20:12 Dose: 25 mg Documented by: Methylprednisolone Sodium Succinate (Solu-Medrol) 80 mg IV ONETIME ONE Stop: 08/15/20 14:01 Last Admin: 08/15/20 16:14 Dose: 80 mg Documented by: Methylprednisolone Sodium Succinate (Solu-Medrol) 80 mg IVPUSH ONETIME ONE Stop: 08/15/20 10:06 Last Admin: 08/15/20 21:43 Dose: Not Given Documented by: Methylprednisolone Sodium Succinate (Solu-Medrol) 125 mg IVPUSH Q12H [facility] Last Admin: 08/17/20 04:55 Dose: 125 mg Documented by: Methylprednisolone Sodium Succinate (Solu-Medrol) Confirm Administered Dose 40 mg .ROUTE .STK-MED ONE Stop: 08/19/20 07:23 Last Admin: 08/19/20 07:38 Dose: Not Given Documented by: Formoterol ( Perforomist) 20 Mcg Own Med 1 each NEB BID [facility] Last Admin: 08/16/20 07:58 Dose: 1 each Documented by: Prednisone (Prednisone) 20 mg PO DAILY [facility] Last Admin: 08/16/20 08:00 Dose: 20 mg Documented by: Comments:: Please see exam on discharge summary. Sepsis Event Note - Evaluation Sepsis Screening Result: No Definite Risk - Focused Exam Vital Signs: Vital Signs Temp Pulse Pulse Pulse Resp BP BP 08/21/20 08:34 88 143/80 H 08/21/20 06:44 36.6 C 80 80 20 141/80 H 08/21/20 04:00 85 20 08/21/20 01:48 89 20 131/74 08/21/20 00:00 84 16 Pulse Ox 08/21/20 08:34 08/21/20 06:44 99 08/21/20 04:00 96 08/21/20 01:48 98 08/21/20 00:00 - Problem List & Annotations (1) CHF (congestive heart failure) SNOMED Code(s): 10814045 Code(s): I50.9 - HEART FAILURE, UNSPECIFIED Status: Acute Priority: High Current Visit: Yes Qualifiers: Heart failure chronicity: acute on chronic (2) CHF exacerbation SNOMED Code(s): 768808085, 09056724789499 Code(s): I50.9 - HEART FAILURE, UNSPECIFIED Status: Acute Priority: High Current Visit: Yes Qualifiers: Heart failure type: unspecified Qualified Code(s): I50.9 - Heart failure, unspecified (3) COPD with acute exacerbation SNOMED Code(s): 683969832 Code(s): J44.1 - CHRONIC OBSTRUCTIVE PULMONARY DISEASE W (ACUTE) EXACERBATION Status: Acute Priority: High Current Visit: Yes (4) Pneumonia SNOMED Code(s): 247567530 Code(s): J18.9 - PNEUMONIA, UNSPECIFIED ORGANISM Status: Acute Priority: High Current Visit: Yes Qualifiers: Pneumonia type: due to unspecified organism Laterality: bilateral Lung location: unspecified part of lung Qualified Code(s): J18.9 - Pneumonia, unspecified organism - Problem List Review Problem List Initiated/Reviewed/Updated: Yes - Assessment Assessment:: Plan to keep patient the and have Dr. Littlejohn re-evaluate Friday. Patient is aggreeable to this. Lung exam improved from initial exam and will continue nebs treatments and abx. - Plan Plan:: Pneumonia - Patient to continue IV antibiotics at this time. F/u labs in am. CHF exacerbation - This is acute on chronic and likely worsened from her pneumonia. Patient to stay on telemetry and discussion with Romina for e- Hospitalist to evaluate. COPD exacerbation - continue to slowly taper Solumedrol and continue nebulizers as scheduled. Patient stable and we will continue to monitor fluid status. PT/OT evaluation and management. 08/21/20 Initially we were planning on discharge to [facility] for IV antibiotics and respiratory rehab. She was worse after this morning and we will keep her as an admit and will not change her status at this time. We will continue IV antibiotics and care. F/u in am.
[2020-08-21] MEDS ORDERED: atorvaSTATin 20 MG Tab ONE (20:39)
[2020-08-21] MEDS: Losartan 25 MG Tab PO SCH (20:43)
[2020-08-21] MEDS: atorvaSTATin 20 MG Tab PO SCH (20:44)
[2020-08-21] MEDS: TYLENOL PM PO SCH (20:44)
[2020-08-22] MEDS ORDERED: atorvaSTATin 20 MG Tab PO SCH (00:25)
[2020-08-22] MEDS: REVEFENACIN 175 MCG NEB SCH (07:53)
[2020-08-22] MEDS: Carvedilol 25 MG Tab PO SCH ×2 (07:54→20:30)
[2020-08-22] MEDS: Aspirin 81 MG Tab.EC PO SCH (07:54)
[2020-08-22] MEDS: Metolazone 5 MG Tab PO SCH (07:55)
[2020-08-22] MEDS: guaiFENesin 600 MG Tab.ER PO SCH ×2 (07:56→20:30)
[2020-08-22] MEDS: Acyclovir 400 MG Tab PO SCH (07:56)
[2020-08-22] MEDS: Ferrous Sulfate 325 MG Tab **OWN MED PO SCH (07:59)
[2020-08-22] MEDS: Furosemide 40 MG/4 ML VIAL IVPUSH SCH (08:00)
[2020-08-22] MEDS: Budesonide 0.5 MG/2 ML Neb Susp NEB SCH ×2 (08:06→20:38)
[2020-08-22] MEDS: Arformoterol 15 MCG/2 ML Neb Soln INH SCH ×2 (08:58→20:30)
[2020-08-22] MEDS: Azithromycin 500 MG in Sodium Chloride 0.9% 250 ML IV SCH (08:58)
[2020-08-22] MEDS: Nystatin Susp 100,000 Unit/ML 5 ML UD Cup PO SCH ×4 (09:00→20:31)
[2020-08-22] MEDS: predniSONE 20 MG Tab PO SCH (09:22)
[2020-08-22] MEDS ORDERED: methylPREDNISolone Sodium Succinate 40 MG/1 ML SDV ONE ×2 (09:25→19:57)
[2020-08-22] MEDS: methylPREDNISolone Sodium Succinate 40 MG/1 ML SDV IVPUSH SCH ×2 (09:34→21:17)
[2020-08-22] MEDS: cefTRIAXone 1 GM in Sodium Chloride 0.9% 50 ML IV SCH (10:08)
--- NOTE | 2020-08-22 10:44 | PCM.PN ---
- General Info Date of Service: 08/22/20 Subjective Update: Patient states she had a difficult night but has been doing well today. She notes the symptoms Functional Status: Reports: Pain Controlled, Tolerating Diet, Ambulating - Review of Systems General: Reports: Weakness HEENT: Reports: No Symptoms Pulmonary: Reports: Shortness of Breath, Cough, Sputum Cardiovascular: Reports: No Symptoms Gastrointestinal: Reports: No Symptoms Genitourinary: Reports: Frequency Musculoskeletal: Reports: No Symptoms Neurological: Reports: No Symptoms Psychiatric: Reports: No Symptoms - Patient Data Vitals - Most Recent: Last Vital Signs Temp 36.7 C 08/22/20 08:00 Pulse 80 08/22/20 08:00 Resp 20 08/22/20 08:00 BP 161/78 H 08/22/20 08:00 Pulse Ox 98 08/22/20 04:45 Weight - Most Recent: 117.4 kg I&O - Last 24 Hours: Intake & Output 08/21/20 08/22/20 08/22/20 22:59 06:59 14:59 Intake Total 1100 240 Output Total 900 900 Balance 200 -660 Med Orders - Current: Current Medications Acyclovir (Zovirax) 400 mg PO DAILY [facility] Last Admin: 08/22/20 07:56 Dose: 400 mg Documented by: Albuterol/Ipratropium (Duoneb 3.0-0.5 Mg/3 Ml) 3 ml NEB Q4H PRN PRN Reason: Shortness of Breath Last Admin: 08/21/20 23:03 Dose: 3 ml Documented by: Arformoterol Tartrate (Brovana) 15 mcg INH BID [facility] Last Admin: 08/22/20 08:58 Dose: 15 mcg Documented by: Aspirin (Halfprin) 81 mg PO DAILY [facility] Last Admin: 08/22/20 07:54 Dose: 81 mg Documented by: Atorvastatin Calcium (Lipitor) 20 mg PO BEDTIME [facility] Budesonide (Pulmicort) 0.5 mg NEB BID [facility] Last Admin: 08/22/20 08:06 Dose: 0.5 mg Documented by: Carvedilol (Coreg) 25 mg PO BID [facility] Last Admin: 08/22/20 07:54 Dose: 25 mg Documented by: Ferrous Sulfate (Ferrous Sulfate) 325 mg PO DAILY@0800 [facility] Last Admin: 08/22/20 07:59 Dose: 325 mg Documented by: Furosemide (Lasix) 40 mg IVPUSH DAILY [facility] Last Admin: 08/22/20 08:00 Dose: 40 mg Documented by: Guaifenesin (Mucinex) 600 mg PO BID [facility] Last Admin: 08/22/20 07:56 Dose: 600 mg Documented by: Ceftriaxone Sodium 1 gm/ (Sodium Chloride) 50 mls @ 200 mls/hr IV Q24H [facility] Last Admin: 08/22/20 10:08 Dose: 200 mls/hr Documented by: Azithromycin 500 mg/ Sodium (Chloride) 250 mls @ 250 mls/hr IV Q24H [facility] Last Admin: 08/22/20 08:58 Dose: 250 mls/hr Documented by: Losartan Potassium (Cozaar) 25 mg PO BEDTIME [facility] Last Admin: 08/21/20 20:43 Dose: 25 mg Documented by: Methylprednisolone Sodium Succinate (Solu-Medrol) 40 mg IVPUSH Q12H [facility] Last Admin: 08/22/20 09:34 Dose: 40 mg Documented by: Metolazone (Zaroxolyn) 2.5 mg PO DAILY [facility] Last Admin: 08/22/20 07:55 Dose: 2.5 mg Documented by: Nystatin (Mycostatin) 5 ml PO QID [facility] Last Admin: 08/22/20 09:00 Dose: 5 ml Documented by: Tylenol Pm Caplet (Own Med) 1 each PO BEDTIME [facility] Last Admin: 08/21/20 20:44 Dose: 1 each Documented by: Revefenacin (Yupelri ) 175 Mcg Neb Own Med 1 each NEB DAILY [facility] Last Admin: 08/22/20 07:53 Dose: 1 each Documented by: Sodium Chloride (Saline Flush) 10 ml FLUSH ASDIRECTED PRN PRN Reason: Keep Vein Open Last Admin: 08/18/20 19:32 Dose: 10 ml Documented by: Discontinued Medications Acetaminophen (Tylenol) 650 mg PO Q6H PRN PRN Reason: Pain Stop: 08/18/20 23:59 Aspirin (Halfprin) 81 mg PO BEDTIME [facility] Last Admin: 08/15/20 21:44 Dose: 81 mg Documented by: Atorvastatin Calcium (Lipitor) 20 mg PO DAILY [facility] Last Admin: 08/17/20 15:58 Dose: Not Given Documented by: Atorvastatin Calcium (Lipitor) 20 mg PO DAILY [facility] Atorvastatin Calcium (Lipitor) 20 mg PO DAILY [facility] Atorvastatin Calcium (Lipitor) 20 mg PO BEDTIME [facility] Last Admin: 08/21/20 20:44 Dose: 20 mg Documented by: Atorvastatin Calcium (Lipitor) Confirm Administered Dose 20 mg .ROUTE .STK-MED ONE Stop: 08/19/20 20:12 Last Admin: 08/19/20 20:15 Dose: Not Given Documented by: Atorvastatin Calcium (Lipitor) Confirm Administered Dose 20 mg .ROUTE .STK-MED ONE Stop: 08/20/20 20:17 Last Admin: 08/20/20 20:26 Dose: Not Given Documented by: Atorvastatin Calcium (Lipitor) Confirm Administered Dose 20 mg .ROUTE .STK-MED ONE Stop: 08/21/20 20:40 Last Admin: 08/21/20 21:06 Dose: Not Given Documented by: Azithromycin (Zithromax) 500 mg PO ONETIME ONE Stop: 08/15/20 13:20 Last Admin: 08/15/20 17:22 Dose: Not Given Documented by: Azithromycin (Zithromax) 500 mg PO ONETIME ONE Stop: 08/15/20 17:35 Last Admin: 08/15/20 18:00 Dose: 500 mg Documented by: Carvedilol (Coreg) 25 mg PO BID [facility] Last Admin: 08/16/20 22:52 Dose: Not Given Documented by: Docusate Sodium (Colace) 100 mg PO DAILY PRN PRN Reason: Constipation Stop: 08/18/20 23:59 Ferrous Sulfate (Ferrous Sulfate) 325 mg PO WITHBREAKFAST [facility] Last Admin: 08/16/20 07:59 Dose: 325 mg Documented by: Furosemide (Lasix) 40 mg IVPUSH NOW ONE Stop: 08/15/20 19:42 Last Admin: 08/15/20 19:52 Dose: 40 mg Documented by: Furosemide (Lasix) Confirm Administered Dose 40 mg .ROUTE .STK-MED ONE Stop: 08/15/20 19:45 Last Admin: 08/15/20 19:52 Dose: Not Given Documented by: Furosemide (Lasix) 40 mg PO BID@0800,1300 [facility] Last Admin: 08/16/20 08:45 Dose: Not Given Documented by: Furosemide (Lasix) 40 mg IVPUSH BID [facility] Last Admin: 08/16/20 10:12 Dose: 40 mg Documented by: Furosemide (Lasix) 40 mg IVPUSH BIDDIURETIC [facility] Last Admin: 08/17/20 07:40 Dose: 40 mg Documented by: Ceftriaxone Sodium 1 gm/ (Sodium Chloride) 50 mls @ 100 mls/hr IV ONETIME ONE Stop: 08/15/20 13:47 Last Admin: 08/15/20 16:13 Dose: 100 mls/hr Documented by: Azithromycin 500 mg/ Sodium (Chloride) 250 mls @ 250 mls/hr IV Q24H [facility] Last Admin: 08/17/20 09:21 Dose: 250 mls/hr Documented by: Losartan Potassium (Cozaar) 25 mg PO BEDTIME [facility] Last Admin: 08/15/20 21:48 Dose: 25 mg Documented by: Losartan Potassium (Cozaar) 25 mg PO ONETIME ONE Stop: 08/16/20 20:16 Last Admin: 08/16/20 20:12 Dose: 25 mg Documented by: Methylprednisolone Sodium Succinate (Solu-Medrol) 80 mg IV ONETIME ONE Stop: 08/15/20 14:01 Last Admin: 08/15/20 16:14 Dose: 80 mg Documented by: Methylprednisolone Sodium Succinate (Solu-Medrol) 80 mg IVPUSH ONETIME ONE Stop: 08/15/20 10:06 Last Admin: 08/15/20 21:43 Dose: Not Given Documented by: Methylprednisolone Sodium Succinate (Solu-Medrol) 125 mg IVPUSH Q12H [facility] Last Admin: 08/17/20 04:55 Dose: 125 mg Documented by: Methylprednisolone Sodium Succinate (Solu-Medrol) 80 mg IV BID [facility] Stop: 08/22/20 07:00 Last Admin: 08/21/20 19:55 Dose: 80 mg Documented by: Methylprednisolone Sodium Succinate (Solu-Medrol) Confirm Administered Dose 40 mg .ROUTE .STK-MED ONE Stop: 08/19/20 07:23 Last Admin: 08/19/20 07:38 Dose: Not Given Documented by: Methylprednisolone Sodium Succinate (Solu-Medrol) Confirm Administered Dose 40 mg .ROUTE .STK-MED ONE Stop: 08/22/20 09:26 Formoterol ( Perforomist) 20 Mcg Own Med 1 each NEB BID [facility] Last Admin: 08/16/20 07:58 Dose: 1 each Documented by: Prednisone (Prednisone) 20 mg PO DAILY [facility] Last Admin: 08/16/20 08:00 Dose: 20 mg Documented by: Prednisone (Prednisone) 20 mg PO DAILY [facility] Last Admin: 08/22/20 09:22 Dose: 20 mg Documented by: - Exam Quality Assessment: Supplemental Oxygen General: Alert, Oriented, Cooperative HEENT: Pupils Equal, Pupils Reactive Neck: Supple Lungs: Rales, Rhonchi, Wheezing Cardiovascular: Regular Rate, Regular Rhythm GI/Abdominal Exam: Normal Bowel Sounds Back Exam: Normal Inspection Extremities: Normal Inspection Sepsis Event Note - Evaluation Sepsis Screening Result: No Definite Risk - Focused Exam Vital Signs: Vital Signs Temp Temp Pulse Pulse Pulse Resp BP 08/22/20 08:00 36.7 C 80 20 08/22/20 07:54 80 161/78 H 08/22/20 04:45 36.8 C 85 17 08/22/20 04:18 68 17 08/21/20 23:15 73 18 BP Pulse Ox 08/22/20 08:00 161/78 H 08/22/20 07:54 08/22/20 04:45 149/81 H 98 08/22/20 04:18 08/21/20 23:15 135/63 95 - Problem List & Annotations (1) CHF (congestive heart failure) SNOMED Code(s): 06888178 Code(s): I50.9 - HEART FAILURE, UNSPECIFIED Status: Acute Priority: High Current Visit: Yes Qualifiers: Heart failure chronicity: acute on chronic (2) CHF exacerbation SNOMED Code(s): 924343140, 46100054911987 Code(s): I50.9 - HEART FAILURE, UNSPECIFIED Status: Acute Priority: High Current Visit: Yes Qualifiers: Heart failure type: unspecified Qualified Code(s): I50.9 - Heart failure, unspecified (3) COPD with acute exacerbation SNOMED Code(s): 750877799 Code(s): J44.1 - CHRONIC OBSTRUCTIVE PULMONARY DISEASE W (ACUTE) EXACERBATION Status: Acute Priority: High Current Visit: Yes (4) Pneumonia SNOMED Code(s): 159025813 Code(s): J18.9 - PNEUMONIA, UNSPECIFIED ORGANISM Status: Acute Priority: High Current Visit: Yes Qualifiers: Pneumonia type: due to unspecified organism Laterality: bilateral Lung location: unspecified part of lung Qualified Code(s): J18.9 - Pneumonia, unspecified organism - Problem List Review Problem List Initiated/Reviewed/Updated: Yes - My Orders Last 24 Hours: My Active Orders 08/22/20 00:25 atorvaSTATin [Lipitor] 20 mg PO BEDTIME 08/22/20 10:00 methylPREDNISolone Sod Succ [Solu-MEDROL] 40 mg IVPUSH Q12H 08/22/20 12:00 Nystatin [Mycostatin] 5 ml PO QID - Assessment Assessment:: Plan to keep patient the and have Dr. Littlejohn re-evaluate Friday. Patient is aggreeable to this. Lung exam improved from initial exam and will continue nebs treatments and abx. - Plan Plan:: Pneumonia - Patient to continue IV antibiotics at this time. F/u labs in am. CHF exacerbation - This is acute on chronic and likely worsened from her pneumonia. Patient to stay on telemetry and discussion with Romina for e- Hospitalist to evaluate. COPD exacerbation - continue to slowly taper Solumedrol and continue nebulizers as scheduled. Patient stable and we will continue to monitor fluid status. PT/OT evaluation and management. 08/21/20 Initially we were planning on discharge to [facility] for IV antibiotics and respiratory rehab. She was worse after this morning and we will keep her as an admit and will not change her status at this time. We will continue IV antibiotics and care. F/u in am. 08/22/20 Patient improvement with antibiotics, guaifenesin and PT/OT. We will plan for d/c if patient continues to improve.
[2020-08-22] MEDS: Albuterol/Ipratropium 3.0-0.5 MG/3 ML Neb Soln NEB PRN (14:08)
[2020-08-22] MEDS: Losartan 25 MG Tab PO SCH (20:30)
[2020-08-22] MEDS: Sodium Chloride 0.9% 10 ML Syringe FLUSH PRN (20:38)
[2020-08-22] MEDS: TYLENOL PM PO SCH (20:38)
[2020-08-23] MEDS: Arformoterol 15 MCG/2 ML Neb Soln INH SCH (07:30)
[2020-08-23 07:32] VITALS: BP 158/88; PULSE 88
[2020-08-23] MEDS: Furosemide 40 MG/4 ML VIAL IVPUSH SCH (07:32)
[2020-08-23] MEDS ORDERED: methylPREDNISolone Sodium Succinate 40 MG/1 ML SDV ONE (07:34)
[2020-08-23] MEDS: Budesonide 0.5 MG/2 ML Neb Susp NEB SCH (07:44)
[2020-08-23] MEDS: Azithromycin 500 MG in Sodium Chloride 0.9% 250 ML IV SCH (07:45)
[2020-08-23] MEDS: Carvedilol 25 MG Tab PO SCH (07:53)
[2020-08-23] MEDS: Nystatin Susp 100,000 Unit/ML 5 ML UD Cup PO SCH ×2 (07:53→12:04)
[2020-08-23] MEDS: Ferrous Sulfate 325 MG Tab **OWN MED PO SCH (07:53)
[2020-08-23] MEDS: Metolazone 5 MG Tab PO SCH (07:54)
[2020-08-23] MEDS: Aspirin 81 MG Tab.EC PO SCH (07:54)
[2020-08-23] MEDS: Acyclovir 400 MG Tab PO SCH (07:54)
[2020-08-23] MEDS: guaiFENesin 600 MG Tab.ER PO SCH (07:55)
[2020-08-23] MEDS: REVEFENACIN 175 MCG NEB SCH (08:01)
--- NOTE | 2020-08-23 09:18 | PCM.DCSUM1 ---
Discharge Summary - Discharge Data Discharge Date: 08/23/20 Discharge Disposition: Home, Self-Care 01 Condition: Fair - Referral to Home Health Primary Care Physician: PCP None - Discharge Diagnosis/Problem(s) (1) CHF (congestive heart failure) SNOMED Code(s): 37621665 ICD Code: I50.9 - HEART FAILURE, UNSPECIFIED Status: Acute Priority: High Current Visit: Yes Qualifiers: Heart failure chronicity: acute on chronic (2) CHF exacerbation SNOMED Code(s): 170235555, 41740568555875 ICD Code: I50.9 - HEART FAILURE, UNSPECIFIED Status: Acute Priority: High Current Visit: Yes Qualifiers: Heart failure type: unspecified Qualified Code(s): I50.9 - Heart failure, unspecified (3) COPD with acute exacerbation SNOMED Code(s): 624133184 ICD Code: J44.1 - CHRONIC OBSTRUCTIVE PULMONARY DISEASE W (ACUTE) EXACERBATION Status: Acute Priority: High Current Visit: Yes (4) Pneumonia SNOMED Code(s): 975744537 ICD Code: J18.9 - PNEUMONIA, UNSPECIFIED ORGANISM Status: Acute Priority: High Current Visit: Yes Qualifiers: Pneumonia type: due to unspecified organism Laterality: bilateral Lung location: unspecified part of lung Qualified Code(s): J18.9 - Pneumonia, unspecified organism - Patient Summary/Data Consults: Consultations 08/17/20 11:58 Consult to Occupational Therapy [OT Evaluation and Treatment] [CONS] Routine Please Evaluate and Treat. OT Reason for Consult: ADL's This query below is only for informational purposes and is not editable. Admission Diagnosis/Problem: Pneumonia Consult to Physical Therapy [PT Evaluation and Treatment] [CONS] Routine Please Evaluate and Treat. PT Reason for Consult: Ambulation This query below is only for informational purposes and is not editable. Admission Diagnosis/Problem: Pneumonia - Discharge Plan *PRESCRIPTION DRUG MONITORING PROGRAM REVIEWED*: Not Applicable *COPY OF PRESCRIPTION DRUG MONITORING REPORT IN PATIENT KERRI: Not Applicable Home Medications: Home Meds Aspirin 81 mg PO QPM 02/18/16 [History] Multivitamin [Multi-Vitamin Daily] 1 tab PO DAILY 02/18/16 [History] Calcium Carbonate/Vitamin D3 [Caltrate 600+D 1500 MG-400 Units] 1 tab PO TIDMEALS 08/11/18 [History] carvediloL [Coreg] 1 tab PO BID 01/28/19 [History] Losartan [Cozaar] 1 tab PO BEDTIME 08/01/19 [History] Nitroglycerin [Nitrostat] 0.4 mg SL ASDIRECTED PRN 08/01/19 [History] guaiFENesin [Mucinex] 1 tab PO DAILY 08/01/19 [History] prednisoLONE acetate [Pred Forte 1% Ophth Susp] 1 drop EYELF DAILY 08/01/19 [History] Acetaminophen/Diphenhydramine [Tylenol Pm Ex-Strength Caplet] 1 tab PO BEDTIME 05/09/20 [History] Budesonide [Pulmicort] 1 vial IH BID 07/14/20 [History] Formoterol [Perforomist] 1 vial INH BID 07/14/20 [History] Revefenacin [Yupelri] 1 vial IH DAILY 07/14/20 [History] Docusate Sodium [Colace] 100 mg PO ASDIRECTED PRN 07/22/20 [History] Ferrous Sulfate 1 tab PO DAILY 07/22/20 [History] Furosemide [Lasix] 1 tab PO BID 07/22/20 [History] atorvaSTATin [Lipitor] 1 tab PO BEDTIME 07/22/20 [History] diphenhydrAMINE HCL [Benadryl Allergy] 1 tab PO ASDIRECTED PRN 07/22/20 [History] guaiFENesin/Dextromethorphan [Robitussin Cough-Chest Dm Liq] 20 ml PO BEDTIME 07/22/20 [History] Acetaminophen [Tylenol] 650 mg PO Q4H PRN tablet 07/24/20 [Rx] Albuterol [Proventil Neb Soln] 2.5 mg NEB Q2H PRN neb 07/24/20 [Rx] Albuterol/Ipratropium [DuoNeb 3.0-0.5 MG/3 ML] 3 ml NEB QID neb 07/24/20 [Rx] Melatonin 6 mg PO BEDTIME PRN tablet 07/24/20 [Rx] Acyclovir 400 mg PO DAILY 08/15/20 [History] Acyclovir [Zovirax] 400 mg PO DAILY tablet 08/21/20 [Rx] Albuterol/Ipratropium [DuoNeb 3.0-0.5 MG/3 ML] 3 ml NEB Q4H PRN neb 08/21/20 [Rx] Arformoterol [Brovana] 15 mcg INH BID neb 08/21/20 [Rx] Aspirin [Halfprin] 81 mg PO DAILY tab.ec 08/21/20 [Rx] Azithromycin [Zithromax] 500 mg IV Q24H vial 08/21/20 [Rx] Budesonide [Pulmicort] 0.5 mg NEB BID neb 08/21/20 [Rx] Ferrous Sulfate 325 mg PO DAILY@0800 tablet 08/21/20 [Rx] Furosemide [Lasix] 40 mg IVPUSH DAILY vial 08/21/20 [Rx] Losartan [Cozaar] 25 mg PO BEDTIME tablet 08/21/20 [Rx] Patient's Own Medication [Ptom] 1 each NEB DAILY each 08/21/20 [Rx] Patient's Own Medication [Ptom] 1 each PO BEDTIME each 08/21/20 [Rx] atorvaSTATin [Lipitor] 20 mg PO BEDTIME tablet 08/21/20 [Rx] carvediloL [Coreg] 25 mg PO BID tablet 08/21/20 [Rx] cefTRIAXone [Rocephin] 1 gm IV Q24H adv 08/21/20 [Rx] guaiFENesin [Mucinex] 600 mg PO BID tab.er 08/21/20 [Rx] metOLazone [Zaroxolyn] 2.5 mg PO DAILY tablet 08/21/20 [Rx] methylPREDNISolone Sod Succ [Solu-MEDROL] 80 mg IV BID sdv 08/21/20 [Rx] predniSONE 20 mg PO DAILY tablet 08/21/20 [Rx] - Discharge Summary/Plan Comment DC Time >30 min.: No Discharge Summary/Plan Comment: Patient to continue PT/OT as directed. F/u in clinic in the next week or two. Continue daily weights. Discussed continue guaifenesin. Discussed close monitoring and care. Oral antibiotics to be sent to Pharmacy. Prednisone taper to be sent as well. F/u in clinic as directed. - Patient Data Vitals - Most Recent: Last Vital Signs Temp 36.6 C 08/23/20 07:30 Pulse 88 08/23/20 07:53 Resp 28 H 08/23/20 07:30 BP 158/88 H 08/23/20 07:53 Pulse Ox 96 08/23/20 07:30 Weight - Most Recent: 117.4 kg I&O - Last 24 hours: Intake & Output 08/22/20 08/23/20 08/23/20 22:59 06:59 14:59 Intake Total 1140 150 Output Total 940 450 Balance 200 -300 Med Orders - Current: Current Medications Acyclovir (Zovirax) 400 mg PO DAILY [facility] Last Admin: 08/23/20 07:54 Dose: 400 mg Documented by: Albuterol/Ipratropium (Duoneb 3.0-0.5 Mg/3 Ml) 3 ml NEB Q4H PRN PRN Reason: Shortness of Breath Last Admin: 08/22/20 14:08 Dose: 3 ml Documented by: Arformoterol Tartrate (Brovana) 15 mcg INH BID [facility] Last Admin: 08/23/20 07:30 Dose: 15 mcg Documented by: Aspirin (Halfprin) 81 mg PO DAILY [facility] Last Admin: 08/23/20 07:54 Dose: 81 mg Documented by: Atorvastatin Calcium (Lipitor) 20 mg PO BEDTIME [facility] Last Admin: 08/22/20 20:31 Dose: 20 mg Documented by: Budesonide (Pulmicort) 0.5 mg NEB BID [facility] Last Admin: 08/23/20 07:44 Dose: 0.5 mg Documented by: Carvedilol (Coreg) 25 mg PO BID [facility] Last Admin: 08/23/20 07:53 Dose: 25 mg Documented by: Ferrous Sulfate (Ferrous Sulfate) 325 mg PO DAILY@0800 [facility] Last Admin: 08/23/20 07:53 Dose: 325 mg Documented by: Furosemide (Lasix) 40 mg IVPUSH DAILY [facility] Last Admin: 08/23/20 07:32 Dose: 40 mg Documented by: Guaifenesin (Mucinex) 600 mg PO BID [facility] Last Admin: 08/23/20 07:55 Dose: 600 mg Documented by: Ceftriaxone Sodium 1 gm/ (Sodium Chloride) 50 mls @ 200 mls/hr IV Q24H [facility] Last Admin: 08/22/20 10:08 Dose: 200 mls/hr Documented by: Azithromycin 500 mg/ Sodium (Chloride) 250 mls @ 250 mls/hr IV Q24H [facility] Last Admin: 08/23/20 07:45 Dose: 250 mls/hr Documented by: Losartan Potassium (Cozaar) 25 mg PO BEDTIME [facility] Last Admin: 08/22/20 20:30 Dose: 25 mg Documented by: Methylprednisolone Sodium Succinate (Solu-Medrol) 40 mg IVPUSH Q12H [facility] Last Admin: 08/22/20 21:17 Dose: 40 mg Documented by: Metolazone (Zaroxolyn) 2.5 mg PO DAILY [facility] Last Admin: 08/23/20 07:54 Dose: 2.5 mg Documented by: Nystatin (Mycostatin) 5 ml PO QID [facility] Last Admin: 08/23/20 07:53 Dose: 5 ml Documented by: Tylenol Pm Caplet (Own Med) 1 each PO BEDTIME [facility] Last Admin: 08/22/20 20:38 Dose: 1 each Documented by: Revefenacin (Yupelri ) 175 Mcg Neb Own Med 1 each NEB DAILY [facility] Last Admin: 08/23/20 08:01 Dose: 1 each Documented by: Sodium Chloride (Saline Flush) 10 ml FLUSH ASDIRECTED PRN PRN Reason: Keep Vein Open Last Admin: 08/22/20 20:38 Dose: 10 ml Documented by: Discontinued Medications Acetaminophen (Tylenol) 650 mg PO Q6H PRN PRN Reason: Pain Stop: 08/18/20 23:59 Aspirin (Halfprin) 81 mg PO BEDTIME [facility] Last Admin: 08/15/20 21:44 Dose: 81 mg Documented by: Atorvastatin Calcium (Lipitor) 20 mg PO DAILY [facility] Last Admin: 08/17/20 15:58 Dose: Not Given Documented by: Atorvastatin Calcium (Lipitor) 20 mg PO DAILY [facility] Atorvastatin Calcium (Lipitor) 20 mg PO DAILY [facility] Atorvastatin Calcium (Lipitor) 20 mg PO BEDTIME [facility] Last Admin: 08/21/20 20:44 Dose: 20 mg Documented by: Atorvastatin Calcium (Lipitor) Confirm Administered Dose 20 mg .ROUTE .STK-MED ONE Stop: 08/19/20 20:12 Last Admin: 08/19/20 20:15 Dose: Not Given Documented by: Atorvastatin Calcium (Lipitor) Confirm Administered Dose 20 mg .ROUTE .STK-MED ONE Stop: 08/20/20 20:17 Last Admin: 08/20/20 20:26 Dose: Not Given Documented by: Atorvastatin Calcium (Lipitor) Confirm Administered Dose 20 mg .ROUTE .STK-MED O NE Stop: 08/21/20 20:40 Last Admin: 08/21/20 21:06 Dose: Not Given Documented by: Azithromycin (Zithromax) 500 mg PO ONETIME ONE Stop: 08/15/20 13:20 Last Admin: 08/15/20 17:22 Dose: Not Given Documented by: Azithromycin (Zithromax) 500 mg PO ONETIME ONE Stop: 08/15/20 17:35 Last Admin: 08/15/20 18:00 Dose: 500 mg Documented by: Carvedilol (Coreg) 25 mg PO BID [facility] Last Admin: 08/16/20 22:52 Dose: Not Given Documented by: Docusate Sodium (Colace) 100 mg PO DAILY PRN PRN Reason: Constipation Stop: 08/18/20 23:59 Ferrous Sulfate (Ferrous Sulfate) 325 mg PO WITHBREAKFAST [facility] Last Admin: 08/16/20 07:59 Dose: 325 mg Documented by: Furosemide (Lasix) 40 mg IVPUSH NOW ONE Stop: 08/15/20 19:42 Last Admin: 08/15/20 19:52 Dose: 40 mg Documented by: Furosemide (Lasix) Confirm Administered Dose 40 mg .ROUTE .STK-MED ONE Stop: 08/15/20 19:45 Last Admin: 08/15/20 19:52 Dose: Not Given Documented by: Furosemide (Lasix) 40 mg PO BID@0800,1300 [facility] Last Admin: 08/16/20 08:45 Dose: Not Given Documented by: Furosemide (Lasix) 40 mg IVPUSH BID [facility] Last Admin: 08/16/20 10:12 Dose: 40 mg Documented by: Furosemide (Lasix) 40 mg IVPUSH BIDDIURETIC [facility] Last Admin: 08/17/20 07:40 Dose: 40 mg Documented by: Ceftriaxone Sodium 1 gm/ (Sodium Chloride) 50 mls @ 100 mls/hr IV ONETIME ONE Stop: 08/15/20 13:47 Last Admin: 08/15/20 16:13 Dose: 100 mls/hr Documented by: Azithromycin 500 mg/ Sodium (Chloride) 250 mls @ 250 mls/hr IV Q24H [facility] Last Admin: 08/17/20 09:21 Dose: 250 mls/hr Documented by: Losartan Potassium (Cozaar) 25 mg PO BEDTIME [facility] Last Admin: 08/15/20 21:48 Dose: 25 mg Documented by: Losartan Potassium (Cozaar) 25 mg PO ONETIME ONE Stop: 08/16/20 20:16 Last Admin: 08/16/20 20:12 Dose: 25 mg Documented by: Methylprednisolone Sodium Succinate (Solu-Medrol) 80 mg IV ONETIME ONE Stop: 08/15/20 14:01 Last Admin: 08/15/20 16:14 Dose: 80 mg Documented by: Methylprednisolone Sodium Succinate (Solu-Medrol) 80 mg IVPUSH ONETIME ONE Stop: 08/15/20 10:06 Last Admin: 08/15/20 21:43 Dose: Not Given Documented by: Methylprednisolone Sodium Succinate (Solu-Medrol) 125 mg IVPUSH Q12H [facility] Last Admin: 08/17/20 04:55 Dose: 125 mg Documented by: Methylprednisolone Sodium Succinate (Solu-Medrol) 80 mg IV BID [facility] Stop: 08/22/20 07:00 Last Admin: 08/21/20 19:55 Dose: 80 mg Documented by: Methylprednisolone Sodium Succinate (Solu-Medrol) Confirm Administered Dose 40 mg .ROUTE .STK-MED ONE Stop: 08/19/20 07:23 Last Admin: 08/19/20 07:38 Dose: Not Given Documented by: Methylprednisolone Sodium Succinate (Solu-Medrol) Confirm Administered Dose 40 mg .ROUTE .STK-MED ONE Stop: 08/22/20 09:26 Last Admin: 08/22/20 19:09 Dose: Not Given Documented by: Methylprednisolone Sodium Succinate (Solu-Medrol) Confirm Administered Dose 40 mg .ROUTE .STK-MED ONE Stop: 08/22/20 19:58 Last Admin: 08/22/20 21:07 Dose: Not Given Documented by: Methylprednisolone Sodium Succinate (Solu-Medrol) Confirm Administered Dose 40 mg .ROUTE .STK-MED ONE Stop: 08/23/20 07:35 Last Admin: 08/23/20 07:54 Dose: Not Given Documented by: Formoterol ( Perforomist) 20 Mcg Own Med 1 each NEB BID [facility] Last Admin: 08/16/20 07:58 Dose: 1 each Documented by: Prednisone (Prednisone) 20 mg PO DAILY [facility] Last Admin: 08/16/20 08:00 Dose: 20 mg Documented by: Prednisone (Prednisone) 20 mg PO DAILY [facility] Last Admin: 08/22/20 09:22 Dose: 20 mg Documented by:
[2020-08-23] MEDS: cefTRIAXone 1 GM in Sodium Chloride 0.9% 50 ML IV SCH (09:28)
[2020-08-23] MEDS: methylPREDNISolone Sodium Succinate 40 MG/1 ML SDV IVPUSH SCH (10:00)
== END 2020-08-23 13:05 | disposition home or self-care (01) | DRG 291 ==
LOC: LB.ED 08:14 → LB.MS 11:21 → OBSVTOIN 08-16 11:01
PROVIDERS: ADMIT Physician Assistant; ATTEND Family Medicine
DX: I50.9 Heart failure, unspecified (principal); J18.9 Pneumonia, unspecified organism; J44.0 Chronic obstructive pulmonary disease with (acute) lower respiratory infection; J44.1 Chronic obstructive pulmonary disease with (acute) exacerbation; M19.90 Unspecified osteoarthritis, unspecified site; M81.0 Age-related osteoporosis without current pathological fracture; Z96.659 Presence of unspecified artificial knee joint; Z88.5 Allergy status to narcotic agent; Z88.0 Allergy status to penicillin; Z88.2 Allergy status to sulfonamides; Z88.6 Allergy status to analgesic agent; Z88.8 Allergy status to other drugs, medicaments and biological substances; Z79.82 Long term (current) use of aspirin; Z79.52 Long term (current) use of systemic steroids; Z79.899 Other long term (current) drug therapy; Z20.828 Contact with and (suspected) exposure to other viral communicable diseases; Z95.5 Presence of coronary angioplasty implant and graft; Z79.01 Long term (current) use of anticoagulants; Z95.2 Presence of prosthetic heart valve; Z87.440 Personal history of urinary (tract) infections; Z90.710 Acquired absence of both cervix and uterus; Z90.49 Acquired absence of other specified parts of digestive tract; Z85.3 Personal history of malignant neoplasm of breast; Z87.891 Personal history of nicotine dependence
CPT/HCPCS: 36415; 71046; 80048; 80053; 83605; 83880; 84484; 85025; 93005; 96365; 96375; 96376; 97161-GP; 97165-GO; 97530-GO; 99221; 99231; 99232; 99238; 99285-25; A9270-GY; G0378; J0456; J0696; J1940; J2920; J2930; J7050; J7512; J7605; J7620-GY; U0002

== ENCOUNTER 2020-09-10 09:09 | Emergency (ER) | payer MEDICARE, BC ==
[2020-09-10 09:50] VITALS: BP 113/60; PULSE 84
[2020-09-10] MEDS ORDERED: Furosemide 40 MG/4 ML VIAL IVPUSH ONE (09:59)
[2020-09-10] MEDS ORDERED: Albuterol/Ipratropium 3.0-0.5 MG/3 ML Neb Soln NEB PRN (09:59)
--- NOTE | 2020-09-10 12:55 | ER ---
REASON FOR EMERGENCY ROOM VISIT: Increasing shortness of breath. HISTORY: This patient has a long history of problems with end-stage COPD, chronic congestive heart failure, and recurrent bouts of pneumonia. She has been treated innumerable times over the past year with bouts of CHF, acute exacerbations of COPD and pneumonia, or various combinations thereof. Today, she was brought in by her son because of increasing shortness of breath and fluid retention. As mentioned above, she had been hospitalized multiple times over the past year for the above-mentioned problems, and she has had expressed a lot of hopelessness and a desire to give up on numerous times in the recent past. On arrival, she was considerably short of breath with O2 sats in the high 80s even on 2.5 L of oxygen per nasal cannula. PAST MEDICAL HISTORY: Significant for: 1. COPD, severe. 2. Congestive heart failure. 3. History of recurrent pneumonia. 4. History of [place]. 5. Osteoporosis. 6. Recent cervical fracture in June. 7. History of cholecystectomy. ALLERGIES: TO CODEINE, PENICILLIN, SULFA, TRAMADOL, AND WARFARIN. MEDICATIONS: Reviewed. Please see EMR. PHYSICAL EXAMINATION: GENERAL: She appeared to be somewhat obtunded, but she did answer questions appropriately. She was obviously having some respiratory distress and was tachypneic. VITAL SIGNS: She was afebrile, heart rate of 84, blood pressure 113/60, O2 sats 86% on 2.5 L of oxygen per nasal cannula. Respiratory rate 32. CHEST: She had shallow inspirations with poor air exchange and diffuse rhonchi and rales. CARDIAC: Regular rate without murmur. ABDOMEN: Soft, nontender. EXTREMITIES: She had dvfariet-ct-vqenoq edema in both lower legs. Her toes were pink but cool. FURTHER EMERGENCY ROOM COURSE: Chest x-ray showed that she has chronic fibrotic changes and some suggestion that she has bilateral diffuse pneumonia on top of that. Shortly after this, plans were made to have her admitted and treat her supportively as we have in the past with DuoNebs, steroids, antibiotics, and supplemental oxygen. Unfortunately, her respiratory effort became increasingly shallow and she quickly lapsed into an agonal respiratory pattern and lost consciousness. Previously, she had advanced directives indicating she was a DNI and DNR, so we did not pursue the matter further. She appeared to be comfortable and eventually, there was no palpable pulse or audible heart sounds. She stopped breathing and was pronounced at 10:25 a.m. Shortly at the moment she , her son had entered the room and he was informed and appraised of the situation. IMPRESSION: 1. Pneumonia secondary to chronic obstructive pulmonary disease. 2. Congestive heart failure. AUGUST/ARAM /[id number]
--- NOTE | 2020-09-10 15:34 | CR ---
DATE OF SERVICE: 09/10/20 CLINICAL DATA: dyspnea AP AND LATERAL CHEST: Comparison is made to a prior exam dated 08/14/20. The patient is status post median sternotomy and heart valve replacement. The heart remains enlarged, unchanged. There is pulmonary vascular congestion and interstitial edema throughout both lungs with progression from the prior exam, consistent with congestive failure. There are also poorly defined ground-glass opacities in both lungs with progression from the prior exam. These may be related to the progressive pulmonary edema. Bilateral pneumonia should be considered. Viral pneumonia should be considered. No other interval changes from the prior study. [id number] MTDD
== END 2020-09-10 14:16 | disposition expired ==
LOC: LB.ED 09:09
DX: J18.9 Pneumonia, unspecified organism (principal); J44.9 Chronic obstructive pulmonary disease, unspecified; I50.9 Heart failure, unspecified; I25.2 Old myocardial infarction; Z90.49 Acquired absence of other specified parts of digestive tract; Z88.0 Allergy status to penicillin; Z88.5 Allergy status to narcotic agent; Z88.8 Allergy status to other drugs, medicaments and biological substances
CPT/HCPCS: 71046; 99285-25; J7620-GY; U0002